=== PATIENT | female | born 1945 | race Caucasian/White ===

== ENCOUNTER 2017-07-19 14:20 | Emergency (ER) | payer MEDICARE, OTHER, SELFPAY ==
[2017-07-19 14:26] VITALS: BP 141/60; PULSE 98; RESP 22; TEMP 36.7; O2SAT 97
--- NOTE | 2017-07-19 14:30 | ED_ITS ---
HPI - Chest Pain General Chief Complaint: Chest Pain Stated Complaint: afib Time Seen by Provider: 07/19/17 14:30 Source: patient Mode of arrival: ambulatory Limitations: no limitations History of Present Illness HPI narrative: 72-year-old female here for evaluation of palpitations. Patient states that she has had these in the past. Was admitted to [facility] for these over the weekend. Had a exercise stress test and observed and also had an echocardiogram during this stay. She states that she was told everything was okay. Was discharged home. Was not given any medications. She states that she was admitted because she was having symptoms of lightheadedness and intermittent chest pain. Patient states that she has been on atenolol many years ago for similar symptoms. Is not currently on this medication. Related Data Home Medications Medication Instructions Recorded Confirmed albuterol sulfate [Ventolin HFA] 2 puff INH Q4HP PRN #0 10/27/16 07/15/17 aspirin 81 mg PO QDAY #0 10/27/16 07/15/17 cholecalciferol (vitamin D3) 2,000 unit PO QDAY #0 10/27/16 07/15/17 [Vitamin D3] estradiol [Estrace] 0 gm VAGINAL HS #0 10/27/16 07/15/17 fluticasone 1 spray INTRANASAL QDAY #0 10/27/16 07/15/17 multivitamin [Multiple Vitamins] 1 tab PO QDAY #0 10/27/16 07/15/17 omeprazole 40 mg PO QDAY #0 10/27/16 07/15/17 ranitidine HCl [Zantac] 300 mg PO QDAY #0 10/27/16 07/15/17 sodium chloride [Destiny 128] 1 melissa OPHTH #0 10/27/16 07/15/17 rosuvastatin [Crestor] #0 12/08/16 07/15/17 Previous Rx's Medication Instructions Recorded losartan 25 mg PO QDAY #90 tab 12/19/16 budesonide [Pulmicort Flexhaler] 1 puff INH BID #1 inh 06/12/17 atenolol 25 mg PO DAILY #30 tab 07/19/17 Allergies Allergy/AdvReac Type Severity Reaction Status Date / Time bupropion [From WELLBUTRIN] Allergy Unknown Verified 07/15/17 18:47 erythromycin base Allergy Unknown Verified 07/15/17 18:47 [ERYTHROMYCIN BASE] latex [LATEX] Allergy Unknown Verified 07/15/17 18:47 lisinopril [LISINOPRIL] Allergy Unknown Verified 07/15/17 18:47 meperidine [From DEMEROL] Allergy Unknown Verified 07/15/17 18:47 Review of Systems Constitutional Denies chills, Denies fever(s), Denies lethargy and Denies weakness Cardiovascular Reports chest pain, Denies diaphoresis, Denies syncope, Denies edema, Reports irregular heart rhythm, Denies leg edema, Reports lightheadedness, Reports palpitations, Denies dyspnea, Denies dyspnea on exertion and Denies orthopnea Respiratory Denies cough, Denies dyspnea, Denies dyspnea on exertion and Denies wheezing Gastrointestinal Gastrointestinal: Denies abdominal pain, Denies change in bowel habits, Denies diarrhea, Denies nausea and Denies vomiting Musculoskeletal Denies back pain, Denies muscle weakness, Denies numbness and Denies tingling Integumentary/Breasts Denies pruritus, Denies erythema, Denies rash and Denies wounds Neurologic Denies syncope, Denies numbness, Denies tingling and Denies weakness Endocrine Reports palpitations Hematologic/Lymphatic Denies easy bruising Allergic/Immunologic Denies wheezing [facility] Surgical History History of cataract removal with insertion of prosthetic lens History of esophagogastroduodenoscopy (EGD) History of knee replacement Status post colonoscopy Status post hysterectomy Status post laparoscopic cholecystectomy Social History Smoking Status: Former smoker Exam Initial Vital Signs Initial Vital Signs: Vital Signs Temperature 98.1 F 07/19/17 14:26 Pulse Rate 98 H 07/19/17 14:26 Respiratory Rate 22 07/19/17 14:26 Blood Pressure 141/60 H 07/19/17 14:26 Pulse Oximetry 97 07/19/17 14:26 Chest Chest: normal inspection of the chest Resp Effort & Inspection: normal respiratory effort, able to speak in complete sentences, no respiratory distress and no use of accessory muscles Auscultation: clear to auscultation bilaterally, no rales, no rhonchi and no wheezes Cardio Rate: regular rate Rhythm: regular rhythm Heart Sounds: no click, no gallops, no murmurs and no rubs Pulses: normal peripheral pulses GI Inspection: non-distended Palpation: soft, no hepatosplenomegaly, No guarding, No pulsatile mass and No tender Skin General: no rashes or lesions noted, No jaundice and No petechiae Neuro General: alert, oriented x3, gait normal and no focal motor deficits Speech: speech normal Motor: strength 5/5 throughout Sensory Exam: no sensory deficits noted Extrem General: normal to inspection, full ROM and capillary refill normal Course Orders Ordered: ED Orders 07/19/17 14:23 EKG-12 Lead Stat 07/19/17 14:41 XR chest 1V Stat 07/19/17 14:43 Complete Blood Count AUTO DIFF Stat Comprehensive Metabolic Panel Stat Lipase Stat Discontinued Medications Atenolol (Tenormin) 25 mg PO NOW ONE Stop: 07/19/17 15:29 Vital Signs - 8 hr 07/19/17 14:26 Temperature 98.1 F Pulse Rate 98 H Respiratory Rate 22 Blood Pressure 141/60 H Pulse Oximetry 97 MDM - Chest Pain Lab Data Attestation: I reviewed the patient's lab results. Result diagrams: 07/19/17 14:43 07/19/17 14:43 Lab Results 07/19/17 07/19/17 Range/Units 14:43 14:43 WBC 16.3 H (4.5-11.0) X10^3/uL RBC 4.49 (4.0-5.2) X10^6/uL Hgb 12.2 (12.0-16.0) g/dL Hct 37.0 (36-46) % MCV 82.3 (80-100) fL MCH 27.1 (26-34) PG MCHC 32.9 (30-36) % RDW 15.2 H (11.6-14.8) % Plt Count 285 (150-400) X10^3/uL Neut % (Auto) 62.8 (50-75) % Lymph % (Auto) 26.1 (25-40) % Gates % (Auto) 8.2 (3-14) % Eos % (Auto) 1.7 L (2-4) % Baso % (Auto) 1.2 (0-2) % Neut # (Auto) 13128 H (7275-4310) /uL Sodium 138 (137-145) mmol/L Potassium 3.7 (3.4-5.1) mmol/L Chloride 102.0 (98-107) mmol/L Carbon Dioxide 23.0 (22-32) mmol/L BUN 15.0 (7-17) mg/dL Creatinine 0.70 (0.52-1.04) mg/dL Estimated GFR > 60.0 (>60) mL/min BUN/Creatinine Ratio 21.4 (6-22) Glucose 139 H (80-110) mg/dL Calcium 9.3 (8.4-10.2) mg/dL Total Bilirubin 0.6 (0.2-1.3) mg/dL AST 23 (14-36) IU/L ALT 25 (9-52) IU/L Alkaline Phosphatase 101 (38-126) U/L Total Protein 8.0 (6.3-8.2) g/dL Albumin 4.3 (3.5-5.0) g/dL Globulin 3.7 (1.7-4.1) g/dL Albumin/Globulin Ratio 1.2 (1.0-2.8) Lipase 87 (23-300) U/L Imaging Data Chest x-ray: Attestation: I personally reviewed and interpreted this imaging study as follows: My impression: No pneumothorax Normal size heart No pneumonia ECG Data Attestation: I personally reviewed and interpreted this ECG as follows: Prior ECG tracings: not available for review Interpretation: Time 1423 hr Sinus rhythm Ventricular rate in 97 Normal axis Normal intervals Normal QRS Normal QTC No ST T wave changes MDM Narrative Medical decision making narrative: Patient had 1 episode of symptoms while here in the emergency department. Review of the rhythm strip during that time shows a sinus rhythm. EKG is unremarkable today. Had an extensive workup within the past 48 hr for her symptoms. I was able to review her echocardiogram which was unremarkable and exercise stress test which was also unremarkable. Patient is here because she continues to be symptomatic when she is having her symptoms. She describes the symptoms as ?trigeminy ?discussed options with patient to include holding on any medications until she sees her primary doctor or helpdesk administrator or starting her back on atenolol which she had been on in the past. She states she would like to start on medications. She was given a 1st dose of atenolol here in the emergency department. She was given risks with regard to this medication. She was given return precautions. She is going to call the helpdesk administrator tomorrow for a follow-up. She expressed understanding and agreement with plan Discharge Plan Departure Patient Disposition: Home, Self-Care Clinical Impression: Heart palpitations Instructions: DI for Palpitations Activity Restrictions/Additional Instructions: Take all of your medication as instructed. Call the helpdesk administrator office tomorrow to discuss follow-up. Return to the emergency department for any new or worsening symptoms Prescriptions: New atenolol 25 mg tablet 25 mg PO DAILY Qty: 30 RF: 0 No Action aspirin 81 MG tablet,chewable 81 mg PO QDAY Qty: 0 RF: 0 multivitamin [Multiple Vitamins] 1 EACH tablet 1 tab PO QDAY Qty: 0 RF: 0 ranitidine HCl [Zantac] 300 MG tablet 300 mg PO QDAY Qty: 0 RF: 0 omeprazole 40 MG capsule,delayed release(DR/EC) 40 mg PO QDAY Qty: 0 RF: 0 albuterol sulfate [Ventolin HFA] 90 MCG/PUFF HFA aerosol inhaler 2 puff INH Q4HP PRNQty: 0 RF: 0 fluticasone 16 GM spray,suspension 1 spray Intranasal QDAY Qty: 0 RF: 0 cholecalciferol (vitamin D3) [Vitamin D3] 2,000 UNIT capsule 2,000 unit PO QDAY Qty: 0 RF: 0 sodium chloride [Destiny 128] 3.5 GM ointment 1 melissa OPHTH Qty: 0 RF: 0 estradiol [Estrace] 0.01 % cream Vaginal HS Qty: 0 RF: 0 rosuvastatin [Crestor] 5 MG tablet Qty: 0 RF: 0 losartan 25 MG tablet 25 mg PO QDAY Qty: 90 RF: 3 budesonide [Pulmicort Flexhaler] 180 MCG aerosol powdr breath activated 1 puff INH BID Qty: 1 RF: 10
--- NOTE | 2017-07-19 14:41 | DI.RAD.S_ITS ---
PROCEDURE: XR CHEST 1V INDICATIONS: Palpitations TECHNIQUE: One view of the chest was acquired. COMPARISON: [facility], CR, XR CHEST 1VW (PORTABLE), 02/09/2016, 11:52. FINDINGS: Surgical changes and devices: None. Lungs and pleura: No pleural effusions or pneumothorax. Lungs are clear. Mediastinum: Mediastinal contours appear normal. Heart size is normal. Bones and chest wall: No suspicious bony lesions. Overlying soft tissues appear unremarkable. IMPRESSION: 1. No acute cardiopulmonary disease. Dictated by: Jama Choudhary M.D. on 07/19/2017 at 15:55 Approved by: Jama Choudhary M.D. on 07/19/2017 at 15:55
[2017-07-19 14:50] LABS: Add Manual Diff / Slide Review NO; Basophils Percent Auto 1.2 % (0-2); Eosinophils Percent Auto 1.7 % (2-4); Hemoglobin 12.2 g/dL (12.0-16.0); Lymphocytes Percent Auto 26.1 % (25-40); Mean Corpuscular HGB Conc 32.9 % (30-36); Mean Corpuscular Hemoglobin 27.1 PG (26-34); Mean Corpuscular Volume 82.3 fL (80-100); Monocytes Percent Auto 8.2 % (3-14); Neutrophils Absolute Auto 10200 /uL (3000-5900); Neutrophils Percent Auto 62.8 % (50-75); Platelet Count 285 X10^3/uL (150-400); Red Blood Cell Count 4.49 X10^6/uL (4.0-5.2); Red Cell Distribution Width 15.2 % (11.6-14.8); White Blood Cell Count 16.3 X10^3/uL (4.5-11.0)
[2017-07-19 14:52] LABS: Alanine Aminotransferase 25 IU/L (9-52); Albumin 4.3 g/dL (3.5-5.0); Albumin Globulin Ratio 1.2 (1.0-2.8); Alkaline Phosphatase 101 U/L (38-126); Aspartate Aminotransferase 23 IU/L (14-36); BUN Creatinine Ratio 21.4 (6-22); Bilirubin Total 0.6 mg/dL (0.2-1.3); Calcium 9.3 mg/dL (8.4-10.2); Estimated Glomerular Filt Rate > 60.0 mL/min (>60); Globulin 3.7 g/dL (1.7-4.1); Glucose 139 mg/dL (80-110); HEMOLYSIS 26 (0-50); Lipase 87 U/L (23-300); Potassium 3.7 mmol/L (3.4-5.1); Sodium 138 mmol/L (137-145)
[2017-07-19] MEDS: ATENOLOL 25 MG TABLET PO (15:37)
[2017-07-19 15:56] VITALS: BP 150/58; PULSE 95; RESP 14; O2SAT 98
[2017-07-19 16:23] VITALS: BP 155/67; PULSE 75; RESP 15; O2SAT 98
== END 2017-07-19 16:25 | disposition home or self-care (01) ==
PROVIDERS: Emergency Provider Emergency Medicine; Family Provider Physician Assistant; PCP Family Medicine
DX: R00.2 Palpitations (principal)
CPT/HCPCS: 36591; 71045; 80053; 83690; 85025; 93005; 93041; 99283; 99285

== ENCOUNTER 2017-07-20 20:00 | Emergency (ER) | payer MEDICARE, OTHER, SELFPAY ==
[2017-07-20 20:12] VITALS: BP 118/80; PULSE 85; RESP 16; O2SAT 99
[2017-07-20 20:57] LABS: Add Manual Diff / Slide Review NO; Basophils Percent Auto 1.5 % (0-2); Eosinophils Percent Auto 2.2 % (2-4); Hematocrit 37.1 % (36-46); Lymphocytes Percent Auto 32.4 % (25-40); Mean Corpuscular HGB Conc 32.3 % (30-36); Mean Corpuscular Hemoglobin 26.8 PG (26-34); Mean Corpuscular Volume 83.1 fL (80-100); Monocytes Percent Auto 8.3 % (3-14); Neutrophils Absolute Auto 7700 /uL (3000-5900); Neutrophils Percent Auto 55.6 % (50-75); Platelet Count 363 X10^3/uL (150-400); Red Blood Cell Count 4.47 X10^6/uL (4.0-5.2); White Blood Cell Count 13.9 X10^3/uL (4.5-11.0)
[2017-07-20] MEDS: SODIUM CHLORIDE 0.9% 1,000 ML 1000 ML IV (21:02)
[2017-07-20] MEDS: MAGNESIUM SULFATE 2 GM/50 ML PIGGYBACK IV (21:02)
[2017-07-20 21:03] LABS: BUN Creatinine Ratio 21.3 (6-22); Calcium 9.5 mg/dL (8.4-10.2); Estimated Glomerular Filt Rate > 60.0 mL/min (>60); Glucose 138 mg/dL (80-110); Magnesium 1.8 mg/dL (1.6-2.3); Sodium 139 mmol/L (137-145)
[2017-07-20 21:04] LABS: HEMOLYSIS 108 (0-50)
[2017-07-20 21:24] LABS: Free T4, Direct Thyroxine 1.07 ng/dL (0.78-2.19)
[2017-07-20 21:57] VITALS: BP 120/64; PULSE 84; RESP 17; O2SAT 98
--- NOTE | 2017-07-20 22:25 | ED_ITS ---
HPI - Arrhythmia/Palpitations General Chief Complaint: Arrhythmia/Palpitations Stated Complaint: Palpitations Time Seen by Provider: 07/20/17 20:03 History of Present Illness HPI narrative: HPI 72-year-old female presents for repeat evaluation of palpitations. Patient notes that when her palpitations are prominent she has mild lightheadedness/ shortness of breath on ambulation. Patient was evaluated at [facility] over the preceding weekend with a reportedly negative stress test an echocardiogram. She was evaluated in this emergency department yesterday and noted to be and bigeminy with PACs. She is now on a low-dose of atenolol. Patient is frustrated about the persistent palpitations and would like to have them stopped. Denies chest pain, shortness breath. M/S/F/SocHx notable for: knee replacement, historically, cholecystectomy cataract removal with prosthetic lens insertion; remainder reviewed with patient and in chart. ROS: Negative constitutional, eye, cardiovascular, pulmonary, GI, , MSK, skin , neurologic, psychiatric, endocrine unless noted in the HPI. Exam Gen: Pleasant, non-toxic appearing, resting comfortably. HEENT: NC, AT, PEERL, EOMI. Resp: Clear to auscultation bilaterally, normal work of breathing, no accessory muscle usage. Card: Regular rate, no murmurs rubs or gallops, extremities warm and well perfused. GI: Non-tender to palpation throughout all quadrants, no focal tenderness at McBurney's point, negative Keller's sign, non-distended, no rebound or guarding. : No suprapubic tenderness to palpation. MSK: No visible deformities, strength and tone without visually appreciable deficit. Skin: Normal color with no visible lesions. Neuro: AO x 3, no facial asymmetry, vision and hearing WNL. Psych: Mood and affect appropriate. Labs / Imaging: EKG: SR at 80 bpm with PACs and bigeminy, no ST segment elevations or depressions, no LBBB. WBC 13.9, hemoglobin 12.0, sodium 139, potassium hemolyzed, magnesium 1.8, TSH 3.10, free T4 1.07 MDM Previous chart, nursing note, labs, imaging, and vitals reviewed. A: 72-year-old female presents for repeat evaluation of palpitations. Patient notes that when her palpitations are prominent she has mild lightheadedness/ shortness of breath on ambulation. Evaluation: patient with ongoing PACs in a bigeminy pattern. Patient has stable blood pressure, well perfused, no evidence of end organ dysfunction. Reassuringly the patient has had a recent negative cardiac evaluation including a stress test and an echo. The patient was ambulated throughout the emergency department without developing symptomatology. While an appropriate physiologic tachycardia the patient reverted to a sinus rhythm, while resting she returned to bigeminy with PACs and noted a resumption of her palpitations. Rounding out labs with the addition of magnesium and thyroid studies, these are within normal limits. While the patient's potassium was hemolyzed today it has been within normal limits on all prior studies including labs yesterday. The patient is a nonspecific leukocytosis which is downtrending and she is without signs of infection. The patient was given normal saline and 2 g magnesium without significant change. Patient was discharged with reassurance and cardiology follow-up as previously scheduled. Impression: PACs (please reference below for remainder of encounter information) Related Data Home Medications Medication Instructions Recorded Confirmed albuterol sulfate [Ventolin HFA] 2 puff INH Q4HP PRN #0 10/27/16 07/15/17 aspirin 81 mg PO QDAY #0 10/27/16 07/15/17 cholecalciferol (vitamin D3) 2,000 unit PO QDAY #0 10/27/16 07/15/17 [Vitamin D3] estradiol [Estrace] 0 gm VAGINAL HS #0 10/27/16 07/15/17 fluticasone 1 spray INTRANASAL QDAY #0 10/27/16 07/15/17 multivitamin [Multiple Vitamins] 1 tab PO QDAY #0 10/27/16 07/15/17 omeprazole 40 mg PO QDAY #0 10/27/16 07/15/17 ranitidine HCl [Zantac] 300 mg PO QDAY #0 10/27/16 07/15/17 sodium chloride [Destiny 128] 1 melissa OPHTH #0 10/27/16 07/15/17 rosuvastatin [Crestor] #0 12/08/16 07/15/17 Previous Rx's Medication Instructions Recorded losartan 25 mg PO QDAY #90 tab 12/19/16 budesonide [Pulmicort Flexhaler] 1 puff INH BID #1 inh 06/12/17 atenolol 25 mg PO DAILY #30 tab 07/19/17 Allergies Allergy/AdvReac Type Severity Reaction Status Date / Time bupropion [From WELLBUTRIN] Allergy Unknown Verified 07/15/17 18:47 erythromycin base Allergy Unknown Verified 07/15/17 18:47 [ERYTHROMYCIN BASE] latex [LATEX] Allergy Unknown Verified 07/15/17 18:47 lisinopril [LISINOPRIL] Allergy Unknown Verified 07/15/17 18:47 meperidine [From DEMEROL] Allergy Unknown Verified 07/15/17 18:47 [facility] Social History Smoking Status: Former smoker Exam Initial Vital Signs Initial Vital Signs: Vital Signs Pulse Rate 85 07/20/17 20:12 Respiratory Rate 16 07/20/17 20:12 Blood Pressure 118/80 07/20/17 20:12 Pulse Oximetry 99 07/20/17 20:12 Course Orders Ordered: ED Orders 07/20/17 19:50 Basic Metabolic Panel Stat Complete Blood Count AUTO DIFF Stat Free T4 Free Thyroxine Stat Magnesium Stat Thyroid Stimulating Hormone Stat Magnesium Sulfate (Magnesium Sulfate) 2 gm in 50 mls @ 25 mls/hr IV NOW ONE Stop: 07/20/17 22:47 Last Admin: 07/20/17 21:02 Dose: 25 mls/hr Discontinued Medications Sodium Chloride (Normal Saline 0.9%) 1,000 mls @ 1,000 mls/hr IV BOLUS ONE Stop: 07/20/17 21:46 Last Admin: 07/20/17 21:02 Dose: 1,000 mls/hr Vital Signs - 8 hr 07/20/17 20:12 07/20/17 21:57 Pulse Rate 85 84 Respiratory Rate 16 17 Blood Pressure 118/80 Blood Pressure [Left Arm] 120/64 Pulse Oximetry 99 98 MDM - Arrhythmia/Palpitations Lab Data Result diagrams: 07/20/17 19:50 07/20/17 19:50 Lab Results 07/20/17 07/20/17 07/20/17 Range/Units 19:50 19:50 19:50 WBC 13.9 H (4.5-11.0) X10^3/uL RBC 4.47 (4.0-5.2) X10^6/uL Hgb 12.0 (12.0-16.0) g/dL Hct 37.1 (36-46) % MCV 83.1 (80-100) fL MCH 26.8 (26-34) PG MCHC 32.3 (30-36) % RDW 15.0 H (11.6-14.8) % Plt Count 363 (150-400) X10^3/uL Neut % (Auto) 55.6 (50-75) % Lymph % (Auto) 32.4 (25-40) % [place] % (Auto) 8.3 (3-14) % Eos % (Auto) 2.2 (2-4) % Baso % (Auto) 1.5 (0-2) % Neut # (Auto) 7700 H (7020-8107) /uL Sodium 139 (137-145) mmol/L Potassium TNP Chloride 102.0 (98-107) mmol/L Carbon Dioxide 24.0 (22-32) mmol/L BUN 17.0 (7-17) mg/dL Creatinine 0.80 (0.52-1.04) mg/dL Estimated GFR > 60.0 (>60) mL/min BUN/Creatinine Ratio 21.3 (6-22) Glucose 138 H (80-110) mg/dL Calcium 9.5 (8.4-10.2) mg/dL Magnesium 1.8 (1.6-2.3) mg/dL TSH 3.10 (0.47-4.68) uIU/mL Free T4 1.07 (0.78-2.19) ng/dL Discharge Plan Departure Prescriptions: No Action aspirin 81 MG tablet,chewable 81 mg PO QDAY Qty: 0 RF: 0 multivitamin [Multiple Vitamins] 1 EACH tablet 1 tab PO QDAY Qty: 0 RF: 0 ranitidine HCl [Zantac] 300 MG tablet 300 mg PO QDAY Qty: 0 RF: 0 omeprazole 40 MG capsule,delayed release(DR/EC) 40 mg PO QDAY Qty: 0 RF: 0 albuterol sulfate [Ventolin HFA] 90 MCG/PUFF HFA aerosol inhaler 2 puff INH Q4HP PRNQty: 0 RF: 0 fluticasone 16 GM spray,suspension 1 spray Intranasal QDAY Qty: 0 RF: 0 cholecalciferol (vitamin D3) [Vitamin D3] 2,000 UNIT capsule 2,000 unit PO QDAY Qty: 0 RF: 0 sodium chloride [Destiny 128] 3.5 GM ointment 1 melissa OPHTH Qty: 0 RF: 0 estradiol [Estrace] 0.01 % cream Vaginal HS Qty: 0 RF: 0 rosuvastatin [Crestor] 5 MG tablet Qty: 0 RF: 0 losartan 25 MG tablet 25 mg PO QDAY Qty: 90 RF: 3 budesonide [Pulmicort Flexhaler] 180 MCG aerosol powdr breath activated 1 puff INH BID Qty: 1 RF: 10 atenolol 25 mg tablet 25 mg PO DAILY Qty: 30 RF: 0
[2017-07-20 23:22] VITALS: BP 110/52; PULSE 84; RESP 18; TEMP 36.8; O2SAT 98
== END 2017-07-20 23:23 | disposition home or self-care (01) ==
PROVIDERS: Emergency Provider Emergency Medicine; Family Provider Physician Assistant; PCP Family Medicine
DX: I49.1 Atrial premature depolarization (principal)
CPT/HCPCS: 80048; 83735; 84439; 84443; 85025; 93005; 96361; 96365; 96366; 99282; 99284

== ENCOUNTER → 2017-11-04 08:21 | Outpatient (CLI) | payer MEDICARE, OTHER, SELFPAY ==
[2017-11-04 09:41] LABS: Hemoglobin A1C% w Est Avg Glu 6.8 % (4.0-6.0)
[2017-11-04 10:09] LABS: Creatinine Urine Random 83.8 mg/dL
[2017-11-04 10:12] LABS: Alanine Aminotransferase 25 IU/L (9-52); Albumin 3.8 g/dL (3.5-5.0); Albumin Globulin Ratio 1.3 (1.0-2.8); Alkaline Phosphatase 80 U/L (38-126); Aspartate Aminotransferase 16 IU/L (14-36); BUN Creatinine Ratio 13.3 (6-22); Bilirubin Total 0.3 mg/dL (0.2-1.3); Blood Urea Nitrogen 12 mg/dL (7-17); Calcium 9.2 mg/dL (8.4-10.2); Carbon Dioxide 30 mmol/L (22-32); Chloride 104 mmol/L (98-107); Cholesterol 169 mg/dL (140-199); Estimated Glomerular Filt Rate > 60.0 mL/min (>60); Globulin 2.9 g/dL (1.7-4.1); Glucose 161 mg/dL (80-110); HDL Cholesterol 60 mg/dL (40-60); HEMOLYSIS < 15 (0-50); LDL Cholesterol Calculated 74 mg/dL (<100); Potassium 4.6 mmol/L (3.4-5.1); Sodium 144 mmol/L (137-145); Total Protein 6.7 g/dL (6.3-8.2); Triglycerides 174 mg/dL (35-150)
[2017-11-04 10:13] LABS: Microalbumi Creatinin Ratio Ur 65.6 ug/mg CR (<30); Microalbumin Urine Random 5.5 mg/dL (0-1.6)
== END ==
PROVIDERS: PCP Family Medicine; Visit Provider Family Medicine
DX: E78.5 Hyperlipidemia, unspecified (principal); I10 Essential (primary) hypertension; E66.9 Obesity, unspecified; E11.9 Type 2 diabetes mellitus without complications
CPT/HCPCS: 36415; 80053; 80061; 82043; 82570; 83036

== ENCOUNTER → 2017-11-30 12:14 | Outpatient (CLI) | payer MEDICARE, OTHER, SELFPAY ==
[2017-11-30 13:00] LABS: Hemoglobin A1C% w Est Avg Glu 6.6 % (4.0-6.0)
== END ==
PROVIDERS: Family Provider Physician Assistant; PCP Family Medicine; Visit Provider Internal Medicine Cardiovascular Disease
DX: I10 Essential (primary) hypertension (principal); E11.9 Type 2 diabetes mellitus without complications
CPT/HCPCS: 36415; 83036

== ENCOUNTER → 2017-12-01 13:43 | Outpatient (CLI) | payer MEDICARE, OTHER, SELFPAY ==
[2017-12-01 15:05] LABS: BUN Creatinine Ratio 16.3 (6-22); Blood Urea Nitrogen 13 mg/dL (7-17); Calcium 9.5 mg/dL (8.4-10.2); Carbon Dioxide 28 mmol/L (22-32); Chloride 103 mmol/L (98-107); Estimated Glomerular Filt Rate > 60.0 mL/min (>60); Glucose 102 mg/dL (80-110); HEMOLYSIS < 15 (0-50); Potassium 4.1 mmol/L (3.4-5.1); Sodium 141 mmol/L (137-145)
== END ==
PROVIDERS: PCP Family Medicine; Visit Provider Internal Medicine Cardiovascular Disease
DX: I10 Essential (primary) hypertension (principal)
CPT/HCPCS: 36415; 80048

== ENCOUNTER → 2018-02-01 07:57 | Outpatient (CLI) | payer MEDICARE, OTHER, SELFPAY ==
[2018-02-01 09:06] LABS: Hemoglobin A1C% w Est Avg Glu 6.7 % (4.0-6.0)
== END ==
PROVIDERS: PCP Family Medicine; Visit Provider Family Medicine
DX: E11.9 Type 2 diabetes mellitus without complications (principal)
CPT/HCPCS: 36415; 83036

== ENCOUNTER → 2018-02-15 13:04 | Outpatient (CLI) | payer MEDICARE, OTHER, SELFPAY ==
--- NOTE | 2018-02-15 13:06 | DI.RAD.S_ITS ---
PROCEDURE: XR HIP W PEL IF DONE LT MIN 4V INDICATIONS: RIGHT hip pain TECHNIQUE: AP pelvis with lateral view(s) of the right and left hip(s). COMPARISON: [facility], , ABDOMEN 1 VIEW, 09/30/2016, 10:38. FINDINGS: Bones: No fractures or dislocations. Pelvic ring appears intact. No suspicious bony lesions. Mild to moderate bilateral hip joint degeneration probably unchanged since 09/30/16. Lower lumbar degenerative disc disease. Soft tissues: The visualized bowel gas pattern is normal. Nonspecific left-sided pelvic ossification appears grossly unchanged. There are scattered vascular calcifications. IMPRESSION: Mild to moderate bilateral hip joint degeneration. No interval change. Lower lumbar discogenic changes. Dictated by: Hansel Guerra M.D. on 02/15/2018 at 14:44 Approved by: Hansel Guerra M.D. on 02/15/2018 at 14:47
== END ==
PROVIDERS: PCP Family Medicine; Visit Provider Physician Assistant
DX: M25.551 Pain in right hip (principal); M16.0 Bilateral primary osteoarthritis of hip; M51.36 Other intervertebral disc degeneration, lumbar region
CPT/HCPCS: 73522

== ENCOUNTER → 2018-05-09 12:42 | Outpatient (CLI) | payer MEDICARE, OTHER, SELFPAY ==
[2018-05-09 13:08] LABS: Influenza A and B by PCR Rapid Negative (Negative)
--- NOTE | 2018-05-09 13:27 | DI.RAD.S_ITS ---
PROCEDURE: XR CHEST 2V INDICATIONS: R/O PNA TECHNIQUE: 2 views of the chest were acquired. COMPARISON: [facility], CR, CHEST 2VW, 01/31/2016, 9:15 AM. [facility], CT, CHEST ANGIO-PE, 06/24/2013, 22:19. [facility], CR, XR CHEST 1V, 07/19/2017, 14:57. FINDINGS: Surgical changes and devices: Question right upper lobe pulmonary nodule. Lungs and pleura: Lungs are clear. No pleural effusions or pneumothorax. Mediastinum: Mediastinal contours are normal. Heart size is normal. Bones and chest wall: No suspicious bony abnormalities. Soft tissues appear unremarkable. IMPRESSION: 1. No evidence of pneumonia. 2. Question right upper lobe pulmonary nodule. Comment: Chest CT is suggested. The on-call physician has been paged by the referring practice's paging welding machine operator regarding this patient. Dictated by: Chuy Lee M.D. on 05/09/2018 at 14:25 Approved by: Chuy Lee M.D. on 05/09/2018 at 14:33
== END ==
PROVIDERS: PCP Family Medicine; Visit Provider Physician Assistant
DX: J45.901 Unspecified asthma with (acute) exacerbation (principal); R50.9 Fever, unspecified
CPT/HCPCS: 71046; 87400

== ENCOUNTER → 2018-05-11 13:39 | Outpatient (CLI) | payer MEDICARE, OTHER, SELFPAY | PROVIDERS: PCP Family Medicine; Visit Provider Physician Assistant | DX: N39.0 Urinary tract infection, site not specified (principal) | CPT/HCPCS: 87077; 87086; 87186 ==

== ENCOUNTER → 2018-06-10 16:24 | Outpatient (CLI) | payer MEDICARE, OTHER, SELFPAY ==
[2018-06-10 16:30] LABS: RBC Urine None Seen (0-5/HPF)
[2018-06-10 17:05] LABS: Appearance Urine UA CLEAR; Bilirubin Urine UA NEGATIVE (NEGATIVE); Color Urine UA YELLOW; Glucose Urine UA NEGATIVE (Negative); Ketones Urine UA TRACE (NEGATIVE); Leukocyte Esterase Urine UA TRACE (NEGATIVE); Nitrite Urine UA NEGATIVE (Negative); Occult Blood Urine UA NEGATIVE (Negative); Protein Urine UA 1+ (Negative); Specific Gravity Urine UA 1.025 (1.000-1.035); Urobilinogen Urine UA 0.2 E.U./dL (0.2)
[2018-06-10 17:20] LABS: Amorphous Sediment Urine 1+; Squamous Epithelial Cell Urine 1-5 /HPF (0-5/HPF); WBC Urine 30-100/HPF (0-5/HPF)
[2018-06-10 17:21] LABS: Bacteria Urine Many (>30); Culture Indicated Urine Specimen Cultured; Granular Casts Urine 0-1/LPF; Hyaline Casts Urine 1-5/LPF; Mucus Urine 1+ (Negative)
== END ==
PROVIDERS: PCP Family Medicine; Visit Provider Family Medicine
DX: R30.0 Dysuria (principal)
CPT/HCPCS: 81001; 87077; 87086; 87186

== ENCOUNTER → 2018-06-19 11:25 | Outpatient (CLI) | payer MEDICARE, OTHER, SELFPAY | PROVIDERS: PCP Family Medicine; Visit Provider Physician Assistant | DX: R30.0 Dysuria (principal) | CPT/HCPCS: 87077; 87086; 87186 ==

== ENCOUNTER → 2018-06-30 09:09 | Outpatient (CLI) | payer MEDICARE, OTHER, SELFPAY | PROVIDERS: PCP Family Medicine; Visit Provider Family Medicine | DX: N39.0 Urinary tract infection, site not specified (principal) | CPT/HCPCS: 87086 ==

== ENCOUNTER → 2018-07-19 08:42 | Outpatient (CLI) | payer MEDICARE, OTHER, SELFPAY ==
--- NOTE | 2018-07-19 08:47 | DI.CT.S_ITS ---
PROCEDURE: CT KIDNEY URETER BLADDER (KUB) INDICATIONS: KIDNEY STONE, RIGHT FLANK PAIN TECHNIQUE: Noncontrast 5 mm thick sections acquired from the diaphragms to the symphysis. 5 mm thick coronal and sagittal reformats were then performed. For radiation dose reduction, the following was used: automated exposure control, adjustment of mA and/or kV according to patient size. COMPARISON: [facility], CT, KIDNEY/ URETER/BLADDER, 10/23/2016, 20:46. FINDINGS: Image quality: Excellent. Lung bases: Lung bases are clear. Heart size is normal. Small hiatal hernia Urinary system: Both kidneys are normal in size. No kidney stones. No hydronephrosis. There is mild chronic appearing bilateral perinephric fat stranding. Both ureters appear non-dilated throughout their expected courses. On image 76 series 2 there is punctate hyperdensity seen in the region of the right ureter although this may be extraluminal given the absence of periureteral inflammatory changes or dilatation. Bladder wall thickness is normal; no calcified bladder stones. Other solid organs: Liver is normal in size. Gallbladder surgically absent. Pancreas is normal in contours. Spleen is normal in size. No adrenal nodules. Peritoneum and bowel: Unenhanced bowel loops demonstrate normal wall thickness and caliber. No free fluid or air. Colonic diverticulosis is seen without evidence of acute complication. Appendix is not clearly identified however no suspicious pericecal inflammatory changes are identified Nodes and vessels: No retroperitoneal or mesenteric adenopathy by size criteria. Aorta and inferior vena cava are normal in caliber. Abdominal wall: No ventral hernias. Pelvis: No free pelvic fluid. No inguinal hernias or adenopathy. Bones: No suspicious bony lesions. No vertebral body compression fractures. Grade 1 anterolisthesis of L4 and L5. IMPRESSION: No definite urolithiasis. Subtle punctate hyperdensity seen in the region of the right ureter as detailed above although this could be extraluminal given the absence of inflammatory changes. No evidence of urinary obstruction. Small hiatal hernia. Dictated by: Hansel Guerra M.D. on 07/19/2018 at 10:52 Approved by: Hansel Guerra M.D. on 07/19/2018 at 11:07
== END ==
PROVIDERS: PCP Family Medicine; Visit Provider Specialist
DX: N20.0 Calculus of kidney (principal); K44.9 Diaphragmatic hernia without obstruction or gangrene
CPT/HCPCS: 74176

== ENCOUNTER → 2018-09-01 07:13 | Outpatient (CLI) | payer MEDICARE, OTHER, SELFPAY ==
[2018-09-01 08:38] LABS: Hemoglobin A1C% w Est Avg Glu 6.2 % (4.0-6.0)
== END ==
PROVIDERS: PCP Family Medicine; Visit Provider Family Medicine
DX: E11.9 Type 2 diabetes mellitus without complications (principal); N20.0 Calculus of kidney
CPT/HCPCS: 36415; 83036

== ENCOUNTER 2018-09-06 10:46 | Emergency (ER) | payer OTHER, MEDICARE, SELFPAY ==
[2018-09-06 10:49] VITALS: BP 160/58; PULSE 70; RESP 12; TEMP 36.3; O2SAT 98
[2018-09-06] MEDS: ACETAMINOPHEN 325 MG TABLET 975 MG PO (10:56)
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
[2018-09-06 13:39] VITALS: BP 154/57; PULSE 57; RESP 16; O2SAT 100
== END 2018-09-06 13:50 | disposition home or self-care (01) ==
PROVIDERS: Emergency Provider Nurse Practitioner; PCP Family Medicine
DX: S13.4XXA Sprain of ligaments of cervical spine, initial encounter (principal); V43.02XA Car driver injured in collision with other type car in nontraffic accident, initial encounter
CPT/HCPCS: 72125; 99283; 99284

== ENCOUNTER → 2018-10-13 07:41 | Outpatient (CLI) | payer MEDICARE, OTHER, SELFPAY ==
--- NOTE | 2018-10-13 | DI.MG.S_ITS ---
BILATERAL DIGITAL SCREENING MAMMOGRAM 3D/2D WITH CAD: 10/13/2018 CLINICAL: Routine screening. Comparison is made to exams dated: 04/29/2017 mammogram - [facility], 01/23/2016 mammogram, and 11/09/2014 mammogram - [facility]. There are scattered fibroglandular elements in both breasts. Current study was also evaluated with a Computer Aided Detection (CAD) system. No significant masses, calcifications, or other findings are seen in either breast. There has been no significant interval change. IMPRESSION: NEGATIVE There is no mammographic evidence of malignancy. A 1 year screening mammogram is recommended. This exam was interpreted at Station ID: [id number]. NOTE: For mammograms, a report in lay terms will be sent to the patient. Approximately 15% of breast malignancies will not be visualized mammographically. In the management of a palpable breast mass, a negative mammogram must not discourage biopsy of a clinically suspicious lesion. Electronically Signed By: Tita mansfield/musa:10/13/2018 10:39:25 letter sent: Normal Exam ACR BI-RADS Category 1: Negative [id number]
== END ==
PROVIDERS: PCP Family Medicine; Visit Provider Family Medicine
DX: Z12.31 Encounter for screening mammogram for malignant neoplasm of breast (principal)
CPT/HCPCS: 77063; 77067

== ENCOUNTER → 2018-11-23 11:29 | Outpatient (CLI) | payer MEDICARE, OTHER, SELFPAY ==
[2018-11-23 13:08] LABS: B Type Natriuretic Peptide < 100 (<100)
[2018-11-23 13:10] LABS: Add Manual Diff / Slide Review NO; Basophils Absolute Auto 100 /uL (0-100); Basophils Percent Auto 1.5 % (0-2); Eosinophils Absolute Auto 300 /uL (0-450); Eosinophils Percent Auto 2.6 % (2-4); Hematocrit 26.3 % (36-46); Hemoglobin 8.1 g/dL (12.0-16.0); Lymphocytes Absolute Auto 3000 /uL (1100-4500); Lymphocytes Percent Auto 30.8 % (25-40); Mean Corpuscular HGB Conc 30.9 % (30-36); Mean Corpuscular Hemoglobin 20.5 PG (26-34); Mean Corpuscular Volume 66.3 fL (80-100); Monocytes Absolute Auto 700 /uL (0-900); Neutrophils Absolute Auto 5600 /uL (1500-7000); Neutrophils Percent Auto 58.1 % (50-75); Platelet Count 438 X10^3/uL (150-400); Red Blood Cell Count 3.96 X10^6/uL (4.0-5.2); Red Cell Distribution Width 19.9 % (11.6-14.8); White Blood Cell Count 9.7 X10^3/uL (4.5-11.0)
[2018-11-23 13:31] LABS: Anisocytosis 1+; Microcytosis 2+
[2018-11-23 15:04] LABS: HEMOLYSIS < 15 (0-50); Iron 25 ug/dL (37-170)
[2018-11-23 15:15] LABS: Percent Iron Saturation 6 % (15-50); Total Iron Binding Capacity 450 ug/dL (265-497); Transferrin 378 mg/dL (206-381)
== END ==
PROVIDERS: PCP Family Medicine; Visit Provider Hospitalist
DX: R06.00 Dyspnea, unspecified (principal); R06.02 Shortness of breath; D64.9 Anemia, unspecified
CPT/HCPCS: 36415; 83540; 83550; 83880; 85025

== ENCOUNTER → 2018-11-26 12:14 | Outpatient (CLI) | payer MEDICARE, OTHER, SELFPAY ==
[2018-11-26 14:34] LABS: Occult Blood 1 Negative (Negative)
[2018-11-26 14:35] LABS: Occult Blood 2 Negative (Negative); Occult Blood 3 Negative (Negative)
== END ==
PROVIDERS: PCP Family Medicine; Visit Provider Hospitalist
DX: D64.9 Anemia, unspecified (principal)
CPT/HCPCS: 82270

== ENCOUNTER → 2018-12-02 10:41 | Outpatient (CLI) | payer MEDICARE, OTHER, SELFPAY ==
[2018-12-02 12:05] LABS: Add Manual Diff / Slide Review NO; Basophils Absolute Auto 200 /uL (0-100); Basophils Percent Auto 1.8 % (0-2); Eosinophils Absolute Auto 300 /uL (0-450); Eosinophils Percent Auto 3.4 % (2-4); Hematocrit 27.7 % (36-46); Hemoglobin 8.5 g/dL (12.0-16.0); Lymphocytes Absolute Auto 2500 /uL (1100-4500); Lymphocytes Percent Auto 27.3 % (25-40); Mean Corpuscular HGB Conc 30.7 % (30-36); Mean Corpuscular Hemoglobin 20.2 PG (26-34); Mean Corpuscular Volume 66.1 fL (80-100); Monocytes Absolute Auto 700 /uL (0-900); Monocytes Percent Auto 7.2 % (3-14); Neutrophils Absolute Auto 5600 /uL (1500-7000); Neutrophils Percent Auto 60.3 % (50-75); Platelet Count 506 X10^3/uL (150-400); Red Cell Distribution Width 19.7 % (11.6-14.8); White Blood Cell Count 9.3 X10^3/uL (4.5-11.0)
[2018-12-02 12:07] LABS: Prothrombin Time 11.9 SECONDS (10.1-12.7)
[2018-12-02 12:25] LABS: HEMOLYSIS < 15 (0-50); Iron 18 ug/dL (37-170)
[2018-12-02 12:28] LABS: Alanine Aminotransferase 14 IU/L (9-52); Albumin 4.2 g/dL (3.5-5.0); Albumin Globulin Ratio 1.4 (1.0-2.8); Alkaline Phosphatase 91 U/L (38-126); Aspartate Aminotransferase 18 IU/L (14-36); BUN Creatinine Ratio 27.5 (6-22); Bilirubin Total 0.3 mg/dL (0.2-1.3); Blood Urea Nitrogen 22 mg/dL (7-17); Calcium 9.6 mg/dL (8.4-10.2); Carbon Dioxide 23 mmol/L (22-32); Chloride 102 mmol/L (98-107); Estimated Glomerular Filt Rate > 60.0 mL/min (>60); Globulin 3.1 g/dL (1.7-4.1); Glucose 96 mg/dL (80-110); HEMOLYSIS < 15 (0-50); Lactate Dehydrogenase 367 U/L (313-618); Potassium 4.2 mmol/L (3.4-5.1); Sodium 139 mmol/L (137-145); Total Protein 7.3 g/dL (6.3-8.2)
[2018-12-02 12:37] LABS: Percent Iron Saturation 4 % (15-50); Total Iron Binding Capacity 475 ug/dL (265-497); Transferrin 396 mg/dL (206-381)
[2018-12-02 12:45] LABS: Hypochromasia 2+; Microcytosis 2+
[2018-12-02 12:46] LABS: Anisocytosis 1+; Polychromasia 1+
[2018-12-02 13:02] LABS: Ferritin 8.8 ng/mL (11.1-264)
[2018-12-02 13:08] LABS: Reticulocyte Count, Percent 1.6 % (1.06-2.63)
[2018-12-02 13:32] LABS: Folate > 20.0 ng/mL (2.76-20.0); Vitamin B12 591 pg/mL (239-931)
[2018-12-04 14:56] LABS: Erythropoietin 84.4 mIU/mL (2.6-18.5)
[2018-12-04 15:26] LABS: Haptoglobin 344 mg/dL (43-212)
[2018-12-07 19:49] LABS: Hematocrit 30.6 % (35.0-45.0); Hemoglobin 8.3 g/dL (11.7-15.5); MCH 19.8 pg (27.0-33.0); RBC Total Count 4.19 Million/uL (3.80-5.10); RDW 18.7 % (11.0-15.0)
== END ==
PROVIDERS: PCP Family Medicine; Visit Provider Family Medicine
DX: D64.9 Anemia, unspecified (principal); E61.1 Iron deficiency; R06.02 Shortness of breath; E64.9 Sequelae of unspecified nutritional deficiency
CPT/HCPCS: 36415; 80053; 82607; 82668; 82728; 82746; 83010; 83021; 83540; 83550; 83615; 85014; 85018; 85025; 85041; 85045; 85610

== ENCOUNTER 2018-12-10 11:12 | Emergency (ER) | payer MEDICARE, OTHER, SELFPAY ==
[2018-12-10] VITALS (7 sets, daily range): BP systolic 97–147; BP diastolic 38–66; PULSE 68–82; RESP 12–22; TEMP 36.6; O2SAT 95–100; BMI 33.3
--- NOTE | 2018-12-10 11:25 | DI.RAD.S_ITS ---
PROCEDURE: XR CHEST 1V INDICATIONS: chest pain TECHNIQUE: One view of the chest was acquired. COMPARISON: [facility], CR, XR CHEST 2V, 05/09/2018, 14:06. [facility], CR, XR CHEST 1V, 07/19/2017, 14:57. FINDINGS: Surgical changes and devices: None. Lungs and pleura: Lungs are clear. No pleural effusions or pneumothorax. Mediastinum: Mediastinal contours appear normal. Heart size is normal. Bones and chest wall: No suspicious bony lesions. Overlying soft tissues appear unremarkable. IMPRESSION: Normal for age, source of current chest pain symptoms is not seen. Dictated by: Nii Clark M.D. on 12/10/2018 at 12:10 Approved by: Nii Clark M.D. on 12/10/2018 at 12:10
--- NOTE | 2018-12-10 11:46 | ED_ITS ---
HPI - Arrhythmia/Palpitations <Gertrudis Hernandez, LABEL PRINTING MACHINIST-BC - Last Filed: 12/10/18 20:39> General Chief Complaint: Arrhythmia/Palpitations Stated Complaint: irragular heart beat for two weeks now worsen Time Seen by Provider: 12/10/18 11:19 Source: patient Mode of arrival: Ambulatory Limitations: no limitations History of Present Illness HPI narrative: The patient is a 73-year-old female former smoker with history of with a chief complaint of worsening anemia. She has been increasingly short of breath for the past 3 weeks, lightheaded dizzy and with slight chest pressure. The patient notes that her sister has thalassemia, but she has never been tested for and has recently been unable to test for it. She denies any blood in her stool and states that she had a recent negative Hemoccult. She states that she had blood work done due to her anemia. She states that she had an iron infusion on Thursday, but is feels worse since. She denies any fevers, but does complain of nausea. She rates her chest pressure at 2 to 3/10. She has not taken anything to feel better. She states that she was hoping that her iron infusion on Thursday would help her improve, but she states that she feels worse. Related Data Home Medications Medication Instructions Recorded Confirmed multivitamin [Multiple Vitamins] 1 tab PO DAILY #0 10/27/16 12/10/18 sodium chloride [Destiny 128] 1 melissa OPHTH BEDTIME #0 10/27/16 12/10/18 flecainide 100 mg tablet 100 mg PO Q12H 11/06/17 12/10/18 hydrochlorothiazide 12.5 mg tablet 12.5 mg PO DAILY tab 05/11/18 12/10/18 rosuvastatin 5 mg tablet 2.5 mg PO DAILY #0 tab 05/11/18 12/10/18 losartan 50 mg tablet 50 mg PO DAILY 11/23/18 12/10/18 Cranberry 1,000 mg PO DAILY 12/10/18 12/10/18 Probiotic 1 cap PO DAILY 12/10/18 12/10/18 Spiriva Respimat 1 inh INHALATION DAILY 12/10/18 12/10/18 ascorbic acid (vitamin C) 1 g PO DAILY 12/10/18 12/10/18 cetirizine [Zyrtec] 5 mg PO DAILY PRN 12/10/18 12/10/18 cholecalciferol (vitamin D3) 3,000 unit PO DAILY 12/10/18 12/10/18 [Vitamin D3] d-mannose 1,000 mg PO DAILY 12/10/18 12/10/18 diltiazem HCl [Cartia XT] 120 mg PO DAILY 12/10/18 12/10/18 estradiol [Estrace] 0 g VAGINAL 2XW 12/10/18 12/10/18 fluticasone propionate 1 spray INTRANASAL DAILY 12/10/18 12/10/18 metronidazole [MetroCream] 1 applic TOPICAL DAILY 12/10/18 12/10/18 naproxen sodium [Aleve] 220 - 440 mg PO PRN PRN 12/10/18 12/10/18 omeprazole 40 mg PO DAILY 12/10/18 12/10/18 Previous Rx's Medication Instructions Recorded Pulmicort Flexhaler 1 puff INH BID #1 inh 08/24/17 albuterol sulfate 90 mcg/actuation 2 puff INHALATION Q4H PRN #1 09/23/17 aerosol inhaler inhalation Disabled parking permit #1 each 05/19/18 ferrous sulfate 325 mg (65 mg 325 mg PO BID #60 tab 11/26/18 iron) tablet Allergies Allergy/AdvReac Type Severity Reaction Status Date / Time bupropion [From WELLBUTRIN] Allergy Severe Tremors Verified 12/02/18 10:13 erythromycin base Allergy Severe GI Upset, Verified 12/02/18 10:13 [ERYTHROMYCIN BASE] Bloody diarrhea latex [LATEX] Allergy Severe Hives, Verified 12/02/18 10:13 Wheezing lisinopril [LISINOPRIL] AdvReac Severe Cough Verified 12/02/18 10:13 meperidine [From DEMEROL] AdvReac Severe Squirrelly Verified 12/02/18 10:13 Review of Systems <JIM Malcolm-BC - Last Filed: 12/10/18 20:39> Review of Systems Narrative: GENERAL: Denies chills, fatigue, malaise, fever, sweats. HEENT: Denies sinus pain, ear pain, sore throat, difficulty swallowing, dizziness. RESPIRATORY: See HPI CARDIOVASCULAR: Denies chest pain, palpitations, orthopnea, edema, GASTROINTESTINAL: Denies nausea, vomiting, abdominal pain, diarrhea, constipation, melena. : Denies dysuria, frequency, incontinence, hematuria, urinary retention. MUSCULOSKELETAL: denies weakness, joint pain, or bony pain SKIN: Denies rash, skin lesions, or other NEUROLOGIC: See HPI PSYCHIATRIC: No concerning psychosocial issues. 12 point review of systems is negative except for those stated above Patient History <JOSE Malcolm - Last Filed: 12/10/18 20:39> Medical History Medical History Abnormal Pap smear of cervix (Resolved 1975) Ankle fracture, left (Resolved 1987) Ankle pain (Chronic 1989) Anxiety (Chronic 1984) Asthma (Chronic 2015) Atrial fibrillation (Chronic 2012) Graves's esophagus (Chronic 2013) Cataract (Resolved 2002) Chicken pox (Resolved 1954) Corneal dystrophy (Chronic 2002) Cystocele (Chronic) Diverticular disease (Chronic 2016) Elbow fracture, right (Resolved 2015) Epiretinal membrane (Chronic 2004) Frequent UTI (Resolved) GERD (gastroesophageal reflux disease) (Chronic 2004) Hayfever (Chronic 1965) Hearing loss (Chronic) Hemorrhoids (Chronic) History of psychosis (Resolved 1968) Hypercholesterolemia (Chronic) Hyperlipidemia (Chronic 1996) Hypertension (Chronic) Kidney stones (Resolved 2010) Murmur (Chronic) Osteoarthritis (Chronic ~1994) Positive PPD (Chronic 1977) Prediabetes (Chronic) Rectocele (Chronic) Rosacea (Chronic 2011) Surgical History Surgical History Anesthesia (Resolved) History of cataract removal with insertion of prosthetic lens (Resolved 2002) History of ear, nose, and throat (ENT) surgery (Resolved 1977) History of esophagogastroduodenoscopy (EGD) (Resolved 07/2015) History of foot surgery (Resolved 2007) History of knee replacement (Resolved 2012) Status post colonoscopy (Resolved 2015) Status post hysterectomy (Resolved 1975) Status post laparoscopic cholecystectomy (Resolved 2001) Status post open reduction with internal fixation (ORIF) of fracture of ankle (Resolved 1987) Family History Brother Brain aneurysm CVA (cerebral vascular accident) Mental health problem Alcoholism Brother Alcoholism Heart disease Father No problems noted. Grandfather Alcoholism Suicide Grandmother CVA (cerebral vascular accident) Mother CVA (cerebral vascular accident) CA (myocardial infarction) Lung cancer Hypertension Heart disease Grandfather No problems noted. Grandmother MVA (motor vehicle accident) Sister Thalassemia Sister Alcoholism Brother Ischemia Alcoholism CVA (cerebral vascular accident) Social History Smoking Status: Former smoker Family History Family History Brother Brain aneurysm CVA (cerebral vascular accident) Mental health problem Alcoholism Brother Alcoholism Heart disease Father No problems noted. Grandfather Alcoholism Suicide Grandmother CVA (cerebral vascular accident) Mother CVA (cerebral vascular accident) CA (myocardial infarction) Lung cancer Hypertension Heart disease Grandfather No problems noted. Grandmother MVA (motor vehicle accident) Sister Thalassemia Sister Alcoholism Brother Ischemia Alcoholism CVA (cerebral vascular accident) Social History Social History Smoking Status: Former smoker alcohol intake frequency: 0-2 drinks per day Substance Use Type: does not use Exam <JOSE Malcolm - Last Filed: 12/10/18 20:39> Narrative Exam Narrative: GENERAL: Obese female no acute distress HEAD: Atraumatic. Normocephalic. No temporal or scalp tenderness. EYES: Pupils equal round and reactive. Extraocular motions intact. No scleral icterus. No injection or drainage. ENT: Nose without bleeding, purulent drainage or septal hematoma. Throat without erythema, tonsillar hypertrophy or exudate. Uvula midline. Airway patent. Pale conjunctiva NECK: Trachea midline. No JVD or lymphadenopathy. Supple, nontender, no meningeal signs. CARDIOVASCULAR: Regular rate and rhythm RESPIRATORY: Clear to auscultation. Breath sounds equal bilaterally. No rales, or rhonchi. Diffuse expiratory wheezes bilaterally. GASTROINTESTINAL: Abdomen soft, non-tender, nondistended. No hepato- splenomegaly, or palpable masses. No guarding. EXTREMITIES: No clubbing, cyanosis, or edema. No joint tenderness, effusion, or edema noted. BACK: Nontender without deformity or crepitance. No flank tenderness. NEURO: AOx3. SKIN: No rash or erythema. Strength is equal upper and lower extremities bilaterally. Initial Vital Signs Initial Vital Signs: Vital Signs Temperature 97.9 F 12/10/18 11:20 Pulse Rate 82 12/10/18 11:20 Respiratory Rate 12 12/10/18 11:20 Blood Pressure 147/66 H 12/10/18 11:20 Pulse Oximetry 100 12/10/18 11:20 <Ayan Howell DO - Last Filed: 12/10/18 20:45> Initial Vital Signs Initial Vital Signs: Vital Signs Temperature 97.9 F 12/10/18 11:20 Pulse Rate 82 12/10/18 11:20 Respiratory Rate 12 12/10/18 11:20 Blood Pressure 147/66 H 12/10/18 11:20 Pulse Oximetry 100 12/10/18 11:20 Procedures <JOSE Malcolm - Last Filed: 12/10/18 20:39> Stool Hemoccult Procedural Steps Taken: stool placed in appropriate test area, developer placed on stool and control areas and controls appropriately positive and negative Hemoccult result: positive Scores <JOSE Malcolm - Last Filed: 12/10/18 20:39> GCS [place] coma scale eye opening: Spontaneous [place] coma scale verbal response: Orientated [place]iss[place] coma scale motor response: Obey commands [place] coma scale total score: 15 Course <JOSE Malcolm - Last Filed: 12/10/18 20:39> Orders Ordered: ED Orders 12/10/18 13:04 RT Consult Eval and Treat NOW 12/10/18 15:24 Troponin & CK Cardiac Panel Stat Discontinued Medications Sodium Chloride (Normal Saline 0.9%) 1,000 mls @ 1,000 mls/hr IV BOLUS ONE Stop: 12/10/18 12:51 Last Infusion: 12/10/18 15:31 Dose: 0 mls/hr Documented by: Admin: 12/10/18 11:54 Dose: 1,000 mls/hr Documented by: SLOAN Vital Signs Vital signs: Vital Signs - 8 hr 12/10/18 13:00 12/10/18 14:45 12/10/18 15:00 Pulse Rate 68 71 73 Respiratory Rate 18 14 14 Blood Pressure Blood Pressure [Left Arm] 97/38 L 113/54 L 113/49 L Pulse Oximetry 96 99 98 12/10/18 16:00 12/10/18 16:35 Pulse Rate 70 74 Respiratory Rate 22 14 Blood Pressure 135/46 L Blood Pressure [Left Arm] 127/45 L Pulse Oximetry 95 99 <Ayan Howell DO - Last Filed: 12/10/18 20:45> Orders Ordered: ED Orders 12/10/18 13:04 RT Consult Eval and Treat NOW 12/10/18 15:24 Troponin & CK Cardiac Panel Stat Discontinued Medications Sodium Chloride (Normal Saline 0.9%) 1,000 mls @ 1,000 mls/hr IV BOLUS ONE Stop: 12/10/18 12:51 Last Infusion: 12/10/18 15:31 Dose: 0 mls/hr Documented by: Admin: 12/10/18 11:54 Dose: 1,000 mls/hr Documented by: SLOAN Vital Signs Vital signs: Vital Signs - 8 hr 12/10/18 13:00 12/10/18 14:45 12/10/18 15:00 Pulse Rate 68 71 73 Respiratory Rate 18 14 14 Blood Pressure Blood Pressure [Left Arm] 97/38 L 113/54 L 113/49 L Pulse Oximetry 96 99 98 12/10/18 16:00 12/10/18 16:35 Pulse Rate 70 74 Respiratory Rate 22 14 Blood Pressure 135/46 L Blood Pressure [Left Arm] 127/45 L Pulse Oximetry 95 99 MDM - Arrhythmia/Palpitations <JIM Malcolm-BC - Last Filed: 12/10/18 20:39> Lab Data Result diagrams: 12/10/18 11:35 12/10/18 11:35 Labs: Lab Results 12/10/18 12/10/18 12/10/18 Range/Units 11:35 11:35 11:35 WBC 10.2 (4.5-11.0) X10^3/uL RBC 4.33 (4.0-5.2) X10^6/uL Hgb 9.3 L (12.0-16.0) g/dL Hct 30.4 L (36-46) % MCV 70.3 L D (80-100) fL MCH 21.4 L (26-34) PG MCHC 30.5 (30-36) % RDW 20.0 H (11.6-14.8) % Plt Count 471 H (150-400) X10^3/uL Neut % (Auto) 63.6 (50-75) % Lymph % (Auto) 24.9 L (25-40) % [place] % (Auto) 6.4 (3-14) % Eos % (Auto) 3.1 (2-4) % Baso % (Auto) 2.0 (0-2) % Neut # (Auto) 6500 (3173-3621) /uL Lymph # (Auto) 2500 (9202-2788) /uL [place] # (Auto) 700 (0-900) /uL Eos # (Auto) 300 (0-450) /uL Baso # (Auto) 200 H (0-100) /uL PT 11.9 (10.1-12.7) SECONDS INR 1.0 (0.9-1.3) APTT 30 (26.4-36.2) SECONDS Sodium 141 (137-145) mmol/L Potassium 4.1 (3.4-5.1) mmol/L Chloride 104 (98-107) mmol/L Carbon Dioxide 25 (22-32) mmol/L BUN 14 (7-17) mg/dL Creatinine 0.90 (0.52-1.04) mg/dL Estimated GFR > 60.0 (>60) mL/min BUN/Creatinine Ratio 15.6 (6-22) Glucose 150 H (80-110) mg/dL Calcium 9.5 (8.4-10.2) mg/dL Total Bilirubin 0.3 (0.2-1.3) mg/dL AST 22 (14-36) IU/L ALT 12 (9-52) IU/L Alkaline Phosphatase 99 (38-126) U/L Total Creatine Kinase 26 L (30-135) U/L CK-MB (CK-2) TNP CK-MB (CK-2) Rel Index TNP Troponin I < 0.012 (0.01-0.034) ng/mL B-Natriuretic Peptide (<100) Total Protein 7.7 (6.3-8.2) g/dL Albumin 4.4 (3.5-5.0) g/dL Globulin 3.3 (1.7-4.1) g/dL Albumin/Globulin Ratio 1.3 (1.0-2.8) Lipase 81 (23-300) U/L Blood Type Antibody Screen 12/10/18 12/10/18 12/10/18 Range/Units 11:35 11:35 15:24 WBC (4.5-11.0) X10^3/uL RBC (4.0-5.2) X10^6/uL Hgb (12.0-16.0) g/dL Hct (36-46) % MCV (80-100) fL MCH (26-34) PG MCHC (30-36) % RDW (11.6-14.8) % Plt Count (150-400) X10^3/uL Neut % (Auto) (50-75) % Lymph % (Auto) (25-40) % [place] % (Auto) (3-14) % Eos % (Auto) (2-4) % Baso % (Auto) (0-2) % Neut # (Auto) (2155-4844) /uL Lymph # (Auto) (0466-7702) /uL [place] # (Auto) (0-900) /uL Eos # (Auto) (0-450) /uL Baso # (Auto) (0-100) /uL PT (10.1-12.7) SECONDS INR (0.9-1.3) APTT (26.4-36.2) SECONDS Sodium (137-145) mmol/L Potassium (3.4-5.1) mmol/L Chloride (98-107) mmol/L Carbon Dioxide (22-32) mmol/L BUN (7-17) mg/dL Creatinine (0.52-1.04) mg/dL Estimated GFR (>60) mL/min BUN/Creatinine Ratio (6-22) Glucose (80-110) mg/dL Calcium (8.4-10.2) mg/dL Total Bilirubin (0.2-1.3) mg/dL AST (14-36) IU/L ALT (9-52) IU/L Alkaline Phosphatase (38-126) U/L Total Creatine Kinase 23 L (30-135) U/L CK-MB (CK-2) TNP CK-MB (CK-2) Rel Index TNP Troponin I < 0.012 (0.01-0.034) ng/mL B-Natriuretic Peptide < 100 (<100) Total Protein (6.3-8.2) g/dL Albumin (3.5-5.0) g/dL Globulin (1.7-4.1) g/dL Albumin/Globulin Ratio (1.0-2.8) Lipase (23-300) U/L Blood Type B Positive Antibody Screen Negative Urine Dip Bedside Urine Glucose Negative Bedside Urine Bilirubin - Negative Bedside Urine Ketone - Negative Urine Specific [place] 1.015 Bedside Urine Occult Blood - Negative Bedside Urine pH 6.0 Bedside Urine Protein - Negative Bedside Urine Urobilinogen - Negative Bedside Urine Nitrite - Negative Bedside Urine Leukocytes - Negative Esterase Imaging Data Chest x-ray: Radiologist's impression: [address] [address] XRay Report Signed Patient: Noreen Zamora#: [id number] : 6Acct:[id number] Age/Sex: 73 / FDate of Service: 12/10/18 Loc: ED Accession Number: [id number] Procedure: XR chest 1V Ordering Provider: Gertrudis Hernandez PROCEDURE: XR CHEST 1V INDICATIONS: chest pain TECHNIQUE: One view of the chest was acquired. COMPARISON: [facility], CR, XR CHEST 2V, 05/09/2018, 14:06. [facility], CR, XR CHEST 1V, 07/19/2017, 14:57. FINDINGS: Surgical changes and devices: None. Lungs and pleura: Lungs are clear. No pleural effusions or pneumothorax. Mediastinum: Mediastinal contours appear normal. Heart size is normal. Bones and chest wall: No suspicious bony lesions. Overlying soft tissues appear unremarkable. IMPRESSION: Normal for age, source of current chest pain symptoms is not seen. Dictated by: Nii Clark M.D. on 12/10/2018 at 12:10 Approved by: Nii Clark M.D. on 12/10/2018 at 12:10 ECG Data Attestation: I personally reviewed and interpreted this ECG as follows: Interpretation: Sinus rhythm with first-degree AV block. Ventricular rate 76. SC 219. QRS duration 113. MDM Narrative Medical decision making narrative: The patient is a 73-year-old female who presents with a chief complaint of ?my anemia is really bad.She complains of dizziness, lightheadedness, shortness of breath and substernal chest pain at that is a 2/10. She recently received an iron infusion on Thursday. She s tates that she has been to her primary care provider several times over the past few weeks for the same complaints. On exam, she appears anemic, with pale sclera. Her lab work illustrate a low H&H at 9.3/30.4. She has 2-troponins, helping rule out any cardiac event. Her chest x-ray has no acute findings and her BNP is less than 100, helping rule out shortness of breath related to CHF. Her stool is heme-positive, which could be causing her low H&H I did discuss at length with her primary care provider Dr. Whitehead, that the patient needs a colonoscopy. She is normotensive, not tachycardic and would prefer to do this as an outpatient. According to the patient, she would rather do the necessary clean out in my own bathroom.I discussed at length, not taking any blood thinners, the importance of following up with primary care provider. I discussed that her PCP was placing an outpatient blood draw for the next morning and encouraged her to follow through with that. Discussed at length return precautions including syncope, GI hemorrhage etc concern of heart attack or stroke. Patient states understanding, states understanding of plan of follow-up care as well as lab work in the morning. Discussed at length come back to emergency department for any acute concerns. Patient states understanding and has no questions or concerns upon discharge. <Ayan Howell, - Last Filed: 12/10/18 20:45> Lab Data Labs: Lab Results 12/10/18 12/10/18 12/10/18 Range/Units 11:35 11:35 11:35 WBC 10.2 (4.5-11.0) X10^3/uL RBC 4.33 (4.0-5.2) X10^6/uL Hgb 9.3 L (12.0-16.0) g/dL Hct 30.4 L (36-46) % MCV 70.3 L D (80-100) fL MCH 21.4 L (26-34) PG MCHC 30.5 (30-36) % RDW 20.0 H (11.6-14.8) % Plt Count 471 H (150-400) X10^3/uL Neut % (Auto) 63.6 (50-75) % Lymph % (Auto) 24.9 L (25-40) % [place] % (Auto) 6.4 (3-14) % Eos % (Auto) 3.1 (2-4) % Baso % (Auto) 2.0 (0-2) % Neut # (Auto) 6500 (3621-7601) /uL Lymph # (Auto) 2500 (4550-6464) /uL [place] # (Auto) 700 (0-900) /uL Eos # (Auto) 300 (0-450) /uL Baso # (Auto) 200 H (0-100) /uL PT 11.9 (10.1-12.7) SECONDS INR 1.0 (0.9-1.3) APTT 30 (26.4-36.2) SECONDS Sodium 141 (137-145) mmol/L Potassium 4.1 (3.4-5.1) mmol/L Chloride 104 (98-107) mmol/L Carbon Dioxide 25 (22-32) mmol/L BUN 14 (7-17) mg/dL Creatinine 0.90 (0.52-1.04) mg/dL Estimated GFR > 60.0 (>60) mL/min BUN/Creatinine Ratio 15.6 (6-22) Glucose 150 H (80-110) mg/dL Calcium 9.5 (8.4-10.2) mg/dL Total Bilirubin 0.3 (0.2-1.3) mg/dL AST 22 (14-36) IU/L ALT 12 (9-52) IU/L Alkaline Phosphatase 99 (38-126) U/L Total Creatine Kinase 26 L (30-135) U/L CK-MB (CK-2) TNP CK-MB (CK-2) Rel Index TNP Troponin I < 0.012 (0.01-0.034) ng/mL B-Natriuretic Peptide (<100) Total Protein 7.7 (6.3-8.2) g/dL Albumin 4.4 (3.5-5.0) g/dL Globulin 3.3 (1.7-4.1) g/dL Albumin/Globulin Ratio 1.3 (1.0-2.8) Lipase 81 (23-300) U/L Blood Type Antibody Screen 12/10/18 12/10/18 12/10/18 Range/Units 11:35 11:35 15:24 WBC (4.5-11.0) X10^3/uL RBC (4.0-5.2) X10^6/uL Hgb (12.0-16.0) g/dL Hct (36-46) % MCV (80-100) fL MCH (26-34) PG MCHC (30-36) % RDW (11.6-14.8) % Plt Count (150-400) X10^3/uL Neut % (Auto) (50-75) % Lymph % (Auto) (25-40) % [place] % (Auto) (3-14) % Eos % (Auto) (2-4) % Baso % (Auto) (0-2) % Neut # (Auto) (7564-2608) /uL Lymph # (Auto) (4659-8276) /uL [place] # (Auto) (0-900) /uL Eos # (Auto) (0-450) /uL Baso # (Auto) (0-100) /uL PT (10.1-12.7) SECONDS INR (0.9-1.3) APTT (26.4-36.2) SECONDS Sodium (137-145) mmol/L Potassium (3.4-5.1) mmol/L Chloride (98-107) mmol/L Carbon Dioxide (22-32) mmol/L BUN (7-17) mg/dL Creatinine (0.52-1.04) mg/dL Estimated GFR (>60) mL/min BUN/Creatinine Ratio (6-22) Glucose (80-110) mg/dL Calcium (8.4-10.2) mg/dL Total Bilirubin (0.2-1.3) mg/dL AST (14-36) IU/L ALT (9-52) IU/L Alkaline Phosphatase (38-126) U/L Total Creatine Kinase 23 L (30-135) U/L CK-MB (CK-2) TNP CK-MB (CK-2) Rel Index TNP Troponin I < 0.012 (0.01-0.034) ng/mL B-Natriuretic Peptide < 100 (<100) Total Protein (6.3-8.2) g/dL Albumin (3.5-5.0) g/dL Globulin (1.7-4.1) g/dL Albumin/Globulin Ratio (1.0-2.8) Lipase (23-300) U/L Blood Type B Positive Antibody Screen Negative Urine Dip Bedside Urine Glucose Negative Bedside Urine Bilirubin - Negative Bedside Urine Ketone - Negative Urine Specific [place] 1.015 Bedside Urine Occult Blood - Negative Bedside Urine pH 6.0 Bedside Urine Protein - Negative Bedside Urine Urobilinogen - Negative Bedside Urine Nitrite - Negative Bedside Urine Leukocytes - Negative Esterase Discharge Plan Departure Patient Disposition: Home Clinical Impression: GI (gastrointestinal bleed) Qualifiers: GI bleed type/associated pathology: unspecified gastrointestinal hemorrhage type Qualified Code(s): K92.2 - Gastrointestinal hemorrhage, unspecified Anemia Qualifiers: Anemia type: unspecified type Qualified Code(s): D64.9 - Anemia, unspecified Discharge Date/Time: 12/10/18 16:35 Instructions: Anemia, Gastrointestinal Bleeding Activity Restrictions/Additional Instructions: Today we found that he had blood in her stool. Please follow up with primary care provider in the next few days. I spoke with Dr. whitehead, who is going to order outpatient labs for you to complete tomorrow morning. Please follow up with her PCP as soon as possible, to schedule an outpatient colonoscopy. Please do not take any blood thinners like aspirin. Please come back to the emergency department for any acute concerns such as lightheadedness, passing out, severe GI bleeding etc. Prescriptions: No Action hydrochlorothiazide 12.5 mg tablet 12.5 mg PO DAILY RF: 0 multivitamin [Multiple Vitamins] 1 EACH tablet 1 tab PO DAILY Qty: 0 RF: 0 sodium chloride [Destiny 128] 3.5 GM ointment 1 melissa OPHTH BEDTIME Qty: 0 RF: 0 Pulmicort Flexhaler 180 mcg/actuation aerosol powdr breath activated 1 puff INH BID Qty: 1 RF: 5 albuterol sulfate 90 mcg/actuation HFA aerosol inhaler 2 puff INHALATION Q4H PRN (Reason: shortness of breath or wheezing) Qty: 1 RF: 2 rosuvastatin [Crestor] 5 mg tablet 2.5 mg PO DAILY Qty: 0 RF: 0 flecainide 100 mg tablet 100 mg PO Q12H RF: 0 (DME) Disabled parking permit Qty: 1 RF: 0 losartan 50 mg tablet 50 mg PO DAILY RF: 0 ferrous sulfate [Feosol] 325 mg (65 mg iron) tablet 325 mg PO BID Qty: 60 RF: 0 diltiazem HCl [Cartia XT] 120 mg capsule,extended release 24hr 120 mg PO DAILY RF: 0 fluticasone propionate 50 mcg/actuation spray,suspension 1 spray Intranasal DAILY RF: 0 ascorbic acid (vitamin C) 1,000 mg Tablet 1 g PO DAILY RF: 0 cholecalciferol (vitamin D3) [Vitamin D3] 1,000 unit Capsule 3,000 unit PO DAILY RF: 0 Cranberry 1,000 mg 1,000 mg PO DAILY RF: 0 Probiotic 1 cap PO DAILY RF: 0 d-mannose 1,000 mg 1,000 mg PO DAILY RF: 0 omeprazole 40 mg capsule,delayed release(DR/EC) 40 mg PO DAILY RF: 0 estradiol [Estrace] 0.01 % (0.1 mg/gram) cream 0 g Vaginal 2XW RF: 0 cetirizine [Zyrtec] 10 mg Tablet 5 mg PO DAILY PRN (Reason: Allergy Symptoms) RF: 0 naproxen sodium [Aleve] 220 mg Tablet 220 - 440 mg PO PRN PRN (Reason: pain) RF: 0 metronidazole [MetroCream] 0.75 % Cream 1 applic TOPICAL DAILY RF: 0 Spiriva Respimat 1 inh inhalation DAILY RF: 0 Referrals: Yamilet Whitehead DO [Primary Care Provider] -
[2018-12-10 11:51] LABS: Add Manual Diff / Slide Review NO; Basophils Absolute Auto 200 /uL (0-100); Eosinophils Absolute Auto 300 /uL (0-450); Eosinophils Percent Auto 3.1 % (2-4); Hematocrit 30.4 % (36-46); Hemoglobin 9.3 g/dL (12.0-16.0); Lymphocytes Absolute Auto 2500 /uL (1100-4500); Lymphocytes Percent Auto 24.9 % (25-40); Mean Corpuscular HGB Conc 30.5 % (30-36); Mean Corpuscular Hemoglobin 21.4 PG (26-34); Mean Corpuscular Volume 70.3 fL (80-100); Monocytes Absolute Auto 700 /uL (0-900); Monocytes Percent Auto 6.4 % (3-14); Neutrophils Absolute Auto 6500 /uL (1500-7000); Neutrophils Percent Auto 63.6 % (50-75); Platelet Count 471 X10^3/uL (150-400); Red Blood Cell Count 4.33 X10^6/uL (4.0-5.2); White Blood Cell Count 10.2 X10^3/uL (4.5-11.0)
[2018-12-10 11:53] LABS: Prothrombin Time 11.9 SECONDS (10.1-12.7)
[2018-12-10] MEDS: SODIUM CHLORIDE 0.9% 1,000 ML 1000 ML IV (11:54)
[2018-12-10 11:56] LABS: PTT Partial Thromboplastin Tim 30 SECONDS (26.4-36.2)
[2018-12-10 11:59] LABS: Alanine Aminotransferase 12 IU/L (9-52); Albumin 4.4 g/dL (3.5-5.0); Albumin Globulin Ratio 1.3 (1.0-2.8); Alkaline Phosphatase 99 U/L (38-126); Aspartate Aminotransferase 22 IU/L (14-36); BUN Creatinine Ratio 15.6 (6-22); Bilirubin Total 0.3 mg/dL (0.2-1.3); Blood Urea Nitrogen 14 mg/dL (7-17); Calcium 9.5 mg/dL (8.4-10.2); Carbon Dioxide 25 mmol/L (22-32); Chloride 104 mmol/L (98-107); Creatine Kinase 26 U/L (30-135); Estimated Glomerular Filt Rate > 60.0 mL/min (>60); Globulin 3.3 g/dL (1.7-4.1); Glucose 150 mg/dL (80-110); HEMOLYSIS < 15 (0-50); Lipase 81 U/L (23-300); Potassium 4.1 mmol/L (3.4-5.1); Sodium 141 mmol/L (137-145); Total Protein 7.7 g/dL (6.3-8.2)
[2018-12-10 12:09] LABS: Troponin I < 0.012 ng/mL (0.01-0.034)
[2018-12-10 15:38] LABS: B Type Natriuretic Peptide < 100 (<100)
[2018-12-10 15:41] LABS: Creatine Kinase 23 U/L (30-135)
[2018-12-10 15:52] LABS: Troponin I < 0.012 ng/mL (0.01-0.034)
== END 2018-12-10 16:35 | disposition home or self-care (01) ==
PROVIDERS: Emergency Provider Nurse Practitioner Family; PCP Family Medicine
DX: K92.2 Gastrointestinal hemorrhage, unspecified (principal); D64.9 Anemia, unspecified; R07.9 Chest pain, unspecified; R06.02 Shortness of breath
CPT/HCPCS: 36415; 71045; 80053; 81003; 82550; 83690; 83880; 84484; 85025; 85610; 85730; 86850; 86900; 86901; 93005; 96360; 96361; 99283; 99285

== ENCOUNTER → 2018-12-11 10:12 | Outpatient (CLI) | payer MEDICARE, OTHER, SELFPAY ==
[2018-12-11 10:40] LABS: Add Manual Diff / Slide Review NO; Basophils Absolute Auto 200 /uL (0-100); Basophils Percent Auto 1.9 % (0-2); Eosinophils Absolute Auto 400 /uL (0-450); Eosinophils Percent Auto 3.8 % (2-4); Hematocrit 30.3 % (36-46); Hemoglobin 9.1 g/dL (12.0-16.0); Lymphocytes Absolute Auto 2800 /uL (1100-4500); Lymphocytes Percent Auto 23.9 % (25-40); Mean Corpuscular Hemoglobin 21.4 PG (26-34); Mean Corpuscular Volume 71.1 fL (80-100); Monocytes Absolute Auto 800 /uL (0-900); Monocytes Percent Auto 6.5 % (3-14); Neutrophils Absolute Auto 7500 /uL (1500-7000); Neutrophils Percent Auto 63.9 % (50-75); Platelet Count 439 X10^3/uL (150-400); Red Blood Cell Count 4.26 X10^6/uL (4.0-5.2); Red Cell Distribution Width 20.1 % (11.6-14.8); White Blood Cell Count 11.7 X10^3/uL (4.5-11.0)
[2018-12-11 11:29] LABS: Anisocytosis 2+; Poikilocytosis 1+
[2018-12-11 11:30] LABS: Hypochromasia 1+; Target Cells 1+
== END ==
PROVIDERS: PCP Family Medicine; Visit Provider Family Medicine
DX: D50.9 Iron deficiency anemia, unspecified (principal)
CPT/HCPCS: 36415; 85025

== ENCOUNTER 2018-12-16 13:29 | Day surgery (SDC) | payer MEDICARE, OTHER, SELFPAY ==
[2018-12-16] VITALS (7 sets, daily range): BP systolic 86–156; BP diastolic 30–71; PULSE 64–81; RESP 10–108; TEMP 36.1–36.5; O2SAT 95–99; BMI 33.1
[2018-12-16] MEDS: SODIUM CHLORIDE 0.9% 1,000 ML 200 ML IV (14:21)
--- NOTE | 2018-12-16 15:41 | PM.HP.1 ---
History of Present Illness History of Present Illness Date Patient Seen: 12/16/18 Time Patient Seen: 15:42 Chief complaint: [id number] Narrative: Patient presents for colorectal screening. They had a previous colonoscopy 2015 that was notable for an adenomatous polyp. Recent anemia and a positive Cologaurd test.. On further history denies any recent gastrointestinal symptoms. No nausea, vomiting, abdominal pain, loss of appetite, unexplained weight loss, change in bowel habits, diarrhea, constipation, melena, hematochezia, or bright red blood per rectum. Patient History Medical History Abnormal Pap smear of cervix (Resolved 1975) Ankle fracture, left (Resolved 1987) Ankle pain (Chronic 1989) Anxiety (Chronic 1984) Asthma (Chronic 2015) Atrial fibrillation (Chronic 2012) Graves's esophagus (Chronic 2013) Cataract (Resolved 2002) Chicken pox (Resolved 1954) Corneal dystrophy (Chronic 2002) Cystocele (Chronic) Diverticular disease (Chronic 2016) Elbow fracture, right (Resolved 2015) Epiretinal membrane (Chronic 2004) Frequent UTI (Resolved) GERD (gastroesophageal reflux disease) (Chronic 2004) Hayfever (Chronic 1965) Hearing loss (Chronic) Hemorrhoids (Chronic) History of psychosis (Resolved 1968) Hypercholesterolemia (Chronic) Hyperlipidemia (Chronic 1996) Hypertension (Chronic) Kidney stones (Resolved 2010) Murmur (Chronic) Osteoarthritis (Chronic ~1994) Positive PPD (Chronic 1977) Prediabetes (Chronic) Rectocele (Chronic) Rosacea (Chronic 2011) Surgical History Anesthesia (Resolved) History of cataract removal with insertion of prosthetic lens (Resolved 2002) History of ear, nose, and throat (ENT) surgery (Resolved 1977) History of esophagogastroduodenoscopy (EGD) (Resolved 07/2015) History of foot surgery (Resolved 2007) History of knee replacement (Resolved 2012) Status post colonoscopy (Resolved 2015) Status post hysterectomy (Resolved 1975) Status post laparoscopic cholecystectomy (Resolved 2001) Status post open reduction with internal fixation (ORIF) of fracture of ankle (Resolved 1987) Family History Brother Brain aneurysm CVA (cerebral vascular accident) Mental health problem Alcoholism Brother Alcoholism Heart disease Father No problems noted. Grandfather Alcoholism Suicide Grandmother CVA (cerebral vascular accident) Mother CVA (cerebral vascular accident) [place] (myocardial infarction) Lung cancer Hypertension Heart disease Grandfather No problems noted. Grandmother MVA (motor vehicle accident) Sister Thalassemia Sister Alcoholism Brother Ischemia Alcoholism CVA (cerebral vascular accident) Social History household members: none Smoking Status: Former smoker Family & Social History Family History Brother Brain aneurysm CVA (cerebral vascular accident) Mental health problem Alcoholism Brother Alcoholism Heart disease Father No problems noted. Grandfather Alcoholism Suicide Grandmother CVA (cerebral vascular accident) Mother CVA (cerebral vascular accident) [place] (myocardial infarction) Lung cancer Hypertension Heart disease Grandfather No problems noted. Grandmother MVA (motor vehicle accident) Sister Thalassemia Sister Alcoholism Brother Ischemia Alcoholism CVA (cerebral vascular accident) Social History: household members none Tobacco & Substance use: Smoking Status Former smoker alcohol intake frequency 0-2 drinks per day Substance Use Type does not use Meds Home Medications and Allergies Home Medications Medication Instructions Recorded Confirmed Type multivitamin [Multiple Vitamins] 1 tab PO DAILY #0 10/27/16 12/16/18 History sodium chloride [Destiny 128] 1 melissa OPHTH BEDTIME #0 10/27/16 12/16/18 History Pulmicort Flexhaler 1 puff INH BID #1 inh 08/24/17 12/16/18 Rx albuterol sulfate 90 mcg/actuation 2 puff INHALATION Q4H PRN #1 09/23/17 12/16/18 Rx aerosol inhaler inhalation flecainide 100 mg tablet 100 mg PO Q12H 11/06/17 12/16/18 History hydrochlorothiazide 12.5 mg tablet 12.5 mg PO DAILY tab 05/11/18 12/16/18 History rosuvastatin 5 mg tablet 2.5 mg PO DAILY #0 tab 05/11/18 12/16/18 History Disabled [address] permit #1 each 05/19/18 12/16/18 Rx losartan 50 mg tablet 50 mg PO DAILY 11/23/18 12/16/18 History ferrous sulfate 325 mg (65 mg 325 mg PO BID #60 tab 11/26/18 12/16/18 Rx iron) tablet Cranberry 1,000 mg PO DAILY 12/10/18 12/16/18 History Probiotic 1 cap PO DAILY 12/10/18 12/16/18 History Spiriva Respimat 1 inh INHALATION DAILY 12/10/18 12/16/18 History ascorbic acid (vitamin C) 1 g PO DAILY 12/10/18 12/16/18 History cetirizine [Zyrtec] 5 mg PO DAILY PRN 12/10/18 12/16/18 History cholecalciferol (vitamin D3) 3,000 unit PO DAILY 12/10/18 12/16/18 History [Vitamin D3] d-mannose 1,000 mg PO DAILY 12/10/18 12/16/18 History diltiazem HCl [Cartia XT] 120 mg PO DAILY 12/10/18 12/16/18 History estradiol [Estrace] 0 g VAGINAL 2XW 12/10/18 12/16/18 History fluticasone propionate 1 spray INTRANASAL DAILY 12/10/18 12/16/18 History metronidazole [MetroCream] 1 applic TOPICAL DAILY 12/10/18 12/16/18 History naproxen sodium [Aleve] 220 - 440 mg PO PRN PRN 12/10/18 12/16/18 History omeprazole 40 mg PO DAILY 12/10/18 12/16/18 History Allergies Allergy/AdvReac Type Severity Reaction Status Date / Time bupropion [From WELLBUTRIN] Allergy Severe Tremors Verified 12/16/18 14:33 erythromycin base Allergy Severe GI Upset, Verified 12/16/18 14:33 [ERYTHROMYCIN BASE] Bloody diarrhea latex [LATEX] Allergy Severe Hives, Verified 12/16/18 14:33 Wheezing lisinopril [LISINOPRIL] AdvReac Severe Cough Verified 12/16/18 14:33 meperidine [From DEMEROL] AdvReac Severe Squirrelly Verified 12/16/18 14:33 Review of Systems Review of Systems ROS Unobtainable: All systems reviewed & are unremarkable except as noted in HPI and below Exam Vital Signs (past 8 hours): - 12/16/18 13:55 Temperature 97.7 F Pulse Rate 81 Respiratory Rate 20 Blood Pressure 156/71 H Pulse Oximetry 97 Oxygen Delivery Method Room Air Narrative Exam Narrative: General-no acute distress, well nourished HEENT-moist mucous membranes, no scleral icterus Neck-supple, no lymphadenopathy Chest- non labored respirations, clear to auscultation bilaterally Cardiac-regular rate no peripheral edema Abdomen-soft, nontender, non distended Extremities-warm, well perfused Neurological-alert and oriented, no focal deficits Assessment & Plan Assessment and plan (1) Screening for colon cancer: Current visit: Yes Status: Acute Assessment & Plan narrative: The patient requires colorectal screening and colonoscopy is recommended. Technical details were discussed. Risks, benefits, alternatives explained. Risks including but not limited to myocardial infarction, aspiration, bleeding, pain, missed lesion, incomplete examination, need for further radiographic studies, colonic perforation, and need for major abdominal surgery were discussed. All questions were answered to their satisfaction, and they are in agreement with this plan.
[2018-12-16] MEDS: fentaNYL 250 MCG/5 ML INJ IV (16:04)
[2018-12-16] MEDS: MIDAZOLAM 5 MG/5 ML VIAL IV (16:05)
--- NOTE | 2018-12-16 16:09 | PM.OP.ENDO ---
Operative Date/Time/Diagnoses Date of procedure: 12/16/18 Time of procedure: 16:09 Pre-op diagnosis: Screening colonoscopy Post-op diagnosis: same Procedure & Clinicians Study performed: Colonoscopy Same procedure as scheduled: Yes Indications: 73-year-old female with a recent positive colic are test last colonoscopy 2015 and significant for adenomatous polyp presents for screening Surgeon: Arnulfo Salcido Procedure Notes SCOAP/Timeout: performed Procedure in detail: Patient placed in left lateral decubitus position. Time out was performed. Procedural sedation was administered with Versed and Fentanyl. A rectal exam demonstrated external hemorrhoids no internal masses. Colonoscopy scope was placed into the rectum and advanced through the colon to the cecum. The ileocecal valve was identified. The scope was then slowly withdrawn examining colon thoroughly in all directions. The colonoscopy was normal with the exception of diverticulosis. The scope was retroflexed within the rectum demonstrated grade 1 internal hemorrhoids. The rectum was desufflated and the scope removed. Patient tolerated procedure well. Scope withdrawal time: 6 Sedation minutes: 22 Findings: diverticulosis and internal hemorrhoids Specimen(s): none sent Complications: none Impression: Diverticulosis Post-procedure Recommendations: Colonscopy in 10 years Disposition: same day surgery
--- NOTE | 2018-12-16 16:22 | SUR.PHASEI ---
Patient A/O x 4. Denies pain/nausea. Abdomen soft, non-distended.
== END 2018-12-16 17:10 | disposition home or self-care (01) ==
PROVIDERS: Family Provider Family Medicine; PCP Family Medicine; Visit Provider Surgery
PROC: 0DJD8ZZ Inspection of Lower Intestinal Tract, Via Natural or Artificial Opening Endoscopic (ICD-10-PCS; CPT 45378; principal; 2018-12-16 15:15)
DX: R19.5 Other fecal abnormalities (principal); D64.9 Anemia, unspecified; K57.30 Diverticulosis of large intestine without perforation or abscess without bleeding; K64.0 First degree hemorrhoids
CPT/HCPCS: 45378; 99152; J2250; J3010

== ENCOUNTER → 2019-01-13 15:55 | Outpatient (CLI) | payer MEDICARE, OTHER, SELFPAY ==
[2019-01-13 16:39] LABS: Add Manual Diff / Slide Review NO; Basophils Absolute Auto 200 /uL (0-100); Basophils Percent Auto 1.8 % (0-2); Eosinophils Absolute Auto 200 /uL (0-450); Eosinophils Percent Auto 1.7 % (2-4); Hematocrit 37.8 % (36-46); Hemoglobin 11.9 g/dL (12.0-16.0); Lymphocytes Absolute Auto 3600 /uL (1100-4500); Lymphocytes Percent Auto 31.4 % (25-40); Mean Corpuscular HGB Conc 31.5 % (30-36); Mean Corpuscular Hemoglobin 24.9 PG (26-34); Mean Corpuscular Volume 79.2 fL (80-100); Monocytes Absolute Auto 700 /uL (0-900); Monocytes Percent Auto 5.7 % (3-14); Neutrophils Absolute Auto 6800 /uL (1500-7000); Neutrophils Percent Auto 59.4 % (50-75); Platelet Count 315 X10^3/uL (150-400); Red Blood Cell Count 4.78 X10^6/uL (4.0-5.2); Red Cell Distribution Width 30.7 % (11.6-14.8); White Blood Cell Count 11.5 X10^3/uL (4.5-11.0)
[2019-01-13 17:01] LABS: HEMOLYSIS < 15 (0-50); Iron 68 ug/dL (37-170)
[2019-01-13 17:06] LABS: Blood Urea Nitrogen 20 mg/dL (7-17); Calcium 9.4 mg/dL (8.4-10.2); Carbon Dioxide 27 mmol/L (22-32); Chloride 99 mmol/L (98-107); Estimated Glomerular Filt Rate > 60.0 mL/min (>60); Glucose 91 mg/dL (80-110); HEMOLYSIS 17 (0-50); Potassium 3.5 mmol/L (3.4-5.1); Sodium 136 mmol/L (137-145)
[2019-01-13 17:09] LABS: Transferrin 272 mg/dL (206-381)
[2019-01-13 17:48] LABS: Anisocytosis 2+; Hypochromasia 2+; Microcytosis 1+; Poikilocytosis 1+; Target Cells 1+
[2019-01-13 17:50] LABS: Smudge Cells 1+
[2019-01-14 14:21] LABS: Percent Iron Saturation 21 % (15-50); Total Iron Binding Capacity 320 ug/dL (265-497)
[2019-01-18 21:29] LABS: Hematocrit 39.8 % (35.0-45.0); Hemoglobin 11.9 g/dL (11.7-15.5); MCV 83.6 fL (80.0-100.0); RBC Total Count 4.76 Million/uL (3.80-5.10)
== END ==
PROVIDERS: PCP Family Medicine; Visit Provider Family Medicine
DX: D50.9 Iron deficiency anemia, unspecified (principal); E61.1 Iron deficiency; Z83.2 Family history of diseases of the blood and blood-forming organs and certain disorders involving the immune mechanism
CPT/HCPCS: 36415; 80048; 82728; 83021; 83540; 83550; 85014; 85018; 85025; 85041

== ENCOUNTER → 2019-01-18 08:58 | Outpatient (CLI) | payer MEDICARE, OTHER, SELFPAY ==
--- NOTE | 2019-01-18 09:01 | DI.CT.S_ITS ---
PROCEDURE: CT CHEST W CON INDICATIONS: shortness of breath on exertion TECHNIQUE: After the administration of intravenous contrast, 5 mm thick sections acquired from the pulmonary apices to the posterior costophrenic angles. 1 mm axial lung, 5 mm thick coronal and sagittal reformats and 7 mm axial MIP were acquired. For radiation dose reduction, the following was used: automated exposure control, adjustment of mA and/or kV according to patient size. COMPARISON: None. FINDINGS: Image quality: Excellent. Lungs and pleura: No acute air space opacities. No pleural effusions or pneumothorax. Central and peripheral airways are patent and normal in caliber. Mediastinum: Heart size is normal. No pericardial effusion. Coronary artery calcifications. No mediastinal or hilar adenopathy by size criteria. Thoracic aorta and central pulmonary arteries are normal in size. Mild atherosclerotic plaque in the transverse arch and proximal descending thoracic aorta. Esophagus is normal in caliber. Mild to moderate Bones and chest wall: On the sagittal reconstructions, there is a question of a lucent/lytic lesion involving the posterior aspect of the vertebral body of C7. This is not definite. No other bony lesions. No vertebral body compression fractures. No axillary or supraclavicular adenopathy by size criteria. Thyroid gland contains a 9 mm nodule in the right lobe.. Abdomen: Visualized upper abdominal solid organs appear normal. Upper abdominal bowel loops are normal in caliber. IMPRESSION: 1. Question midline posterior vertebral body lytic lesion of C7. This is suggested on the sagittal reformats. It is not definite. 2. No evidence of acute pulmonary process. 3. Coronary and aortic atherosclerosis. Comment: Recommend cervical spine MRI to evaluate C7. Dictated by: Chuy Lee M.D. on 01/18/2019 at 10:36 Approved by: Chuy Lee M.D. on 01/18/2019 at 10:45
== END ==
PROVIDERS: PCP Family Medicine; Referring Provider Internal Medicine; Visit Provider Family Medicine
DX: R06.02 Shortness of breath (principal); I25.10 Atherosclerotic heart disease of native coronary artery without angina pectoris; I70.0 Atherosclerosis of aorta; R91.1 Solitary pulmonary nodule; J45.40 Moderate persistent asthma, uncomplicated
CPT/HCPCS: 71260; Q9967

== ENCOUNTER → 2019-01-25 15:11 | Outpatient (CLI) | payer MEDICARE, OTHER, SELFPAY ==
[2019-01-25 16:01] LABS: Add Manual Diff / Slide Review NO; Basophils Absolute Auto 100 /uL (0-100); Basophils Percent Auto 1.3 % (0-2); Eosinophils Absolute Auto 200 /uL (0-450); Eosinophils Percent Auto 1.9 % (2-4); Hematocrit 37.6 % (36-46); Hemoglobin 12.4 g/dL (12.0-16.0); Lymphocytes Absolute Auto 3300 /uL (1100-4500); Lymphocytes Percent Auto 30.7 % (25-40); Mean Corpuscular Hemoglobin 26.5 PG (26-34); Mean Corpuscular Volume 80.3 fL (80-100); Monocytes Absolute Auto 600 /uL (0-900); Monocytes Percent Auto 5.5 % (3-14); Neutrophils Absolute Auto 6500 /uL (1500-7000); Neutrophils Percent Auto 60.6 % (50-75); Platelet Count 313 X10^3/uL (150-400); Red Blood Cell Count 4.68 X10^6/uL (4.0-5.2); Red Cell Distribution Width 29.9 % (11.6-14.8); White Blood Cell Count 10.7 X10^3/uL (4.5-11.0)
[2019-01-25 16:23] LABS: Target Cells 1+
[2019-01-25 16:24] LABS: Anisocytosis 2+; Hypochromasia 2+; Poikilocytosis 1+
== END ==
PROVIDERS: PCP Family Medicine
DX: D50.9 Iron deficiency anemia, unspecified (principal)
CPT/HCPCS: 36415; 81207; 85025

== ENCOUNTER → 2019-01-31 13:45 | Outpatient (CLI) | payer MEDICARE, OTHER, SELFPAY ==
--- NOTE | 2019-01-31 13:46 | DI.MRI.S_ITS ---
PROCEDURE: MR CERVICAL SPINE WO/W CON INDICATIONS: Bone Lesion TECHNIQUE: Noncontrast sagittal T1 spin echo and T2 fast spin echo, sagittal STIR, foraminal oblique sagittal T2 fast spin echo, axial gradient echo or T2 fast spin echo through the cervical spine. After the administration of contrast, axial and sagittal T1 spin echo with fat saturation through the cervical spine. COMPARISON: [facility], CT, CT CHEST W CON, 01/18/2019, 9:04. [facility], CT, CT CERVICAL SPINE WO CON, 09/06/2018, 12:23. FINDINGS: Image quality: Excellent. Alignment and curvature: There is normal bony alignment. There is straightening of normal cervical spine curvature. Marrow: Mild reactive endplate changes noted adjacent to the C4-C5, C5-C6 and C6 and C6-7 discs without suspicious enhancement. Spinal cord: Visualized spinal cord has normal size and signal. No cerebellar tonsillar herniation. No abnormal intramedullary enhancement. Paraspinous soft tissues: No paravertebral masses or suspicious enhancement. C2-3: Loss of the signal. No central stenosis. No neural foraminal narrowing. No neural compression. C3-4: Loss of disc signal. No central stenosis. No neural foraminal narrowing. No neural compression. C4-5: Loss of disc signal and height. Mild diffuse disc bulge with small central/right central disc protrusion. Mild narrowing of the central canal. Mild right facet and uncovertebral joint hypertrophy. Mild right neural foraminal narrowing. No neural compression. C5-6: Loss of disc signal and height. Moderate, diffuse disc bulge. Mild narrowing of the central canal. Mild right facet hypertrophy. Moderate bilateral uncovertebral joint hypertrophy. Moderate right and mild left neural foraminal narrowing. No neural compression. C6-7: Loss of disc signal and slight loss of disc height. Mild to moderate diffuse disc bulge. Mild to moderate narrowing of the central canal. Mild bilateral facet hypertrophy. Mild bilateral uncovertebral joint hypertrophy. Mild right and moderate left neural foraminal narrowing. No neural compression. C7-T1: Normal appearance. IMPRESSION: 1. Multilevel degenerative disease. 2. Multilevel facet and uncovertebral arthropathy. 3. Mild to moderate C6-C7 central canal narrowing. Mild C4-C5 and C5-C6 central canal narrowing. 4. Moderate right and mild left C5-C6 neural foraminal narrowing. Mild right and moderate left C6-C7 neural foraminal narrowing. Mild right C4 and C5 neural foraminal narrowing. 5. No neural compression. 6. No abnormal masses suspicious postcontrast enhancement identified. In particular, no abnormality identified in the C7 vertebral body. Dictated by: Ifrah Murillo MD, PhD on 01/31/2019 at 15:50 Approved by: Ifrah Murillo MD, PhD on 01/31/2019 at 15:59
== END ==
PROVIDERS: PCP Family Medicine; Visit Provider Family Medicine
DX: M89.9 Disorder of bone, unspecified (principal); M50.321 Other cervical disc degeneration at C4-C5 level; M47.812 Spondylosis without myelopathy or radiculopathy, cervical region; M48.02 Spinal stenosis, cervical region
CPT/HCPCS: 72156; A9579

== ENCOUNTER 2019-02-10 11:09 | Day surgery (SDC) | payer MEDICARE, OTHER, SELFPAY ==
[2019-02-10] VITALS (7 sets, daily range): BP systolic 109–147; BP diastolic 51–65; PULSE 65–70; RESP 11–16; TEMP 36.2–36.9; O2SAT 92–98; BMI 34.2
--- NOTE | 2019-02-10 | PATH_ITS ---
[facility] Accession Number: [id number] . 01 Material submitted: . PART A: gastrointestinal site - GASTRIC BIOPSY PART B: esophagus, E-G Junction - BIOPSY GE JUNCTION . 02 Diagnosis: A. Stomach, Biopsy: Antral mucosa with no diagnostic abnormality. No evidence of Helicobacter organisms on H/E stain. Negative for intestinal metaplasia. Negative for dysplasia and malignancy. . B. Gastroesophageal Junction, Biopsy: Proximal gastric type mucosa with mild chronic inflammation. Negative for specialized intestinal metaplasia, dysplasia, or malignancy. [facility] 02/11/2019 1713 Local . 02 Electronically signed: . Murali Weinberg MD, PhD, Pathologist NPI- [id number] . 01 Gross description: . Part A: GASTRIC BIOPSY: Received in formalin are 2 fragment(s) of palumbo, soft tissue measuring 0.3 x 0.2 x 0.1 cm to 0.2 x 0.2 x 0.1 cm submitted entirely in 1 cassette(s) Part B: BIOPSY GE JUNCTION: Received in formalin is 1 fragment(s) of palumbo, soft tissue measuring 0.3 x 0.2 x 0.2 cm submitted entirely in 1 cassette(s) /Q 02/11/2019 0045 Local . 02 Pathologist provided ICD-10: D50.9, K20.9 . 02 CPT . 561310, [id number] Performed at: 01 [facility] [address], [place], [place] [id number] MD Jama Rizzo MD Phone: [phone] Performed at: 02 [facility] [address] , [place], [place] [id number] MD Allyson Bourgeois MD Phone: [phone]
[2019-02-10] MEDS: SODIUM CHLORIDE 0.9% 1,000 ML 200 ML IV (12:32)
[2019-02-10] MEDS: MIDAZOLAM 5 MG/5 ML VIAL IV (13:15)
[2019-02-10] MEDS: fentaNYL 250 MCG/5 ML INJ IV (13:15)
--- NOTE | 2019-02-10 13:18 | P.HP_ITS ---
History of Present Illness History of Present Illness Date Patient Seen: 02/10/19 Time Patient Seen: 13:20 Chief complaint: [id number] Narrative: This is a 73-year-old female with anemia unknown etiology. She underwent colonoscopy in the past 2 months that was negative. She presents today for elective diagnostic esophagoduodenoscopy. She has a remote history of Graves's esophagus without dysplasia that's self resolved. She has known hiatal hernia gastroesophageal reflux which is controlled with 20 mg omeprazole daily. No history of coronary artery disease, valvular disease, arrhythmia, peripheral vascular disease, diabetes, stroke, pulmonary or renal insuf ficiency. They are a nonsmoker and not on anticoagulation. Patient History Medical History Abnormal Pap smear of cervix (Resolved 1975) Ankle fracture, left (Resolved 1987) Ankle pain (Chronic 1989) Anxiety (Chronic 1984) Asthma (Chronic 2015) Atrial fibrillation (Chronic 2012) Graves's esophagus (Chronic 2013) Bruit of left carotid artery (Acute) Cataract (Resolved 2002) Chicken pox (Resolved 1954) Corneal dystrophy (Chronic 2002) Cystocele (Chronic) Diverticular disease (Chronic 2016) Diverticulosis (Acute) Elbow fracture, right (Resolved 2015) Epiretinal membrane (Chronic 2004) Frequent UTI (Resolved) GERD (gastroesophageal reflux disease) (Chronic 2004) Hayfever (Chronic 1965) Hearing loss (Chronic) Hemorrhoids (Chronic) History of psychosis (Resolved 1968) Hypercholesterolemia (Chronic) Hyperlipidemia (Chronic 1996) Hypertension (Chronic) Internal hemorrhoids (Acute) Kidney stones (Resolved 2010) Murmur (Chronic) Osteoarthritis (Chronic ~1994) Positive PPD (Chronic 1977) Prediabetes (Chronic) Rectocele (Chronic) Rosacea (Chronic 2011) Surgical History Anesthesia (Resolved) History of cataract removal with insertion of prosthetic lens (Resolved 2002) History of ear, nose, and throat (ENT) surgery (Resolved 1977) History of esophagogastroduodenoscopy (EGD) (Resolved 07/2015) History of foot surgery (Resolved 2007) History of knee replacement (Resolved 2012) Status post colonoscopy (Resolved 2015) Status post hysterectomy (Resolved 1975) Status post laparoscopic cholecystectomy (Resolved 2001) Status post open reduction with internal fixation (ORIF) of fracture of ankle (Resolved 1987) Family & Social History Family History Brother Brain aneurysm CVA (cerebral vascular accident) Mental health problem Alcoholism Brother Alcoholism Heart disease Father No problems noted. Grandfather Alcoholism Suicide Grandmother CVA (cerebral vascular accident) Mother CVA (cerebral vascular accident) [place] (myocardial infarction) Lung cancer Hypertension Heart disease Grandfather No problems noted. Grandmother MVA (motor vehicle accident) Sister Thalassemia Sister Alcoholism Brother Ischemia Alcoholism CVA (cerebral vascular accident) Social History: household members none Tobacco & Substance use: Smoking Status Former smoker alcohol intake frequency 0-2 drinks per day Substance Use Type does not use Meds Home Medications and Allergies Home Medications Medication Instructions Recorded Confirmed Type multivitamin [Multiple Vitamins] 1 tab PO DAILY #0 10/27/16 02/10/19 History sodium chloride [Destiny 128] 1 melissa OPHTH BEDTIME #0 10/27/16 02/10/19 History albuterol sulfate 90 mcg/actuation 2 puff INHALATION Q4H PRN #1 09/23/17 02/10/19 Rx aerosol inhaler inhalation flecainide 100 mg tablet 100 mg PO Q12H 11/06/17 02/10/19 History hydrochlorothiazide 12.5 mg tablet 12.5 mg PO DAILY tab 05/11/18 02/10/19 History rosuvastatin 5 mg tablet 2.5 mg PO DAILY #0 tab 05/11/18 02/10/19 History Disabled parking permit #1 each 05/19/18 02/10/19 Rx losartan 50 mg tablet 50 mg PO DAILY 11/23/18 02/10/19 History Cranberry 1,000 mg PO DAILY 12/10/18 02/10/19 History Probiotic 1 cap PO DAILY 12/10/18 02/10/19 History Spiriva Respimat 1 inh INHALATION DAILY 12/10/18 02/10/19 History ascorbic acid (vitamin C) 1 g PO DAILY 12/10/18 02/10/19 History cholecalciferol (vitamin D3) 3,000 unit PO DAILY 12/10/18 02/10/19 History [Vitamin D3] d-mannose 2,000 mg PO DAILY 12/10/18 02/10/19 History diltiazem HCl [Cartia XT] 120 mg PO DAILY 12/10/18 02/10/19 History estradiol [Estrace] 0 g VAGINAL 2XW 12/10/18 02/10/19 History metronidazole [MetroCream] 1 applic TOPICAL DAILY 12/10/18 02/10/19 History naproxen sodium [Aleve] 220 - 440 mg PO PRN PRN 12/10/18 02/10/19 History omeprazole 40 mg PO DAILY 12/10/18 02/10/19 History budesonide 180 mcg/actuation 2 inhalation INHALATION BID #2 02/03/19 02/10/19 Rx breath activated powder inhaler inhalation fluticasone propionate 50 1 spray INTRANASAL DAILY #9.9 ml 02/07/19 02/10/19 Rx mcg/actuation nasal spray,suspension Allergies Allergy/AdvReac Type Severity Reaction Status Date / Time bupropion [From WELLBUTRIN] Allergy Severe Tremors Verified 02/10/19 12:16 erythromycin base Allergy Severe GI Upset, Verified 02/10/19 12:16 [ERYTHROMYCIN BASE] Bloody diarrhea latex [LATEX] Allergy Severe Hives, Verified 02/10/19 12:16 Wheezing lisinopril [LISINOPRIL] AdvReac Severe Cough Verified 02/10/19 12:16 meperidine [From DEMEROL] AdvReac Severe Squirrelly Verified 02/10/19 12:16 Review of Systems Review of Systems ROS Unobtainable: All systems reviewed & are unremarkable except as noted in HPI and below Exam Vital Signs (past 8 hours): - 02/10/19 12:23 Temperature 97.2 F L Pulse Rate 70 Respiratory Rate 15 Blood Pressure 147/62 H Pulse Oximetry 95 Oxygen Delivery Method Room Air Narrative Exam Narrative: General-no acute distress, well nourished HEENT-moist mucous membranes, no scleral icterus Neck-supple, no lymphadenopathy Chest- non labored respirations, clear to auscultation bilaterally Cardiac-regular rate no peripheral edema Abdomen-soft, nontender, non distended Extremities-warm, well perfused Neurological-alert and oriented, no focal deficits Assessment & Plan Assessment & Plan narrative: The has anemia of unknown source and a negative colonoscopy, EGD is indicated. Technical details were discussed. Risks, benefits, alternatives explained. Risks including but not limited to myocardial infarction, aspiration, bleeding, pain, missed lesion, incomplete examination, need for further radiographic studies, colonic perforation, and need for major abdominal surgery were discussed. All questions were answered to their satisfaction, and they are in agreement with this plan.
[2019-02-10] MEDS: LIDOCAINE 4% SOLN 50 ML 20 ML TOP (13:28)
--- NOTE | 2019-02-10 13:41 | PM.OP.ENDO ---
Operative Date/Time/Diagnoses Date of procedure: 02/10/19 Time of procedure: 13:41 Pre-op diagnosis: Anemia Post-op diagnosis: same Procedure & Clinicians Study performed: Esophagoduodenoscopy Same procedure as scheduled: Yes Indications: 73-year-old female with anemia who underwent a normal colonoscopy 2 months ago presents for a esophagoduodenoscopy. Surgeon: Arnulfo Salcido Procedure Notes SCOAP/Timeout: Performed Procedure in detail: Patient placed in left lateral decubitus position. Time out was performed. Procedural sedation was administered with Versed and Fentanyl. A bite block was placed. the scope was inserted into the mouth and advanced through the esophagus and into the stomach. The pylorus was intubated and the duodenum was normal. The scope was retroflexed within the stomach and there was a small hiatal hernia. There was some inflation of the pylorus which was biopsied. The scope was withdrawn into the esophagus the Z line was seen at 35 cm from the incisions. There was possibly some rivas's esophagitis with was biopsied at the Z line 35 cm. No masses or strictures. Stomach was desufflated and scope removed. Patient tolerated procedure well. Sedation minutes: 9 Findings: gastritis Specimen(s): other (Gastric biopsy, GE biopsy) Complications: none Impression: Gastritis Post-procedure Recommendations: EGD in 6-8 weeks Disposition: same day surgery
== END 2019-02-10 14:27 | disposition home or self-care (01) ==
PROVIDERS: PCP Family Medicine; Visit Provider Surgery
PROC: 0DJ08ZZ Inspection of Upper Intestinal Tract, Via Natural or Artificial Opening Endoscopic (ICD-10-PCS; CPT 43235; principal; 2019-02-10 13:15)
DX: K29.70 Gastritis, unspecified, without bleeding (principal); K21.9 Gastro-esophageal reflux disease without esophagitis; K44.9 Diaphragmatic hernia without obstruction or gangrene; J45.909 Unspecified asthma, uncomplicated; I10 Essential (primary) hypertension; I48.91 Unspecified atrial fibrillation; K20.9 Esophagitis, unspecified
CPT/HCPCS: 43239; 99152; J2250; J3010

== ENCOUNTER → 2019-03-09 10:48 | Outpatient (CLI) | payer MEDICARE, OTHER, SELFPAY ==
[2019-03-09 12:05] LABS: Add Manual Diff / Slide Review NO; Basophils Absolute Auto 200 /uL (0-100); Basophils Percent Auto 1.6 % (0-2); Eosinophils Absolute Auto 200 /uL (0-450); Eosinophils Percent Auto 2.1 % (2-4); Hematocrit 40.7 % (36-46); Hemoglobin 13.7 g/dL (12.0-16.0); Lymphocytes Absolute Auto 2800 /uL (1100-4500); Lymphocytes Percent Auto 28.9 % (25-40); Mean Corpuscular HGB Conc 33.8 % (30-36); Mean Corpuscular Hemoglobin 28.4 PG (26-34); Mean Corpuscular Volume 84.2 fL (80-100); Monocytes Absolute Auto 700 /uL (0-900); Monocytes Percent Auto 7.4 % (3-14); Neutrophils Absolute Auto 5800 /uL (1500-7000); Platelet Count 298 X10^3/uL (150-400); Red Blood Cell Count 4.83 X10^6/uL (4.0-5.2); Red Cell Distribution Width 23.1 % (11.6-14.8); White Blood Cell Count 9.6 X10^3/uL (4.5-11.0)
[2019-03-09 12:25] LABS: Anisocytosis 2+; Hypochromasia 1+
[2019-03-09 12:38] LABS: HEMOLYSIS < 15 (0-50); Iron 92 ug/dL (37-170)
[2019-03-09 12:43] LABS: Cholesterol 236 mg/dL (140-199); HDL Cholesterol 52 mg/dL (40-60); LDL Cholesterol Calculated 131 mg/dL (<100); Triglycerides 264 mg/dL (35-150)
[2019-03-09 12:49] LABS: Percent Iron Saturation 26 % (15-50); Total Iron Binding Capacity 349 ug/dL (265-497); Transferrin 310 mg/dL (206-381)
[2019-03-09 14:14] LABS: Ferritin 87.2 ng/mL (11.1-264)
== END ==
PROVIDERS: PCP Family Medicine; Visit Provider Family Medicine
DX: D50.9 Iron deficiency anemia, unspecified (principal); D72.829 Elevated white blood cell count, unspecified; E61.1 Iron deficiency; R06.00 Dyspnea, unspecified; E78.5 Hyperlipidemia, unspecified
CPT/HCPCS: 36415; 80061; 82728; 83540; 83550; 85025

== ENCOUNTER 2019-04-18 09:18 | Emergency (ER) | payer MEDICARE, OTHER, SELFPAY ==
[2019-04-18 09:20] VITALS: BP 144/67; PULSE 72; RESP 14; TEMP 36.6; O2SAT 96; BMI 32.8
--- NOTE | 2019-04-18 09:33 | DI.CT.S_ITS ---
PROCEDURE: CT HEAD/BRAIN WO CON INDICATIONS: Fall, TECHNIQUE: Noncontrast 4.5 mm thick angled axial sections acquired from the foramen magnum to the vertex, with coronal and sagittal reformats. For radiation dose reduction, the following was used: automated exposure control, adjustment of mA and/or kV according to patient size. COMPARISON: [facility], CT, CT CERVICAL SPINE WO CON, 09/06/2018, 12:23. FINDINGS: Image quality: Excellent. CSF spaces: Basal cisterns are patent. No extra-axial fluid collections. Ventricles are normal in size and shape. Brain: No midline shift. No intracranial masses or hemorrhage. No area of hypodensity in a large vascular distribution to suggest acute infarction. Periventricular hypodensity consistent with chronic microvascular ischemic change. Distal intracranial ICA atherosclerotic calcification. Age related parenchymal loss. Skull and face: Calvarium and visualized facial bones are intact, without suspicious lesions. Sinuses: Visualized sinuses and mastoids are clear. IMPRESSION: No acute intracranial abnormality demonstrated. Chronic microvascular ischemic disease. Dictated by: Mendoza Bowen M.D. on 04/18/2019 at 9:51 Approved by: Mendoza Bowen M.D. on 04/18/2019 at 9:54
--- NOTE | 2019-04-18 09:49 | DI.CT.S_ITS ---
PROCEDURE: CT CERVICAL SPINE WO CON INDICATIONS: Fall, TECHNIQUE: Noncontrast 3 mm thick sections acquired from the skull base to the T4 level. Sagittal and coronal reformats were then constructed. For radiation dose reduction, the following was used: automated exposure control, adjustment of mA and/or kV according to patient size. COMPARISON: [facility], CT, CT CERVICAL SPINE WO CON, 09/06/2018, 12:23. FINDINGS: Image quality: Excellent. Bones: No fractures or dislocations. Visualized superior ribs are intact. Moderate degenerative change most pronounced at C5-C6 where there is loss of intervertebral disc space height, anterior and posterior osteophytes, endplate sclerosis, and uncovertebral joint hypertrophy. Soft tissues: Prevertebral soft tissues are normal in thickness. No paravertebral hematomas. Aortic arch atherosclerotic calcification. No apical pneumothoraces. Small thyroid nodules. IMPRESSION: No acute osseous abnormality. Stable moderate cervical spine degenerative change. Dictated by: Mendoza Bowen M.D. on 04/18/2019 at 9:54 Approved by: Mendoza Bowen M.D. on 04/18/2019 at 9:57
[2019-04-18 10:00] VITALS: BP 131/59; PULSE 65; RESP 18; O2SAT 98
--- NOTE | 2019-04-18 10:04 | ED_ITS ---
HPI - Fall General Chief Complaint: Fall Stated Complaint: dizzy,fell and hurt neck/shoulder Time Seen by Provider: 04/18/19 09:41 Source: patient Mode of arrival: Ambulatory History of Present Illness HPI Narrative: CC: Fall with a head injury HPI: The patient is a 73-year-old female who states that at about 0 345 she got up to go to the bathroom and became dizzy lightheaded and arm fell in the bedroom injuring her head. She laid there on the floor for a while until her dizziness resolved. She complained that she had a mild headache and pain in the left side of her neck. She also had some mild pain in her shoulder. She had no relief from ice and Aleve. She came into the emergency department to be further evaluated. She denies a history of diabetes mellitus stroke myocardial infarction but has had hypertension. She does not smoke cigarettes. She has a mild headache but 10 no loss of vision change in vision. She has had no chest pain cough shortness of breath palpitations. She did not have any nausea vomiting diarrhea urinary incontinence dysuria or pyuria. He admits to having some mild abdominal cramps. Related Data Home Medications Medication Instructions Recorded Confirmed multivitamin [Multiple Vitamins] 1 tab PO DAILY #0 10/27/16 03/09/19 sodium chloride [Destiny 128] 1 melissa OPHTH BEDTIME #0 10/27/16 03/09/19 flecainide 100 mg tablet 100 mg PO Q12H 11/06/17 04/18/19 hydrochlorothiazide 12.5 mg tablet 12.5 mg PO DAILY tab 05/11/18 04/18/19 rosuvastatin 5 mg tablet 2.5 mg PO DAILY #0 tab 05/11/18 04/18/19 losartan 50 mg tablet 50 mg PO DAILY 11/23/18 04/18/19 Cranberry 1,000 mg PO DAILY 12/10/18 03/09/19 Probiotic 1 cap PO DAILY 12/10/18 03/09/19 Spiriva Respimat 1 inh INHALATION DAILY 12/10/18 03/09/19 ascorbic acid (vitamin C) 1 g PO DAILY 12/10/18 03/09/19 cholecalciferol (vitamin D3) 3,000 unit PO DAILY 12/10/18 03/09/19 [Vitamin D3] d-mannose 2,000 mg PO DAILY 12/10/18 03/09/19 diltiazem HCl [Cartia XT] 120 mg PO DAILY 12/10/18 04/18/19 estradiol [Estrace] 0 g VAGINAL 2XW 12/10/18 03/09/19 metronidazole [MetroCream] 1 applic TOPICAL DAILY 12/10/18 03/09/19 naproxen sodium [Aleve] 220 - 440 mg PO PRN PRN 12/10/18 03/09/19 Previous Rx's Medication Instructions Recorded albuterol sulfate 90 mcg/actuation 2 puff INHALATION Q4H PRN #1 09/23/17 aerosol inhaler inhalation Disabled parking permit #1 each 05/19/18 budesonide 180 mcg/actuation 2 inhalation INHALATION BID #2 02/03/19 breath activated powder inhaler inhalation fluticasone propionate 50 1 spray INTRANASAL DAILY #9.9 ml 03/30/19 mcg/actuation nasal spray,suspension omeprazole 40 mg capsule,delayed 40 mg PO BID #180 cap 04/04/19 release cyclobenzaprine 10 mg PO TID PRN #15 tab 04/18/19 naproxen sodium 440 mg PO Q12H #30 cap 04/18/19 Allergies Allergy/AdvReac Type Severity Reaction Status Date / Time bupropion [From WELLBUTRIN] Allergy Severe Tremors Verified 04/18/19 09:39 erythromycin base Allergy Severe GI Upset, Verified 04/18/19 09:39 [ERYTHROMYCIN BASE] Bloody diarrhea latex [LATEX] Allergy Severe Hives, Verified 04/18/19 09:39 Wheezing lisinopril [LISINOPRIL] AdvReac Severe Cough Verified 04/18/19 09:39 meperidine [From DEMEROL] AdvReac Severe Squirrelly Verified 04/18/19 09:39 Review of Systems Review of Systems Narrative: All review of systems were negative except for those mentioned in the history of present illness. Patient History Medical History Abnormal Pap smear of cervix (Resolved 1975) Ankle fracture, left (Resolved 1987) Ankle pain (Chronic 1989) Anxiety (Chronic 1984) Asthma (Chronic 2015) Atrial fibrillation (Chronic 2012) Graves's esophagus (Chronic 2013) Bruit of left carotid artery (Acute) Cataract (Resolved 2002) Chicken pox (Resolved 1954) Corneal dystrophy (Chronic 2002) Cystocele (Chronic) Diverticular disease (Chronic 2016) Diverticulosis (Acute) Elbow fracture, right (Resolved 2015) Epiretinal membrane (Chronic 2004) Frequent UTI (Resolved) GERD (gastroesophageal reflux disease) (Chronic 2004) Hayfever (Chronic 1965) Hearing loss (Chronic) Hemorrhoids (Chronic) History of psychosis (Resolved 1968) Hypercholesterolemia (Chronic) Hyperlipidemia (Chronic 1996) Hypertension (Chronic) Internal hemorrhoids (Acute) Kidney stones (Resolved 2010) Murmur (Chronic) Osteoarthritis (Chronic ~1994) Positive PPD (Chronic 1977) Prediabetes (Chronic) Rectocele (Chronic) Rosacea (Chronic 2011) Surgical History Anesthesia (Resolved) History of cataract removal with insertion of prosthetic lens (Resolved 2002) History of ear, nose, and throat (ENT) surgery (Resolved 1977) History of esophagogastroduodenoscopy (EGD) (Resolved 07/2015) History of foot surgery (Resolved 2007) History of knee replacement (Resolved 2012) Status post colonoscopy (Resolved 2015) Status post hysterectomy (Resolved 1975) Status post laparoscopic cholecystectomy (Resolved 2001) Status post open reduction with internal fixation (ORIF) of fracture of ankle (Resolved 1987) Family History Brother Brain aneurysm CVA (cerebral vascular accident) Mental health problem Alcoholism Brother Alcoholism Heart disease Father No problems noted. Grandfather Alcoholism Suicide Grandmother CVA (cerebral vascular accident) Mother CVA (cerebral vascular accident) UT (myocardial infarction) Lung cancer Hypertension Heart disease Grandfather No problems noted. Grandmother MVA (motor vehicle accident) Sister Thalassemia Sister Alcoholism Brother Ischemia Alcoholism CVA (cerebral vascular accident) Social History household members: none Smoking Status: Former smoker Smoking Status: Former smoker alcohol intake frequency: a few times a week Substance Use Type: does not use Exam Narrative Exam Narrative: PHYSICAL EXAM: CONSTITUTIONAL: Awake, Alert, Oriented, Coherent, Cooperative in NAD. Does not appear toxic or ill. HEAD: AT/NC EENT: PERRL, FROM of eyes, no discharge, no nystagmus No drainage from the ears, Tympanic membranes intact bilaterally without any evidence of hemotympanum., No epistaxis or nasal drainage Oral mucosa is moist and pink, posterior pharynx is without erythema or exudate. NECK: Supple, no obvious JVD, Trachea is midline without stridor, no palpable LN or masses. SPINE: No gross deformity, no palpable tenderness of the cervical, thoracic, lumbar or sacral spine. There is tenderness to palpation along the patient's left paraspinous muscles and trapezius. There was no tenderness to palpation ov er the shoulder. She had the ability to abduct to the horizontal. Internal and external rotation were intact. There was no deformity or tenderness to palpation over the clavicle. No CVA tenderness. THORAX: No deformity, retractions, chest wall tenderness, subcutaneous air or crepitice. LUNGS: Clear with symmetrical breath sounds without respiratory distress HEART: Normal heart tones, regular rhythm and rate without murmur. ABDOMEN: Soft, non-tender, normal bowel sounds without guarding, rebound, rigidity or palpable mass EXTREMITIES: No edema, cyanosis, deformity or tenderness. SKIN: No rash, bruising, petechiae or purpura. NEURO: Awake, alert, oriented, conversive, cranial nerves II-XII are symmetrical and normal, moves all 4 extremities and is ambulatory Initial Vital Signs Initial Vital Signs: Vital Signs Temperature 97.9 F 04/18/19 09:20 Pulse Rate 72 04/18/19 09:20 Respiratory Rate 14 04/18/19 09:20 Blood Pressure 144/67 H 04/18/19 09:20 Pulse Oximetry 96 04/18/19 09:20 Course Orders Ordered: Discontinued Medications Ketorolac Tromethamine (Toradol) 15 mg IM NOW ONE Stop: 04/18/19 10:06 Last Admin: 04/18/19 10:46 Dose: 15 mg Documented by: NERISSA Vital Signs Vital signs: Vital Signs - 8 hr 04/18/19 09:20 Temperature 97.9 F Pulse Rate 72 Respiratory Rate 14 Blood Pressure 144/67 H Pulse Oximetry 96 MDM - Fall Medical Records Attestation: I reviewed the patient's medical records. Lab Data Attestation: I reviewed the patient's lab results. Result diagrams: 04/18/19 10:19 04/18/19 10:19 Labs: Lab Results 04/18/19 04/18/19 Range/Units 10:19 10:19 WBC 9.3 (4.5-11.0) X10^3/uL RBC 4.33 (4.0-5.2) X10^6/uL Hgb 12.6 (12.0-16.0) g/dL Hct 37.7 (36-46) % MCV 87.2 (80-100) fL MCH 29.2 (26-34) PG MCHC 33.4 (30-36) % RDW 15.3 H (11.6-14.8) % Plt Count 286 (150-400) X10^3/uL Neut % (Auto) 63.0 (50-75) % Lymph % (Auto) 26.3 (25-40) % Harvey % (Auto) 6.3 (3-14) % Eos % (Auto) 2.5 (2-4) % Baso % (Auto) 1.9 (0-2) % Neut # (Auto) 5800 (6763-3018) /uL Lymph # (Auto) 2400 (2147-4669) /uL Harvey # (Auto) 600 (0-900) /uL Eos # (Auto) 200 (0-450) /uL Baso # (Auto) 200 H (0-100) /uL Sodium 139 (137-145) mmol/L Potassium 3.5 (3.4-5.1) mmol/L Chloride 105 (98-107) mmol/L Carbon Dioxide 28 (22-32) mmol/L BUN 18 H (7-17) mg/dL Creatinine 0.80 (0.52-1.04) mg/dL Estimated GFR > 60.0 (>60) mL/min BUN/Creatinine Ratio 22.5 H (6-22) Glucose 160 H (80-110) mg/dL Calcium 9.4 (8.4-10.2) mg/dL Total Bilirubin 0.4 (0.2-1.3) mg/dL AST 20 (14-36) IU/L ALT 16 (<35) IU/L Alkaline Phosphatase 81 (38-126) U/L Troponin I < 0.012 (0.01-0.034) ng/mL Total Protein 7.3 (6.3-8.2) g/dL Albumin 3.8 (3.5-5.0) g/dL Globulin 3.5 (1.7-4.1) g/dL Albumin/Globulin Ratio 1.1 (1.0-2.8) ECG Data Attestation: I personally reviewed and interpreted this ECG as follows: Interpretation: The patient's EKG obtained on April 18 at 09:3 6:09 a.m. revealed a sinus rhythm with a first-degree AV block. The SD interval was 241 milliseconds. Ventricular rate is 68. QT in QTC are normal axis is normal. The patient has a Q-wave in lead III with T-wave inversions. T-wave is inverted in V1. There are no other acute diagnostic ST segment changes. Discharge Plan Departure Patient Disposition: Home Clinical Impression: Dizziness Fall Qualifiers: Encounter type: initial encounter Qualified Code(s): W19.XXXA - Unspecified fall, initial encounter Head injury Qualifiers: Encounter type: initial encounter Qualified Code(s): S09.90XA - Unspecified injury of head, initial encounter Injury of neck Qualifiers: Encounter type: initial encounter Qualified Code(s): S19.9XXA - Unspecified injury of neck, initial encounter Discharge Date/Time: 04/18/19 12:11 Instructions: Whiplash, DI for Closed Head Injury, DI for Dizziness-Nonvertigo Activity Restrictions/Additional Instructions: 1. Follow-up with your primary care physician in be rechecked in 48-72 hours. 2. If you develop worsening pain or discomfort return to the emergency department. 3. Drink 2-3 L of fluid per day 4. Naprosyn as needed for pain and discomfort 500 mg q.12 hours. 5 cyclobenzaprine 10 mg p.o. t.i.d. as needed for muscle spasms. Prescriptions: New naproxen sodium 220 mg capsule 440 mg PO Q12H Qty: 30 RF: 0 cyclobenzaprine 10 mg tablet 10 mg PO TID PRN (Reason: muscle spasm) Qty: 15 RF: 0 No Action hydrochlorothiazide 12.5 mg tablet 12.5 mg PO DAILY RF: 0 multivitamin [Multiple Vitamins] 1 EACH tablet 1 tab PO DAILY Qty: 0 RF: 0 sodium chloride [Destiny 128] 3.5 GM ointment 1 melissa OPHTH BEDTIME Qty: 0 RF: 0 albuterol sulfate 90 mcg/actuation HFA aerosol inhaler 2 puff INHALATION Q4H PRN (Reason: shortness of breath or wheezing) Qty: 1 RF: 2 rosuvastatin [Crestor] 5 mg tablet 2.5 mg PO DAILY Qty: 0 RF: 0 Pulmicort Flexhaler 180 mcg/actuation aerosol powdr breath activated 2 inhalation inhalation BID Qty: 2 RF: 5 fluticasone propionate 50 mcg/actuation spray,suspension 1 spray Intranasal DAILY Qty: 9.9 RF: 0 omeprazole 40 mg capsule,delayed release(DR/EC) 40 mg PO BID Qty: 180 RF: 0 flecainide 100 mg tablet 100 mg PO Q12H RF: 0 (DME) Disabled parking permit Qty: 1 RF: 0 losartan 50 mg tablet 50 mg PO DAILY RF: 0 diltiazem HCl [Cartia XT] 120 mg capsule,extended release 24hr 120 mg PO DAILY RF: 0 ascorbic acid (vitamin C) 1,000 mg Tablet 1 g PO DAILY RF: 0 cholecalciferol (vitamin D3) [Vitamin D3] 1,000 unit Capsule 3,000 unit PO DAILY RF: 0 Cranberry 1,000 mg 1,000 mg PO DAILY RF: 0 Probiotic 1 cap PO DAILY RF: 0 d-mannose 1,000 mg 2,000 mg PO DAILY RF: 0 estradiol [Estrace] 0.01 % (0.1 mg/gram) cream 0 g Vaginal 2XW RF: 0 naproxen sodium [Aleve] 220 mg Tablet 220 - 440 mg PO PRN PRN (Reason: pain) RF: 0 metronidazole [MetroCream] 0.75 % Cream 1 applic TOPICAL DAILY RF: 0 Spiriva Respimat 1 inh inhalation DAILY RF: 0 Referrals: Yamilet Malave DO [Primary Care Provider] -
[2019-04-18 10:28] LABS: Add Manual Diff / Slide Review NO; Basophils Absolute Auto 200 /uL (0-100); Basophils Percent Auto 1.9 % (0-2); Eosinophils Absolute Auto 200 /uL (0-450); Eosinophils Percent Auto 2.5 % (2-4); Hematocrit 37.7 % (36-46); Hemoglobin 12.6 g/dL (12.0-16.0); Lymphocytes Absolute Auto 2400 /uL (1100-4500); Lymphocytes Percent Auto 26.3 % (25-40); Mean Corpuscular HGB Conc 33.4 % (30-36); Mean Corpuscular Hemoglobin 29.2 PG (26-34); Mean Corpuscular Volume 87.2 fL (80-100); Monocytes Absolute Auto 600 /uL (0-900); Monocytes Percent Auto 6.3 % (3-14); Neutrophils Absolute Auto 5800 /uL (1500-7000); Platelet Count 286 X10^3/uL (150-400); Red Blood Cell Count 4.33 X10^6/uL (4.0-5.2); Red Cell Distribution Width 15.3 % (11.6-14.8); White Blood Cell Count 9.3 X10^3/uL (4.5-11.0)
[2019-04-18 10:30] VITALS: BP 141/65; PULSE 62; RESP 12
[2019-04-18 10:45] LABS: Alanine Aminotransferase 16 IU/L (<35); Albumin 3.8 g/dL (3.5-5.0); Albumin Globulin Ratio 1.1 (1.0-2.8); Alkaline Phosphatase 81 U/L (38-126); Aspartate Aminotransferase 20 IU/L (14-36); BUN Creatinine Ratio 22.5 (6-22); Bilirubin Total 0.4 mg/dL (0.2-1.3); Blood Urea Nitrogen 18 mg/dL (7-17); Calcium 9.4 mg/dL (8.4-10.2); Carbon Dioxide 28 mmol/L (22-32); Chloride 105 mmol/L (98-107); Estimated Glomerular Filt Rate > 60.0 mL/min (>60); Globulin 3.5 g/dL (1.7-4.1); Glucose 160 mg/dL (80-110); HEMOLYSIS < 15 (0-50); Potassium 3.5 mmol/L (3.4-5.1); Sodium 139 mmol/L (137-145); Total Protein 7.3 g/dL (6.3-8.2)
[2019-04-18] MEDS: KETOROLAC 60 MG/2 ML VIAL 15 MG IM (10:46)
[2019-04-18 10:57] LABS: Troponin I < 0.012 ng/mL (0.01-0.034)
[2019-04-18 11:30] VITALS: BP 131/78; PULSE 77; RESP 14; O2SAT 99
== END 2019-04-18 12:11 | disposition home or self-care (01) ==
PROVIDERS: Emergency Provider Emergency Medicine; PCP Family Medicine
DX: R42 Dizziness and giddiness (principal); S09.90XA Unspecified injury of head, initial encounter; S19.9XXA Unspecified injury of neck, initial encounter; I10 Essential (primary) hypertension; M54.2 Cervicalgia; R07.9 Chest pain, unspecified; W19.XXXA Unspecified fall, initial encounter
CPT/HCPCS: 36415; 70450; 72125; 80053; 84484; 85025; 93005; 96372; 99284; 99285; J1885

== ENCOUNTER → 2019-08-01 12:41 | Outpatient (CLI) | payer MEDICARE, OTHER, SELFPAY ==
--- NOTE | 2019-08-01 13:07 | DI.CT.S_ITS ---
PROCEDURE: CT ABDOMEN PELVIS W CON INDICATIONS: LLQ pain, diverticulitis TECHNIQUE: After the administration of oral and intravenous contrast, 5 mm thick sections acquired from the diaphragms to the symphysis. 5 mm thick coronal and sagittal reformats were performed. For radiation dose reduction, the following was used: automated exposure control, adjustment of mA and/or kV according to patient size. COMPARISON: [facility], CT, CT KIDNEY URETER BLADDER (KUB), 07/19/2018, 8:51. FINDINGS: Image quality: Excellent. ABDOMEN: Lung bases: Lung bases are clear. Heart size is normal. There is a small to moderate sized hiatal hernia behind the heart Solid organs: Liver is normal in size and enhancement. Gallbladder has been previously resected. Biliary system is non-dilated. Pancreas enhances normally. Spleen is normal in size and enhancement. No adrenal nodules. Kidneys are normal in size and enhancement, without hydronephrosis. Peritoneum and bowel: Stomach, small bowel, and colon loops are normal in caliber and wall thickness. No free fluid or air. Nodes and vessels: No retroperitoneal or mesenteric adenopathy. Aorta and inferior vena cava are normal in caliber. Miscellaneous: No ventral hernias. PELVIS: Genitourinary: Bladder wall thickness is normal. Miscellaneous: No inguinal hernias or adenopathy. There is sigmoid diverticulosis, mild in severity, without acute diverticulitis. No adnexal pathology is found. No urinary tract calculus or inflammation is seen. Bones: No suspicious bony lesions. No vertebral body compression fractures. IMPRESSION: Prior cholecystectomy, small to moderate sized sliding hiatal hernia. No inflammation found within the abdomen or pelvis. There is colonic diverticulosis seen at the sigmoid colon but without current inflammation immediately adjacent. No urinary tract or adnexal pathology is seen.. Dictated by: Nii Clark M.D. on 08/01/2019 at 14:46 Approved by: Nii Clark M.D. on 08/01/2019 at 14:47
[2019-08-01 13:15] LABS: Add Manual Diff / Slide Review NO; Basophils Absolute Auto 0 /uL (0-100); Basophils Percent Auto 0.4 % (0-2); Eosinophils Absolute Auto 200 /uL (0-450); Eosinophils Percent Auto 2.7 % (2-4); Hematocrit 38.9 % (36-46); Hemoglobin 13.3 g/dL (12.0-16.0); Lymphocytes Absolute Auto 2400 /uL (1100-4500); Lymphocytes Percent Auto 27.8 % (25-40); Mean Corpuscular HGB Conc 34.1 % (30-36); Mean Corpuscular Hemoglobin 30.2 PG (26-34); Mean Corpuscular Volume 88.6 fL (80-100); Monocytes Absolute Auto 700 /uL (0-900); Monocytes Percent Auto 7.9 % (3-14); Neutrophils Absolute Auto 5300 /uL (1500-7000); Neutrophils Percent Auto 61.2 % (50-75); Platelet Count 289 X10^3/uL (150-400); Red Blood Cell Count 4.39 X10^6/uL (4.0-5.2); Red Cell Distribution Width 13.9 % (11.6-14.8); White Blood Cell Count 8.6 X10^3/uL (4.5-11.0)
[2019-08-01 14:12] LABS: Iron 73 ug/dL (37-170)
[2019-08-01 14:14] LABS: Alanine Aminotransferase 19 IU/L (<35); Albumin 4.4 g/dL (3.5-5.0); Albumin Globulin Ratio 1.3 (1.0-2.8); Alkaline Phosphatase 83 U/L (38-126); Aspartate Aminotransferase 28 IU/L (14-36); BUN Creatinine Ratio 22.2 (6-22); Bilirubin Total 0.4 mg/dL (0.2-1.3); Blood Urea Nitrogen 16 mg/dL (7-17); Calcium 9.7 mg/dL (8.4-10.2); Carbon Dioxide 27 mmol/L (22-32); Chloride 99 mmol/L (98-107); Estimated Glomerular Filt Rate > 60.0 mL/min (>60); Globulin 3.5 g/dL (1.7-4.1); Glucose 104 mg/dL (80-110); HEMOLYSIS < 15 (0-50); Potassium 3.9 mmol/L (3.4-5.1); Sodium 135 mmol/L (137-145); Total Protein 7.9 g/dL (6.3-8.2)
[2019-08-01 14:22] LABS: Total Iron Binding Capacity 372 ug/dL (265-497)
[2019-08-01 14:25] LABS: Amylase 86 U/L (30-110); Lipase 71 U/L (23-300)
[2019-08-01 14:50] LABS: Ferritin 38 ng/mL (11-264)
== END ==
PROVIDERS: Internal Medicine Hematology & Oncology; PCP Family Medicine; Referring Provider Family Medicine; Visit Provider Family Medicine
DX: E61.1 Iron deficiency (principal); R10.9 Unspecified abdominal pain; K57.92 Diverticulitis of intestine, part unspecified, without perforation or abscess without bleeding
CPT/HCPCS: 36415; 74177; 80053; 82150; 82728; 83540; 83550; 83690; 85025

== ENCOUNTER → 2019-08-02 10:08 | Outpatient (CLI) | payer MEDICARE, OTHER, SELFPAY ==
[2019-08-02 10:12] LABS: Bacteria Urine None Seen; RBC Urine None Seen (0-5/HPF); WBC Urine None Seen (0-5/HPF)
[2019-08-02 12:18] LABS: Appearance Urine UA CLEAR; Bilirubin Urine UA NEGATIVE (NEGATIVE); Color Urine UA YELLOW; Glucose Urine UA NEGATIVE (Negative); Ketones Urine UA NEGATIVE (NEGATIVE); Leukocyte Esterase Urine UA NEGATIVE (NEGATIVE); Nitrite Urine UA NEGATIVE (Negative); Occult Blood Urine UA NEGATIVE (Negative); Protein Urine UA NEGATIVE (Negative); Urobilinogen Urine UA 0.2 E.U./dL (0.2)
[2019-08-02 12:22] LABS: pH Urine UA 6.5 (4.5-8.0)
[2019-08-02 12:30] LABS: Culture Indicated Urine Cult Not Indicated; Urine Comments Microscopic Normal
== END ==
PROVIDERS: PCP Family Medicine; Referring Provider Family Medicine; Visit Provider Family Medicine
DX: R10.9 Unspecified abdominal pain (principal)
CPT/HCPCS: 81001

== ENCOUNTER 2019-08-19 12:22 | Emergency (ER) | payer MEDICARE, OTHER, SELFPAY ==
[2019-08-19 12:41] VITALS: BP 202/86; PULSE 64; RESP 18; TEMP 36.7; O2SAT 97; BMI 38.9
--- NOTE | 2019-08-19 13:49 | DI.US.S_ITS ---
PROCEDURE: US ARTERIAL DUPLEX LE LT INDICATIONS: COLD, MOTTLED LEFT GREAT TOE AND SECOND AND THIRD TOES TECHNIQUE: Color and pulse Doppler interrogation was performed of the left lower extremity arterial system, with image documentation. COMPARISON: None. FINDINGS: Common femoral artery: 161 cm/sec, with triphasic flow. Deep femoral artery: Not obtained Proximal superficial femoral artery: 108 cm/sec, with triphasic flow. Mid superficial femoral artery: 107 cm/sec, with triphasic flow. Distal superficial femoral artery: 97 cm/sec, with biphasic flow. Popliteal artery: 52 cm/sec, with biphasic flow. Posterior tibial artery: 75 cm/sec, with biphasic flow. Anterior tibial artery/dorsalis pedis: 28 cm/sec, with monophasic flow. Antoine-scale imaging description: Questionable hemodynamically significant stenosis in the anterior tibial artery. No other sonographic evidence for hemodynamically significant stenoses. IMPRESSION: 1. Questionable hemodynamically significant stenosis within the anterior tibial artery. 2. Otherwise biphasic and triphasic waveforms throughout. No findings to suggest occluded left lower extremity arteries. Dictated by: Tita Ly M.D. on 08/19/2019 at 15:17 Approved by: Tita Ly M.D. on 08/19/2019 at 15:20
[2019-08-19 14:24] LABS: Add Manual Diff / Slide Review NO; Basophils Absolute Auto 100 /uL (0-100); Eosinophils Absolute Auto 200 /uL (0-450); Eosinophils Percent Auto 1.8 % (2-4); Hematocrit 37.1 % (36-46); Hemoglobin 12.7 g/dL (12.0-16.0); Lymphocytes Absolute Auto 2500 /uL (1100-4500); Lymphocytes Percent Auto 27.7 % (25-40); Mean Corpuscular HGB Conc 34.3 % (30-36); Mean Corpuscular Hemoglobin 30.4 PG (26-34); Mean Corpuscular Volume 88.8 fL (80-100); Monocytes Absolute Auto 700 /uL (0-900); Monocytes Percent Auto 7.6 % (3-14); Neutrophils Absolute Auto 5700 /uL (1500-7000); Neutrophils Percent Auto 61.9 % (50-75); Platelet Count 270 X10^3/uL (150-400); Red Blood Cell Count 4.18 X10^6/uL (4.0-5.2); White Blood Cell Count 9.2 X10^3/uL (4.5-11.0)
[2019-08-19 14:35] LABS: Lactate (Lactic Acid) 0.6 mmol/L (0.7-2.1)
[2019-08-19 14:39] LABS: Alanine Aminotransferase 17 IU/L (<35); Albumin 4.2 g/dL (3.5-5.0); Albumin Globulin Ratio 1.3 (1.0-2.8); Alkaline Phosphatase 78 U/L (38-126); Aspartate Aminotransferase 24 IU/L (14-36); BUN Creatinine Ratio 21.6 (6-22); Bilirubin Total 0.5 mg/dL (0.2-1.3); Blood Urea Nitrogen 16 mg/dL (7-17); Calcium 9.6 mg/dL (8.4-10.2); Carbon Dioxide 28 mmol/L (22-32); Chloride 102 mmol/L (98-107); Creatine Kinase 30 U/L (30-135); Estimated Glomerular Filt Rate > 60.0 mL/min (>60); Globulin 3.3 g/dL (1.7-4.1); Glucose 93 mg/dL (80-110); HEMOLYSIS 16 (0-50); Potassium 3.8 mmol/L (3.4-5.1); Sodium 137 mmol/L (137-145); Total Protein 7.5 g/dL (6.3-8.2)
[2019-08-19 14:43] LABS: Erythrocyte Sedimentation Rate 42 MM/HR (0-20)
[2019-08-19 14:47] LABS: C-Reactive Protein Quant < 0.5 mg/dL (<1.0)
[2019-08-19 15:59] VITALS: BP 213/83; PULSE 61; RESP 16; O2SAT 98
--- NOTE | 2019-08-19 16:10 | ED.EXTPRO ---
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 They did not seem to be getting better but seemed to be getting worse. She denied having any pain or discomfort or any injury to her foot and toes on the left foot. The patient states that she knows that she should not have purple toe so she went to see her primary care physician who sent her to the emergency department to be evaluated. The patient is a former smoker quitting in 2008. She has never been told that she had Buerger's disease. She denies a history of rheumatoid arthritis, Crest Syndrome, polymyalgia rheumatica or Raynaud's phenomena. The patient has never before experienced this. She denies a history of diabetes mellitus stroke congestive heart failure myocardial infarction. She admits to history of COPD and hypertension. She admits to being a former smoker drinks alcohol rarely but socially and uses marijuana cream for pain and discomfort. Related Data Home Medications Medication Instructions Recorded Confirmed multivitamin [Multiple Vitamins] 1 tab PO DAILY #0 10/27/16 08/19/19 sodium chloride [Destiny 128] 1 melissa OPHTH BEDTIME #0 10/27/16 08/19/19 flecainide 100 mg tablet 100 mg PO Q12H 11/06/17 08/19/19 hydrochlorothiazide 12.5 mg tablet 12.5 mg PO DAILY tab 05/11/18 08/19/19 rosuvastatin 5 mg tablet 2.5 mg PO DAILY #0 tab 05/11/18 08/19/19 losartan 50 mg tablet 50 mg PO DAILY 11/23/18 08/19/19 Cranberry 1,000 mg PO DAILY 12/10/18 08/19/19 Probiotic 1 cap PO DAILY 12/10/18 08/19/19 ascorbic acid (vitamin C) 1 g PO DAILY 12/10/18 08/19/19 cholecalciferol (vitamin D3) 3,000 unit PO DAILY 12/10/18 08/19/19 [Vitamin D3] d-mannose 2,000 mg PO DAILY 12/10/18 08/19/19 diltiazem HCl [Cartia XT] 120 mg PO DAILY 12/10/18 08/19/19 estradiol [Estrace] 0 g VAGINAL 2XW 12/10/18 08/19/19 metronidazole [MetroCream] 1 applic TOPICAL DAILY 12/10/18 08/19/19 omeprazole 40 mg PO DAILY 08/17/19 08/19/19 Previous Rx's Medication Instructions Recorded albuterol sulfate 90 mcg/actuation 2 puff INHALATION Q4H PRN #1 09/23/17 aerosol inhaler inhalation Disabled parking permit #1 each 05/19/18 budesonide 180 mcg/actuation 2 inhalation INHALATION BID #2 02/03/19 breath activated powder inhaler inhalation naproxen sodium 440 mg PO Q12H #30 cap 04/18/19 fluticasone propionate 50 2 spray INTRANASAL DAILY #9.9 ml 08/15/19 mcg/actuation nasal spray,suspension ferrous sulfate 220 mg PO Q OTHER DAY #100 ml 08/17/19 Allergies Allergy/AdvReac Type Severity Reaction Status Date / Time bupropion [From WELLBUTRIN] Allergy Severe Tremors Verified 08/19/19 12:53 erythromycin base Allergy Severe GI Upset, Verified 08/19/19 12:53 [ERYTHROMYCIN BASE] Bloody diarrhea latex [LATEX] Allergy Severe Hives, Verified 08/19/19 12:53 Wheezing lisinopril [LISINOPRIL] AdvReac Severe Cough Verified 08/19/19 12:53 meperidine [From DEMEROL] AdvReac Severe Squirrelly Verified 08/19/19 12:53 Review of Systems Review of Systems Narrative: REVIEW OF SYSTEMS: CONSTITUTIONAL: She denies any fever chills or sweats. NEUROLOGICAL: She has had no headache. EENT: She denies any sore throat trouble swallowing CARDIO-PULMONARY: She has had no chest pain shortness of breath difficulty in breathing palpitations irregular heartbeat atrial fibrillation. GASTROINTESTINAL: She denies any abdominal pain nausea vomiting diarrhea GENITAL URINARY: She has had no urinary symptoms. MUSCULOSKELETAL/ RHEUMATOLOGICAL: She denies any significant back pain. Patient History Medical History Abnormal Pap smear of cervix (Resolved 1975) Ankle fracture, left (Resolved 1987) Ankle pain (Chronic 1989) Anxiety (Chronic 1984) Asthma (Chronic 2016) Atrial fibrillation (Chronic 2012) Graves's esophagus (Chronic 2013) Bruit of left carotid artery (Acute) Cataract (Resolved 2002) Chicken pox (Resolved 1954) Corneal dystrophy (Chronic 2002) Cystocele (Chronic) Diverticular disease (Chronic 2016) Diverticulosis (Acute) Elbow fracture, right (Resolved 2015) Epiretinal membrane (Chronic 2004) Frequent UTI (Resolved) GERD (gastroesophageal reflux disease) (Chronic 2004) Hayfever (Chronic 1965) Hearing loss (Chronic) Hemorrhoids (Chronic) History of psychosis (Resolved 1968) Hypercholesterolemia (Chronic) Hyperlipidemia (Chronic 1996) Hypertension (Chronic) Internal hemorrhoids (Acute) Kidney stones (Resolved 2010) Murmur (Chronic) Osteoarthritis (Chronic ~1994) Positive PPD (Chronic 1977) Prediabetes (Chronic) Rectocele (Chronic) Rosacea (Chronic 2011) Surgical History Anesthesia (Resolved) History of cataract removal with insertion of prosthetic lens (Resolved 2002) History of ear, nose, and throat (ENT) surgery (Resolved 1977) History of esophagogastroduodenoscopy (EGD) (Resolved 07/2015) History of foot surgery (Resolved 2007) History of knee replacement (Resolved 2012) Status post colonoscopy (Resolved 2015) Status post hysterectomy (Resolved 1975) Status post laparoscopic cholecystectomy (Resolved 2001) Status post open reduction with internal fixation (ORIF) of fracture of ankle (Resolved 1987) Family History Brother Brain aneurysm CVA (cerebral vascular accident) Mental health problem Alcoholism Brother Alcoholism Heart disease Father No problems noted. Grandfather Alcoholism Suicide Grandmother CVA (cerebral vascular accident) Mother CVA (cerebral vascular accident) CA (myocardial infarction) Lung cancer Hypertension Heart disease Grandfather No problems noted. Grandmother MVA (motor vehicle accident) Sister Thalassemia Sister Alcoholism Brother Ischemia Alcoholism CVA (cerebral vascular accident) Social History household members: none Smoking Status: Former smoker Smoking Status: Former smoker alcohol intake frequency: a few times a week Substance Use Type: does not use Exam Narrative Exam Narrative: PHYSICAL EXAM: CONSTITUTIONAL: Awake, Alert, Oriented, Coherent, Cooperative in NAD. Does not appear toxic or ill. HEAD: AT/NC EENT: PERRL, FROM of eyes, no discharge,. NOSE:No epistaxis or nasal drainage MOUTH:Oral mucosa is moist and pink, posterior pharynx is without erythema or exudate. NECK: Supple, no obvious JVD, Trachea is midline without stridor, no palpable LN. SPINE: Palpation of the cervical, Thoracic, Lumbar or Sacral spine reveals no gross deformity or tenderness. No CVA tenderness. THORAX: No deformity, retractions, chest wall tenderness. LUNGS: Clear, symmetrical breath sounds without respiratory distress. HEART: Normal heart tones, regular rhythm and rate without murmur. ABDOMEN: Soft, non-tender, without guarding, rebound, rigidity or palpable mass. EXTREMITIES: The patient has no significant redness or swelling of the toes of the right foot. The patient's left great toe 2nd and 3rd toes are mottled with decreased capillary refill and cool. Dorsalis pedis pulse is week but 1+. SKIN: No rash, bruising, petechiae or purpura. NEURO: Awake, alert, oriented, conversive, cranial nerves II-XII are symmetrical , moves all 4 extremities and is ambulatory. Initial Vital Signs Initial Vital Signs: Vital Signs Temperature 98.1 F 08/19/19 12:41 Pulse Rate 64 08/19/19 12:41 Respiratory Rate 18 08/19/19 12:41 Blood Pressure 202/86 H 08/19/19 12:41 Pulse Oximetry 97 08/19/19 12:41 Course Course Course Narrative: 1610 the patient's chemistries are within normal limits. Ultrasound of the arterial system reveals a questionable hemodynamically significant stenosis within the anterior tibial artery. 2. Otherwise biphasic and triphasic waveforms throughout. No finding to suggest occluded left lower extremity arteries. will discuss with general surgery. Call has been plced to Dr. Salcido. [id number]: Discussed with Dr. Salcido he agrees with my plan in observations and evaluation. [id number] Malave follow up with Dr. Chambers Orders Ordered: ED Orders 08/19/19 13:49 US arterial duplex LE LT Stat 08/19/19 14:10 C-Reactive Protein Quant Stat Complete Blood Count AUTO DIFF Stat Comprehensive Metabolic Panel Stat Creatine Kinase Stat Erythrocyte Sedimentation Rate Stat Lactate (Lactic Acid) Stat Vital Signs Vital signs: Vital Signs - 8 hr 06/19/20 15:59 08/19/19 17:17 Pulse Rate 61 69 Respiratory Rate 16 18 Blood Pressure [Right Arm] 213/83 H 196/82 H Pulse Oximetry 98 97 MDM - Extremity (Nontraumatic) Lab Data Result diagrams: 08/19/19 14:10 08/19/19 14:10 Labs: Lab Results 08/19/19 08/19/19 08/19/19 Range/Units 14:10 14:10 14:10 WBC 9.2 (4.5-11.0) X10^3/uL RBC 4.18 (4.0-5.2) X10^6/uL Hgb 12.7 (12.0-16.0) g/dL Hct 37.1 (36-46) % MCV 88.8 (80-100) fL MCH 30.4 (26-34) PG MCHC 34.3 (30-36) % RDW 14.0 (11.6-14.8) % Plt Count 270 (150-400) X10^3/uL Neut % (Auto) 61.9 (50-75) % Lymph % (Auto) 27.7 (25-40) % [place] % (Auto) 7.6 (3-14) % Eos % (Auto) 1.8 L (2-4) % Baso % (Auto) 1.0 (0-2) % Neut # (Auto) 5700 (7602-8579) /uL Lymph # (Auto) 2500 (4666-4916) /uL [place] # (Auto) 700 (0-900) /uL Eos # (Auto) 200 (0-450) /uL Baso # (Auto) 100 (0-100) /uL ESR 42 H (0-20) MM/HR Sodium 137 (137-145) mmol/L Potassium 3.8 (3.4-5.1) mmol/L Chloride 102 (98-107) mmol/L Carbon Dioxide 28 (22-32) mmol/L BUN 16 (7-17) mg/dL Creatinine 0.74 (0.52-1.04) mg/dL Estimated GFR > 60.0 (>60) mL/min BUN/Creatinine Ratio 21.6 (6-22) Glucose 93 (80-110) mg/dL Lactate 0.6 L (0.7-2.1) mmol/L Calcium 9.6 (8.4-10.2) mg/dL Total Bilirubin 0.5 (0.2-1.3) mg/dL AST 24 (14-36) IU/L ALT 17 (<35) IU/L Alkaline Phosphatase 78 (38-126) U/L Total Creatine Kinase 30 (30-135) U/L C-Reactive Protein < 0.5 (<1.0) mg/dL Total Protein 7.5 (6.3-8.2) g/dL Albumin 4.2 (3.5-5.0) g/dL Globulin 3.3 (1.7-4.1) g/dL Albumin/Globulin Ratio 1.3 (1.0-2.8) Discharge Plan Departure Patient Disposition: Home Clinical Impression: Ischemic toe, Cyanosis Discharge Date/Time: 08/19/19 17:18 Instructions: DI for Peripheral Vascular (Arterial) Disease Activity Restrictions/Additional Instructions: 1. Follow-up with Dr. Malave to be referred to a vascular surgeon. 2. If you develop a worsening cold low left foot with severe pain and discomfort you need to return to the emergency department at that time to be evaluated. 3. Apply warm compresses 4. Be sure to be taking 1 aspirin per day. 325 mg. Prescriptions: No Action hydrochlorothiazide 12.5 mg tablet 12.5 mg PO DAILY RF: 0 multivitamin [Multiple Vitamins] 1 EACH tablet 1 tab PO DAILY Qty: 0 RF: 0 sodium chloride [Destiny 128] 3.5 GM ointment 1 melissa OPHTH BEDTIME Qty: 0 RF: 0 albuterol sulfate 90 mcg/actuation HFA aerosol inhaler 2 puff INHALATION Q4H PRN (Reason: shortness of breath or wheezing) Qty: 1 RF: 2 rosuvastatin [Crestor] 5 mg tablet 2.5 mg PO DAILY Qty: 0 RF: 0 Pulmicort Flexhaler 180 mcg/actuation aerosol powdr breath activated 2 inhalation inhalation BID Qty: 2 RF: 5 fluticasone propionate 50 mcg/actuation spray,suspension 2 spray Intranasal DAILY Qty: 9.9 RF: 0 flecainide 100 mg tablet 100 mg PO Q12H RF: 0 (DME) Disabled parking permit Qty: 1 RF: 0 losartan 50 mg tablet 50 mg PO DAILY RF: 0 diltiazem HCl [Cartia XT] 120 mg capsule,extended release 24hr 120 mg PO DAILY RF: 0 ascorbic acid (vitamin C) 1,000 mg Tablet 1 g PO DAILY RF: 0 cholecalciferol (vitamin D3) [Vitamin D3] 1,000 unit Capsule 3,000 unit PO DAILY RF: 0 Cranberry 1,000 mg 1,000 mg PO DAILY RF: 0 Probiotic 1 cap PO DAILY RF: 0 d-mannose 1,000 mg 2,000 mg PO DAILY RF: 0 estradiol [Estrace] 0.01 % (0.1 mg/gram) cream 0 g Vaginal 2XW RF: 0 metronidazole [MetroCream] 0.75 % Cream 1 applic TOPICAL DAILY RF: 0 naproxen sodium 220 mg capsule 440 mg PO Q12H Qty: 30 RF: 0 omeprazole 40 mg capsule,delayed release(DR/EC) 40 mg PO DAILY RF: 0 ferrous sulfate 220 mg (44 mg iron)/5 mL Solution 220 mg PO Q OTHER DAY Qty: 100 RF: 5 Referrals: Yamilet Malave DO [Primary Care Provider] -
--- NOTE | 2019-08-19 16:59 | PC.NURSE ---
Pt had run of 6 Vtach, notified Dr Robertson, printout on chart.
[2019-08-19 17:17] VITALS: BP 196/82; PULSE 69; RESP 18; O2SAT 97
== END 2019-08-19 17:18 | disposition home or self-care (01) ==
PROVIDERS: Emergency Provider Emergency Medicine; PCP Family Medicine
DX: I99.8 Other disorder of circulatory system (principal); R23.0 Cyanosis; J44.9 Chronic obstructive pulmonary disease, unspecified; I10 Essential (primary) hypertension
CPT/HCPCS: 36415; 80053; 82550; 83605; 85025; 85651; 86140; 93926; 99284

== ENCOUNTER 2019-09-05 13:01 | Emergency (ER) | payer MEDICARE, OTHER, SELFPAY ==
[2019-09-05] VITALS (10 sets, daily range): BP systolic 152–194; BP diastolic 66–92; PULSE 62–73; RESP 18; TEMP 36.8; O2SAT 96–98
--- NOTE | 2019-09-05 13:17 | DI.US.S_ITS ---
PROCEDURE: US ARTERIAL DUPLEX LE LT INDICATIONS: LEFT FOOT INTERMITANT CIRCULATION DIFFICULTY/PAIN BEHIND KNE TECHNIQUE: Color and pulse Doppler interrogation was performed of the left lower extremity arterial system, with image documentation. COMPARISON: [facility], , US ARTERIAL DUPLEX LE LT, 08/19/2019, 14:13. FINDINGS: The common femoral artery shows normal flow velocity of 102 cm/s with profunda femoris arterial flow measuring 86 cm/s. Within the superficial femoral artery proximal mid and distal flow velocities are 127, 81 and 79 cm/s. At the popliteal artery flow velocity is 30 cm/s and mildly elevated more distally at its exte centimeters per second. The posterior tibial arterial flow velocity is 85 cm/s and the anterior tibial is 17.1 cm/s. Flow velocity into the dorsalis pedis artery is 17 cm/s. IMPRESSION: The flow velocities from today's study are diminished with reference to the recent prior examination from 08/19/19 no area of high-grade stenosis is found and the arterial study from today does not indicate likelihood of critical arterial insufficiency to the lower extremity on the left. MR angiography may be warranted for further assessment electively, given the reported recurrent episodes of symptomatology suggestive of arterial insufficiency. Dictated by: Nii Clark M.D. on 09/05/2019 at 15:28 Approved by: Nii Clark M.D. on 09/05/2019 at 15:34
--- NOTE | 2019-09-05 13:17 | DI.US.S_ITS ---
PROCEDURE: US PERIPH VENOUS LOW EXTREM LT INDICATIONS: LEFT FOOT INTERMITANT CIRCULATION DIFFICULTY/PAIN BEHIND KNE TECHNIQUE: Real-time imaging, as well as color and pulse Doppler interrogation, were performed of the lower extremity deep veins from the inguinal ligament to the popliteal fossa. COMPARISON: None. FINDINGS: The common femoral, femoral and popliteal veins are normally compressible, and free of intraluminal thrombus. Color and pulse Doppler demonstrate normal phasic intraluminal flow. There is normal augmentation response to distal compression maneuver. IMPRESSION: No evidence of deep vein thrombosis of the left lower extremity. Dictated by: Silvio Hawkins M.D. on 09/05/2019 at 14:26 Approved by: Silvio Hawkins M.D. on 09/05/2019 at 14:28
--- NOTE | 2019-09-05 13:31 | PC.NURSE ---
States left big toe, this morning was blue while sitting on the toilet. Big toe at this time is red with cap refill <2 seconds. bilateral pedal pulses felt by doppler.
--- NOTE | 2019-09-05 21:22 | ED.EXTPRO ---
HPI - Extremity Problem <Gertrudis Hernandez, CHOCOLATE MOLDER-BC - Last Filed: 09/05/19 21:28> General Chief complaint: Extremity Problem,Nontraumatic Stated complaint: worsening of circulation in left foot Time Seen by Provider: 09/05/19 15:14 Source: patient Mode of arrival: Wheelchair Limitations: no limitations History of Present Illness HPI Narrative: The patient is a 74-year-old female former smoker who presents with a chief complaint of left great toe cyanosis. She has been into the emergency department a few times, diagnosed with peripheral artery disease, started on full dose aspirin. She saw a vascular surgeon in [place]. They saw her in clinic last week, and have imaging scheduled next week. She states that the cyanosis is positional, worse with standing, worse with sitting with bent leg on the toilet. That happened today so she came to the emergency department. She states that her big toe was also white earlier today. She denies any chest pain, shortness of breath, fever nausea vomiting diarrhea abdominal pain or any other complaints Related Data Home Medications Medication Instructions Recorded Confirmed multivitamin [Multiple Vitamins] 1 tab PO DAILY #0 10/27/16 08/29/19 sodium chloride [Destiny 128] 1 melissa OPHTH BEDTIME #0 10/27/16 08/29/19 flecainide 100 mg tablet 100 mg PO Q12H 11/06/17 08/29/19 hydrochlorothiazide 12.5 mg tablet 12.5 mg PO DAILY tab 05/11/18 08/29/19 rosuvastatin 5 mg tablet 2.5 mg PO DAILY #0 tab 05/11/18 08/29/19 losartan 50 mg tablet 50 mg PO DAILY 11/23/18 08/29/19 Cranberry 1,000 mg PO DAILY 12/10/18 08/29/19 Probiotic 1 cap PO DAILY 12/10/18 08/29/19 ascorbic acid (vitamin C) 1 g PO DAILY 12/10/18 08/29/19 cholecalciferol (vitamin D3) 3,000 unit PO DAILY 12/10/18 08/29/19 [Vitamin D3] d-mannose 2,000 mg PO DAILY 12/10/18 08/29/19 diltiazem HCl [Cartia XT] 120 mg PO DAILY 12/10/18 08/29/19 estradiol [Estrace] 0 g VAGINAL 2XW 12/10/18 08/29/19 metronidazole [MetroCream] 1 applic TOPICAL DAILY 12/10/18 08/29/19 omeprazole 40 mg PO DAILY 08/17/19 08/29/19 aspirin 325 mg tablet 325 mg PO DAILY 08/29/19 08/29/19 clopidogrel 75 mg tablet 75 mg PO DAILY 09/12/19 Previous Rx's Medication Instructions Recorded albuterol sulfate 90 mcg/actuation 2 puff INHALATION Q4H PRN #1 09/23/17 aerosol inhaler inhalation Disabled parking permit #1 each 05/19/18 budesonide 180 mcg/actuation 2 inhalation INHALATION BID #2 02/03/19 breath activated powder inhaler inhalation naproxen sodium 440 mg PO Q12H #30 cap 04/18/19 fluticasone propionate 50 2 spray INTRANASAL DAILY #9.9 ml 08/15/19 mcg/actuation nasal spray,suspension ferrous sulfate 220 mg PO Q OTHER DAY #100 ml 08/17/19 pantoprazole 20 mg tablet,delayed 40 mg PO DAILY #30 tab 09/16/19 release Allergies Allergy/AdvReac Type Severity Reaction Status Date / Time bupropion [From WELLBUTRIN] Allergy Severe Tremors Verified 08/19/19 12:53 erythromycin base Allergy Severe GI Upset, Verified 08/19/19 12:53 [ERYTHROMYCIN BASE] Bloody diarrhea latex [LATEX] Allergy Severe Hives, Verified 08/19/19 12:53 Wheezing lisinopril [LISINOPRIL] AdvReac Severe Cough Verified 08/19/19 12:53 meperidine [From DEMEROL] AdvReac Severe Squirrelly Verified 08/19/19 12:53 Review of Systems <Gertrudis Hernandez, CHOCOLATE MOLDER-BC - Last Filed: 09/05/19 21:28> Review of Systems Narrative: GENERAL: Denies chills, fatigue, malaise, fever, sweats. HEENT: Denies sinus pain, ear pain, sore throat, difficulty swallowing, dizziness. RESPIRATORY: Denies dyspnea, cough, wheezing, hemoptysis, sputum. CARDIOVASCULAR: Denies chest pain, palpitations, orthopnea, edema, GASTROINTESTINAL: Denies nausea, vomiting, abdominal pain, diarrhea, constipation, melena. : Denies dysuria, frequency, incontinence, hematuria, urinary retention. MUSCULOSKELETAL: See HPI SKIN: See HPI NEUROLOGIC: Denies weakness, headache, numbness, change in speech, confusion, seizures, incoordination. PSYCHIATRIC: No concerning psychosocial issues. 12 point review of systems is negative except for those stated above Patient History <JOSE Malcolm - Last Filed: 09/05/19 21:28> Medical History Abnormal Pap smear of cervix (Resolved 1975) Ankle fracture, left (Resolved 1987) Ankle pain (Chronic 1989) Anxiety (Chronic 1984) Asthma (Chronic 2015) Atrial fibrillation (Chronic 2012) Graves's esophagus (Chronic 2013) Bruit of left carotid artery (Acute) Cataract (Resolved 2002) Chicken pox (Resolved 1954) Corneal dystrophy (Chronic 2002) Cystocele (Chronic) Diverticular disease (Chronic 2016) Diverticulosis (Acute) Elbow fracture, right (Resolved 2015) Epiretinal membrane (Chronic 2004) Frequent UTI (Resolved) GERD (gastroesophageal reflux disease) (Chronic 2004) Hayfever (Chronic 1965) Hearing loss (Chronic) Hemorrhoids (Chronic) History of psychosis (Resolved 1968) Hypercholesterolemia (Chronic) Hyperlipidemia (Chronic 1996) Hypertension (Chronic) Internal hemorrhoids (Acute) Kidney stones (Resolved 2010) Murmur (Chronic) Osteoarthritis (Chronic ~1994) Positive PPD (Chronic 1977) Prediabetes (Chronic) Rectocele (Chronic) Rosacea (Chronic 2011) Surgical History Anesthesia (Resolved) History of cataract removal with insertion of prosthetic lens (Resolved 2002) History of ear, nose, and throat (ENT) surgery (Resolved 1977) History of esophagogastroduodenoscopy (EGD) (Resolved 07/2015) History of foot surgery (Resolved 2007) History of knee replacement (Resolved 2012) Status post colonoscopy (Resolved 2015) Status post hysterectomy (Resolved 1975) Status post laparoscopic cholecystectomy (Resolved 2001) Status post open reduction with internal fixation (ORIF) of fracture of ankle (Resolved 1987) Family History Brother Brain aneurysm CVA (cerebral vascular accident) Mental health problem Alcoholism Brother Alcoholism Heart disease Father No problems noted. Grandfather Alcoholism Suicide Grandmother CVA (cerebral vascular accident) Mother CVA (cerebral vascular accident) ID (myocardial infarction) Lung cancer Hypertension Heart disease Grandfather No problems noted. Grandmother MVA (motor vehicle accident) Sister Thalassemia Sister Alcoholism Brother Ischemia Alcoholism CVA (cerebral vascular accident) Social History household members: none Smoking Status: Former smoker Smoking Status: Former smoker alcohol intake frequency: a few times a week Substance Use Type: does not use Exam <JOSE Malcolm - Last Filed: 09/05/19 21:28> Narrative Exam Narrative: GENERAL: This is a well-nourished, well-developed patient, no acute distress HEAD: Atraumatic. Normocephalic. No temporal or scalp tenderness. EYES: Pupils equal round and reactive. Extraocular motions intact. No scleral icterus. No injection or drainage. ENT: Nose without bleeding, purulent drainage or septal hematoma. Uvula midline. Airway patent. NECK: Trachea midline. No JVD or lymphadenopathy. Supple, nontender, no meningeal signs. CARDIOVASCULAR: Regular rate and rhythm RESPIRATORY: Clear to auscultation. Breath sounds equal bilaterally. No wheezes, rales, or rhonchi. No cough. No increased respiratory effort. No accessory muscle use. GASTROINTESTINAL: Abdomen soft, non-tender, nondistended. No hepato-splenomegaly, or palpable masses. No guarding. EXTREMITIES: Bilateral great toes are light red. Capillary refill less than 2 seconds. Pedal pulses by Doppler per nursing. Wiggling all toes. No pain to palpation of feet. BACK: Nontender without deformity or crepitance. No flank tenderness. NEURO: AOx3. SKIN: See extremity exam Initial Vital Signs Initial Vital Signs: Vital Signs Temperature 98.2 F 09/05/19 13:10 Pulse Rate 73 09/05/19 13:10 Respiratory Rate 18 09/05/19 13:10 Blood Pressure 175/92 H 09/05/19 13:10 Pulse Oximetry 97 09/05/19 13:10 <Uri Robertson MD - Last Filed: 09/23/19 07:50> Initial Vital Signs Initial Vital Signs: Vital Signs Temperature 98.2 F 09/05/19 13:10 Pulse Rate 73 09/05/19 13:10 Respiratory Rate 18 07/06/20 13:10 Blood Pressure 175/92 H 09/05/19 13:10 Pulse Oximetry 97 09/05/19 13:10 Course <JOSE Malcolm - Last Filed: 09/05/19 21:28> Orders Ordered: ED Orders 09/05/19 13:17 US arterial duplex LE LT Stat US periph venous low extrem lt Stat Vital Signs Vital signs: Vital Signs - 8 hr 09/05/19 13:31 09/05/19 14:01 09/05/19 14:30 Pulse Rate 65 67 64 Blood Pressure 164/72 H 152/66 H 156/68 H Pulse Oximetry 96 98 98 09/05/19 15:00 09/05/19 15:30 09/05/19 15:42 Pulse Rate 70 62 64 Blood Pressure 161/72 H 194/81 H Pulse Oximetry 97 98 97 09/05/19 16:01 09/05/19 16:30 Pulse Rate 64 63 Blood Pressure 170/73 H 163/71 H Pulse Oximetry 98 96 <Uri Robertson MD - Last Filed: 09/23/19 07:50> Orders Ordered: ED Orders 09/05/19 13:17 US arterial duplex LE LT Stat US periph venous low extrem lt Stat Vital Signs Vital signs: Vital Signs - 8 hr 09/05/19 13:31 09/05/19 14:01 09/05/19 14:30 Pulse Rate 65 67 64 Blood Pressure 164/72 H 152/66 H 156/68 H Pulse Oximetry 96 98 98 09/05/19 15:00 09/05/19 15:30 09/05/19 15:42 Pulse Rate 70 62 64 Blood Pressure 161/72 H 194/81 H Pulse Oximetry 97 98 97 09/05/19 16:01 09/05/19 16:30 Pulse Rate 64 63 Blood Pressure 170/73 H 163/71 H Pulse Oximetry 98 96 MDM - Extremity (Nontraumatic) <JOSE Malcolm - Last Filed: 09/05/19 21:28> Imaging Data US - DVT: Radiologist's Impression: [address] [address] Ultrasound Report Signed Patient: Afshin ZamoraR#: [id number] : 6Acct:[id number] Age/Sex: 74 / FDate of Service: 09/05/19 Loc: ED Accession Number: [id number] Procedure: perip venous low extrem lt Ordering Provider: Uri Robertson MD PROCEDURE: PERIP VENOUS LOW EXTREM LT INDICATIONS: LEFT FOOT INTERMITANT CIRCULATION DIFFICULTY/PAIN BEHIND KNE TECHNIQUE: Real-time imaging, as well as color and pulse Doppler interrogation, were performed of the lower extremity deep veins from the inguinal ligament to the popliteal fossa. COMPARISON: None. FINDINGS: The common femoral, femoral and popliteal veins are normally compressible, and free of intraluminal thrombus. Color and pulse Doppler demonstrate normal phasic intraluminal flow. There is normal augmentation response to distal compression maneuver. IMPRESSION: No evidence of deep vein thrombosis of the left lower extremity. Dictated by: Silvio Hawkins M.D. on 09/05/2019 at 14:26 Approved by: Silvio Hawkins M.D. on 09/05/2019 at 14:28 Duplex scan left leg: Radiologist's Impression: [address] [place] [address] Ultrasound Report Signed Patient: Afshin ZamoraR#: [id number] : 6At:[id number] Age/Sex: 74 / FDate of Service: 09/05/19 Loc: ED Accession Number: [id number] Procedure: US arterial duplex LE LT Ordering Provider: Uri Robertson MD PROCEDURE: US ARTERIAL DUPLEX LE LT INDICATIONS: LEFT FOOT INTERMITANT CIRCULATION DIFFICULTY/PAIN BEHIND KNE TECHNIQUE: Color and pulse Doppler interrogation was performed of the left lower extremity arterial system, with image documentation. COMPARISON: [facility], US ARTERIAL DUPLEX LE LT, 08/19/2019, 14:13. FINDINGS: The common femoral artery shows normal flow velocity of 102 cm/s with profunda femoris arterial flow measuring 86 cm/s. Within the superficial femoral artery proximal mid and distal flow velocities are 127, 81 and 79 cm/s. At the popliteal artery flow velocity is 30 cm/s and mildly elevated more distally at its exte centimeters per second. The posterior tibial arterial flow velocity is 85 cm/s and the anterior tibial is 17.1 cm/s. Flow velocity into the dorsalis pedis artery is 17 cm/s. IMPRESSION: The flow velocities from today's study are diminished with reference to the recent prior examination from 08/19/19 no area of high-grade stenosis is found and the arterial study from today does not indicate likelihood of critical arterial insufficiency to the lower extremity on the left. MR angiography may be warranted for further assessment electively, given the reported recurrent episodes of symptomatology suggestive of arterial insufficiency. Dictated by: Nii Clark M.D. on 09/05/2019 at 15:28 Approved by: Nii Clark M.D. on 09/05/2019 at 15:34 MDM Narrative Medical decision making narrative: The patient is a 74-year-old female with history of recent cyanosis of her bilateral lower legs. She presents for chief complaint of cyanosis at home in her left great toe. She has no acute findings on ultrasound or arterial duplex. She is neurovascularly intact on my exam. I spoke with Dr. Amezquita, on-call for her vascular surgery, who states to have the patient follow up in clinic shortly thereafter. He states that given her ultrasound findings, we do not need to do anything else at this point time. I discussed at length with patient that she can come back if she has any acute concerns, including further cyanosis, worsening pain etcetera. Patient has no questions or concerns upon discharge states understanding return precautions as well as follow-up care. Discharge Plan Departure Patient Disposition: Home Clinical Impression: Cyanosis, Claudication, intermittent Discharge Date/Time: 09/05/19 16:37 Instructions: DI for Peripheral Vascular (Arterial) Disease Activity Restrictions/Additional Instructions: Thank you for trusting us with your care today. Your ultrasounds have no acute findings today. I spoke with Dr. Amezquita from your vascular office. Please follow-up with them next week. Please continue your aspirin. Please the emergency department for any acute concerns. As I discussed, please emergency department for any concerns regarding her circulation, concern of heart attack stroke etcetera Prescriptions: No Action hydrochlorothiazide 12.5 mg tablet 12.5 mg PO DAILY RF: 0 multivitamin [Multiple Vitamins] 1 EACH tablet 1 tab PO DAILY Qty: 0 RF: 0 sodium chloride [Destiny 128] 3.5 GM ointment 1 melissa OPHTH BEDTIME Qty: 0 RF: 0 albuterol sulfate 90 mcg/actuation HFA aerosol inhaler 2 puff INHALATION Q4H PRN (Reason: shortness of breath or wheezing) Qty: 1 RF: 2 rosuvastatin [Crestor] 5 mg tablet 2.5 mg PO DAILY Qty: 0 RF: 0 Pulmicort Flexhaler 180 mcg/actuation aerosol powdr breath activated 2 inhalation inhalation BID Qty: 2 RF: 5 fluticasone propionate 50 mcg/actuation spray,suspension 2 spray Intranasal DAILY Qty: 9.9 RF: 0 clopidogrel 75 mg tablet 75 mg PO DAILY RF: 0 pantoprazole 20 mg tablet,delayed release (DR/EC) 40 mg PO DAILY Qty: 30 RF: 1 flecainide 100 mg tablet 100 mg PO Q12H RF: 0 aspirin 325 mg tablet 325 mg PO DAILY RF: 0 (DME) Disabled parking permit Qty: 1 RF: 0 losartan 50 mg tablet 50 mg PO DAILY RF: 0 diltiazem HCl [Cartia XT] 120 mg capsule,extended release 24hr 120 mg PO DAILY RF: 0 ascorbic acid (vitamin C) 1,000 mg Tablet 1 g PO DAILY RF: 0 cholecalciferol (vitamin D3) [Vitamin D3] 1,000 unit Capsule 3,000 unit PO DAILY RF: 0 Cranberry 1,000 mg 1,000 mg PO DAILY RF: 0 Probiotic 1 cap PO DAILY RF: 0 d-mannose 1,000 mg 2,000 mg PO DAILY RF: 0 estradiol [Estrace] 0.01 % (0.1 mg/gram) cream 0 g Vaginal 2XW RF: 0 metronidazole [MetroCream] 0.75 % Cream 1 applic TOPICAL DAILY RF: 0 naproxen sodium 220 mg capsule 440 mg PO Q12H Qty: 30 RF: 0 omeprazole 40 mg capsule,delayed release(DR/EC) 40 mg PO DAILY RF: 0 Hold Instructions: while on plavix ferrous sulfate 220 mg (44 mg iron)/5 mL Solution 220 mg PO Q OTHER DAY Qty: 100 RF: 5 Referrals: Beka Amezquita MD [Non-Staff] - Yamilet Malave DO [Primary Care Provider] -
== END 2019-09-05 16:37 | disposition home or self-care (01) ==
PROVIDERS: Emergency Provider Nurse Practitioner Family; PCP Family Medicine
DX: R23.0 Cyanosis (principal); I73.9 Peripheral vascular disease, unspecified
CPT/HCPCS: 93926; 93971; 99283

== ENCOUNTER → 2019-09-21 11:20 | Outpatient (CLI) | payer MEDICARE, OTHER, SELFPAY ==
--- NOTE | 2019-09-21 11:29 | DIET.PN ---
Dietary Progress Note Assessment: 74y F here to discuss diet plan for DM2, obesity, GERD, diverticulosis, anemia (c iron intolerance), osteoarthritis, allergies. She is confused about foods to eat for these health conditions. Pt had been doing weight watchers until the pandemic, started to comfort eat, gained 15# but has since lost 9#. Pt has goal to lose 60# to improve health and above conditions. Pt curious if she is lactose intolerant or has other food sensitivities (or diverticulitis flare) r/t cramping diarrhea. sleeps 7hr, doesn't eat 3h before bed, stops eating by 6pm Usual Day wakes 6am takes meds at 630-7am, B: 2 lowfat string cheese, dry rye toast c fresh fruit L 11-2pm: garden salad c hb egg, roast turkey or fresh veggies and hummus D: shrimp and cauliflower rice, turkey and tomatillo chili sn: cheese crackers drinks: water chocolate and etoh gives gerd red meat doesn't appeal to her. Tries to eat more beans, has big vegetable garden Pt tries to stick to 23 Weight Watchers points per day daily walks 15-25min c dog in addition to gardening chores. HT: 5'4 WT: 205# BMI: 35.2 Labs: A1c 6.6, TG 264 H, TC 236 H, LDL 131 H Nutrition Diagnosis: 1. altered nutrition related laboratory values (A1c) r/t endocrine dysfunction aeb pt A1c since 2017 between 6.4-7.0, pt self-reports as carbaholic, pt reports comfort eating carbs which causes weight gain (+15# during pandemic). 2. morbid obesity r/t undesirable food choices and physical inactivity aeb altered nutrition related labs (TG 264 H, TC 236 H, LDL 131H), pt craves simple carbs and baked goods, pt only recently started walking routine of 105-175 minutes per week. 3. anemia r/t undesirable food choices aeb pt dx c iron deficiency anemia (hgb 6-8) c no apparent source of bleeding, pt does not eat red meat, pt intolerant to iron supplements (diarrhea). Interventions: 1. To support weight loss and decrease insulin resistance, pt will try to do 13h fast overnight at least 5 days per week. 2. To support weight loss and improve glucose control, pt will start baking with monkfruit rather than sugar or splenda. 3. To support health and weight loss, pt will use plate method when consuming any meal or snack to stick to 1/4 protein, 1/4 complex carb/starchy veg, 1/2 fruits and non-starchy vegetables. 4. To support decreased insulin resistance and promote weight loss, pt will increase physical activity with daily long slow walks aiming for at least 150 minutes per week. 5. To support healthy cholesterol, weight loss, and glycemic control, pt will include beans/soluble fiber in diet daily. 6. To support anemia, pt received instruction on and handout for iron content of food with goal of gaining 8mg iron from food sources daily in addition to vitamin c foods to increase absorption. 7. To identify source of cramping diarrhea, pt will keep detailed food log and write down in log when these sx occur to gain insight as to cause. EER: 80g protein per day (0.9g/kg) Monitoring/Evaluations: pt to call to schedule f/u, consideration of elimination diet if cramping diarrhea does not resolve c detailed diet diary.
== END ==
PROVIDERS: PCP Family Medicine; Referring Provider Family Medicine; Visit Provider Family Medicine
DX: E66.01 Morbid (severe) obesity due to excess calories (principal); E11.9 Type 2 diabetes mellitus without complications; K21.9 Gastro-esophageal reflux disease without esophagitis; K57.90 Diverticulosis of intestine, part unspecified, without perforation or abscess without bleeding; D64.89 Other specified anemias; Z68.35 Body mass index [BMI] 35.0-35.9, adult; Z71.3 Dietary counseling and surveillance
CPT/HCPCS: 97802

== ENCOUNTER → 2019-10-23 13:01 | Outpatient (CLI) | payer MEDICARE, OTHER, SELFPAY | PROVIDERS: PCP Family Medicine; Visit Provider Nurse Practitioner | DX: R30.0 Dysuria (principal) | CPT/HCPCS: 87086 ==

== ENCOUNTER → 2019-11-02 10:33 | Outpatient (CLI) | payer MEDICARE, OTHER, SELFPAY ==
[2019-11-02 11:36] LABS: Add Manual Diff / Slide Review NO; Basophils Absolute Auto 200 /uL (0-100); Basophils Percent Auto 1.8 % (0-2); Eosinophils Absolute Auto 200 /uL (0-450); Hematocrit 33.7 % (36-46); Lymphocytes Absolute Auto 2300 /uL (1100-4500); Lymphocytes Percent Auto 25.3 % (25-40); Mean Corpuscular HGB Conc 32.8 % (30-36); Mean Corpuscular Hemoglobin 28.5 PG (26-34); Monocytes Absolute Auto 800 /uL (0-900); Monocytes Percent Auto 8.3 % (3-14); Neutrophils Absolute Auto 5700 /uL (1500-7000); Neutrophils Percent Auto 62.6 % (50-75); Platelet Count 363 X10^3/uL (150-400); Red Blood Cell Count 3.87 X10^6/uL (4.0-5.2); Red Cell Distribution Width 14.2 % (11.6-14.8); White Blood Cell Count 9.1 X10^3/uL (4.5-11.0)
[2019-11-02 11:59] LABS: BUN Creatinine Ratio 20.2 (6-22); Blood Urea Nitrogen 17 mg/dL (7-17); Calcium 9.5 mg/dL (8.4-10.2); Carbon Dioxide 26 mmol/L (22-32); Chloride 103 mmol/L (98-107); Estimated Glomerular Filt Rate > 60.0 mL/min (>60); Glucose 98 mg/dL (80-110); HEMOLYSIS < 15 (0-50); Hemoglobin A1C% w Est Avg Glu 6.2 % (4.0-6.0); Potassium 4.1 mmol/L (3.4-5.1); Sodium 139 mmol/L (137-145)
--- NOTE | 2019-11-02 16:29 | DI.MG.S_ITS ---
Patient Name: SHAWN MAN date: 1945 Sex: F Attending Physician: Ananda Indications: Date: 11/02/2019 16:26 At the request of: JUSTIN CARBAJAL Procedure: MM screening mammo BI BILATERAL DIGITAL SCREENING MAMMOGRAM 3D/2D WITH CAD: 11/02/2019 CLINICAL: Routine screening. Comparison is made to exams dated: 10/13/2018 mammogram, 04/29/2017 mammogram - [facility], and 01/23/2016 mammogram - [facility]. There are scattered fibroglandular elements in both breasts. Current study was also evaluated with a Computer Aided Detection (CAD) system. There are benign calcifications in both breasts. No significant masses, calcifications, or other findings are seen in either breast. There has been no significant interval change. IMPRESSION: BENIGN There is no mammographic evidence of malignancy. A 1 year screening mammogram is recommended. This exam was interpreted at Station ID: [id number]. NOTE: For mammograms, a report in lay terms will be sent to the patient. Approximately 15% of breast malignancies will not be visualized mammographically. In the management of a palpable breast mass, a negative mammogram must not discourage biopsy of a clinically suspicious lesion. Electronically Signed By: Tita mansfield/musa:11/02/2019 16:48:57 letter sent: Normal Exam ACR BI-RADS Category 2: Benign Finding(s) 3342F
[2019-11-03 10:31] LABS: HEMOLYSIS < 15 (0-50); Iron 43 ug/dL (37-170)
[2019-11-03 10:41] LABS: Percent Iron Saturation 10 % (15-50); Total Iron Binding Capacity 422 ug/dL (265-497); Transferrin 336 mg/dL (206-381)
[2019-11-03 11:07] LABS: Ferritin 15 ng/mL (11-264)
== END ==
PROVIDERS: PCP Family Medicine; Referring Provider Family Medicine; Visit Provider Family Medicine
DX: Z12.31 Encounter for screening mammogram for malignant neoplasm of breast (principal); D50.9 Iron deficiency anemia, unspecified; D72.829 Elevated white blood cell count, unspecified; E11.9 Type 2 diabetes mellitus without complications; R06.00 Dyspnea, unspecified; E50.9 Vitamin A deficiency, unspecified; K29.70 Gastritis, unspecified, without bleeding
CPT/HCPCS: 36415; 77063; 77067; 80048; 82728; 83036; 83540; 83550; 85025

== ENCOUNTER → 2020-01-06 15:19 | Outpatient (CLI) | payer MEDICARE, OTHER, SELFPAY ==
[2020-01-09 07:43] LABS: COVID19 Sendout Not Detected (Not Detect)
== END ==
PROVIDERS: PCP Family Medicine; Visit Provider Physician Assistant
DX: Z11.59 Encounter for screening for other viral diseases (principal)
CPT/HCPCS: 87635

== ENCOUNTER → 2020-02-22 14:40 | Oncology outpatient (ONC) | payer MEDICARE, OTHER, SELFPAY ==
[2018-12-08 11:13] VITALS: BP 122/72; PULSE 66; RESP 16; TEMP 36.8; O2SAT 98
[2018-12-08] MEDS: IRON SUCROSE 250 MG in SODIUM CHLORIDE 0.9% 100 ML 225 ML IV (11:33)
[2018-12-15 11:13] VITALS: BP 135/56; PULSE 69; RESP 20; TEMP 36.6; O2SAT 95
[2018-12-15] MEDS: IRON SUCROSE 250 MG in SODIUM CHLORIDE 0.9% 100 ML 225 ML IV (11:23)
[2018-12-22 11:28] VITALS: BP 138/61; PULSE 65; RESP 16; TEMP 36.9; O2SAT 98
[2018-12-22] MEDS: IRON SUCROSE 250 MG in SODIUM CHLORIDE 0.9% 100 ML 225 ML IV (11:30)
[2018-12-29 11:28] VITALS: BP 148/60; PULSE 69; RESP 20; TEMP 36.7; O2SAT 96
[2018-12-29] MEDS: IRON SUCROSE 250 MG in SODIUM CHLORIDE 0.9% 100 ML 225 ML IV (11:30)
[2019-01-25 14:25] VITALS: BP 142/62; PULSE 78; RESP 18; TEMP 36.3; O2SAT 98
--- NOTE | 2019-01-25 14:51 | ONC.CONS ---
History of Present Illness - Data of Consult Consult date: 01/25/19 Primary Care Provider: Yamilet Malave, DO - Consult Narrative Narrative: Diagnosis: Iron deficiency anemia and leukocytosis History of present illness: Shirley Zamora is a 73 year old female who is referred for further evaluation of an abnormal CBC. The patient reports that the beginning in October of this year, she developed increasing shortness of breath that was associated with generalized fatigue and weakness. She had some easy bruising but really was not aware of any severe bleeding. She had some minor epistaxis. There is no gingival bleeding. No blood in the urine or stool. As part of her evaluation, she had a CBC done. She is found to have a mild leukocytosis. Her hematocrit was 26 with an MCV of 66. Her labs are consistent with iron deficiency and she was treated with IV iron. Subsequently, her red cell count has normalized. She notes that she still has generalized fatigue and shortness of breath. She really has not noticed much improvement. She did have a colonoscopy done that did not show any bleeding source. She did not have an upper endoscopy. She has been taking some oral iron which has some causing some nausea. She stop taking it a week or 2 ago and since then her nausea has improved. She denies any fevers chills or sweats. She has not noticed any adenopathy. She has had some chronic back pain. Over the last week or so she has had some upper abdominal pain. No vomiting. Her weight has been stable or slightly increased. She denies any prior history of anemia. She has not required any transfusions. Her past medical history is notable for cardiac arrhythmia. She has a history of asthma or COPD. She has some diet-controlled diabetes. Family history is notable for a sister with anemia. 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 She does not smoke. She quit about 10 years ago. She has very rare alcohol use. CC: Oskar Jaime MD Home Medications and Allergies Home Medications Medication Instructions Recorded Confirmed Type multivitamin [Multiple Vitamins] 1 tab PO DAILY #0 10/27/16 01/25/19 History sodium chloride [Destiny 128] 1 melissa OPHTH BEDTIME #0 10/27/16 01/25/19 History Pulmicort Flexhaler 1 puff INH BID #1 inh 08/24/17 01/25/19 Rx albuterol sulfate 90 mcg/actuation 2 puff INHALATION Q4H PRN #1 09/23/17 01/25/19 Rx aerosol inhaler inhalation flecainide 100 mg tablet 100 mg PO Q12H 11/06/17 01/25/19 History hydrochlorothiazide 12.5 mg tablet 12.5 mg PO DAILY tab 05/11/18 01/25/19 History rosuvastatin 5 mg tablet 2.5 mg PO DAILY #0 tab 05/11/18 01/25/19 History Disabled parking permit #1 each 05/19/18 01/25/19 Rx losartan 50 mg tablet 50 mg PO DAILY 11/23/18 01/25/19 History Cranberry 1,000 mg PO DAILY 12/10/18 01/25/19 History Probiotic 1 cap PO DAILY 12/10/18 01/25/19 History Spiriva Respimat 1 inh INHALATION DAILY 12/10/18 01/25/19 History ascorbic acid (vitamin C) 1 g PO DAILY 12/10/18 01/25/19 History cholecalciferol (vitamin D3) 3,000 unit PO DAILY 12/10/18 01/25/19 History [Vitamin D3] d-mannose 2,000 mg PO DAILY 12/10/18 01/25/19 History diltiazem HCl [Cartia XT] 120 mg PO DAILY 12/10/18 01/25/19 History estradiol [Estrace] 0 g VAGINAL 2XW 12/10/18 01/25/19 History fluticasone propionate 1 spray INTRANASAL DAILY 12/10/18 01/25/19 History metronidazole [MetroCream] 1 applic TOPICAL DAILY 12/10/18 01/25/19 History naproxen sodium [Aleve] 220 - 440 mg PO PRN PRN 12/10/18 01/25/19 History omeprazole 40 mg PO DAILY 12/10/18 01/25/19 History Allergies Allergy/AdvReac Type Severity Reaction Status Date / Time bupropion [From WELLBUTRIN] Allergy Severe Tremors Verified 01/13/19 14:58 erythromycin base Allergy Severe GI Upset, Verified 01/13/19 14:58 [ERYTHROMYCIN BASE] Bloody diarrhea latex [LATEX] Allergy Severe Hives, Verified 01/13/19 14:58 Wheezing lisinopril [LISINOPRIL] AdvReac Severe Cough Verified 01/13/19 14:58 meperidine [From DEMEROL] AdvReac Severe Squirrelly Verified 01/13/19 14:58 Medical History - Medical, Surgical, Family History Medical History: Medical History (Last Updated 01/15/19 @ 16:27 by Yamilet Malave DO) Abnormal Pap smear of cervix Onset Date: 1975 Ankle fracture, left Onset Date: 1987 Ankle pain Onset Date: 1989 Anxiety Onset Date: 1984 Asthma Onset Date: 2015 Atrial fibrillation Onset Date: 2012 Graves's esophagus Onset Date: 2013 Bruit of left carotid artery Cataract Onset Date: 2002 Chicken pox Onset Date: 1954 Corneal dystrophy Onset Date: 2002 Cystocele Diverticular disease Onset Date: 2016 Diverticulosis Elbow fracture, right Onset Date: 2015 Epiretinal membrane Onset Date: 2004 Frequent UTI GERD (gastroesophageal reflux disease) Onset Date: 2004 Hayfever Onset Date: 1965 Hearing loss Hemorrhoids History of psychosis Onset Date: 1968 Hypercholesterolemia Hyperlipidemia Onset Date: 1996 Hypertension Internal hemorrhoids Kidney stones Onset Date: 2010 Murmur Osteoarthritis Onset Date: Positive PPD Onset Date: 1977 Prediabetes Rectocele Rosacea Onset Date: 2011 Surgical History: Surgical History (Last Reviewed 12/16/18 @ 15:42 by Arnulfo Salcido MD) Anesthesia History of cataract removal with insertion of prosthetic lens Onset Date: 2002 History of ear, nose, and throat (ENT) surgery Onset Date: 1977 History of esophagogastroduodenoscopy (EGD) Onset Date: 07/2015 History of foot surgery Onset Date: 2007 History of knee replacement Onset Date: 2012 Status post colonoscopy Onset Date: 2015 Status post hysterectomy Onset Date: 1975 Status post laparoscopic cholecystectomy Onset Date: 2001 Status post open reduction with internal fixation (ORIF) of fracture of ankle Onset Date: 1987 Family History: Family History (Last Reviewed 12/16/18 @ 15:42 by Arnulfo Salcido MD) Brother Brain aneurysm CVA (cerebral vascular accident) Mental health problem Alcoholism Brother Alcoholism Heart disease Father No problems noted. Grandfather Alcoholism Suicide Grandmother CVA (cerebral vascular accident) Mother CVA (cerebral vascular accident) [place] (myocardial infarction) Lung cancer Hypertension Heart disease Grandfather No problems noted. Grandmother MVA (motor vehicle accident) Sister Thalassemia Sister Alcoholism Brother Ischemia Alcoholism CVA (cerebral vascular accident) - Social History Smoking Status: Former smoker Review of Systems - Patient Self-Reported Symptoms SR Constitution: Fatigue/Malaise SR eye issues: Vision changes SR ears, nose, mouth, throat issues: Ears ringing, Swollen glands SR respiratory issues: Shortness of breath SR Cardiovascular issues: Palpitations, Shortness of breath with activity or lying flat SR Skin issues: Nail changes SR Gastrointestinal issues: Change in bowel pattern, Nausea SR Neuro issues: Headache, Lightheaded/dizzy SR Hematologic issues: Bleeding/bruising Constitutional: decreased activity level, decreased exercise tolerance, no weight loss Ears, nose, mouth, throat: epistaxis Cardiovascular: dyspnea on exertion, no chest pain, no palpitations Respiratory: shortness of breath Gastrointestinal: abdominal pain, no change in appetite, no change in bowel habits Musculoskeletal: pain Integumentary: bleeding or bruising Hematologic/Lymphatic: anemia, no enlarged lymph nodes Exam Vital signs: Vital Signs Temp Pulse Resp BP Pulse Ox 01/25/19 14:25 97.4 F L 78 18 142/62 H 98 Intake and Output 01/24/19 01/25/19 01/25/19 23:59 07:59 15:59 Other: Weight 89.5 kg Patient Weight 01/25/19 23:59 Weight 89.5 kg - Constitutional positive no acute distress, positive average body habitus - Routine HEENT Exam Head: Present: normocephalic, atraumatic Eye: Present: EOMI, PERRL. Absent: conjunctival icterus, scleral injection ENT: Present: mucous membranes moist, oropharynx clear - Routine Neck Exam Present: supple. Absent: lymphadenopathy, thyromegaly - Routine Chest/Breast/Axilla Exam Axillae: Absent: lymphadenopathy - Routine Respiratory Exam Present: Clear to auscultation bilaterally. Absent: rales, wheezes - Routine Cardiovascular Exam Present: RRR, S1, S2. Absent: murmur - Routine Abdominal Exam Present: soft, normoactive bowel sounds. Absent: organomegaly, mass Comments: She did have some mild tenderness to palpation in the upper quadrants. There are no masses. No rebound or guarding. - Routine Extremities Exam Absent: cyanosis, clubbing, edema - Routine Back/Spine Exam Back/Spine: Absent: vertebral tenderness - Routine Skin Exam Present: intact. Absent: petechiae, rash - Routine Neurological Exam Present: alert, oriented X3 - Routine Psychiatric Exam Present: normal affect, normal thought process Assessment and Plan (1) Microcytic hypochromic anemia Current visit: No Status: Acute 73-year-old woman with a history of iron deficiency anemia. She has had an excellent response to IV iron with normalization in her ferritin and in her hemoglobin and hematocrit. Her MCV is still slightly low but is increasing. She does not have any obvious etiology for her iron deficiency. She did have a colonoscopy that was negative. I think she probably would benefit from an EGD to evaluate for an upper GI source. She previously has had normal red cell count and normal MCV which would rule out an underlying thalassemia. She does have a mild leukocytosis with a white count the generally runs between 10 and 12,000. This may just be reactive and not indicate any underlying marrow pathology. Lymphocyte count has generally been in the 2-3000 range. She did have some smudge cells noted. This brings to mind CLL. However her lymphocyte count is not elevated. Could potentially be a monoclonal B-cell lymphocytosis. If that were the case, no treatment would be required. She has had some mild basophilia. This brings to mind CML. We will plan on checking a bcr/ABL PCR to rule that out. She will return to clinic in about 3 months for follow-up.
--- NOTE | 2019-02-17 11:22 | PC.NURSE ---
Pt called requesting results of recent EGD. Pt does not see Dr. Jaime until Apr 27 and would like results before then. Will place note in Dr. Jaime's informing him of pt's request.
[2019-04-27 14:14] VITALS: BP 147/78; PULSE 78; RESP 18; TEMP 36.8; O2SAT 98
--- NOTE | 2019-04-27 14:45 | P.PNONC_ITS ---
PN -Subjective Interval history: Shirley Zamora is a pleasant 73-year-old female who was referred to our clinic last year for iron deficiency anemia and mild leukocytosis. CBC on 12/02/2018 showed WBC 9.3, normal differential, hemoglobin 8.5, hematocrit 27.7%, MCV 66, platelet count [id number], ferritin 9, transferrin saturation 4%, TIBC 475. She was given total 1 g IV Venofer (250 mg weekly dose x4) in 11/2018, with subsequent resolution of anemia. She underwent EGD on 02/10/2019 which showed gastritis. Stomach and GE junction biopsies were negative other than mild GE junction chronic inflammation. H pylori was negative. She underwent colonoscopy on 12/16/2018 which was negative other than diverticulosis and internal hemorrhoids. She tried some ferrous sulfate but did not tolerate that well. Recently she has found a form of iron supplement from [employer] and nutrition [employer], that she has been tolerating well. Recent labs on 04/18/2019: WBC 9.3, differential normal, hemoglobin 12.6, hematocrit 37.7%, platelet count [id number]. Bcr/ABL was negative on 01/25/2019. She feels well, no complaints. Her exertional dyspnea has almost resolved. - Patient Self-Reported Symptoms SR Constitution: Fatigue/Malaise SR eye issues: Vision changes SR ears, nose, mouth, throat issues: Ears ringing, Swollen glands SR respiratory issues: Shortness of breath SR Cardiovascular issues: Palpitations, Shortness of breath with activity or lying flat SR Skin issues: Nail changes SR Gastrointestinal issues: Change in bowel pattern, Nausea SR Neuro issues: Headache, Lightheaded/dizzy SR Hematologic issues: Bleeding/bruising Home Medications and Allergies Home Medications Medication Instructions Recorded Confirmed Type multivitamin [Multiple Vitamins] 1 tab PO DAILY #0 10/27/16 04/27/19 History sodium chloride [Destiny 128] 1 melissa OPHTH BEDTIME #0 10/27/16 04/27/19 History albuterol sulfate 90 mcg/actuation 2 puff INHALATION Q4H PRN #1 09/23/17 04/27/19 Rx aerosol inhaler inhalation flecainide 100 mg tablet 100 mg PO Q12H 11/06/17 04/27/19 History hydrochlorothiazide 12.5 mg tablet 12.5 mg PO DAILY tab 05/11/18 04/27/19 History rosuvastatin 5 mg tablet 2.5 mg PO DAILY #0 tab 05/11/18 04/27/19 [address]abled [address] permit #1 each 05/19/18 04/20/19 Rx losartan 50 mg tablet 50 mg PO DAILY 11/23/18 04/27/19 History Cranberry 1,000 mg PO DAILY 12/10/18 04/27/19 History Probiotic 1 cap PO DAILY 12/10/18 04/27/19 History Spiriva Respimat 1 inh INHALATION DAILY 12/10/18 04/27/19 History ascorbic acid (vitamin C) 1 g PO DAILY 12/10/18 04/27/19 History cholecalciferol (vitamin D3) 3,000 unit PO DAILY 12/10/18 04/27/19 History [Vitamin D3] d-mannose 2,000 mg PO DAILY 12/10/18 04/27/19 History diltiazem HCl [Cartia XT] 120 mg PO DAILY 12/10/18 04/27/19 History estradiol [Estrace] 0 g VAGINAL 2XW 12/10/18 04/27/19 History metronidazole [MetroCream] 1 applic TOPICAL DAILY 12/10/18 04/27/19 History budesonide 180 mcg/actuation 2 inhalation INHALATION BID #2 02/03/19 04/27/19 Rx breath activated powder inhaler inhalation fluticasone propionate 50 1 spray INTRANASAL DAILY #9.9 ml 03/30/19 04/27/19 Rx mcg/actuation nasal spray,suspension omeprazole 40 mg capsule,delayed 40 mg PO BID #180 cap 04/04/19 04/27/19 Rx release naproxen sodium 440 mg PO Q12H #30 cap 04/18/19 04/27/19 Rx Allergies Allergy/AdvReac Type Severity Reaction Status Date / Time bupropion [From WELLBUTRIN] Allergy Severe Tremors Verified 04/20/19 15:28 erythromycin base Allergy Severe GI Upset, Verified 04/20/19 15:28 [ERYTHROMYCIN BASE] Bloody diarrhea latex [LATEX] Allergy Severe Hives, Verified 04/20/19 15:28 Wheezing lisinopril [LISINOPRIL] AdvReac Severe Cough Verified 04/20/19 15:28 meperidine [From DEMEROL] AdvReac Severe Squirrelly Verified 04/20/19 15:28 Exam Vital signs: Vital Signs Temp Pulse Resp BP Pulse Ox 04/27/19 14:14 98.3 F 78 18 147/78 H 98 Intake and Output 04/26/19 04/27/19 04/27/19 23:59 07:59 15:59 Other: Weight 96.7 kg Patient Weight 04/27/19 23:59 Weight 96.7 kg Assessment and Plan (1) Microcytic hypochromic anemia Current visit: No Status: Chronic 73-year-old woman with a history of iron deficiency anemia, resolved after IV iron 1 g in 11/2018. EGD and colonoscopy were negative. She is on a low-dose oral iron supplement, and tolerates that well. We'll recheck labs in 4 months. If ferritin drops, she will benefit from maintenance IV iron infusion. With regards to borderline leukocytosis, she is reassured. Her WBC and differential are actually normal. Bcr/ABL was done in 12/2018 and was negative.
[2019-08-17 16:04] VITALS: BP 136/66; PULSE 58; RESP 20; TEMP 36.2; O2SAT 95
--- NOTE | 2019-08-17 17:15 | ONC.PN ---
PN -Subjective Interval history: Shirley Zamora is a pleasant 73-year-old female who was referred to our clinic last year for iron deficiency anemia and mild leukocytosis. CBC on 12/02/2018 showed WBC 9.3, normal differential, hemoglobin 8.5, hematocrit 27.7%, MCV 66, platelet count [id number], ferritin 9, transferrin saturation 4%, TIBC 475. She was given total 1 g IV Venofer (250 mg weekly dose x4) in 11/2018, with subsequent resolution of anemia. She underwent EGD on 02/10/2019 which showed gastritis. Stomach and GE junction biopsies were negative other than mild GE junction chronic inflammation. H pylori was negative. She underwent colonoscopy on 12/16/2018 which was negative other than diverticulosis and internal hemorrhoids. She tried some ferrous sulfate but did not tolerate that well. She has tried other forms of oral iron unsuccessfully and has been off of any oral iron supplementation as a result of intolerance. She has not noticed any recent bleeding, new aches or pains, nausea, vomiting, constipation or diarrhea. She denies cough or shortness of breath. All other systems are negative. She presents today for follow-up of her iron deficiency. - Patient Self-Reported Symptoms SR Constitution: Fatigue/Malaise SR eye issues: Vision changes SR ears, nose, mouth, throat issues: Ears ringing, Swollen glands SR respiratory issues: Shortness of breath SR Cardiovascular issues: Palpitations, Shortness of breath with activity or lying flat SR Skin issues: Nail changes SR Gastrointestinal issues: Change in bowel pattern, Diarrhea, Abdominal pain SR Musculoskeletal issues: Back or neck pain SR Neuro issues: Headache, Lightheaded/dizzy SR Hematologic issues: Bleeding/bruising Home Medications and Allergies Home Medications Medication Instructions Recorded Confirmed Type multivitamin [Multiple Vitamins] 1 tab PO DAILY #0 10/27/16 08/17/19 History sodium chloride [Destiny 128] 1 melissa OPHTH BEDTIME #0 10/27/16 08/17/19 History albuterol sulfate 90 mcg/actuation 2 puff INHALATION Q4H PRN #1 09/23/17 08/17/19 Rx aerosol inhaler inhalation flecainide 100 mg tablet 100 mg PO Q12H 11/06/17 08/17/19 History hydrochlorothiazide 12.5 mg tablet 12.5 mg PO DAILY tab 05/11/18 08/17/19 History rosuvastatin 5 mg tablet 2.5 mg PO DAILY #0 tab 05/11/18 08/17/19 [address]abled [address] permit #1 each 05/19/18 08/01/19 Rx losartan 50 mg tablet 50 mg PO DAILY 11/23/18 08/17/19 History Cranberry 1,000 mg PO DAILY 12/10/18 08/17/19 History Probiotic 1 cap PO DAILY 12/10/18 08/17/19 History ascorbic acid (vitamin C) 1 g PO DAILY 12/10/18 08/17/19 History cholecalciferol (vitamin D3) 3,000 unit PO DAILY 12/10/18 08/17/19 History [Vitamin D3] d-mannose 2,000 mg PO DAILY 12/10/18 08/17/19 History diltiazem HCl [Cartia XT] 120 mg PO DAILY 12/10/18 08/17/19 History estradiol [Estrace] 0 g VAGINAL 2XW 12/10/18 08/17/19 History metronidazole [MetroCream] 1 applic TOPICAL DAILY 12/10/18 08/17/19 History budesonide 180 mcg/actuation 2 inhalation INHALATION BID #2 02/03/19 08/17/19 Rx breath activated powder inhaler inhalation naproxen sodium 440 mg PO Q12H #30 cap 04/18/19 08/17/19 Rx fluticasone propionate 50 2 spray INTRANASAL DAILY #9.9 ml 08/15/19 08/17/19 Rx mcg/actuation nasal spray,suspension ferrous sulfate 220 mg PO Q OTHER DAY #100 ml 08/17/19 Rx omeprazole 40 mg PO DAILY 08/17/19 08/17/19 History Allergies Allergy/AdvReac Type Severity Reaction Status Date / Time bupropion [From WELLBUTRIN] Allergy Severe Tremors Verified 08/01/19 11:47 erythromycin base Allergy Severe GI Upset, Verified 08/01/19 11:47 [ERYTHROMYCIN BASE] Bloody diarrhea latex [LATEX] Allergy Severe Hives, Verified 08/01/19 11:47 Wheezing lisinopril [LISINOPRIL] AdvReac Severe Cough Verified 08/01/19 11:47 meperidine [From DEMEROL] AdvReac Severe Squirrelly Verified 08/01/19 11:47 Exam Vital signs: Vital Signs Temp Pulse Resp BP Pulse Ox 08/17/19 16:04 97.2 F L 58 L 20 136/66 95 Intake and Output 08/17/19 08/17/19 08/17/19 07:59 15:59 23:59 Other: Weight 97.8 kg Patient Weight 08/17/19 23:59 Weight 97.8 kg Narrative: She was awake alert and oriented x3. She was fully ambulatory and in no acute distress. Assessment and Plan (1) Microcytic hypochromic anemia Status: Chronic 73-year-old woman with a history of iron deficiency anemia, resolved after IV iron 1 g in 11/2018. EGD and colonoscopy were negative. Her blood count remains normal. Her ferritin is still in the normal range but somewhat lower than it was. We discussed the fact that she may well need additional IV iron at some point in the future. We also discussed her intolerance of multiple oral iron preparations. She has not tried a liquid iron preparation. A prescription for Feosol liquid was sent to her pharmacy. She was advised to start with 110 mg (half dose) every other day. If she does well with this she could increase to 220 mg every other day. I explained that she should mix it with juice or other liquid and drinking with a straw. If she takes it straight it can stain her teeth. A prescription was sent to her pharmacy electronically for this medication. She will let us know if there is any change in her status. Otherwise, will plan to see her back in about 6 months with labs prior. Additional IV iron can be arranged depending upon her clinical situation. - Time Spent with Patient 15 minutes
[2019-11-23 13:53] LABS: Reticulocyte Count, Percent 1.6 % (1.06-2.63)
[2019-11-23] MEDS: IRON SUCROSE 250 MG in SODIUM CHLORIDE 0.9% 100 ML 150 ML IV (14:09)
[2019-11-30 13:36] VITALS: BP 148/63; PULSE 73; RESP 18; TEMP 36.7; O2SAT 94
[2019-11-30] MEDS: IRON SUCROSE 250 MG in SODIUM CHLORIDE 0.9% 100 ML 150 ML IV (13:52)
[2019-12-07 13:56] VITALS: BP 147/62; PULSE 70; RESP 15; TEMP 36.3; O2SAT 97
[2019-12-07] MEDS: IRON SUCROSE 250 MG in SODIUM CHLORIDE 0.9% 100 ML 150 ML IV (14:15)
--- NOTE | 2019-12-07 14:35 | PC.NURSE ---
Iron infusion; Pt denies chest pain and SOB. Denies N/V. According to pt, noticeable results after second iron infusion I'm not taking naps all the time. Face and Body relaxed, engaging with staff appropriately.
[2019-12-14] MEDS: IRON SUCROSE 250 MG in SODIUM CHLORIDE 0.9% 100 ML 150 ML IV (14:05)
[2019-12-14 14:44] VITALS: BP 111/52; PULSE 70; RESP 18; TEMP 36.5; O2SAT 95
[2020-02-17 08:49] LABS: Add Manual Diff / Slide Review NO; Basophils Absolute Auto 100 /uL (0-100); Basophils Percent Auto 1.3 % (0-2); Eosinophils Absolute Auto 200 /uL (0-450); Eosinophils Percent Auto 2.2 % (2-4); Hematocrit 39.1 % (36-46); Hemoglobin 12.7 g/dL (12.0-16.0); Lymphocytes Absolute Auto 2300 /uL (1100-4500); Lymphocytes Percent Auto 28.7 % (25-40); Mean Corpuscular HGB Conc 32.4 % (30-36); Mean Corpuscular Hemoglobin 27.8 PG (26-34); Mean Corpuscular Volume 85.8 fL (80-100); Monocytes Absolute Auto 600 /uL (0-900); Monocytes Percent Auto 7.5 % (3-14); Neutrophils Absolute Auto 4700 /uL (1500-7000); Neutrophils Percent Auto 60.3 % (50-75); Platelet Count 319 X10^3/uL (150-400); Red Blood Cell Count 4.55 X10^6/uL (4.0-5.2); Red Cell Distribution Width 19.5 % (11.6-14.8); White Blood Cell Count 7.9 X10^3/uL (4.5-11.0)
[2020-02-17 09:02] LABS: Alanine Aminotransferase 19 IU/L (<35); Albumin 4.2 g/dL (3.5-5.0); Albumin Globulin Ratio 1.3 (1.0-2.8); Alkaline Phosphatase 80 U/L (38-126); Aspartate Aminotransferase 23 IU/L (14-36); Bilirubin Total 0.4 mg/dL (0.2-1.3); Blood Urea Nitrogen 14 mg/dL (7-17); Calcium 9.3 mg/dL (8.4-10.2); Carbon Dioxide 29 mmol/L (22-32); Chloride 102 mmol/L (98-107); Estimated Glomerular Filt Rate > 60.0 mL/min (>60); Globulin 3.3 g/dL (1.7-4.1); Glucose 136 mg/dL (80-110); HEMOLYSIS < 15 (0-50); Potassium 3.7 mmol/L (3.4-5.1); Sodium 137 mmol/L (137-145); Total Protein 7.5 g/dL (6.3-8.2)
[2020-02-17 09:22] LABS: Iron 67 ug/dL (37-170)
[2020-02-17 09:23] LABS: HEMOLYSIS 51 (0-50)
[2020-02-17 09:32] LABS: Percent Iron Saturation 20 % (15-50); Total Iron Binding Capacity 329 ug/dL (265-497); Transferrin 254 mg/dL (206-381)
[2020-02-17 09:37] LABS: Ferritin 105 ng/mL (11-264)
[2020-02-22 14:56] VITALS: BP 145/77; PULSE 67; RESP 18; TEMP 36.6; O2SAT 95
--- NOTE | 2020-02-22 15:24 | P.PNONC_ITS ---
PN -Subjective Interval history: Shirley Zamora is a pleasant 73-year-old female who was referred to our clinic last year for iron deficiency anemia and mild leukocytosis. CBC on 12/02/2018 showed WBC 9.3, normal differential, hemoglobin 8.5, hematocrit 27.7%, MCV 66, platelet count [id number], ferritin 9, transferrin saturation 4%, TIBC 475. She was given total 1 g IV Venofer (250 mg weekly dose x4) in 11/2018, with subsequent resolution of anemia. She underwent EGD on 02/10/2019 which showed gastritis. Stomach and GE junction biopsies were negative other than mild GE junction chronic inflammation. H pylori was negative. She underwent colonoscopy on 12/16/2018 which was negative other than diverticulosis and internal hemorrhoids. She tried some ferrous sulfate but did not tolerate that well. She has tried other forms of oral iron unsuccessfully and has been off of any oral iron supplementation as a result of intolerance. When she was last here in July she was tried on Feosol liquid but did not tolerate this either. She saw her primary physician in October and was noted to be progressively iron deficient. She had a course of IV iron from November 22 to December 03 and felt much better after that. She now presents for a six-month follow-up to this office. She has not noticed any recent bleeding, new aches or pains, nausea, vomiting, constipation or diarrhea. She denies cough or shortness of breath. All other systems are negative. She is wondering if any other evaluation for her iron deficiency would be appropriate. Her past history is reviewed from previous notes. - Patient Self-Reported Symptoms SR Constitution: Fatigue/Malaise SR eye issues: Vision changes SR ears, nose, mouth, throat issues: Ears ringing, Swollen glands SR respiratory issues: Shortness of breath SR Cardiovascular issues: Palpitations, Shortness of breath with activity or lying flat SR Skin issues: Nail changes SR Gastrointestinal issues: Change in bowel pattern, Diarrhea, Abdominal pain SR Musculoskeletal issues: Back or neck pain SR Neuro issues: Headache, Lightheaded/dizzy SR Hematologic issues: Bleeding/bruising Home Medications and Allergies Home Medications Medication Instructions Recorded Confirmed Type multivitamin [Multiple Vitamins] 1 tab PO DAILY #0 10/27/16 01/04/20 History sodium chloride [Destiny 128] 1 melissa OPHTH BEDTIME #0 10/27/16 01/04/20 History albuterol sulfate 90 mcg/actuation 2 puff INHALATION Q4H PRN #1 09/23/17 01/04/20 Rx aerosol inhaler inhalation flecainide 100 mg tablet 100 mg PO Q12H 11/06/17 01/04/20 History hydrochlorothiazide 12.5 mg tablet 12.5 mg PO DAILY tab 05/11/18 01/04/20 History rosuvastatin 5 mg tablet 2.5 mg PO DAILY #0 tab 05/11/18 01/04/[address]abled [address] permit #1 each 05/19/18 01/04/20 Rx losartan 50 mg tablet 50 mg PO DAILY 11/23/18 01/04/20 History Cranberry 1,000 mg PO DAILY 12/10/18 01/04/20 History Probiotic 1 cap PO DAILY 12/10/18 01/04/20 History ascorbic acid (vitamin C) 1 g PO DAILY 12/10/18 01/04/20 History cholecalciferol (vitamin D3) 3,000 unit PO DAILY 12/10/18 01/04/20 History [Vitamin D3] d-mannose 2,000 mg PO DAILY 12/10/18 01/04/20 History diltiazem HCl [Cartia XT] 120 mg PO DAILY 12/10/18 01/04/20 History estradiol [Estrace] 0 g VAGINAL 2XW 12/10/18 01/04/20 History metronidazole [MetroCream] 1 applic TOPICAL DAILY 12/10/18 01/04/20 History budesonide 180 mcg/actuation 2 inhalation INHALATION BID #2 02/03/19 01/04/20 Rx breath activated powder inhaler inhalation omeprazole 40 mg PO DAILY 08/17/19 01/04/20 History aspirin 325 mg tablet 325 mg PO DAILY 08/29/19 01/04/20 History fluticasone propionate 50 See Rx Instructions .ROUTE 11/22/19 01/04/20 Rx mcg/actuation nasal .COMPLEX #16 gram spray,suspension Allergies Allergy/AdvReac Type Severity Reaction Status Date / Time bupropion [From WELLBUTRIN] Allergy Severe Tremors Verified 01/04/20 10:10 erythromycin base Allergy Severe GI Upset, Verified 01/04/20 10:10 [ERYTHROMYCIN BASE] Bloody diarrhea latex [LATEX] Allergy Severe Hives, Verified 01/04/20 10:10 Wheezing lisinopril [LISINOPRIL] AdvReac Severe Cough Verified 01/04/20 10:10 meperidine [From DEMEROL] AdvReac Severe Squirrelly Verified 01/04/20 10:10 Exam Vital signs: Vital Signs Temp Pulse Resp BP Pulse Ox 02/22/20 14:56 97.8 F 67 18 145/77 H 95 Intake and Output 02/21/20 02/22/20 02/22/20 23:59 07:59 15:59 Other: Weight 94 kg Patient Weight 02/22/20 23:59 Weight 94 kg Narrative: She was awake alert and oriented x3. She was fully ambulatory and in no acute distress. Results - Labs Laboratory Last Values WBC 7.9 X10^3/uL (4.5-11.0) 02/17/20 08:34 RBC 4.55 X10^6/uL (4.0-5.2) 02/17/20 08:34 Hgb 12.7 g/dL (12.0-16.0) 02/17/20 08:34 Hct 39.1 % (36-46) 02/17/20 08:34 MCV 85.8 fL (80-100) 02/17/20 08:34 MCH 27.8 PG (26-34) 02/17/20 08:34 MCHC 32.4 % (30-36) 02/17/20 08:34 RDW 19.5 % (11.6-14.8) H 02/17/20 08:34 Plt Count 319 X10^3/uL (150-400) 02/17/20 08:34 Neut % (Auto) 60.3 % (50-75) 02/17/20 08:34 Lymph % (Auto) 28.7 % (25-40) 02/17/20 08:34 [place] % (Auto) 7.5 % (3-14) 02/17/20 08:34 Eos % (Auto) 2.2 % (2-4) 02/17/20 08:34 Baso % (Auto) 1.3 % (0-2) 02/17/20 08:34 Neut # (Auto) 4700 /uL (0503-4073) 02/17/20 08:34 Lymph # (Auto) 2300 /uL (8536-5245) 02/17/20 08:34 [place] # (Auto) 600 /uL (0-900) 02/17/20 08:34 Eos # (Auto) 200 /uL (0-450) 02/17/20 08:34 Baso # (Auto) 100 /uL (0-100) 02/17/20 08:34 Percent Retic 1.6 % (1.06-2.63) 11/23/19 13:30 Sodium 137 mmol/L (137-145) 02/17/20 08:34 Potassium 3.7 mmol/L (3.4-5.1) 02/17/20 08:34 Chloride 102 mmol/L (98-107) 02/17/20 08:34 Carbon Dioxide 29 mmol/L (22-32) 02/17/20 08:34 BUN 14 mg/dL (7-17) 02/17/20 08:34 Creatinine 0.70 mg/dL (0.52-1.04) 02/17/20 08:34 Estimated GFR > 60.0 mL/min (>60) 02/17/20 08:34 BUN/Creatinine Ratio 20.0 (6-22) 02/17/20 08:34 Glucose 136 mg/dL (80-110) H 02/17/20 08:34 Calcium 9.3 mg/dL (8.4-10.2) 02/17/20 08:34 Iron 67 ug/dL (37-170) 02/17/20 08:34 TIBC 329 ug/dL (265-497) 02/17/20 08:34 % Saturation 20 % (15-50) 02/17/20 08:34 Transferrin 254 mg/dL (206-381) 02/17/20 08:34 Ferritin 105 ng/mL (11-264) 02/17/20 08:34 Total Bilirubin 0.4 mg/dL (0.2-1.3) 02/17/20 08:34 AST 23 IU/L (14-36) 02/17/20 08:34 ALT 19 IU/L (<35) 02/17/20 08:34 Alkaline Phosphatase 80 U/L (38-126) 02/17/20 08:34 Total Protein 7.5 g/dL (6.3-8.2) 02/17/20 08:34 Albumin 4.2 g/dL (3.5-5.0) 02/17/20 08:34 Globulin 3.3 g/dL (1.7-4.1) 02/17/20 08:34 Albumin/Globulin Ratio 1.3 (1.0-2.8) 02/17/20 08:34 Assessment and Plan (1) Microcytic hypochromic anemia Status: Chronic 73-year-old woman with a history of iron deficiency anemia, resolved after IV iron 1 g in 11/2018. EGD and colonoscopy were negative. Her blood count was normal in July. She has been intolerant of all oral iron preparations she has tried. She most recently received IV iron in late October or early November and her labs from last week look good. We discussed the fact that iron deficiency is typically a result of blood loss. In the absence of an overt bleeding history, this is almost always in the intestines. EGD and colonoscopy were unrevealing. A capsule endoscopy would be a consideration. She was interested in pursuing this and she will be referred to Gastroenterology to evaluate for capsule endoscopy. We discussed the fact that she will almost certainly need additional IV iron in the future unless the source of blood loss could be identified in fixed. She would like to pursue this under the direction of her primary physician to manage her most recent IV iron episode. Accordingly, we will not schedule her a specific return appointment here but would be happy to see her any time in the future if we could be of assistance in her care. Impression: 1. Iron deficiency requiring IV iron in November of 2018 and in November of 2019 2. Upper endoscopy and colonoscopy in 2018 showed gastritis, hemorrhoids and diverticula but no other worrisome lesions 3. Patient's labs look good today after her IV iron infusion from October and early November Recommendations: 1. Patient was referred to Gastroenterology for capsule endoscopy 2. She will continue with monitoring and IV iron infusions under the direction of her primary physician 3. Although no specific return appointment has been scheduled to this office, would be happy to see her again at any time in the future.
--- NOTE | 2020-02-23 09:42 | ONC.SCHED ---
Referral sent to [facility] GI dept. per order
== END ==
PROVIDERS: PCP Family Medicine; Visit Provider Internal Medicine
DX: D50.9 Iron deficiency anemia, unspecified (principal)
CPT/HCPCS: 36415; 80053; 82728; 83540; 83550; 85025; 85045; 96365; 96366; 99204; 99213; 99214; J1756

== ENCOUNTER → 2020-03-07 14:04 | Outpatient (CLI) | payer MEDICARE, OTHER, SELFPAY | PROVIDERS: PCP Family Medicine; Visit Provider Physician Assistant | DX: R30.0 Dysuria (principal) | CPT/HCPCS: 87086 ==

== ENCOUNTER 2020-03-07 18:42 | Emergency (ER) | payer MEDICARE, OTHER, SELFPAY ==
[2020-03-07 19:00] VITALS: BP 169/74; PULSE 72; RESP 24; O2SAT 97
--- NOTE | 2020-03-07 19:18 | DI.RAD.S_ITS ---
PROCEDURE: XR CHEST 1V INDICATIONS: Chest pain and sob TECHNIQUE: One view of the chest was acquired. COMPARISON: [facility], CR, XR CHEST 1V, 12/10/2018, 11:31. FINDINGS: Surgical changes and devices: None. Lungs and pleura: Lungs are clear. No pleural effusions or pneumothorax. Mediastinum: Mediastinal contours appear normal. Heart size is normal. Bones and chest wall: No suspicious bony lesions. Overlying soft tissues appear unremarkable. IMPRESSION: No acute cardiopulmonary process demonstrated radiographically. Dictated by: Sarkis Chambers M.D. on 03/07/2020 at 19:31 Approved by: Sarkis Chambers M.D. on 03/07/2020 at 19:31
[2020-03-07 19:23] LABS: Add Manual Diff / Slide Review NO; Basophils Absolute Auto 200 /uL (0-100); Basophils Percent Auto 1.6 % (0-2); Eosinophils Absolute Auto 300 /uL (0-450); Eosinophils Percent Auto 2.1 % (2-4); Hematocrit 37.5 % (36-46); Hemoglobin 12.2 g/dL (12.0-16.0); Lymphocytes Absolute Auto 3300 /uL (1100-4500); Lymphocytes Percent Auto 24.9 % (25-40); Mean Corpuscular HGB Conc 32.5 % (30-36); Mean Corpuscular Hemoglobin 28.2 PG (26-34); Mean Corpuscular Volume 86.7 fL (80-100); Monocytes Absolute Auto 800 /uL (0-900); Monocytes Percent Auto 5.8 % (3-14); Neutrophils Absolute Auto 8600 /uL (1500-7000); Neutrophils Percent Auto 65.6 % (50-75); Platelet Count 330 X10^3/uL (150-400); Red Blood Cell Count 4.33 X10^6/uL (4.0-5.2); Red Cell Distribution Width 18.7 % (11.6-14.8); White Blood Cell Count 13.1 X10^3/uL (4.5-11.0)
[2020-03-07] MEDS: methylPREDNISolone 125 MG/2 ML VIAL IV (19:23)
[2020-03-07 19:29] LABS: Alanine Aminotransferase 19 IU/L (<35); Albumin 4.2 g/dL (3.5-5.0); Albumin Globulin Ratio 1.2 (1.0-2.8); Alkaline Phosphatase 101 U/L (38-126); Aspartate Aminotransferase 27 IU/L (14-36); BUN Creatinine Ratio 25.4 (6-22); Bilirubin Total 0.3 mg/dL (0.2-1.3); Blood Urea Nitrogen 16 mg/dL (7-17); Calcium 9.2 mg/dL (8.4-10.2); Carbon Dioxide 25 mmol/L (22-32); Chloride 104 mmol/L (98-107); Creatine Kinase 33 U/L (30-135); Estimated Glomerular Filt Rate > 60.0 mL/min (>60); Globulin 3.4 g/dL (1.7-4.1); Glucose 152 mg/dL (80-110); HEMOLYSIS 27 (0-50); Lipase 78 U/L (23-300); Potassium 3.2 mmol/L (3.4-5.1); Sodium 138 mmol/L (137-145); Total Protein 7.6 g/dL (6.3-8.2)
--- NOTE | 2020-03-07 19:30 | ED_ITS ---
HPI - Allergic Reaction General Chief complaint: Allergic Reaction Stated complaint: drug reaction Time Seen by Provider: 03/07/20 19:17 Source: patient Mode of arrival: Ambulatory Limitations: no limitations History of Present Illness HPI narrative: Patient is a 74-year-old female who presents with allergic reaction. She took her 1st dose Bactrim today at 3:30 a.m.. She was watching TV this evening when she suddenly felt severe itching all over her body. She took 50 mg of Benadryl but her tongue still felt tingly. She then started having some shortness of breath and chest heaviness.. She describes the chest heaviness is center of her chest lasting for a few minutes at a time she currently does not have any chest pain. She has no lip swelling, facial swelling, difficulty breathing or speaking. She states she does have a history of COPD she took albuterol inhaler which she started having some shortness of breath she says maybe helped a little but felt shaky afterwards. MD complaint: allergic reaction Onset (ago): hour(s) Exposure: medication Related Data Home Medications Medication Instructions Recorded Confirmed multivitamin [Multiple Vitamins] 1 tab PO DAILY #0 10/27/16 03/07/20 sodium chloride [Destiny 128] 1 melissa OPHTH BEDTIME #0 10/27/16 03/07/20 flecainide 100 mg tablet 100 mg PO Q12H 11/06/17 03/07/20 hydrochlorothiazide 12.5 mg tablet 12.5 mg PO DAILY tab 05/11/18 03/07/20 rosuvastatin 5 mg tablet 2.5 mg PO DAILY #0 tab 05/11/18 03/07/20 losartan 50 mg tablet 50 mg PO DAILY 11/23/18 03/07/20 Cranberry 1,000 mg PO DAILY 12/10/18 03/07/20 Probiotic 1 cap PO DAILY 12/10/18 03/07/20 ascorbic acid (vitamin C) 1 g PO DAILY 12/10/18 03/07/20 cholecalciferol (vitamin D3) 3,000 unit PO DAILY 12/10/18 03/07/20 [Vitamin D3] d-mannose 2,000 mg PO DAILY 12/10/18 03/07/20 diltiazem HCl [Cartia XT] 120 mg PO DAILY 12/10/18 03/07/20 estradiol [Estrace] 0 g VAGINAL 2XW 12/10/18 03/07/20 metronidazole [MetroCream] 1 applic TOPICAL DAILY 12/10/18 03/07/20 omeprazole 40 mg PO DAILY 08/17/19 03/07/20 aspirin 325 mg tablet 325 mg PO DAILY 08/29/19 03/07/20 Previous Rx's Medication Instructions Recorded albuterol sulfate 90 mcg/actuation 2 puff INHALATION Q4H PRN #1 09/23/17 aerosol inhaler inhalation Disabled parking permit #1 each 05/19/18 budesonide 180 mcg/actuation 2 inhalation INHALATION BID #2 02/03/19 breath activated powder inhaler inhalation fluticasone propionate 50 See Rx Instructions .ROUTE 11/22/19 mcg/actuation nasal .COMPLEX #16 gram spray,suspension cephalexin [Keflex] 500 mg PO TID #21 cap 03/07/20 nitrofurantoin 100 mg PO Q12H 5 Days #10 cap 03/07/20 monohydrate/macrocrystals 100 mg capsule prednisone 40 mg PO DAILY #10 tab 03/07/20 Allergies Allergy/AdvReac Type Severity Reaction Status Date / Time bupropion [From WELLBUTRIN] Allergy Severe Tremors Verified 03/07/20 14:01 erythromycin base Allergy Severe GI Upset, Verified 03/07/20 14:01 [ERYTHROMYCIN BASE] Bloody diarrhea latex [LATEX] Allergy Severe Hives, Verified 03/07/20 14:01 Wheezing sulfamethoxazole Allergy Intermediate Rash Verified 03/07/20 17:10 [From Bactrim] trimethoprim [From Bactrim] Allergy Intermediate Rash Verified 03/07/20 17:10 lisinopril [LISINOPRIL] AdvReac Severe Cough Verified 03/07/20 14:01 meperidine [From DEMEROL] AdvReac Severe Squirrelly Verified 03/07/20 14:01 Review of Systems Review of Systems ROS Unobtainable: All systems reviewed & are unremarkable except as noted in HPI and below Constitutional Constitutional: Denies chills, Denies fever(s), Denies lethargy and Denies weakness Cardiovascular Cardiovascular: Reports as per HPI and Reports dyspnea Respiratory Respiratory: Reports dyspnea Gastrointestinal Gastrointestinal: Denies abdominal pain, Denies change in bowel habits, Denies diarrhea, Denies nausea and Denies vomiting Genitourinary Genitourinary: Denies dysuria and Denies urinary incontinence Genitourinary: Denies dysuria and Denies urinary incontinence Integumentary/Breasts Skin/Breast: Reports as per HPI and Reports pruritus Neurologic Neurologic: Denies weakness Patient History Medical History Abnormal Pap smear of cervix (1975) Ankle fracture, left (1987) Ankle pain (1989) Anxiety (1984) Asthma (2015) Atrial fibrillation (2012) Graves's esophagus (2013) Blue toe syndrome of left lower extremity BPPV (benign paroxysmal positional vertigo) Bruit of left carotid artery Cataract (2002) Chicken pox (1954) Corneal dystrophy (2002) Cystocele Cystocele Diverticular disease (2016) Diverticulosis Dysuria Elbow fracture, right (2015) Epiretinal membrane (2004) Frequent UTI Gastritis GERD (gastroesophageal reflux disease) (2004) Hayfever (1965) Hearing loss Hemorrhoids History of psychosis (1968) History of UTI Hypercholesterolemia Hyperlipidemia (1996) Hypertension Internal hemorrhoids Kidney stones (2010) Mild aortic valve sclerosis (~2017) Osteoarthritis (~1994) Positive PPD (1977) Postmenopausal atrophic vaginitis Prediabetes Rectocele Rosacea (2011) Surgical History Anesthesia History of cataract removal with insertion of prosthetic lens (2002) History of ear, nose, and throat (ENT) surgery (1977) History of esophagogastroduodenoscopy (EGD) (07/2015) History of foot surgery (2007) History of knee replacement (2012) Status post angioplasty with stent (~10/2019) Status post colonoscopy (2015) Status post hysterectomy (1975) Status post laparoscopic cholecystectomy (2001) Status post open reduction with internal fixation (ORIF) of fracture of ankle (1987) Family History Brother Brain aneurysm CVA (cerebral vascular accident) Mental health problem Alcoholism Brother Alcoholism Heart disease Father No problems noted. Grandfather Alcoholism Suicide Grandmother CVA (cerebral vascular accident) Mother CVA (cerebral vascular accident) ND (myocardial infarction) Lung cancer Hypertension Heart disease Grandfather No problems noted. Grandmother MVA (motor vehicle accident) Sister Thalassemia Sister Alcoholism Brother Ischemia Alcoholism CVA (cerebral vascular accident) Social History household members: none Smoking Status: Former smoker Smoking Status: Former smoker alcohol intake frequency: a few times a week Substance Use Type: does not use Exam Initial Vital Signs Initial Vital Signs: Vital Signs Pulse Rate 72 03/07/20 19:00 Respiratory Rate 24 03/07/20 19:00 Blood Pressure 169/74 H 03/07/20 19:00 Pulse Oximetry 97 03/07/20 19:00 GENERAL: Well-appearing, well-nourished and in no acute distress. HEENT: Head atraumatic,EOMI, pupils reactive, face symmetric, moist mucous membranes CARDIOVASCULAR: Regular rate and rhythm without murmurs, rubs or gallops. RESPIRATORY: Breath sounds equal bilaterally, no wheezes rales or rhonchi. Speaks in full sentences without difficulty. No stridor or drooling ABDOMEN: Soft, nontender. Normoactive bowel sounds all 4 quadrants. No guarding or rebound. EXTREMITIES: Normal range of motion, no clubbing or edema. Neurovascularly intact NEUROLOGICAL: Alert and oriented x4.Normal gait and speech. Cranial nerves II through XII grossly intact. SKIN: Warm, dry, no laceration, no petechiae, no rashes or lesions. Course Orders Ordered: ED Orders 03/07/20 18:57 Complete Blood Count AUTO DIFF Stat Comprehensive Metabolic Panel Stat Lipase Stat Troponin & CK Cardiac Panel Stat 03/07/20 19:18 XR chest 1V Stat EKG-12 Lead Stat Discontinued Medications Methylprednisolone (Methylprednisolone 125 Mg/2 Ml Vial) 125 mg IV NOW ONE Stop: 03/07/20 19:19 Last Admin: 03/07/20 19:23 Dose: 125 mg Documented by: LORENZO Vital Signs Vital signs: Vital Signs - 8 hr 03/07/20 19:00 03/07/20 20:00 03/07/20 20:30 Pulse Rate 72 86 69 Respiratory Rate 24 16 16 Blood Pressure 169/74 H 183/75 H 144/63 H Pulse Oximetry 97 98 96 MDM - Allergic Reaction Lab Data Attestation: I reviewed the patient's lab results. Result diagrams: 03/07/20 18:57 03/07/20 18:57 Labs: Lab Results 03/07/20 03/07/20 Range/Units 18:57 18:57 WBC 13.1 H (4.5-11.0) X10^3/uL RBC 4.33 (4.0-5.2) X10^6/uL Hgb 12.2 (12.0-16.0) g/dL Hct 37.5 (36-46) % MCV 86.7 (80-100) fL MCH 28.2 (26-34) PG MCHC 32.5 (30-36) % RDW 18.7 H (11.6-14.8) % Plt Count 330 (150-400) X10^3/uL Neut % (Auto) 65.6 (50-75) % Lymph % (Auto) 24.9 L (25-40) % [place] % (Auto) 5.8 (3-14) % Eos % (Auto) 2.1 (2-4) % Baso % (Auto) 1.6 (0-2) % Neut # (Auto) 8600 H (2890-5246) /uL Lymph # (Auto) 3300 (8765-5804) /uL [place] # (Auto) 800 (0-900) /uL Eos # (Auto) 300 (0-450) /uL Baso # (Auto) 200 H (0-100) /uL Sodium 138 (137-145) mmol/L Potassium 3.2 L (3.4-5.1) mmol/L Chloride 104 (98-107) mmol/L Carbon Dioxide 25 (22-32) mmol/L BUN 16 (7-17) mg/dL Creatinine 0.63 (0.52-1.04) mg/dL Estimated GFR > 60.0 (>60) mL/min BUN/Creatinine Ratio 25.4 H (6-22) Glucose 152 H (80-110) mg/dL Calcium 9.2 (8.4-10.2) mg/dL Total Bilirubin 0.3 (0.2-1.3) mg/dL AST 27 (14-36) IU/L ALT 19 (<35) IU/L Alkaline Phosphatase 101 (38-126) U/L Total Creatine Kinase 33 (30-135) U/L CK-MB (CK-2) TNP CK-MB (CK-2) Rel Index TNP Troponin I < 0.012 (0.01-0.034) ng/mL Total Protein 7.6 (6.3-8.2) g/dL Albumin 4.2 (3.5-5.0) g/dL Globulin 3.4 (1.7-4.1) g/dL Albumin/Globulin Ratio 1.2 (1.0-2.8) Lipase 78 (23-300) U/L Imaging Data Chest x-ray: Radiologist's Impression: PROCEDURE: XR CHEST 1V INDICATIONS: Chest pain and sob TECHNIQUE: One view of the chest was acquired. COMPARISON: [facility], , XR CHEST 1V, 12/10/2018, 11:31. FINDINGS: Surgical changes and devices: None. Lungs and pleura: Lungs are clear. No pleural effusions or pneumothorax. Mediastinum: Mediastinal contours appear normal. Heart size is normal. Bones and chest wall: No suspicious bony lesions. Overlying soft tissues appear unremarkable. IMPRESSION: No acute cardiopulmonary process demonstrated radiographically. Dictated by: Sarkis Chambers M.D. on 03/07/2020 at 19:31 Approved by: Sarkis Chambers M.D. on 03/07/2020 at 19:31 ECG Data Attestation: I personally reviewed and interpreted this ECG as follows: Prior ECG tracings: available for review Interpretation: Normal sinus rhythm rate 68 p.r. interval 208 QRS [address] changes MDM Narrative Medical decision making narrative: Patient is overall feeling much better. Rash and tongue tingling have resolved. Blood work and EKG and chest x-ray are reassuring. She was started on Bactrim from the walk-in clinic urine culture is still pending. Will start her on Keflex. She overall does not appear septic. Continues to have urinary frequency and urgency. Discharge Plan Departure Patient Disposition: Home Clinical Impression: Allergic reaction Qualifiers: Encounter type: initial encounter Qualified Code(s): T78.40XA - Allergy, unspecified, initial encounter Instructions: DI for Adverse Drug Reaction -- Allergic Activity Restrictions/Additional Instructions: *You have been diagnosed with allergic reaction *What to do: You will need to talk with your doctor about a different antibiotic I do not have the results of your urine to pick a different an tibiotic at this time *Continue to take medications as directed Prednisone 40 mg once a day for 5 days--> SENT TO [facility] IN [place] *Follow up with your primary care provider in 2-3 days *Return to ER if you should have increased difficulty breathing, throat swelling, tongue swelling or any new, worsening or concerning symptoms Prescriptions: New prednisone 20 mg tablet 40 mg PO DAILY Qty: 10 RF: 0 cephalexin [Keflex] 500 mg capsule 500 mg PO TID Qty: 21 RF: 0 No Action hydrochlorothiazide 12.5 mg tablet 12.5 mg PO DAILY RF: 0 multivitamin [Multiple Vitamins] 1 EACH tablet 1 tab PO DAILY Qty: 0 RF: 0 sodium chloride [Destiny 128] 3.5 GM ointment 1 melissa OPHTH BEDTIME Qty: 0 RF: 0 albuterol sulfate 90 mcg/actuation HFA aerosol inhaler 2 puff INHALATION Q4H PRN (Reason: shortness of breath or wheezing) Qty: 1 RF: 2 rosuvastatin [Crestor] 5 mg tablet 2.5 mg PO DAILY Qty: 0 RF: 0 Pulmicort Flexhaler 180 mcg/actuation aerosol powdr breath activated 2 inhalation inhalation BID Qty: 2 RF: 5 fluticasone propionate 50 mcg/actuation spray,suspension See Rx Instructions .ROUTE .COMPLEX Qty: 16 RF: 2 nitrofurantoin monohyd/m-cryst 100 mg capsule 100 mg PO Q12H 5 Days Qty: 10 RF: 0 flecainide 100 mg tablet 100 mg PO Q12H RF: 0 aspirin 325 mg tablet 325 mg PO DAILY RF: 0 (DME) Disabled parking permit Qty: 1 RF: 0 losartan 50 mg tablet 50 mg PO DAILY RF: 0 diltiazem HCl [Cartia XT] 120 mg capsule,extended release 24hr 120 mg PO DAILY RF: 0 ascorbic acid (vitamin C) 1,000 mg Tablet 1 g PO DAILY RF: 0 cholecalciferol (vitamin D3) [Vitamin D3] 1,000 unit Capsule 3,000 unit PO DAILY RF: 0 Cranberry 1,000 mg 1,000 mg PO DAILY RF: 0 Probiotic 1 cap PO DAILY RF: 0 d-mannose 1,000 mg 2,000 mg PO DAILY RF: 0 estradiol [Estrace] 0.01 % (0.1 mg/gram) cream 0 g Vaginal 2XW RF: 0 metronidazole [MetroCream] 0.75 % Cream 1 applic TOPICAL DAILY RF: 0 omeprazole 40 mg capsule,delayed release(DR/EC) 40 mg PO DAILY RF: 0 Hold Instructions: while on plavix Referrals: Yamilet Malave DO [Primary Care Provider] -
[2020-03-07 19:40] LABS: Troponin I < 0.012 ng/mL (0.01-0.034)
[2020-03-07 20:00] VITALS: BP 183/75; PULSE 86; RESP 16; O2SAT 98
[2020-03-07 20:30] VITALS: BP 144/63; PULSE 69; RESP 16; O2SAT 96
== END 2020-03-07 20:55 | disposition home or self-care (01) ==
PROVIDERS: Emergency Provider Emergency Medicine; PCP Family Medicine
DX: T36.8X5A Adverse effect of other systemic antibiotics, initial encounter (principal); Y92.009 Unspecified place in unspecified non-institutional (private) residence as the place of occurrence of the external cause; L29.9 Pruritus, unspecified; R06.02 Shortness of breath; R07.89 Other chest pain; J44.9 Chronic obstructive pulmonary disease, unspecified; R20.2 Paresthesia of skin; R30.0 Dysuria
CPT/HCPCS: 36415; 71045; 80053; 82550; 83690; 84484; 85025; 87086; 93005; 96374; 99283; 99284; J2930

== ENCOUNTER → 2020-03-12 14:09 | Outpatient (CLI) | payer MEDICARE, OTHER, SELFPAY ==
--- NOTE | 2020-03-12 14:11 | DI.RAD.S_ITS ---
PROCEDURE: XR CERVICAL SPINE 2V OR 3V INDICATIONS: cervical paraspinal tenderness, no midline tenderness TECHNIQUE: 5 view(s) of the cervical spine were acquired. COMPARISON: None. FINDINGS: Bones: No fractures or dislocations to the T1 level. The lateral masses of C1 appear intact on the odontoid view. No suspicious bony lesions. There is disc space narrowing at C5-6 and to a lesser extent C4-5 and C6-7. These vertebral bodies have mild degenerative changes. Soft tissues: No prevertebral soft tissue swelling. IMPRESSION: Degenerative disc disease from C4 through C7 most prominently at C5-6. Dictated by: Geoff Ortiz M.D. on 03/12/2020 at 14:52 Approved by: Geoff Ortiz M.D. on 03/12/2020 at 14:54
--- NOTE | 2020-03-12 14:11 | DI.RAD.S_ITS ---
PROCEDURE: XR LUMBAR SPINE 2-3V INDICATIONS: L low back pain with sciatica TECHNIQUE: 2 views of the lumbar spine were acquired. COMPARISON: None. FINDINGS: Bones: 5 [id number] vertebrae are present. There is normal bony alignment. No vertebral body compression fractures. No suspicious bony lesions. There is facet arthrosis at L3-4, L4-5, and L5-S1 with grade 1 anterolisthesis of L4-5. The aorta has atherosclerotic calcifications. Status post cholecystectomy. The lumbar spine has mild leftward curvature. Mild disc space narrowing at L4-5, the remaining discs have no disc space narrowing. Soft tissues: Overlying bowel gas pattern is normal. No suspicious soft tissue calcifications. IMPRESSION: 1. Facet arthrosis at L3-4, L4-5, and L5-S1. 2. Grade 1 anterolisthesis at L4-5 with disc disease at this level. 3. Atherosclerosis of the abdominal aorta with no aneurysm identified. Dictated by: Geoff Ortiz M.D. on 03/12/2020 at 14:50 Approved by: Geoff Ortiz M.D. on 03/12/2020 at 14:52
== END ==
PROVIDERS: PCP Family Medicine; Referring Provider Physician Assistant; Visit Provider Physician Assistant
DX: S39.012A Strain of muscle, fascia and tendon of lower back, initial encounter (principal); M54.40 Lumbago with sciatica, unspecified side; M47.816 Spondylosis without myelopathy or radiculopathy, lumbar region; M47.817 Spondylosis without myelopathy or radiculopathy, lumbosacral region; M43.16 Spondylolisthesis, lumbar region; I70.0 Atherosclerosis of aorta
CPT/HCPCS: 72040; 72100

== ENCOUNTER → 2020-03-16 08:59 | Outpatient (CLI) | payer MEDICARE, OTHER, SELFPAY ==
[2020-03-16] MEDS: COVID-19 VACC(MODERNA-1)/PF 100 MCG/0.5 ML VIAL IM (09:08)
== END ==
PROVIDERS: PCP Family Medicine; Visit Provider Internal Medicine
DX: Z23 Encounter for immunization (principal)
CPT/HCPCS: 0011A; 91301

== ENCOUNTER → 2020-04-13 09:01 | Outpatient (CLI) | payer MEDICARE, OTHER, SELFPAY ==
[2020-04-13] MEDS: COVID-19 VACC #2, MRNA(MOD) 100 MCG/0.5 ML VIAL IM (09:10)
== END ==
PROVIDERS: PCP Family Medicine; Visit Provider Internal Medicine
DX: Z23 Encounter for immunization (principal)
CPT/HCPCS: 0012A; 91301

== ENCOUNTER → 2020-05-09 10:49 | Outpatient (CLI) | payer MEDICARE, OTHER, SELFPAY ==
--- NOTE | 2020-05-09 11:06 | DIET.PN ---
Dietary Progress Note 74y F attending f/u as she needs help with a meal plan to manage her Type 2 Diabetes and to further reduce her LDL cholesterol and help better manage her anxious stomach (chronic gastritis c iron deficiency anemia). Pts diet is about the same, avoiding more meats, feels she needs to eat less cheese, is eating liver godoy a few times per week for source of iron. 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 Upon further assessment, pt has similar sx when eating too many fresh tomatoes or carrots, she avoids most potatoes and celery as well which are high reactive proteins to latex. Pt has childhood hx of severe food insecurity and has little insight to her hunger and fullness cues except being really hungry and overfull. Labs: FBG 152 H Interventions: 1. To address need to better manage blood sugar and further lower LDL cholesterol, provided pt recipe for overnight oats. Pt will eat this for breakfast 3-4d/w. This recipe is high in retrograde starch to support soluble fiber intake. 2. To support pts digestion, when in a flare instead of BRAT diet which is causing further weight gain and blood sugar mismanagement, pt will consume rice congee made with bone broth, plain sinhala yogurt, soft cooked eggs, and roasted or microwaved squash. 3. Pt will continue to monitor high latex cross reactive foods to assess if there is relationship b/w her sx and these foods.
== END ==
PROVIDERS: PCP Family Medicine; Referring Provider Family Medicine; Visit Provider Family Medicine
DX: E11.9 Type 2 diabetes mellitus without complications (principal)
CPT/HCPCS: 97803

== ENCOUNTER → 2020-05-21 08:06 | Outpatient (CLI) | payer MEDICARE, OTHER, SELFPAY ==
[2020-05-21 08:53] LABS: Hemoglobin A1C% w Est Avg Glu 6.5 % (4.0-6.0)
[2020-05-21 09:05] LABS: Alanine Aminotransferase 20 IU/L (<35); Albumin 4.3 g/dL (3.5-5.0); Albumin Globulin Ratio 1.3 (1.0-2.8); Alkaline Phosphatase 85 U/L (38-126); Aspartate Aminotransferase 24 IU/L (14-36); BUN Creatinine Ratio 26.4 (6-22); Bilirubin Total 0.3 mg/dL (0.2-1.3); Blood Urea Nitrogen 24 mg/dL (7-17); Calcium 9.5 mg/dL (8.4-10.2); Carbon Dioxide 24 mmol/L (22-32); Chloride 103 mmol/L (98-107); Cholesterol 187 mg/dL (140-199); Estimated Glomerular Filt Rate > 60.0 mL/min (>60); Globulin 3.3 g/dL (1.7-4.1); Glucose 145 mg/dL (80-110); HDL Cholesterol 47 mg/dL (40-60); HEMOLYSIS < 15 (0-50); LDL Cholesterol Calculated 109 mg/dL (<100); Potassium 4.1 mmol/L (3.4-5.1); Sodium 137 mmol/L (137-145); Total Protein 7.6 g/dL (6.3-8.2); Triglycerides 154 mg/dL (35-150)
[2020-05-21 10:23] LABS: Creatinine Urine Random 136.4 mg/dL
[2020-05-21 10:27] LABS: Microalbumi Creatinin Ratio Ur 44.7 ug/mg CR (<30); Microalbumin Urine Random 6.1 mg/dL (0-1.6)
== END ==
PROVIDERS: PCP Family Medicine; Referring Provider Family Medicine; Visit Provider Family Medicine
DX: E11.9 Type 2 diabetes mellitus without complications (principal); I10 Essential (primary) hypertension; E78.5 Hyperlipidemia, unspecified; E66.9 Obesity, unspecified
CPT/HCPCS: 36415; 80053; 80061; 82043; 82570; 83036

== ENCOUNTER 2020-06-30 08:44 | Emergency (ER) | payer MEDICARE, OTHER, SELFPAY ==
[2020-06-30] VITALS (14 sets, daily range): BP systolic 166–184; BP diastolic 71–77; PULSE 63–78; RESP 16–18; TEMP 37.2; O2SAT 93–98; BMI 32.8
[2020-06-30] MEDS: OXYMETAZOLINE NASAL SPRAY 15 ML 2 SPRAYS NASAL (10:12)
--- NOTE | 2020-06-30 10:57 | ED_ITS ---
HPI - Epistaxis General Chief complaint: Nasal Problem Stated complaint: bloody nose Time Seen by Provider: 06/30/20 09:43 Source: patient Mode of arrival: Wheelchair Limitations: no limitations History of Present Illness HPI Narrative: This is a pleasant 74-year-old female with complaint of bloody nose. Patient states that it started earlier today. Patient states that she has had a nosebleed in the past which required packing she believes it was on the right side and required follow-up with ENT and cauterization. Patient saw Dr. Brown for ENT. She is on sure if it was anterior posterior but she was told by the ENT that she would likely bleed again. She had a nose bleed a week that took about 6 hours but she was able to control it with Afrin, cough balls and nasal pressure. Today she states she had significantly more bleeding in comparison and was not able to control at home so she came to the emergency department. She states she has very mild dizziness. She denies any lightheadedness. She denies any chest pain or shortness of breath. She has had got some mild nausea but no vomiting. No GI or urinary symptoms. No spontaneous bruising or bleeding. She does take an aspirin 325 mg daily after having a iliac stent placed by vascular surgeon about a year ago. Related Data Home Medications Medication Instructions Recorded Confirmed multivitamin [Multiple Vitamins] 1 tab PO DAILY #0 10/27/16 05/25/20 sodium chloride [Destiny 128] 1 melissa OPHTH BEDTIME #0 10/27/16 05/25/20 flecainide 100 mg tablet 100 mg PO Q12H 11/06/17 05/25/20 rosuvastatin 5 mg tablet 2.5 mg PO DAILY #0 tab 05/11/18 05/25/20 losartan 50 mg tablet 50 mg PO DAILY 11/23/18 05/25/20 Cranberry 1,000 mg PO DAILY 12/10/18 05/25/20 Probiotic 1 cap PO DAILY 12/10/18 05/25/20 ascorbic acid (vitamin C) 1 g PO DAILY 12/10/18 05/25/20 cholecalciferol (vitamin D3) 3,000 unit PO DAILY 12/10/18 05/25/20 [Vitamin D3] d-mannose 2,000 mg PO DAILY 12/10/18 05/25/20 diltiazem HCl [Cartia XT] 120 mg PO DAILY 12/10/18 05/25/20 estradiol [Estrace] 0 g VAGINAL 2XW 12/10/18 05/25/20 metronidazole [MetroCream] 1 applic TOPICAL DAILY 12/10/18 05/25/20 aspirin 325 mg tablet 325 mg PO DAILY 08/29/19 05/25/20 spironolactone 25 mg tablet 12.5 mg PO DAILY tab 05/25/20 05/25/20 Previous Rx's Medication Instructions Recorded albuterol sulfate 90 mcg/actuation 2 puff INHALATION Q4H PRN #1 09/23/17 aerosol inhaler inhalation Disabled parking permit #1 each 05/19/18 budesonide 180 mcg/actuation 2 inhalation INHALATION BID #2 02/03/19 breath activated powder inhaler inhalation hydrocodone 5 mg-acetaminophen 325 1 tab PO Q6H PRN #10 tab 03/14/20 mg tablet omeprazole 40 mg capsule,delayed 40 mg PO BID #20 cap 03/14/20 release omeprazole 40 mg capsule,delayed 40 mg PO DAILY #90 cap 03/14/20 release fluticasone propionate 50 See Rx Instructions .ROUTE 04/05/20 mcg/actuation nasal .COMPLEX #16 gram spray,suspension Allergies Allergy/AdvReac Type Severity Reaction Status Date / Time bupropion [From WELLBUTRIN] Allergy Severe Tremors Verified 06/30/20 08:56 erythromycin base Allergy Severe GI Upset, Verified 06/30/20 08:56 [ERYTHROMYCIN BASE] Bloody diarrhea latex [LATEX] Allergy Severe Hives, Verified 06/30/20 08:56 Wheezing sulfamethoxazole Allergy Intermediate Rash Verified 06/30/20 08:56 [From Bactrim] trimethoprim [From Bactrim] Allergy Intermediate Rash Verified 06/30/20 08:56 lisinopril [LISINOPRIL] AdvReac Severe Cough Verified 06/30/20 08:56 meperidine [From DEMEROL] AdvReac Severe Squirrelly Verified 06/30/20 08:56 Review of Systems Review of Systems ROS Unobtainable: All systems reviewed & are unremarkable except as noted in HPI and below Patient History Medical History Abnormal Pap smear of cervix (1975) Ankle fracture, left (1987) Ankle pain (1989) Anxiety (1985) Asthma (2016) Atrial fibrillation (2013) Back strain Graves's esophagus (2013) Blue toe syndrome of left lower extremity BPPV (benign paroxysmal positional vertigo) Bruit of left carotid artery Cataract (2002) Chicken pox (1954) Corneal dystrophy (2002) Cystocele Cystocele Diverticular disease (2017) Diverticulosis Dysuria Elbow fracture, right (2016) Epiretinal membrane (2004) Frequent UTI Gastritis GERD (gastroesophageal reflux disease) (2004) Hayfever (1965) Hearing loss Hemorrhoids History of psychosis (1968) History of UTI Hypercholesterolemia Hyperlipidemia (1996) Hypertension Internal hemorrhoids Kidney stones (2010) Mild aortic valve sclerosis (~2017) Osteoarthritis (~1994) Positive PPD (1977) Postmenopausal atrophic vaginitis Prediabetes Rectocele Rosacea (2011) Surgical History Anesthesia History of cataract removal with insertion of prosthetic lens (2002) History of ear, nose, and throat (ENT) surgery (1977) History of esophagogastroduodenoscopy (EGD) (07/2015) History of esophagogastroduodenoscopy (EGD) (~01/2019) History of foot surgery (2007) History of knee replacement (2012) Status post angioplasty with stent (~10/2019) Status post colonoscopy (2015) Status post hysterectomy (1975) Status post laparoscopic cholecystectomy (2001) Status post open reduction with internal fixation (ORIF) of fracture of ankle (1987) Family History Brother Brain aneurysm CVA (cerebral vascular accident) Mental health problem Alcoholism Brother Alcoholism Heart disease Father No problems noted. Grandfather Alcoholism Suicide Grandmother CVA (cerebral vascular accident) Mother CVA (cerebral vascular accident) HI (myocardial infarction) Lung cancer Hypertension Heart disease Grandfather No problems noted. Grandmother MVA (motor vehicle accident) Sister Thalassemia Sister Alcoholism Brother Ischemia Alcoholism CVA (cerebral vascular accident) Social History household members: none Smoking Status: Never smoker Smoking Status: Never smoker alcohol intake frequency: a few times a week Substance Use Type: does not use Exam Narrative Exam Narrative: GEN: well nourished, well appearing female, alert and oriented x 3, patient appears to be in mild distress. HEENT: Atraumatic, pupils are equal round reactive to light, extraocular movements are intact, left nare are has some mild blood at the opening but not appreciated in the posterior, on the right there is some full blood but no obvious active bleeding source appreciated, patient has nasal clamp off and is dabbing at right nare. there is no conjunctival pallor. Throat is clear witho ut any exudates, erythema, tonsillar enlargement or uvular deviation HEART: Regular rate and rhythm without murmur, clicks, rubs. LUNGS:Lungs clear to auscultation, no wheezes, rales, crackles, chest moves symmetrically ABD:bowel sounds normal, soft, non-tender, no guarding, rebound, rigidity, no masses noted, no hepatosplenomegaly MSCL: Non-tender, no muscle atrophy, muscles strength 5/5 upper and lower extremities, full range of motion, normal gait NEURO:CN 2-12 intact, sensation normal SKIN: No rash, erythema, no ecchymosis or petechiae noted. Initial Vital Signs Initial Vital Signs: Vital Signs Pulse Oximetry 94 06/30/20 08:48 Procedures Epistaxis Control Time Out Performed: Yes Nostril: right Nose Prepped With: lidocaine and oxymetazoline Direct Inspection: unable to visualize Clots Removed by: blowing nose and suction (nursing performed proir too.) Cautery Used: none Device Inserted: nasal tampon (5.5cm rhinorocket) Patient Tolerated Procedure: well and no complications Course Orders Ordered: Discontinued Medications Lidocaine/Sodium Bicarbonate (Lido 1%/Sod Bicarb 8.4% (10ml) 10 Ml Syringe) 10 ml INJ NOW ONE Stop: 06/30/20 10:58 Last Admin: 06/30/20 11:07 Dose: 10 ml Documented by: NICK Ondansetron HCl (Ondansetron 4 Mg Odt) 4 mg SL NOW ONE Stop: 06/30/20 11:00 Last Admin: 06/30/20 11:06 Dose: 4 mg Documented by: NICK Oxymetazoline HCl (Oxymetazoline Nasal Marcus 15 Ml) 2 sprays NASAL NOW ONE Stop: 06/30/20 09:44 Last Admin: 06/30/20 10:12 Dose: 2 sprays Documented by: NICK Silver Nitrate/Potassium Nitrate (Silver Nitrate Stick) 1 each TOP NOW ONE Stop: 06/30/20 09:44 Last Admin: 06/30/20 12:23 Dose: 1 each Documented by: NERISSA Tranexamic Acid (Tranexamic Acid 1,000 Mg Vial) 500 mg INH NOW ONE Stop: 06/30/20 11:14 Last Admin: 06/30/20 12:23 Dose: 500 mg Documented by: NERISSA Reevaluation(s) Reevaluation #1: Patient has mild bleeding although improved. Plan for rhinorocket with TXA and lidocaine and follow up with ENT on Thursday. Time: 12:01 Vital Signs Vital signs: Vital Signs - 8 hr 06/30/20 11:30 06/30/20 12:00 06/30/20 12:13 Pulse Rate 63 66 Respiratory Rate 16 Blood Pressure 181/77 H Pulse Oximetry 96 96 06/30/20 12:21 06/30/20 12:23 Pulse Rate 71 Respiratory Rate Blood Pressure 181/77 H Pulse Oximetry 97 MDM - Epistaxis MDM Narrative Medical decision making narrative: This is a 74-year-old female with history of epistaxis who required cauterization by ENT in the past patient is on aspirin 325mg daily for and iliac stent. Patient continues to have some oozing even after TXA intranasal and unable to visualize site that can be cauterized. Rhino rocket was placed with cessation of bleeding. Patient will follow-up with ENT and was given referral back to her prior ENT was also on-call today. All questions were answered and patient was asked return if worsening symptoms or concerning symptoms. Discharge Plan Departure Patient Disposition: Home Clinical Impression: Epistaxis Instructions: DI for Nosebleed Activity Restrictions/Additional Instructions: Follow up with ENT. You may try calling this weekend and may be able to speak with ENT on-call. If unsuccessful call Thursday morning for an appointment for follow-up for possible cauterization. You may continue home medications as prescribed. Your aspirin does make you more likely to bleed so ENT may ask you to stop this medication if you continue to have epistaxis for the short term. Follow-up with the ENT specialist provided. Follow directions as noted below. Return to emergency department if self-care directions do not work and you are unable to stop the bleeding, or if you become lightheaded, began vomiting. Use medications as directed. Nosebleed self-care - With the right self-care, most nosebleeds stop on their own. Here's what you should do: 1. Blow your nose. This might increase the bleeding for a moment, but that's OK. 2. Sit or stand while bending forward a little at the waist. DO NOT lie down or tilt your head back. 3. Pinch the soft area towards the bottom of your nose, below the bone (picture 1). DO NOT oakes machine operator the bridge of your nose between your eyes. That will not work. DO NOT press on just 1 side, even if the bleeding is only on 1 side. That will not work either. 4. Squeeze your nose shut for at least 15 minutes. (In children, squeeze for only 5 minutes.) Use a clock to time yourself. Do not release the pressure before the time is up to check if the bleeding has stopped. If you keep checking, you will ruin your chances of getting the bleeding to stop. If you follow these steps, and your nose keeps bleeding, repeat all the steps once more. Apply pressure for a total of at least 30 minutes (or 10 minutes for children). If you are still bleeding, go to the emergency room or an urgent care clinic. What if I get repeated nosebleeds? - Frequent nosebleeds can be caused by: Breathing dry air all the time Using cold or allergy nasal sprays too much Frequent colds Snorting drugs into your nose, such as cocaine In some cases, repeat nosebleeds can be a sign that your blood does not clot like it should. If that is the case, there are often other clues. For instance, people with clotting problems bruise easily and might bleed more than you would expect after a small cut or scrape. Nosebleed treatment - If you end up seeing a doctor or nurse for your nosebleed, he or she will make sure you can breathe OK. Then he or she will try to get the bleeding to stop. To do that, he or she might have to put a device or some packing material up your nose. What can I do to keep from getting nosebleeds? - You can: Use a humidifier (a machine that makes the air less dry) in your bedroom when you sleep Keep the inside of your nose moist with a nasal saline spray or gel Not pick your nose, or at least clip your nails before you do to avoid injury Prescriptions: No Action multivitamin [Multiple Vitamins] 1 EACH tablet 1 tab PO DAILY Qty: 0 RF: 0 sodium chloride [Destiny 128] 3.5 GM ointment 1 melissa OPHTH BEDTIME Qty: 0 RF: 0 albuterol sulfate 90 mcg/actuation HFA aerosol inhaler 2 puff INHALATION Q4H PRN (Reason: shortness of breath or wheezing) Qty: 1 RF: 2 rosuvastatin [Crestor] 5 mg tablet 2.5 mg PO DAILY Qty: 0 RF: 0 Pulmicort Flexhaler 180 mcg/actuation aerosol powdr breath activated 2 inhalation inhalation BID Qty: 2 RF: 5 fluticasone propionate 50 mcg/actuation spray,suspension See Rx Instructions .ROUTE .COMPLEX Qty: 16 RF: 2 flecainide 100 mg tablet 100 mg PO Q12H RF: 0 aspirin 325 mg tablet 325 mg PO DAILY RF: 0 (DME) Disabled parking permit Qty: 1 RF: 0 losartan 50 mg tablet 50 mg PO DAILY RF: 0 omeprazole 40 mg capsule,delayed release(DR/EC) 40 mg PO DAILY Qty: 90 RF: 3 Hold Instructions: while on plavix omeprazole 40 mg capsule,delayed release(DR/EC) 40 mg PO BID Qty: 20 RF: 0 hydrocodone-acetaminophen 5-325 mg tablet 1 tab PO Q6H PRN (Reason: pain) Qty: 10 RF: 0 spironolactone 25 mg tablet 12.5 mg PO DAILY RF: 0 diltiazem HCl [Cartia XT] 120 mg capsule,extended release 24hr 120 mg PO DAILY RF: 0 ascorbic acid (vitamin C) 1,000 mg Tablet 1 g PO DAILY RF: 0 cholecalciferol (vitamin D3) [Vitamin D3] 1,000 unit Capsule 3,000 unit PO DAILY RF: 0 Cranberry 1,000 mg 1,000 mg PO DAILY RF: 0 Probiotic 1 cap PO DAILY RF: 0 d-mannose 1,000 mg 2,000 mg PO DAILY RF: 0 estradiol [Estrace] 0.01 % (0.1 mg/gram) cream 0 g Vaginal 2XW RF: 0 metronidazole [MetroCream] 0.75 % Cream 1 applic TOPICAL DAILY RF: 0 Referrals: Bulmaro Brown MD [Physician] - Yamilet Malave DO [Primary Care Provider] -
[2020-06-30] MEDS: ONDANSETRON 4 MG ODT SL (11:06)
[2020-06-30] MEDS: LIDO 1%/SOD BICARB 8.4% (10ML) 10 ML SYRINGE INJ (11:07)
[2020-06-30] MEDS: TRANEXAMIC ACID 1,000 MG VIAL 500 MG INH (12:23)
[2020-06-30] MEDS: SILVER NITRATE STICK 1 EACH TOP (12:23)
== END 2020-06-30 12:41 | disposition home or self-care (01) ==
PROVIDERS: Emergency Provider Emergency Medicine; PCP Family Medicine
DX: R04.0 Epistaxis (principal)
CPT/HCPCS: 30903; 99283; A9270

== ENCOUNTER 2020-08-23 10:47 | Emergency (ER) | payer MEDICARE, OTHER, SELFPAY ==
[2020-08-23 10:51] VITALS: BP 186/80; PULSE 68; RESP 15; TEMP 36.3; O2SAT 97; BMI 34.5
--- NOTE | 2020-08-23 11:03 | DI.RAD.S_ITS ---
PROCEDURE: XR KNEE LT 3V INDICATIONS: left knee pain TECHNIQUE: 3 views of the knee were acquired. COMPARISON: None. FINDINGS: Bones: No fractures or dislocations. No suspicious bony lesions. Moderate medial and patellofemoral compartment narrowing. No erosions. Soft tissues: No joint effusion. No suspicious soft tissue calcifications. IMPRESSION: Arthritic changes. No visualized acute fracture or dislocation. However, if clinical concern and/or pain persist, short interval imaging followup in 7-10 days is recommended, as occult injury cannot be definitively excluded. Dictated by: Radha Gallardo M.D. on 08/23/2020 at 12:23 Approved by: Radha Gallardo M.D. on 08/23/2020 at 12:23
--- NOTE | 2020-08-23 12:01 | PC.NURSE ---
+CMS. [place] and warm
--- NOTE | 2020-08-23 13:32 | DI.US.S_ITS ---
PROCEDURE: US ARTERIAL DUPLEX LE LT INDICATIONS: ILIAC STENT WITH INCREASED LEG PAIN TECHNIQUE: Color and pulse Doppler interrogation was performed of the left lower extremity arterial system, with image documentation. COMPARISON: [facility], ARTERIAL DUPLEX LE LT, 09/05/2019, 14:17. [facility], , US ARTERIAL DUPLEX LE LT, 08/19/2019, 14:13. FINDINGS: Biphasic flow throughout. Common femoral artery: 192 cm/sec Deep femoral artery: 180 cm/sec Proximal superficial femoral artery: 136 cm/sec. Mid superficial femoral artery: 124 cm/sec. Distal superficial femoral artery: 113 cm/sec. Popliteal artery: 79-86 cm/sec. Posterior tibial artery: 133 cm/sec Anterior tibial artery/dorsalis pedis: 42 cm/sec Antoine-scale imaging description: Mild calcific and soft plaque. IMPRESSION: Areas of arterial insufficiency are not identified. Flow velocity does not localize a site of high-grade stenosis. Follow-up MR angiography may be warranted depending on the clinical status. This study does not extend to accurately assess the aorta an aortic bifurcation vessels. Dictated by: Nii Clark M.D. on 08/23/2020 at 16:06 Approved by: Nii Clark M.D. on 08/23/2020 at 16:11
--- NOTE | 2020-08-23 13:49 | ED.LOWEXIN ---
HPI - Extremity Injury (Lower) General Chief Complaint: Extremity Injury, Lower Stated Complaint: left knee pain, tingling/swollen, foot issues Time Seen by Provider: 08/23/20 13:00 Source: patient Mode of arrival: Wheelchair Limitations: no limitations History of Present Illness HPI Narrative: The patient is a 75-year-old female with history of peripheral vascular disease and left iliac stent presenting with a few days of left leg pain. Today she was walking on uneven ground when her any snap in she felt it is un stable. He has noticed over last couple of days that her foot has been periodically of blue. She has some pain behind her knee she is walking MD complaint: knee injury Related Data Home Medications Medication Instructions Recorded Confirmed multivitamin [Multiple Vitamins] 1 tab PO DAILY #0 10/27/16 05/25/20 sodium chloride [Destiny 128] 1 melissa OPHTH BEDTIME #0 10/27/16 05/25/20 flecainide 100 mg tablet 100 mg PO Q12H 11/06/17 05/25/20 rosuvastatin 5 mg tablet 2.5 mg PO DAILY #0 tab 05/11/18 05/25/20 losartan 50 mg tablet 50 mg PO DAILY 11/23/18 05/25/20 Cranberry 1,000 mg PO DAILY 12/10/18 05/25/20 Probiotic 1 cap PO DAILY 12/10/18 05/25/20 ascorbic acid (vitamin C) 1 g PO DAILY 12/10/18 05/25/20 cholecalciferol (vitamin D3) 3,000 unit PO DAILY 12/10/18 05/25/20 [Vitamin D3] d-mannose 2,000 mg PO DAILY 12/10/18 05/25/20 diltiazem HCl [Cartia XT] 120 mg PO DAILY 12/10/18 05/25/20 estradiol [Estrace] 0 g VAGINAL 2XW 12/10/18 05/25/20 metronidazole [MetroCream] 1 applic TOPICAL DAILY 12/10/18 05/25/20 aspirin 325 mg tablet 325 mg PO DAILY 08/29/19 05/25/20 spironolactone 25 mg tablet 12.5 mg PO DAILY tab 05/25/20 05/25/20 Previous Rx's Medication Instructions Recorded albuterol sulfate 90 mcg/actuation 2 puff INHALATION Q4H PRN #1 09/23/17 aerosol inhaler inhalation Disabled parking permit #1 each 05/19/18 budesonide 180 mcg/actuation 2 inhalation INHALATION BID #2 02/03/19 breath activated powder inhaler inhalation hydrocodone 5 mg-acetaminophen 325 1 tab PO Q6H PRN #10 tab 03/14/20 mg tablet omeprazole 40 mg capsule,delayed 40 mg PO BID #20 cap 03/14/20 release omeprazole 40 mg capsule,delayed 40 mg PO DAILY #90 cap 03/14/20 release fluticasone propionate 50 See Rx Instructions .ROUTE 04/05/20 mcg/actuation nasal .COMPLEX #16 gram spray,suspension Allergies Allergy/AdvReac Type Severity Reaction Status Date / Time bupropion [From WELLBUTRIN] Allergy Severe Tremors Verified 08/23/20 10:54 erythromycin base Allergy Severe GI Upset, Verified 08/23/20 10:54 [ERYTHROMYCIN BASE] Bloody diarrhea latex [LATEX] Allergy Severe Hives, Verified 08/23/20 10:54 Wheezing sulfamethoxazole Allergy Intermediate Rash Verified 08/23/20 10:54 [From Bactrim] trimethoprim [From Bactrim] Allergy Intermediate Rash Verified 08/23/20 10:54 lisinopril [LISINOPRIL] AdvReac Severe Cough Verified 08/23/20 10:54 meperidine [From DEMEROL] AdvReac Severe Squirrelly Verified 08/23/20 10:54 Review of Systems Review of Systems Narrative: GENERAL: Denies chills,fever HEENT: Denies throat pain RESPIRATORY: Denies dyspnea, cough, wheezing CARDIOVASCULAR: Denies chest pain, palpitations GASTROINTESTINAL: Denies nausea, vomiting MUSCULOSKELETAL: See HPI SKIN: No rash, no laceration, no pruritus NEUROLOGIC: Denies weakness, dizziness, headache, numbness 8 point review of systems is negative except for those stated above and HPI Patient History Medical History Abnormal Pap smear of cervix (1975) Ankle fracture, left (1987) Ankle pain (1989) Anxiety (1984) Asthma (2016) Atrial fibrillation (2012) Back strain Graves's esophagus (2013) Blue toe syndrome of left lower extremity BPPV (benign paroxysmal positional vertigo) Bruit of left carotid artery Cataract (2002) Chicken pox (5) Corneal dystrophy (2002) Cystocele Cystocele Diverticular disease (2017) Diverticulosis Dysuria Elbow fracture, right (2016) Epiretinal membrane (2005) Frequent UTI Gastritis GERD (gastroesophageal reflux disease) (2004) Hayfever (1965) Hearing loss Hemorrhoids History of psychosis (1968) History of UTI Hypercholesterolemia Hyperlipidemia (1996) Hypertension Internal hemorrhoids Kidney stones (2010) Mild aortic valve sclerosis (~2017) Osteoarthritis (~1994) Positive PPD (1977) Postmenopausal atrophic vaginitis Prediabetes Rectocele Rosacea (2011) Surgical History Anesthesia History of cataract removal with insertion of prosthetic lens (2002) History of ear, nose, and throat (ENT) surgery (1977) History of esophagogastroduodenoscopy (EGD) (07/2015) History of esophagogastroduodenoscopy (EGD) (~01/2019) History of foot surgery (2007) History of knee replacement (2012) Status post angioplasty with stent (~10/2019) Status post colonoscopy (2015) Status post hysterectomy (1975) Status post laparoscopic cholecystectomy (2001) Status post open reduction with internal fixation (ORIF) of fracture of ankle (1987) Family History Brother Brain aneurysm CVA (cerebral vascular accident) Mental health problem Alcoholism Brother Alcoholism Heart disease Father No problems noted. Grandfather Alcoholism Suicide Grandmother CVA (cerebral vascular accident) Mother CVA (cerebral vascular accident) [place] (myocardial infarction) Lung cancer Hypertension Heart disease Grandfather No problems noted. Grandmother MVA (motor vehicle accident) Sister Thalassemia Sister Alcoholism Brother Ischemia Alcoholism CVA (cerebral vascular accident) Social History household members: none Smoking Status: Never smoker Smoking Status: Never smoker alcohol intake frequency: a few times a week Substance Use Type: does not use Exam Initial Vital Signs Initial Vital Signs: Vital Signs Temperature 97.4 F L 08/23/20 10:51 Pulse Rate 68 08/23/20 10:51 Respiratory Rate 15 08/23/20 10:51 Blood Pressure 186/80 H 08/23/20 10:51 Pulse Oximetry 97 08/23/20 10:51 GENERAL: Alert very well appearing 75-year-old female HEENT: Head atraumatic,EOMI, pupils reactive, face symmetric, moist mucous membranes CARDIOVASCULAR: Regular rate and rhythm without murmurs, rubs or gallops. RESPIRATORY: Breath sounds equal bilaterally, no wheezes rales or rhonchi. EXTREMITIES: Normal range of motion, no clubbing or edema. Neurovascularly intact Left knee minimal swelling able to flex and extend without difficulty. Difficult to palpate distal pedal pulse in left foot however it is not cyanotic cap refill less than 2 seconds is also warm. NEUROLOGICAL: Alert and oriented x4.Normal gait and speech. SKIN: Warm, dry, no laceration, no petechiae, no rashes or lesions. Course Orders Ordered: ED Orders 08/23/20 11:03 XR knee LT 3V Stat 08/23/20 13:32 US arterial duplex LE LT Stat Discontinued Medications Acetaminophen (Acetaminophen 325 Mg Tablet) 650 mg PO NOW ONE Stop: 08/23/20 16:13 Last Admin: 08/23/20 16:17 Dose: 650 mg Documented by: KASSANDRA Ibuprofen (Ibuprofen 400 Mg Tablet) 800 mg PO NOW ONE Stop: 08/23/20 16:13 Last Admin: 08/23/20 16:17 Dose: 800 mg Documented by: KASSANDRA Vital Signs Vital signs: Vital Signs - 8 hr 08/23/20 17:03 Pulse Rate 88 Respiratory Rate 16 Blood Pressure 136/74 Pulse Oximetry 98 Discharge Plan Departure Patient Disposition: Home Clinical Impression: Knee strain Instructions: DI for Knee Sprain Activity Restrictions/Additional Instructions: *You have been diagnosed with left knee strain *What to do: At this time fortunately there is an no significant blockage in the artery appeared left leg. Today I believe that her knee hurts because sprain today. Recommend wearing a knee brace, using crutches as needed elevate, ice. *Continue to take medications as directed Tylenol 1000 mg every 6 hours Aleve as directed *Follow up with your primary care provider in 2-3 days *Return to ER if you should have increasing pain swelling redness numbness tingling or severe pain in foot or any new, worsening or concerning symptoms Prescriptions: No Action multivitamin [Multiple Vitamins] 1 EACH tablet 1 tab PO DAILY Qty: 0 RF: 0 sodium chloride [Destiny 128] 3.5 GM ointment 1 melissa OPHTH BEDTIME Qty: 0 RF: 0 albuterol sulfate 90 mcg/actuation HFA aerosol inhaler 2 puff INHALATION Q4H PRN (Reason: shortness of breath or wheezing) Qty: 1 RF: 2 rosuvastatin [Crestor] 5 mg tablet 2.5 mg PO DAILY Qty: 0 RF: 0 Pulmicort Flexhaler 180 mcg/actuation aerosol powdr breath activated 2 inhalation inhalation BID Qty: 2 RF: 5 fluticasone propionate 50 mcg/actuation spray,suspension See Rx Instructions .ROUTE .COMPLEX Qty: 16 RF: 2 flecainide 100 mg tablet 100 mg PO Q12H RF: 0 aspirin 325 mg tablet 325 mg PO DAILY RF: 0 (DME) Disabled parking permit Qty: 1 RF: 0 losartan 50 mg tablet 50 mg PO DAILY RF: 0 omeprazole 40 mg capsule,delayed release(DR/EC) 40 mg PO DAILY Qty: 90 RF: 3 Hold Instructions: while on plavix omeprazole 40 mg capsule,delayed release(DR/EC) 40 mg PO BID Qty: 20 RF: 0 hydrocodone-acetaminophen 5-325 mg tablet 1 tab PO Q6H PRN (Reason: pain) Qty: 10 RF: 0 spironolactone 25 mg tablet 12.5 mg PO DAILY RF: 0 diltiazem HCl [Cartia XT] 120 mg capsule,extended release 24hr 120 mg PO DAILY RF: 0 ascorbic acid (vitamin C) 1,000 mg Tablet 1 g PO DAILY RF: 0 cholecalciferol (vitamin D3) [Vitamin D3] 1,000 unit Capsule 3,000 unit PO DAILY RF: 0 Cranberry 1,000 mg 1,000 mg PO DAILY RF: 0 Probiotic 1 cap PO DAILY RF: 0 d-mannose 1,000 mg 2,000 mg PO DAILY RF: 0 estradiol [Estrace] 0.01 % (0.1 mg/gram) cream 0 g Vaginal 2XW RF: 0 metronidazole [MetroCream] 0.75 % Cream 1 applic TOPICAL DAILY RF: 0 Referrals: Yamilet Malave DO [Primary Care Provider] -
[2020-08-23] MEDS: ACETAMINOPHEN 325 MG TABLET 650 MG PO (16:17)
[2020-08-23] MEDS: IBUPROFEN 400 MG TABLET 800 MG PO (16:17)
[2020-08-23 17:03] VITALS: BP 136/74; PULSE 88; RESP 16; O2SAT 98
== END 2020-08-23 17:03 | disposition home or self-care (01) ==
PROVIDERS: Emergency Provider Emergency Medicine; PCP Family Medicine
DX: S83.92XA Sprain of unspecified site of left knee, initial encounter (principal)
CPT/HCPCS: 73562; 93926; 99283; 99284

== ENCOUNTER → 2020-11-26 08:19 | Outpatient (CLI) | payer MEDICARE, OTHER, SELFPAY ==
[2020-11-26 09:42] LABS: Add Manual Diff / Slide Review NO; Basophils Absolute Auto 100 /uL (0-100); Basophils Percent Auto 0.6 % (0-2); Eosinophils Absolute Auto 200 /uL (0-450); Eosinophils Percent Auto 2.2 % (2-4); Hematocrit 38.9 % (36-46); Hemoglobin 12.7 g/dL (12.0-16.0); Lymphocytes Absolute Auto 2700 /uL (1100-4500); Lymphocytes Percent Auto 29.7 % (25-40); Mean Corpuscular HGB Conc 32.6 % (30-36); Mean Corpuscular Volume 88.9 fL (80-100); Monocytes Absolute Auto 600 /uL (0-900); Monocytes Percent Auto 6.2 % (3-14); Neutrophils Absolute Auto 5500 /uL (1500-7000); Neutrophils Percent Auto 61.3 % (50-75); Platelet Count 328 X10^3/uL (150-400); Red Blood Cell Count 4.37 X10^6/uL (4.0-5.2); Red Cell Distribution Width 14.9 % (11.6-14.8)
[2020-11-26 09:49] LABS: Hemoglobin A1C% w Est Avg Glu 6.5 % (4.0-6.0)
[2020-11-26 10:22] LABS: BUN Creatinine Ratio 22.1 (6-22); Blood Urea Nitrogen 15 mg/dL (7-17); Calcium 9.7 mg/dL (8.4-10.2); Carbon Dioxide 25 mmol/L (22-32); Chloride 105 mmol/L (98-107); Estimated Glomerular Filt Rate > 60.0 mL/min (>60); Glucose 132 mg/dL (80-110); HEMOLYSIS < 15 (0-50); Magnesium 1.6 mg/dL (1.6-2.3); Potassium 4.6 mmol/L (3.4-5.1); Sodium 139 mmol/L (137-145)
[2020-11-26 13:02] LABS: HEMOLYSIS < 15 (0-50); Iron 85 ug/dL (37-170)
[2020-11-26 13:13] LABS: Percent Iron Saturation 24 % (15-50); Total Iron Binding Capacity 361 ug/dL (265-497); Transferrin 306 mg/dL (206-381)
[2020-11-26 13:36] LABS: Ferritin 31 ng/mL (11-264)
== END ==
PROVIDERS: PCP Family Medicine; Referring Provider Family Medicine; Visit Provider Family Medicine
DX: E11.9 Type 2 diabetes mellitus without complications (principal); D50.9 Iron deficiency anemia, unspecified; I10 Essential (primary) hypertension; R06.00 Dyspnea, unspecified
CPT/HCPCS: 80048; 82728; 83036; 83540; 83550; 83735; 85025

== ENCOUNTER → 2020-12-14 12:37 | Outpatient (CLI) | payer MEDICARE, OTHER, SELFPAY ==
--- NOTE | 2020-12-14 | DI.MRI.S_ITS ---
PROCEDURE: MR LUMBAR SPINE WO CON INDICATIONS: Spondylosis without myelopathy or radiculopathy, c TECHNIQUE: Noncontrast sagittal T1 spin echo and T2 fast echo, sagittal STIR, axial T1 and T2 fast spin echo through the lumbar spine. In cases with scoliosis, additional coronal T2 fast spin echo may be performed. COMPARISON: None. FINDINGS: Image quality: Excellent. Alignment and Curvature: Grade 1 anterior spondylolisthesis noted L4-5. Bone Marrow: Marrow is of normal overall signal. No acute vertebral body compression fractures. Spinal Cord: Conus medullaris terminates at the L1 level. Visualized cord demonstrates normal signal and size. Paraspinous Soft Tissues: No paravertebral masses. T12-L1: Normal appearance. L1-L2: Normal appearance. L2-L3: Normal appearance. L3-L4: Normal appearance. L4-L5: Disc space narrowing and circumferential disc bulge with hypertrophic facet joints result in moderate central stenosis. Moderate right and mild left foraminal stenosis present as well. L5-S1: Normal appearance. IMPRESSION: Degenerative disc disease and arthropathy results in grade 1 anterior spondylolisthesis, moderate central and right foraminal stenosis at L4-5 Approved by: Nathan Melton M.D. on 12/14/2020 at 14:21
== END ==
PROVIDERS: PCP Family Medicine; Referring Provider Physical Medicine & Rehabilitation Pain Medicine; Visit Provider Physical Medicine & Rehabilitation Pain Medicine
DX: M51.36 Other intervertebral disc degeneration, lumbar region; M47.816 Spondylosis without myelopathy or radiculopathy, lumbar region; M43.16 Spondylolisthesis, lumbar region; M48.061 Spinal stenosis, lumbar region without neurogenic claudication; M47.812 Spondylosis without myelopathy or radiculopathy, cervical region
CPT/HCPCS: 72148

== ENCOUNTER → 2020-12-17 13:31 | Outpatient (CLI) | payer MEDICARE, OTHER, SELFPAY ==
[2020-12-17 17:52] LABS: COVID19 -Nasal RAPID Negative (Negative)
== END ==
PROVIDERS: PCP Family Medicine; Visit Provider Physician Assistant
DX: Z01.812 Encounter for preprocedural laboratory examination (principal); Z20.822 Contact with and (suspected) exposure to COVID-19
CPT/HCPCS: 87635; C9803

== ENCOUNTER → 2021-01-04 15:24 | Outpatient (CLI) | payer MEDICARE, OTHER, SELFPAY ==
--- NOTE | 2021-01-04 | DI.MG.S_ITS ---
BILATERAL DIGITAL SCREENING MAMMOGRAM 3D/2D WITH CAD: 01/04/2021 CLINICAL: Routine screening. Comparison is made to exams dated: 11/02/2019 mammogram, 10/13/2018 mammogram, and 04/29/2017 mammogram - [facility]. There are scattered fibroglandular elements in both breasts. Current study was also evaluated with a Computer Aided Detection (CAD) system. There are benign calcifications in both breasts. No significant masses, calcifications, or other findings are seen in either breast. There has been no significant interval change. IMPRESSION: BENIGN There is no mammographic evidence of malignancy. A 1 year screening mammogram is recommended. This exam was interpreted at Station ID: [id number]. NOTE: For mammograms, a report in lay terms will be sent to the patient. Approximately 15% of breast malignancies will not be visualized mammographically. In the management of a palpable breast mass, a negative mammogram must not discourage biopsy of a clinically suspicious lesion. Electronically Signed By: Gaurav sam/musa:01/04/2021 15:55:38 letter sent: Normal Exam ACR BI-RADS Category 2: Benign Finding(s) [id number]
== END ==
PROVIDERS: PCP Family Medicine; Referring Provider Family Medicine; Visit Provider Family Medicine
DX: Z12.31 Encounter for screening mammogram for malignant neoplasm of breast (principal)
CPT/HCPCS: 77063; 77067

== ENCOUNTER → 2021-01-10 15:36 | Outpatient (CLI) | payer MEDICARE, OTHER, SELFPAY ==
--- NOTE | 2021-01-10 | DI.MRI.S_ITS ---
PROCEDURE: MR KNEE LT WO CON INDICATIONS: Unilateral primary osteoarthritis, left knee TECHNIQUE: Noncontrast sagittal PD fast spin echo and T2 fast spin echo with fat saturation, sagittal 3-D FLASH with fat saturation; coronal T1 spin echo and PD fast spin echo with fat saturation, and axial PD fast spin echo with fat saturation through the knee. COMPARISON: None. FINDINGS: Image quality: Excellent. Menisci: Complex oblique tear involving posterior horn of medial meniscus is seen extending to inferior articulating surface. There is no focal lateral meniscal tear. The meniscal root ligaments appear intact. Cruciate ligaments: The anterior and posterior cruciate ligaments appear intact. Medial structures: There is low-grade MCL sprain/partial-thickness tear. The posterior oblique ligament, semimembranosus tendon insertions, oblique popliteal ligament, and meniscocapsular junction appear intact. Visualized portions of the pes anserinus tendons appear normal. No abnormal bursal fluid. Lateral structures: The lateral collateral ligament, long and short heads of the biceps femoris tendon appear intact. The popliteus tendon appears normal; the popliteofibular ligament appears intact. The posterosuperior and anteroinferior popliteomeniscal fascicles appear intact. The arcuate and fabellofibular ligaments appear intact, on either side of the lateral inferior geniculate artery. Iliotibial band appears normal. Anterior structures: The quadriceps and patellar tendons appear intact. Patellar alignment is normal. No femoral trochlear dysplasia or ventral trochlear prominence. No edema in the infrapatellar fat pad. Bones and cartilage: No bone marrow contusions or fractures. Mild to moderate tricompartmental osteoarthritis and chondromalacia is noted more prominent in medial femoral tibial compartment. Joint space: There is moderate amount of joint fluid, no gross intra-articular loose bodies. No Weir's cyst. Normal appearing synovial plicae are incidentally noted. IMPRESSION: 1. Complex oblique tear involving posterior horn of medial meniscus extending to inferior articulating surface. No focal lateral meniscal tear. 2. Cruciate ligaments are intact. Low-grade MCL sprain/partial-thickness tear. 3. [id number] tricompartmental osteoarthritis and chondromalacia more prominent in medial femoral tibial compartment. No fracture or dislocation. Moderate joint effusion, no intra-articular loose bodies. Dictated by: Agus Peña M.D. on 01/11/2021 at 9:37 Approved by: Agus Peña M.D. on 01/11/2021 at 9:53
== END ==
PROVIDERS: PCP Family Medicine; Referring Provider Orthopaedic Surgery; Visit Provider Orthopaedic Surgery
DX: M17.12 Unilateral primary osteoarthritis, left knee (principal); S83.232A Complex tear of medial meniscus, current injury, left knee, initial encounter; S83.412A Sprain of medial collateral ligament of left knee, initial encounter; M94.262 Chondromalacia, left knee; M25.462 Effusion, left knee
CPT/HCPCS: 73721

== ENCOUNTER → 2021-01-11 13:50 | Outpatient (CLI) | payer MEDICARE, OTHER, SELFPAY ==
[2021-01-11] MEDS: COVID-19 VACC #3, MRNA(MOD) 50 MCG/0.25 ML VIAL IM (14:02)
== END ==
PROVIDERS: PCP Family Medicine; Visit Provider Internal Medicine
DX: Z23 Encounter for immunization (principal)
CPT/HCPCS: 0013A; 91301

== ENCOUNTER → 2021-03-14 13:26 | Outpatient (CLI) | payer MEDICARE, OTHER, SELFPAY ==
[2021-03-14 14:37] LABS: COVID19 -Nasal RAPID Negative (Negative)
== END ==
PROVIDERS: PCP Family Medicine; Referring Provider Nurse Practitioner Family; Visit Provider Nurse Practitioner Family
DX: Z20.822 Contact with and (suspected) exposure to COVID-19 (principal)
CPT/HCPCS: 87635

== ENCOUNTER → 2021-04-04 13:09 | Outpatient (CLI) | payer MEDICARE, OTHER, SELFPAY ==
[2021-04-04 14:04] LABS: Add Manual Diff / Slide Review NO; Basophils Absolute Auto 200 /uL (0-100); Basophils Percent Auto 1.3 % (0-2); Eosinophils Absolute Auto 200 /uL (0-450); Eosinophils Percent Auto 1.3 % (2-4); Hematocrit 38.3 % (36-46); Hemoglobin 12.7 g/dL (12.0-16.0); Lymphocytes Absolute Auto 2800 /uL (1100-4500); Lymphocytes Percent Auto 23.4 % (25-40); Mean Corpuscular HGB Conc 33.1 % (30-36); Mean Corpuscular Hemoglobin 28.7 PG (26-34); Mean Corpuscular Volume 86.7 fL (80-100); Monocytes Absolute Auto 700 /uL (0-900); Monocytes Percent Auto 5.5 % (3-14); Neutrophils Absolute Auto 8200 /uL (1500-7000); Neutrophils Percent Auto 68.5 % (50-75); Platelet Count 322 X10^3/uL (150-400); Red Blood Cell Count 4.42 X10^6/uL (4.0-5.2); Red Cell Distribution Width 15.2 % (11.6-14.8)
[2021-04-04 14:20] LABS: BUN Creatinine Ratio 14.9 (6-22); Blood Urea Nitrogen 14 mg/dL (7-17); Calcium 9.7 mg/dL (8.4-10.2); Carbon Dioxide 29 mmol/L (22-32); Chloride 101 mmol/L (98-107); Estimated Glomerular Filt Rate 58.1 mL/min (>60); Glucose 151 mg/dL (80-110); HEMOLYSIS < 15 (0-50); Potassium 4.1 mmol/L (3.4-5.1); Sodium 138 mmol/L (137-145)
== END ==
PROVIDERS: PCP Family Medicine; Referring Provider Family Medicine; Visit Provider Family Medicine
DX: D64.9 Anemia, unspecified (principal); E87.6 Hypokalemia
CPT/HCPCS: 36415; 80048; 85025

== ENCOUNTER → 2021-05-28 15:15 | Outpatient (CLI) | payer MEDICARE, OTHER, SELFPAY ==
[2021-05-28 16:05] LABS: COVID19 -Nasal RAPID Negative (Negative)
== END ==
PROVIDERS: PCP Family Medicine; Visit Provider Family Medicine Sleep Medicine
DX: Z20.822 Contact with and (suspected) exposure to COVID-19 (principal)
CPT/HCPCS: 87635; C9803

== ENCOUNTER → 2021-05-29 09:39 | Outpatient (CLI) | payer MEDICARE, OTHER, SELFPAY ==
--- NOTE | 2021-05-29 15:30 | PM.TREADMILL ---
Cardiac Stress Test Report Referral & Results Indication: SHORTNESS OF BREATH Rest ECST DEGREE AV BLOCK; SINUS RHYTHM Procedure Note: NM TREADMILL TEST Impression: STANDARD BOYD PROTOCOL; MAX EFFORT ETT; NEVAEH 32%; REDUCED EXERCISE CAPACITY; EXER TIME 3:31, MAX HR ACEHIVED 123, (98% OF MAX PREDICTED); HAD APPROPRIATE HEMODYNAMIC RESPONSE; BASELINE ECG 1ST DEGREE BLOCK; SINUS RHYTHM; [address] DEPRESSION NOTED IN LEADS II, III, AVF, AND V6 DURING PEAK EXERCISE HOWEVER ARTIFACT MADE INTERPRETATION DIFFICULT; NO ECTOPY; DENIED CHEST DISCOMFORT; MODERATE SHORTNESS OF BREATH; MIBI SCAN PENDING; CERTIFIED PHYSICAL THERAPIST ASSISTANT TO REVIEW; GUILLERMINA LLANOS Please note: Actual ECG tracings can be found in the PACS system.
--- NOTE | 2021-05-29 20:46 | DI.NM.S_ITS ---
DATE OF SERVICE: 05/29/2021 PROCEDURE PERFORMED: Exercise perfusion study. INDICATION: Chest discomfort, dyspnea, paroxysmal AFib. RADIOPHARMACEUTICAL: 24.8 millicurie technetium-99m Myoview IV was injected at stress and 12.2 millicurie technetium-99m Myoview IV was injected at rest. CARDIAC STRESS: The patient underwent exercise perfusion study under the supervision of an attending staff. The patient walked on Isaac protocol for 3 minutes and 31 seconds, achieved 98 percent of target heart rate. Baseline blood pressure 1422/68. Peak blood pressure 190/60. The patient did not have any chest pain, but had shortness of breath. The patient achieved 4.6 METs of workload. Functional aerobic impairment positive 32 percent. Baseline rhythm was sinus with some nonspecific ST-T changes. During exercise, significant artifacts making interpretation difficult. However, in the immediate recovery, the patient developed interventricular conduction delay, more like right bundle branch block, which appears to be due to aberrancy. In late recovery, about 5 minutes, aberrant conduction improved. However, patient developed about [address] depression in inferior leads and leads V4 to V6. No significant sustained arrhythmias. RAW DATA: Breast shadow was seen. There is increased subdiaphragmatic activity. GATED STUDY: Resting LV ejection fraction 73 percent and stress LV ejection fraction 85 percent. No obvious wall motion abnormalities. Resting end- diastolic volume 93 mL. TID ratio 0.87, which is within normal limits. Lung/heart ratio 0.31, which is within normal limits. MYOCARDIAL PERFUSION SCAN: Stress supine, resting supine and stress prone images were compared to each other. Stress supine and resting supine images revealed a small to moderate size, moderately decreased perfusion of distal anterolateral wall, anteroapex, and mildly decreased perfusion of anteroseptum. Those defects were resolved during stress prone images, suggestive of tissue attenuation artifact. No convincing ischemia or infarction pattern seen during stress prone images. CONCLUSION: This is a normal myocardial perfusion study with evidence of likely breast tissue attenuation artifact, which got resolved during the stress prone images. Stress prone images revealed normal myocardial perfusion. Diminished exercise tolerance. Functional aerobic impairment positive 32 percent. Normal hemodynamic response. Baseline nonspecific ST changes. Aberrant conduction during exercise. In late recovery, the patient has about [address] depression in inferolateral leads. No significant complex arrhythmias.The stress left ventricular ejection fraction 85 percent and resting and LV ejection fraction 73 percent. As far as perfusion scan is concerned, this is a low-risk myocardial perfusion scan. Shirley Zamora - ELFEGO/dayo/edna doc#: [id number]/job#: [id number] dd: 05/29/2021 17:10:00 dt: 05/29/2021 20:32:00 DICTATING MD/COPIES TO: Kyle Wyman MD COPIES MNE: SHYLA;
== END ==
PROVIDERS: PCP Internal Medicine; Referring Provider Nurse Practitioner; Visit Provider Nurse Practitioner
DX: I48.0 Paroxysmal atrial fibrillation (principal); R06.00 Dyspnea, unspecified; R06.02 Shortness of breath; I44.0 Atrioventricular block, first degree; R07.89 Other chest pain
CPT/HCPCS: 78452; 93017; A9502

== ENCOUNTER → 2021-08-30 10:49 | Outpatient (CLI) | payer MEDICARE, OTHER, SELFPAY ==
[2021-08-30 11:46] LABS: Add Manual Diff / Slide Review NO; Basophils Absolute Auto 200 /uL (0-100); Basophils Percent Auto 2.4 % (0-2); Eosinophils Absolute Auto 600 /uL (0-450); Eosinophils Percent Auto 7.2 % (2-4); Hematocrit 35.6 % (36-46); Lymphocytes Absolute Auto 2600 /uL (1100-4500); Mean Corpuscular HGB Conc 33.6 % (30-36); Mean Corpuscular Hemoglobin 29.3 PG (26-34); Mean Corpuscular Volume 87.2 fL (80-100); Monocytes Absolute Auto 800 /uL (0-900); Monocytes Percent Auto 8.7 % (3-14); Neutrophils Absolute Auto 4600 /uL (1500-7000); Neutrophils Percent Auto 52.7 % (50-75); Platelet Count 322 X10^3/uL (150-400); Red Blood Cell Count 4.08 X10^6/uL (4.0-5.2); Red Cell Distribution Width 15.9 % (11.6-14.8); White Blood Cell Count 8.8 X10^3/uL (4.5-11.0)
[2021-08-30 11:52] LABS: BUN Creatinine Ratio 27.9 (6-22); Blood Urea Nitrogen 24 mg/dL (7-17); Calcium 9.7 mg/dL (8.4-10.2); Carbon Dioxide 28 mmol/L (22-32); Chloride 103 mmol/L (98-107); Estimated Glomerular Filt Rate > 60 mL/min (>60); Glucose 84 mg/dL (80-110); HEMOLYSIS < 15 (0-50); Potassium 4.5 mmol/L (3.4-5.1); Sodium 140 mmol/L (137-145)
== END ==
PROVIDERS: PCP Internal Medicine; Referring Provider Orthopaedic Surgery Orthopaedic Surgery of the Spine; Visit Provider Orthopaedic Surgery Orthopaedic Surgery of the Spine
DX: Z01.812 Encounter for preprocedural laboratory examination (principal)
CPT/HCPCS: 36415; 80048; 85025

== ENCOUNTER → 2021-09-16 09:31 | Outpatient (CLI) | payer MEDICARE, OTHER, SELFPAY ==
[2021-09-16 10:30] LABS: Cholesterol 185 mg/dL (140-199); HDL Cholesterol 59 mg/dL (40-60); LDL Cholesterol Calculated 108 mg/dL (<100); Triglycerides 89 mg/dL (35-150)
[2021-09-16 10:35] LABS: COVID19 -Nasal RAPID Negative (Negative)
[2021-09-16 11:27] LABS: TSH w/ Reflex to FT4 2.14 uIU/mL (0.47-4.68)
== END ==
PROVIDERS: PCP Internal Medicine; Referring Provider Orthopaedic Surgery Orthopaedic Surgery of the Spine; Visit Provider Orthopaedic Surgery Orthopaedic Surgery of the Spine
DX: E11.51 Type 2 diabetes mellitus with diabetic peripheral angiopathy without gangrene (principal); Z11.59 Encounter for screening for other viral diseases; E78.2 Mixed hyperlipidemia
CPT/HCPCS: 36415; 80061; 83036; 84443; 87635; C9803

== ENCOUNTER → 2021-09-16 10:14 | Outpatient (CLI) | payer MEDICARE, OTHER, SELFPAY | PROVIDERS: PCP Internal Medicine; Referring Provider Internal Medicine; Visit Provider Internal Medicine | DX: M85.852 Other specified disorders of bone density and structure, left thigh (principal); M85.851 Other specified disorders of bone density and structure, right thigh; Z78.0 Asymptomatic menopausal state | CPT/HCPCS: 77080 ==

== ENCOUNTER 2021-09-18 12:16 | Inpatient (IN) | payer MEDICARE, OTHER, SELFPAY ==
[2021-09-17 10:37] VITALS: BMI 32.2
[2021-09-18] VITALS (14 sets, daily range): BP systolic 106–139; BP diastolic 31–65; PULSE 69–83; RESP 11–20; TEMP 35.6–36.4; O2SAT 94–118; BMI 32.2
--- NOTE | 2021-09-18 | DI.RAD.S_ITS ---
PROCEDURE: XR LUMBAR SPINE 2-3V INDICATIONS: L4-5 TLIF TECHNIQUE: To views of the lumbar spine were acquired. COMPARISON: [facility], , XR LUMBAR SPINE 2-3V, 03/12/2020, 14:22. FINDINGS: Intraoperative fluoroscopic views of discectomy and pedicular screw and rell fixation of L4-5. IMPRESSION: Intraoperative fluoroscopic views. Dictated by: Geoff Ortiz M.D. on 09/18/2021 at 17:08 Approved by: Geoff Ortiz M.D. on 09/18/2021 at 17:09
--- NOTE | 2021-09-18 12:43 | PM.PREOP ---
Pre-operative Note COVID-19 COVID-19 status: Negative Result date/Date tested (Pos, Neg/Pending): 09/17/21 Criteria for continued procedure: Expected advancement of disease process, Possibility delay results in more complex future surgery or treatment, Increased loss of function, Continuing or worsening of significant or severe pain, Deterioration of the patient's condition or overall health and Delay expected to result in less-positive ultimate med/surg outcome Interval Note History & Physical reviewed/Exam performed by Physician: Yes Changes to H&P: No
[2021-09-18] MEDS: LACTATED RINGERS 1,000 ML 42 ML IV (13:18)
[2021-09-18] MEDS: CEFAZOLIN 2 GM/20 ML SYRINGE IV ×2 (14:25→21:51)
--- NOTE | 2021-09-18 14:46 | SUR.OPER ---
Prone on spine table, head in foam head support, padded chest and pelvic supports, gel pad at knees, gelpad in between heels, lower legs supported by pillows; nipples, genitalia and toes free of pressure, arms secured on foam padded arm boards at <90 degrees abduction. Upper body romelia hugger applied. Tape over blanket at thigh secured to table. Directed and approved by surgeon. Neck alignment approved by anesthesia.
[2021-09-18] MEDS: ACETAMINOPHEN IV 1,000 MG/100 ML VIAL 400 MG IV (15:00)
[2021-09-18] MEDS: BUPIVACAINE LIPOSOME 266 MG/20 ML VIAL INJ (15:18)
[2021-09-18] MEDS: BUPIVACAINE 0.5% (PF) 30 ML, EPINEPHrine 0.15 MG INJ (15:18)
--- NOTE | 2021-09-18 16:16 | P.OP_ITS ---
Operative Date/Time/Diagnoses Date of procedure: 09/18/21 Time of procedure: 14:00 Pre-op diagnosis: 1. L4-5 spondylolisthesis 2. L4-5 spinal stenosis with neurogenic claudication Post-op diagnosis: same Procedure & Clinicians Procedure: 1. L4-5 Postero-lateral and posterior interbody fusion 2. L4-5 interbody cage placement. 3. L4-5 decompressive laminectomy with bilateral facetecomies 4. L4-5 Posterior non-segmental instrumentation 5. [place] of bone marrow from iliac crest 6. Utilization of microsurgical technique and operating microscope Same procedure as scheduled: Yes Indications: Patient has been having chronic back pain and worsening lumbar radiculopathy. Patient failed multiple conservative management with worsening pain weakness and numbness in her lower extremity. Patient has been having difficulty performing activity of daily living. After discussing risks benefits of treatment options, patient elected proceed with surgery. Surgeon: Ron Nichols Ophthalmic Technician: Ileana Tineo Click Yes if Unassisted: No Anesthesia Type: General Operative Notes Closure Type: primary Specimen(s): none sent Prosthetic devices, grafts, tissues, transplants, or devices: Globus revolve screws, Rise cage Estimated Blood Loss (mL): 50 Blood products transfused: none Procedure in detail: Patient was seen in the preoperative area. Risks and benefits of the surgery was discussed with the patient. Informed consent was obtained from the patient and placed in the chart. Surgical site was marked. Patient was taken to the operative room. General anesthesia was administered. Prophylactic antibiotic was given to the patient less than 30 min before the incision was made. Patient was placed into a prone position on the Zackary table. Patient's back was then prepped and draped in the sterile fashion. Time-out was performed at this time. Using AP and lateral C-arm imaging the interval between L4-5 was identified and marked on patient's back. A 2 inch incision 2 in from midline was made on the left side first. The fascia was incised in line with skin incision. Globus MARS retractors was placed inside the incision and docked onto the L4 lamina. Using microsurgical technique and operating microscope, a L4 laminectomy and for 5 facetectomy was performed using a Kerrison rongeur. The disc space at L4-5 was identified. And a total diskectomy was performed at L4-5 level. The endplates were decorticated using a rasp and shaver. The total diskectomy and decortication was performed at L4-5 level in order to to accomplish a L4-5 fusion. The local bone from the laminectomy and facetectomy was saved for local bone grafting. After the total diskectomy and decortication was completed, Trifecta bone graft material was combined with local bone that was harvested earlier. At this time, a separate skin is incision was made over the iliac crest. A Jamshidi needle was inserted into the iliac crest through a separate skin incision. 5 cc of bone marrow aspiration was obtained through the separate skin incision using a Jamshidi needle from the iliac crest. The bone marrow aspiration was combined with local bone and the Trifecta bone grafting material. The bone grafting material was placed into the L4-5 interbody space along with a expandable cage. The cage was expanded to its maximum height using the torque limiting screwdriver. At this time a mirror image incision was made on the right side. The fascia was incised in line with the skin incision. Globus MARS retractor was inserted and docked onto the L4-5 posterolateral gutter. Using the power drill, posterior- lateral decortication was performed at L4-5 level until bleeding cortical bone was identified. The remaining bone grafting material was placed into the L4-5 posterior lateral gutter he order to accomplish posterolateral fusion at the L4- 5 level. Using the double C-arm technique, pedicle screws were placed into the L4-5 pedicles bilaterally. This was done by placing the Jamshidi needle into the pedicles, then placing the guidewires over the Jamshidi needle, and finally placing the cannulated screws over the guidewires bilaterally. After the pedicle screws were placed, 2 titanium rods was locked into the heads of the pedicle screws using locking caps and torque limiting screwdriver. After all the hardware was placed, and confirmed with AP and lateral C-arm imaging, the wound was then irrigated with sterile normal saline and packed with Ray-Amalia gauze for 3 min to accomplish hemostasis. After the gauze was removed the deep fascia was closed with #1 Vicryl suture. The subcutaneous layer was closed with 2-0 Vicryl. The skin was closed with skin nathaly. Patient tolerated the procedure well. There were no complications. Complications: none Post-operative Condition: stable Disposition: PACU Plan for aftercare: Admit to inpatient hospital
[2021-09-18] MEDS: OXYCODONE IR 5 MG TABLET PO ×2 (16:35→17:01)
[2021-09-18] MEDS: HYDROMORPHONE 2 MG INJ IV (16:42)
[2021-09-18] MEDS: OXYCODONE IR 5 MG TABLET 10 MG PO (17:45)
[2021-09-18] MEDS: hydrOXYzine pamoate 25 MG CAPSULE PO (17:46)
[2021-09-18] MEDS: ACETAMINOPHEN 325 MG TABLET 650 MG PO (17:46)
[2021-09-18] MEDS: SODIUM CHLORIDE 0.9% 1,000 ML 100 ML IV (17:48)
--- NOTE | 2021-09-18 19:45 | PC.NURSE ---
Pt arrived from PACU at 1720, VSS, afebrile ON 2 LNC. She is pleasant and reports pain level at a manageable level with prn medications. Dressing C/D/I/. She denies n/v or discomfort. She reports baseline numbness of last 2 fingers on L hand and stated improving sensation tingling to L great toe and L foot, with some numbness. She has not yet voided. NS @ 100 ml/hr, report given to oncoming shift.
[2021-09-18] MEDS: GABAPENTIN 300 MG CAPSULE PO (20:06)
[2021-09-18] MEDS: SENNOSIDES 8.6 MG TABLET 17.2 MG PO (20:06)
[2021-09-18] MEDS: DOCUSATE 100 MG CAPSULE PO (20:06)
[2021-09-18] MEDS: BUDESONIDE 0.5 MG/2 ML NEB INH (20:13)
[2021-09-19 00:13] VITALS: BP 122/43; PULSE 86; RESP 18; TEMP 35.7; O2SAT 97
[2021-09-19] MEDS: OXYCODONE IR 5 MG TABLET 10 MG PO ×5 (00:28→19:36)
[2021-09-19 04:05] VITALS: BP 139/55; PULSE 89; RESP 17; TEMP 35.9; O2SAT 97
[2021-09-19] MEDS: PANTOPRAZOLE DR 40 MG TABLET PO (05:45)
[2021-09-19] MEDS: CEFAZOLIN 2 GM/20 ML SYRINGE IV (05:45)
--- NOTE | 2021-09-19 08:05 | P.DS_ITS ---
History of Present Illness History of Present Illness Date Patient Seen: 09/19/21 Time Patient Seen: 08:05 Chief complaint: TLIF *OPB* Narrative: Patient is complaining of moderate low back pain this morning. Her baseline numbness and tingling that was present prior to surgery is resolving and she is very pleased with this result thus far. The patient notes she lives alone, she has friends and family lined up to help her, but no 24/7 care. She has not worked with physical therapy yet, but has did very well overnight getting up multiple times. Discharge Providers Provider Discharge Date: 09/19/21 Primary care physician: Kel Arvizu MD Consults: 09/18/21 17:16 Consult to Occupational Therapy Evaluate & Treat Comment: Physician Instructions: Evaluate and treat Consult to Physical Therapy Evaluate & Treat Comment: Physician Instructions: Evaluate and Treat 09/18/21 18:44 Consult to Dietitian, Adult Routine Comment: Reason For Exam: pt had intentional weight loss of 23 pounds (NOOM) Discharge provider: Ileana Tineo PA-C Summary Hospital Course Discharge Diagnosis: 1. L4-5 spondylolisthesis 2. L4-5 spinal stenosis with neurogenic claudication Hospital Course: Operative Date/Time/Diagnoses Date of procedure: 09/18/21 Time of procedure: 14:00 Procedure & Clinicians Procedure: 1. L4-5 Postero-lateral and posterior interbody fusion 2. L4-5 interbody cage placement. 3. L4-5 decompressive laminectomy with bilateral facetecomies 4. L4-5 Posterior non-segmental instrumentation 5. [place] of bone marrow from iliac crest 6. Utilization of microsurgical technique and operating microscope Same procedure as scheduled: Yes Indications: Patient has been having chronic back pain and worsening lumbar radiculopathy. Patient failed multiple conservative management with worsening pain weakness and numbness in her lower extremity.? Patient has been having difficulty performing activity of daily living.? After discussing risks benefits of treatment options, patient elected proceed with surgery. Surgeon: Ron Nichols Nursery Manager: Ileana Tineo Click Yes if Unassisted: No Anesthesia Type: General Operative Notes Closure Type: primary Specimen(s): none sent Prosthetic devices, grafts, tissues, transplants, or devices: Globus revolve screws, Rise cage Estimated Blood Loss (mL): 50 Blood products transfused: none Status at Discharge Cognitive/behavioral status at discharge: at baseline, oriented Functional status at discharge: uses cane/walker Overall status at discharge: patient is progressing back to baseline Exam Vital Signs (past 8 hours): - 09/19/21 00:13 09/19/21 04:05 Temperature 96.3 F L 96.7 F L Pulse Rate 86 89 Respiratory Rate 18 17 Blood Pressure 122/43 L 139/55 L Pulse Oximetry 97 97 Oxygen Flow Rate 1 1 Oxygen Delivery Method Room Air Oxygen Flow Rate 1 Narrative Exam Narrative: Pleasant 76-year-old female, resting comfortably in bed, no acute distress. Dressing is clean, dry, but rolled up. Bilateral lower extremity: Motor functions are grossly intact, sensation is grossly intact to light touch, calves are soft and nontender to palpation. 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 Diverticular disease (2016) Diverticulosis Do not resuscitate Elbow fracture, right (2015) Epiretinal membrane (2004) Frequent UTI (~2018) Fuchs' corneal dystrophy of both eyes Gastritis GERD (gastroesophageal reflux disease) (2004) Hayfever (1965) Hearing loss (~2015) Hemorrhoids (~1969) History of iron deficiency anemia (~2018) History of psychosis (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) Hypercholesterolemia Hyperlipidemia (1996) Hypertension Internal hemorrhoids Kidney stones (2010) Lumbar back pain with radiculopathy affecting left lower extremity Measles Medicare annual wellness visit, initial Mild aortic valve sclerosis (~2017) Mumps Osteoarthritis (~1994) PAD (peripheral artery disease) Positive PPD (1977) Postmenopausal atrophic vaginitis Prediabetes Rectocele Recurrent UTI Rosacea (2011) Skin cancer, basal cell (~2020) Uterine cancer (~1975) Ventricular escape beats Surgical History Anesthesia History of cataract removal with insertion of prosthetic lens (2002) History of ear, nose, and throat (ENT) surgery (1977) History of esophagogastroduodenoscopy (EGD) (07/2015) History of esophagogastroduodenoscopy (EGD) (~01/2019) History of foot surgery (2007) History of knee replacement (2012) History of meniscectomy of left knee (~04/2021) Hx of blepharoplasty (01/2020) S/P epidural steroid injection (~02/10/21) S/P lumbar fusion Status post angioplasty with stent (~10/2019) Status post colonoscopy (2015) Status post hysterectomy (1975) Status post laparoscopic cholecystectomy (2001) Status post open reduction with internal fixation (ORIF) of fracture of ankle (1987) Family History Brother Brain aneurysm CVA (cerebral vascular accident) Mental health problem Alcoholism Brother Alcoholism Heart disease Father No problems noted. Grandfather Alcoholism Suicide Grandmother CVA (cerebral vascular accident) Mother CVA (cerebral vascular accident) [place] (myocardial infarction) Lung cancer Hypertension Heart disease Grandfather No problems noted. Grandmother MVA (motor vehicle accident) Sister Thalassemia Dementia Drug addiction Sister Alcoholism Brother Ischemia Alcoholism CVA (cerebral vascular accident) Social History details: , two grown children household members: none Smoking Status: Former smoker alcohol intake: current Discharge Assessment & Plan Assessment and Plan Assessment: -stable status post L4-5 TLIF Plan of Treatment: -mobilize with PT/OT. Limit bending, lifting, twisting x6 weeks. Weightbearing as tolerated with front wheel walker -H&H were ordered this morning -continue with multimodal pain management -DC home today if cleared by PT and H&H is within normal limits. The patient is concerned because she does not have 24-7 care at home; however, she does have friends and family lined up to help her. Discharge Plan Discharge Plan Patient Disposition: Home Discharge orders & Medications Discharge Orders: Discharge (Order); Ordered 09/19/21 Ordered By: Ileana Tineo Prescriptions: New docusate sodium 100 mg Capsule 100 mg PO BID PRN (Reason: Constipation from narcotic pain meds) Qty: 30 0RF hydroxyzine pamoate 25 mg Capsule 25 mg PO Q4HR PRN (Reason: Muscle spasms/pain/nausea) Qty: 40 0RF oxycodone 10 mg tablet See Rx Instructions .ROUTE .COMPLEX PRN (Reason: Pain, Severe (7-10)) Qty: 42 0RF Rx Instructions: Take 1/2-1 tablet by mouth every 4 hours as needed for moderate to severe postop pain acetaminophen 500 mg capsule 500 mg PO Q4H MDD Max 3000 mg per day PRN (Reason: Pain, Mild (1-3)) Qty: 90 0RF Continued multivitamin [Multiple Vitamins] 1 EACH tablet 1 tab PO DAILY Qty: 0 sodium chloride [Destiny 128] 3.5 GM ointment 1 melissa OPHTH BEDTIME PRN (Reason: Eye disorder) Qty: 0 albuterol sulfate 90 mcg/actuation HFA aerosol inhaler 2 puff INHALATION Q4H PRN (Reason: shortness of breath or wheezing) Qty: 1 2RF Label Comments: not on home medication list Rx Instructions: administer with spacer; 2 puffs inh q 4 hours PRN rosuvastatin [Crestor] 5 mg tablet 2.5 mg PO DAILY Qty: 0 Pulmicort Flexhaler 180 mcg/actuation aerosol powdr breath activated 2 inhalation inhalation BID Qty: 2 5RF fluticasone propionate 50 mcg/actuation spray,suspension See Rx Instructions .ROUTE .COMPLEX Qty: 16 2RF Dose Instruction: Administer 2 sprays intranasally into each nostril daily Rx Instructions: Administer 2 sprays intranasally into each nostril daily estradiol [Estrace] 0.01 % (0.1 mg/gram) cream 1 g Vaginal 2XW Qty: 42.5 5RF flecainide 100 mg tablet 100 mg PO Q12H (DME) Disabled parking permit Qty: 1 0RF Rx Instructions: I find this patient to be medically disabled and qualified for disabled parking as indicated, and signed, on the accompanying disabled parking application for individuals. losartan 50 mg tablet 50 mg PO BEDTIME spironolactone 25 mg tablet 12.5 mg PO DAILY aspirin [Adult Low Dose Aspirin] 81 mg tablet,delayed release (DR/EC) 81 mg PO DAILY omeprazole 40 mg capsule,delayed release(DR/EC) 40 mg PO DAILY diltiazem HCl [Cartia XT] 120 mg capsule,extended release 24hr 120 mg PO BEDTIME ascorbic acid (vitamin C) 1,000 mg Tablet 1 g PO DAILY cholecalciferol (vitamin D3) [Vitamin D3] 1,000 unit Capsule 3,000 unit PO DAILY Cranberry 1,000 mg 1,000 mg PO DAILY Probiotic 1 cap PO DAILY d-mannose 1,000 mg 2,000 mg PO DAILY metronidazole [MetroCream] 0.75 % Cream 1 applic TOPICAL DAILY gabapentin 300 mg capsule 300 mg PO TID tramadol 50 mg Tablet 50 mg PO Q6-8H PRN (Reason: Pain) naproxen sodium [Aleve] 220 mg Capsule 220 mg PO BID Follow up/Referrals: Kel Arvizu MD [Primary Care Provider] - Ron Nichols MD [Physician] - (10-14 days for postoperative visit) Diet/Activity/Treatments Diet: Diet as Tolerated Other treatments: Medications: -OTC Tylenol 500 mg 1 tablet every 4 hours as needed for pain/fever. Max 6 tablets per day. -Oxycodone 10 mg take 1/2-1 tablets every 4 hours as needed for moderate-severe pain (narcotic pain medication). -As needed medications: -Ducolax and /or MiraLax as needed for constipation from narcotic pain medications. -Pepcid AC as needed for stomach upset. -Vistaril (hydroxyine) 25mg 1 tab every 4 hours as needed for spasms/pain/nausea. Dressing/Wound care: -Keep dressing in place until postoperative follow-up office visit. -Okay to shower. Keep wound out of direct water stream. Can use PressNSeal plastic wrap to protect from shower stream. No soaking or submerging until all the scabs fall off (approximately 6 weeks). -Please call the office if dressing becomes wet, soiled, or saturated. Activities: -Limit bending, lifting, twisting x6 weeks. No deep bending (more than 90 degrees) or twisting at the waist. No lifting > 20 pounds. -Walk frequently. -Weight-bearing as tolerated. Use front wheeled walker, and progress to cane when safe. -Continue with home exercises as directed by your physical therapist. -Ice your incision as needed for pain/inflammation/swelling. Protect your skin with a folded pillowcase. -Incentive Spirometer (breathing device from hospital): 5-10xs every hour while awake for the first 1-2 weeks. Follow-up: -Follow-up with your surgeon or PA in the office in 10-14 days after surgery. -Follow-up with your surgeon 6 weeks postoperatively. Call the office if you have chest pain, shortness of breath, significant swelling that will not resolve with elevating, fever over 101?, significantly worsening pain, or are concerned you might need to go to the Emergency Room. [facility]: [phone] Skin/Wound/Dressing Care Report to your healthcare provider any signs of infection, such as:: chills, fever, night sweats, unusual drainage and unusual redness Visit Report/Discharge Packet Instructions: DI for Transforaminal Lumbar Interbody Fusion Stand Alone Forms: Surgery Discharge Discharge Data Primary Care Provider: Kel Arvizu V Attending Provider: Ron Nichols
[2021-09-19 08:22] VITALS: PULSE 90; RESP 16; O2SAT 97
[2021-09-19] MEDS: BUDESONIDE 0.5 MG/2 ML NEB INH (08:22)
[2021-09-19 08:50] VITALS: BP 114/44; PULSE 90; RESP 16; TEMP 36.3; O2SAT 99
[2021-09-19 08:55] LABS: Hematocrit 35.1 % (36-46); Hemoglobin 11.1 g/dL (12.0-16.0)
[2021-09-19] MEDS: CHOLECALCIFEROL (VITAMIN D3) 1,000 UNIT TABLET 3000 UNIT PO (09:11)
[2021-09-19] MEDS: ASCORBIC ACID 500 MG TABLET 1000 MG PO (09:13)
[2021-09-19] MEDS: LACTOBACILLUS ACIDOPHILUS TABLET 1 EACH PO (09:13)
[2021-09-19] MEDS: hydrOXYzine pamoate 25 MG CAPSULE PO ×2 (09:14→14:00)
[2021-09-19] MEDS: MULTIVITAMIN 1 TABLET 1 TAB PO (09:14)
[2021-09-19] MEDS: GABAPENTIN 300 MG CAPSULE PO ×2 (09:14→14:00)
[2021-09-19] MEDS: SPIRONOLACTONE 25 MG TABLET 12.5 MG PO (09:15)
[2021-09-19] MEDS: DOCUSATE 100 MG CAPSULE PO (09:16)
[2021-09-19] MEDS: ACETAMINOPHEN 325 MG TABLET 650 MG PO ×2 (09:16→16:33)
[2021-09-19] MEDS: FLECAINIDE 100 MG TABLET PO (09:32)
[2021-09-19] MEDS: FLUTICASONE 120 SPRAY/16 GM SPRAY.SUSP NASAL (09:34)
--- NOTE | 2021-09-19 10:11 | OT.IP.EVAL ---
Current Diagnoses Spondylolisthesis, lumbar region (09/18/21) Surgery Performed Operation Date: 09/18/21 13:45 Actual Procedures p L4-5 TLIF - Ron Nichols MD Past Medical History (Last Reviewed 09/19/21 @ 08:07 by Ileana Tineo PA-C) Abnormal Pap smear of cervix (1975) Allergic rhinitis Ankle fracture, left (1987) Ankle pain (1989) Anxiety (1984) Asthma (2015) Atheroembolism Atrial fibrillation (2012) Graves's esophagus (2013) Blue toe syndrome of left lower extremity BPPV (benign paroxysmal positional vertigo) Bruit of left carotid artery Cataract (2002) Chicken pox (1954) Cholangioma COPD (chronic obstructive pulmonary disease) (~2015) Corneal dystrophy (2002) Cystocele 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 Diverticular disease (2016) Diverticulosis Do not resuscitate Elbow fracture, right (2015) Epiretinal membrane (2004) Frequent UTI (~2018) Fuchs' corneal dystrophy of both eyes Gastritis GERD (gastroesophageal reflux disease) (2004) Hayfever (1965) Hearing loss (~2015) Hemorrhoids (~1969) History of iron deficiency anemia (~2018) History of psychosis (1968) Hypercholesterolemia Hyperlipidemia (1996) Hypertension Internal hemorrhoids Kidney stones (2010) Lumbar back pain with radiculopathy affecting left lower extremity Measles Medicare annual wellness visit, initial Mild aortic valve sclerosis (~2017) Mumps Osteoarthritis (~1994) PAD (peripheral artery disease) Positive PPD (1977) Postmenopausal atrophic vaginitis Prediabetes Rectocele Recurrent UTI Rosacea (2011) Skin cancer, basal cell (~2020) Uterine cancer (~1975) Ventricular escape beats Surgical History (Last Reviewed 09/19/21 @ 08:07 by Ileana Tineo PA-C) Anesthesia History of cataract removal with insertion of prosthetic lens (2002) History of ear, nose, and throat (ENT) surgery (1977) History of esophagogastroduodenoscopy (EGD) (07/2015) History of esophagogastroduodenoscopy (EGD) (~01/2019) History of foot surgery (2007) History of knee replacement (2012) History of meniscectomy of left knee (~04/2021) Hx of blepharoplasty (01/2020) S/P epidural steroid injection (~02/10/21) S/P lumbar fusion Status post angioplasty with stent (~10/2019) Status post colonoscopy (2015) Status post hysterectomy (1975) Status post laparoscopic cholecystectomy (2001) Status post open reduction with internal fixation (ORIF) of fracture of ankle (1987) Occupational Therapy Inpatient Evaluation/Re-Eval M1 PT/OT-IP Prior Functional Status Start: 09/19/21 11:33 Freq: Status: Active Protocol: Document 09/19/21 12:55 [facility] (Rec: 09/19/21 13:14 [facility] [id number]) Medical Review Prior Functional Status Medical History Reviewed Yes Mobility and Gait Independent, walking for exercise and riding stationary bike Activities of Daily Living and IADL's Independent Prior Functional Level (Other details) Lives alone in single story [facility]. She has 3 steps to enter. Her dtr lives in [facility]. She has close friends/ neighbors ready to assist with transportation/meals at home. Social History Household Members none Living Arrangements Apartment/Condo Number of Floors (Floors) One Floor Number of Stairs To Enter/Railing? 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 M2 OT-IP Current Condition Start: 09/19/21 12:54 Freq: Status: Active Protocol: Document 09/19/21 12:55 [facility] (Rec: 09/19/21 13:14 [facility] [id number]) Occupational Therapy Current Condition Current Condition Evaluation Date 09/19/21 Treatment Diagnosis S/p L4-5 TLIF Diagnosis Onset Date 09/18/21 Post Operative Precautions Lumbar Precautions Log Roll,No Twisting,Limit Bending,Lifting Restriction of 10 lbs,Gait Belt above Incisional Area M3 OT- IP Subjective and Pain Start: 09/19/21 12:54 Freq: Status: Active Protocol: Document 09/19/21 12:55 [facility] (Rec: 09/19/21 13:14 [facility] [id number]) OT- Subjective Occupational Therapy Visit Type Type Initial Evaluation Visit Start Time 09:20 Visit Stop Time 10:11 Total Visit Minutes 51 Occupational Therapy Visit Comments Patient Comments Pt agreed to get up for OT eval. Patient/Caregiver Goals Pt hesitant to go home as states will not have someone 22/09 to assist her. OT Pain Assessment Pain When Pain Assessed At Rest Pain Present Pain Present Pain Reported Location mid back Intensity 5 Scale Used Numeric (0 - 10) M4 OT- IP ADL's Start: 09/19/21 12:54 Freq: Status: Active Protocol: Document 09/19/21 12:55 [facility] (Rec: 09/19/21 13:14 [facility] [id number]) OT IVB-Brdp-Txodhdu General Evaluation Self-Feeding Ability Independent OT ADL-Grooming General Evaluation Grooming Ability Standby Assistance Areas Needing Assistance Retrieving/Set-up of Grooming Items OT ADL-Oral Care General Eval Oral Care Ability Standby Assistance Areas of Assistance Retrieving/Set-Up of Items Comments Oral Care Comments Pt needing initial vc to hinge at her hips or spit into a cup to best follow her back precautions. OT ADL-Dressing General Eval Lower Body Dressing Ability Standby Assistance Comments OT Dressing Comments Pt able to use virginia line attendant and sock aid for dressing needs. OT ADL-Toileting General Evaluation Toileting Ability Standby Assistance Comments OT Toileting Comments Pt states wears pads at night. Pt able to use toilet paper aid she brought with her independently for toileting needs. Assist for set-up of wipe and trash can placed close to her. OT ADL-Bathing Comments OT Bathing Comments Pt not wanting to perform at this time. Pt would benefit from assist at home for showers and shower chair and HHSP. M5 OT- IP IADL's Start: 09/19/21 12:54 Freq: Status: Active Protocol: Document 09/19/21 12:55 [facility] (Rec: 09/19/21 13:14 [facility] [id number]) OT-Instrumental Activities of Daily Living Home Safety Awareness Awareness of Need for Assistance at Home Good Awareness Ability to Problem Solve Emergency Able to Problem Solve Situations Home Safety Comments Pt would benefit from assist and supervision as needed as pt states feels groggy from pain medications. M6 OT- IP Functional Cognition Start: 09/19/21 12:54 Freq: Status: Active Protocol: Document 09/19/21 12:55 [facility] (Rec: 09/19/21 13:14 [facility] [id number]) Cognitive Factors Limiting Selfcare Function Cognitive Ability Level of Alertness Alert,Drowsy Patient Orientation Name,Age,Birthday,Month,Date, Year,Day of Week,Place, Situation Attention Span Ability Capable of Focused Attention, Capable of Sustained Attention Ability to Follow Commands Able to Follow Multi-Step Commands Safety Awareness No Deficits Noted Cognitive Comments Cognitive Assessment Comments Pt a bit groggy but able to follow all her back precautions for ADl and mobility needs with good safety. OT- Vision and Hearing OT- Hearing Assessment OT- Hearing Assessment WFL OT- Vision Assessment Visual Acuity Glasses For Reading M7 OT- IP Mobility and Balance Start: 09/19/21 12:54 Freq: Status: Active Protocol: Document 09/19/21 12:55 [facility] (Rec: 09/19/21 13:14 [facility] [id number]) OT- Bed Mobility Assessment Supine to Sit Supine to Sit Assist Standby Assistance Sit to Supine Sit to Supine Assist Standby Assistance OT-Transfer Assessment Sit to and From Stand Sit to and from Stand Standby Assistance Transfers Transfer Ability Standby Assistance Technique Transfer Destination Bed,Chair,Toilet Transfer Technique Stand Step Pivot Devices Transfer Assistive Devices Gait Belt,Front Wheeled Walker Comments Mobility Comments Initial education for log rolling and able to get up a high bed as she has a home. Cues to push up from the bed to stand or at least have one hand on the bed. While on the toilet pt able to push up her legs to help to stand. Pt SBA for mobility needs. OT- Balance Assessment Sitting Balance and Reactions Static Sitting Balance Ability Normal Dynamic Sitting Balance Ability Good Standing Balance and Reactions Static Standing Balance Ability Good Dynamic Standing Balance Ability Good M8 OT- IP Objective Assessments Start: 09/19/21 12:54 Freq: Status: Active Protocol: Document 09/19/21 12:55 [facility] (Rec: 09/19/21 13:14 [facility] [id number]) OT Gross Range of Motion Upper Extremity Range of Motion Assessment Within Functional Limits OT-Muscle Tone Assessment Muscle Tone WNL Yes M9 OT- IP Assessment and Plan Start: 09/19/21 12:54 Freq: Status: Active Protocol: Document 09/19/21 12:55 [facility] (Rec: 09/19/21 13:14 [facility] [id number]) OT Summary Assessment and Plan Potential Rehabilitation Potential Excellent Analytic Complexity at Evaluation Low Summary OT Impairments Pain,Functional Mobility, Bathing,Activity Tolerance Progress Towards Goals Progressing Toward Goals Assessment Summary Pt low complexity and main barriers are steps and pt would benefit from assist with bathing and IADl needs. Pt has supportive friends and family but no one to stay with her 22/09. Pt to go home when medically stable with assist. Goals Grooming Goal Independent Dressing Goal Independent Toileting Goal Independent Bathing Goal Standby Assistance Toilet Transfer Goal Independent Shower Transfer Goal Independent Days to Meet Goals 2 Frequency of Treatment Frequency Of Treatment Once a Day Treatment Plan OT Treatment Plan ADL Training,Functional Mobility,Patient/Family Education,Discharge Planning Other Treatment Recommendations and Next shower Treatment Focus Discharge Recommendations OT Discharge Recommendations Home with Assistance Home Equipment Needs shower chair
--- NOTE | 2021-09-19 10:33 | CM.DANOTE ---
Addendum entered by Rossana Hearn R.N. 09/19/21 16:01: Spoke with PT and pt has agreed to work with PT this afternoon and has agreed to discharge home today. Pt states that she will have a friend pick her up today around 5pm to take her home and get her situated. Pt team aware and OT is in the room assisting patient with getting dressed. Per RN, daughter spoke with patient to help explain what the reasoning is behind the discharge. P: Pt to discharge home via friend POV. Rossana Hearn RN/LISAP Addendum entered by Rossana Hearn R.N. 09/19/21 14:16: Spoke with RN. Pt is declining to go home today. PT has cleared pt for home as she is a standby assist. RN and DCP went in to talk with pt. When speaking to the pt, pt states that she is fearful to go home because she does not have any assistance and she was told she was going to have to go to rehab. DCP spoke about home health and pt declines as she states, that will not do anything for me. Pt states that she needs someone to come help her with meals every day. DCP spoke about private caregivers. Pt does not have the funds for any caregivers. Pt states that she can have a friend come over but wont be able to stay the night or take her a shower. RN spoke with MD and they are to talk with pt. DCP to continue to follow. Rossana Hearn RN/LISAP Original Note: DCP Assessment: Payor: Medicare PCP: MD Luh Pt is a 76 y.o. F who was admitted to the floor status post TLIF on 09/18. Pt was seen in the outpatient ortho office on 09/05 for a spine consult. Pt had a R L4-5 surgery done on 07/01/21. Pt had been having difficulty performing ADL's due to leg pain. Pt has a PMH of DM Type 2. GERD, HTN, A fib, and Hyperlipidemia. DCP met with pt this morning to discuss discharge planning needs. DCP introduced herself and role. Pt sitting up in chair drinking water. Pt states that she lives alone in a [facility] in [place]. Pt states that she is fairly independent at baseline but leading up to the surgery, she was having more difficulty. Pt states that her daughter is local and is going out of town this weekend. Pt states that she also has local friends who are willing to help her out around the house. Pt states that she is nervous to go home as she fears she wont be able to plan her meals and cook them. Pt states that she might need a SNF. PT/OT to eval today. Pt had no other needs. White board was updated and instructed to call. DCP to continue to follow. P: Pt has a pending discharge order following PT/OT evaluations. Once pt is medically stable to discharge, pt to either go home with HH or transfer to SNF. Rossana Hearn RN/LISAP Discharge Planning/Care Management CM Discharge Assessment Start: 09/19/21 10:31 Freq: Status: Active Protocol: Document 09/19/21 10:31 [facility] (Rec: 09/19/21 10:33 [facility] [id number]) Discharge Planning Assessment Assigned Butter Maker Rossana Hearn RN/LISAP Advance Directives? Yes Advance Directives on File No History Provided By Patient Prior Living Arrangements Apartment/Condo Household Members none Independent with ADL's Yes Is patient alert and oriented? Yes Caregiver for Another No Discharge Plan Home with Home Health Referrals Initiated None needed Additional Comment At this time. Rule out SNF. Whiteboard Updated in Patient Room with Yes name and ext. # of Butter Maker Comment Instructed to call Review Status In Process Please Provide Date Initial DC 09/19/21 Assessment Was Performed Next Review Type Continued Stay Review Pre-Anesthesia Assessment Start: 09/12/21 09:50 Freq: Status: Active Protocol: Document 09/17/21 10:37 [facility] (Rec: 09/12/21 10:59 [facility] [id number]) Pre-Anesthesia Assessment Patient Information Reviewed Via Phone Assessment Assessment Completed With Patient Diagnostic Results BMP/CMP,CBC Comment Labs @ 08/30/21, COVID screen @ 09/16/21 Primary Care Provider Kel Arvizu Specialist Seen Asbestos Handler,Oracle Business Analyst, Support Team Assoc,Urologist Comment Pulmonary visit 12/20/20 scanned Primary Language Chinese Supervisor Matrix Required No Height 160.02 cm Weight 82.554 kg Body Mass Index (BMI) 32.2 Hearing Ability Hard of Hearing,Use of Hearing Aid Visual Assist Magnifying Glass Dentition Type Teeth, Natural Present,Teeth, Missing Barriers to Learning None Hx Anesthesia Reactions No Hx Family Anesthesia Reaction No: Pt denies Hx Malignant Hyperthermia No Hx Blood Transfusions No Hx Blood Transfusion Reaction No Anesthesia Review Requested No alcohol intake current alcohol intake frequency a few times a month Smoking Status Former smoker how long ago did patient quit smoking Quit 2008 Substance Use Type does not use Pain Present Pain Reported Musculoskeletal Symptoms Abnormal Gait,Back Pain, Difficulty Walking,Muscle Cramps,Muscle Weakness, Numbness,Radiating Pain into Limb History of Falling (Recent or History of No ) Patient is completely paralyzed or No completely immobile Prosthesis or Orthotic Device Front Wheel Walker Mental Status Oriented to own ability Comment Left foot numbness Is patient on oxygen? No Does patient have WAYNE/SOB Yes: WAYNE, not in last 2 years Hx Sleep Apnea No Currently Taking a Beta Taty No Hx Chest Pain No Hx SOB Yes: WAYNE, not in last 2 years Hx Syncope or Dizziness Yes: Very occasional dizziness Anti-Coagulant Therapy Yes: 81mg ASA for illiac crest stent Has a Asbestos Handler Yes: Dr. West - visit 06/03/21 Cardiac Testing No: Nuc stress @ [facility] 05/29/21, recent ZIO patch Hx Pacemaker/ICD No Pacemaker Rep Required? No Comment Cardiac records scanned Diet Type At Home Regular dysphagia No Gastrointestinal Symptoms Reflux Urinary Catheter Present No Hx Urinary Self Catheterization No Diabetes No: Pre-diabetes Patient No Lactating No Presence of External or Internal Medical Yes: Right knee, bilat eye Devices IOLs, left illiac stent Have you had any close contact with No someone diagnosed with COVID-19? Received a COVID vaccine? Yes Received all doses? Yes Marital Status Lives With none Prior Living Arrangements Apartment/Condo Number of Floors (Floors) One Floor Support System Friend(s) Does the Patient Have Assistance After No: Pt would like to go to a [place] SNF at [place] Patient Discharge Plan Description Snf Facility/Rehab Comment Pt would like to go to a SNF, lives alone, no available home care at [place] Feels Safe in Current Environment Yes Been Physically Hurt or Threatened By a No Person in Current Environment Do you have thoughts of harming yourself None or others? Are you currently considering suicide? No Do you have a plan to hurt yourself or No Plan others? Do You Have Any Spiritual Beliefs That No May Affect Your HC Choices? Do You Have Any Cultural Practices That No May Affect Your HC Choices? Comment Unitarian, Universalist Who Can We Speak to About Patient's Care Family, friends Identifying Code for Release of Patient Declines to issue Information Health Care Proxy/Next of Kin Janee (daughter) Health Care Proxy Emergency Contact Name Janee (daughter) Emergency Contact Advance Directives? Yes Advance Directives on File No Requested Patient Bring Advanced Yes Directives DOS Power of Oil Derrick Operator Yes Power of Oil Derrick Operator Name Janee (maria ines) Power of Oil Derrick Operator PAC Instructions Durable medical equipment, Medications to take/avoid, Nasal antibiotic,No ETOH/ petroleum product on skin DOS, NPO,Pre-surgical wash,Sensory aids,Sturdy shoes/comfortable clothes,Do not bring valuables and remove jewelry
--- NOTE | 2021-09-19 11:47 | PT.IIE ---
Current Diagnoses Spondylolisthesis, lumbar region (09/18/21) Surgery Performed Operation Date: 09/18/21 13:45 Actual Procedures p L4-5 TLIF - Ron Nichols MD Surgical History (Last Reviewed 09/19/21 @ 08:07 by Ileana Tineo PA-C) Anesthesia History of cataract removal with insertion of prosthetic lens (2002) History of ear, nose, and throat (ENT) surgery (1977) History of esophagogastroduodenoscopy (EGD) (07/2015) History of esophagogastroduodenoscopy (EGD) (~01/2019) History of foot surgery (2007) History of knee replacement (2012) History of meniscectomy of left knee (~04/2021) Hx of blepharoplasty (01/2020) S/P epidural steroid injection (~02/10/21) S/P lumbar fusion Status post angioplasty with stent (~10/2019) Status post colonoscopy (2015) Status post hysterectomy (1975) Status post laparoscopic cholecystectomy (2001) Status post open reduction with internal fixation (ORIF) of fracture of ankle (1987) Medical History (Last Reviewed 09/19/21 @ 08:07 by Ileana Tineo PA-C) Abnormal Pap smear of cervix (1975) Allergic rhinitis Ankle fracture, left (1987) Ankle pain (1989) Anxiety (1984) Asthma (2015) Atheroembolism Atrial fibrillation (2012) Graves's esophagus (2013) Blue toe syndrome of left lower extremity BPPV (benign paroxysmal positional vertigo) Bruit of left carotid artery Cataract (2002) Chicken pox (1954) Cholangioma COPD (chronic obstructive pulmonary disease) (~2015) Corneal dystrophy (2002) Cystocele 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 Diverticular disease (2016) Diverticulosis Do not resuscitate Elbow fracture, right (2015) Epiretinal membrane (2004) Frequent UTI (~2018) Fuchs' corneal dystrophy of both eyes Gastritis GERD (gastroesophageal reflux disease) (2004) Hayfever (1965) Hearing loss (~2015) Hemorrhoids (~1969) History of iron deficiency anemia (~2018) History of psychosis (1968) Hypercholesterolemia Hyperlipidemia (1996) Hypertension Internal hemorrhoids Kidney stones (2010) Lumbar back pain with radiculopathy affecting left lower extremity Measles Medicare annual wellness visit, initial Mild aortic valve sclerosis (~2017) Mumps Osteoarthritis (~1994) PAD (peripheral artery disease) Positive PPD (1977) Postmenopausal atrophic vaginitis Prediabetes Rectocele Recurrent UTI Rosacea (2011) Skin cancer, basal cell (~2020) Uterine cancer (~1975) Ventricular escape beats Physical Therapy Inpatient Evaluation/Re-Eval M1 PT/OT-IP Prior Functional Status Start: 09/19/21 11:33 Freq: Status: Active Protocol: Document 09/19/21 11:34 BC (Rec: 09/19/21 11:47 [id number]) Medical Review Prior Functional Status Medical History Reviewed Yes Mobility and Gait Independent, walking for exercise and riding stationary bike Activities of Daily Living and IADL's Independent Prior Functional Level (Other details) Lives alone in single story [facility]. She has 3 steps to enter. Her dtr lives in [facility]. She has close friends/ neighbors ready to assist with transportation/meals at home. Social History Household Members none Living Arrangements Apartment/Condo Number of Floors (Floors) One Floor Number of Stairs To Enter/Railing? 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 PT-IP Current Condition Start: 09/19/21 11:33 Freq: Status: Active Protocol: Document 09/19/21 11:34 BC (Rec: 09/19/21 11:47 [id number]) Physical Therapy Current Condition Current Condition Evaluation Date 09/19/21 Treatment Diagnosis difficulty with ambulation Onset Date 09/18/21 M3 PT-IP Subjective Start: 09/19/21 11:33 Freq: Status: Active Protocol: Document 09/19/21 11:34 BC (Rec: 09/19/21 11:47 [id number]) Subjective Physical Therapy Visit Type Type Initial Evaluation Visit Start Time 11:00 Visit Stop Time 11:30 Total Visit Minutes 29 Physical Therapy Visit Comments Patient Goals To go home vs SNF but to go home tomorrow. States she still feels unsafe to go home today. Therapy Pain Assessment Pain When Pain Assessed At Rest Pain Present Pain Present Denied Pain M4 PT-IP Mobility and Gait Start: 09/19/21 11:33 Freq: Status: Active Protocol: Document 09/19/21 11:34 BC (Rec: 09/19/21 11:47 BC [id number]) PT-Bed Mobility Assessment Rolling Type of Rolling Log Rolling Level of Assist Independent Supine to Sit Supine to Sit Independent Sit to Supine Sit to Supine Contact Guard Assistance PT-Transfer Assessment Sit to and From Stand Sit to and from Stand Independent Equipment Transfer Assistive Device Gait Belt,Front Wheeled Walker Transfers Transfer Destination Bed Transfer Technique Stand Pivot Transfer Ability Level of Assist Standby Assistance Comments Mobility Comments STS from EOB (taller height) with modif I. Safe technique with bed mobility log roll. Needing slight assist with LE' s when transferring sit-> supine. Gait Assessment Gait Gait Assistance Required: Independent,Standby Assistance Distance (Feet) 150 Assistive Devices Assistive Device Gait Belt,Front Wheeled Walker Comments Gait Comments slower bud but good step through pattern, FWW for balance only (no WB needs), no LOB Stair Climbing Assessment Evaluation Level of Assist On Stairs Contact Guard Assistance Devices Stair Climbing Assistive Devices Right Railing Technique/Endurance Stair Climbing Direction Ascend and Descend Stair Climbing Technique Step to Step Number of Steps Climbed 2 Query Text: Comments Stair Climbing Comments RUE support on wall and LUE hand held assist to mimic home set up. Pt able to ascend/ descend with just CGA through LUE. PT-Balance Assessment Sitting Balance and Reactions Static Sitting Balance Ability Normal Dynamic Sitting Balance Ability Normal Standing Balance and Reactions Static Standing Balance Ability Normal Dynamic Standing Balance Ability Good Device Used FWW M5 PT-IP Objective Assessments Start: 09/19/21 11:33 Freq: Status: Active Protocol: Document 09/19/21 11:34 BC (Rec: 09/19/21 11:47 [id number]) Orientation Orientation/Cognition Level of Alertness Lethargic Orientation Name,Age,Birthday,Month,Date, Year,Day of Week,Place, Situation Comments Pt reports feeling heavy and fatigued stating she thinks it is the pain medicine. At times she is closing her eyes in mid conversation when supine. Gross Range of Motion Upper Extremity ROM Assessment Within Functional Limits Lower Extremity ROM Assessment Within Functional Limits Strength Upper Extremity Strength Assessment Within Functional Limits Lower Extremity Strength Assessment Bilaterally Impaired Comments Strength Comments BLE strength grossly demonstrated at 4/5 Coordination Assessment Gross Coordination Gross Coordination WNL M6 PT-IP Treatment Start: 09/19/21 11:33 Freq: Status: Active Protocol: Document 09/19/21 11:34 BC (Rec: 09/19/21 11:47 [id number]) Physical Therapy Treatment Education Education Provided Precautions,Post-Op Packet, Safety Brace Education Patient Other Treatments Other Treatment Performed Educated on spinal precautions , safe stair mgmt, role of walking as exercise, use of walker at all times for safety . 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 I did answer two questions regarding tall bed height, she will have a friend get a small foot stool so that she can use her legs, once seated EOB, to scoot back into bed vs twisting and pushing with arms . We also discussed her raised commode with armrests. The commode with the addition is very tall and her feet do not touch the ground. She is to see if she can perform STS from commode height without the raised seat given her stature and not have too much spinal flexion. If it is too low then she will have a friend attach the raised commode seat. M7 PT-IP Assessment and Plan Start: 09/19/21 11:33 Freq: Status: Active Protocol: Document 09/19/21 11:34 (Rec: 09/19/21 11:47 [id number]) PT Summary Assessment and Plan Potential Rehabilitation Potential Excellent Status of Condition at Evaluation Stable Summary Impairments Pain,Gait,Activity Tolerance Progress Towards Goals Progressing Toward Goals Assessment Summary Pt admitted s/p L4-5 spinal fusion with laminectomy. Pt lives I'ly in a smaller MIL suite to a home. Her dtr lives in [place]. She is fully independent with mobility as her PLOF. She has all needed DME for home. She has friends available to assist with transportation and meals. Currently Pt is mobilizing with just CGA to modif Ind with use of walker. She does need slight assist with stairs which she has 3 to enter the home. Overall she is reporting a concern for safety with discharge today citing her activity tolerance to be able to manage ADLs (ie meals) and her general fatigue which she attributes to pain medication. Pt may benefit from additional IPPT to progress stair independence and activity tolerance with increased ambulation. Pt to discharge home once medically stable. Goals Bed Mobility Goal Independent Transfer Goal Independent Gait Goal Independent Gait Distance 250 Other Goals Pt will ascend/descend stairs 3x with RUE support on wall and supervision. Days to Meet Goals 2 Frequency of Treatment Frequency Of Treatment Twice a Day Treatment Plan Physical Therapy Treatment Plan Bed Mobility Training,Transfer Training,Gait Training, Therapeutic Exercise,Balance Retraining,Post Op Education, Discharge Planning, Neuromuscular Re-ed, Coordination Retraining Precautions Lumbar Precautions Log Roll,No Twisting,Limit Bending,Lifting Restriction of 10 lbs,Gait Belt above Incisional Area Recommendations To Nursing Amount of Assist Needed Standby Assistance Discharge Recommendations PT Discharge Recommendations Home Transportation Needs at Discharge Private Vehicle
--- NOTE | 2021-09-19 16:01 | PT.IPTN ---
Current Diagnoses Spondylolisthesis, lumbar region (09/18/21) Surgery Performed Operation Date: 09/18/21 13:45 Actual Procedures p L4-5 TLIF - Ron Nichols MD Physical Therapy Treatment Note M2 PT-IP Current Condition Start: 09/19/21 11:33 Freq: Status: Active Protocol: Document 09/19/21 11:34 BC (Rec: 09/19/21 11:47 BC [id number]) Physical Therapy Current Condition Current Condition Evaluation Date 09/19/21 Treatment Diagnosis difficulty with ambulation Onset Date 09/18/21 M3 PT-IP Subjective Start: 09/19/21 11:33 Freq: Status: Active Protocol: Document 09/19/21 15:41 KS (Rec: 09/19/21 16:41 KS [id number]) Subjective Physical Therapy Visit Type Type Treatment Note Visit Start Time 15:41 Visit Stop Time 16:01 Total Visit Minutes 20 Number of TRUCK RENTAL CLERK Visits 1 Therapy Pain Assessment Pain When Pain Assessed During Mobility Pain Present Pain Present Pain Reported Location mid back Intensity 7 Scale Used Numeric (0 - 10) Description Pressure Pain Behaviors Guarding Pain Management Techniques Distraction,Modification of Treatment,Timing of Activity with Medications M4 PT-IP Mobility and Gait Start: 09/19/21 11:33 Freq: Status: Active Protocol: Document 09/19/21 15:41 KS (Rec: 09/19/21 16:41 KS [id number]) PT-Bed Mobility Assessment Rolling Type of Rolling Log Rolling Level of Assist Independent Supine to Sit Supine to Sit Independent Scooting Scooting to Edge of Bed Independent PT-Transfer Assessment Sit to and From Stand Sit to and from Stand Independent Equipment Transfer Assistive Device Gait Belt,Front Wheeled Walker Transfers Transfer Destination Toilet Transfer Technique Pt ambulated w/ FWW Transfer Ability Level of Assist Independent,Standby Assistance ,Use of Upper Extremities Comments Mobility Comments Pt in bed upon arrival and agreeable to PT. Pt able to recall all spinal precautions and perform bed mobility and sit<>stand Independently w/ FWW and no cues. Pt then ambulated ~80 ft w/ FWW SBA w/ decreased stride and foot clearance due to pain but no LOB and demonstrated proper use of FWW. Pt then ambulated to toilet and sat down SBA w/o grab bars before OT arrived and pt left in bathroom w/ OT. Gait Assessment Gait Gait Assistance Required: Independent,Standby Assistance Distance (Feet) 80 Assistive Devices Assistive Device Gait Belt,Front Wheeled Walker Comments Gait Comments slower bud but good step through pattern, FWW for balance only (no WB needs), no LOB Stair Climbing Assessment Comments Stair Climbing Comments Pt feels safe to perform at home following PT session this AM and states her friend picking her up this PM is a retired PT that will assist her in the house. PT-Balance Assessment Sitting Balance and Reactions Static Sitting Balance Ability Normal Dynamic Sitting Balance Ability Normal Standing Balance and Reactions Static Standing Balance Ability Normal Dynamic Standing Balance Ability Good Device Used FWW M5 PT-IP Objective Assessments Start: 09/19/21 11:33 Freq: Status: Active Protocol: Document 09/19/21 11:34 BC (Rec: 09/19/21 11:47 BC [id number]) Orientation Orientation/Cognition Level of Alertness Lethargic Orientation Name,Age,Birthday,Month,Date, Year,Day of Week,Place, Situation Comments Pt reports feeling heavy and fatigued stating she thinks it is the pain medicine. At times she is closing her eyes in mid conversation when supine. Gross Range of Motion Upper Extremity ROM Assessment Within Functional Limits Lower Extremity ROM Assessment Within Functional Limits Strength Upper Extremity Strength Assessment Within Functional Limits Lower Extremity Strength Assessment Bilaterally Impaired Comments Strength Comments BLE strength grossly demonstrated at 4/5 Coordination Assessment Gross Coordination Gross Coordination WNL M6 PT-IP Treatment Start: 09/19/21 11:33 Freq: Status: Active Protocol: Document 09/19/21 15:41 KS (Rec: 09/19/21 16:41 KS [id number]) Physical Therapy Treatment Education Education Provided Precautions,Post-Op Packet, Safety Brace Education Patient M7 PT-IP Assessment and Plan Start: 09/19/21 11:33 Freq: Status: Active Protocol: Document 09/19/21 15:41 KS (Rec: 09/19/21 16:41 KS [id number]) PT Summary Assessment and Plan Potential Rehabilitation Potential Excellent Status of Condition at Evaluation Stable Summary Impairments Pain,Gait,Activity Tolerance Progress Towards Goals Progressing Toward Goals Assessment Summary Pt continues to mobilize well independently and adheres to spinal precautions. She reports anxiety about going home as she anticipated going to SNF, but now reports her retired PT friend can pick her up and assist her into her home. She ambulated ~80 ft w/ FWW and has all necessary DME. She will benefit from OPPT when appropriate to improve mobility and stability. Goals Bed Mobility Goal Independent Transfer Goal Independent Gait Goal Independent Gait Distance 250 Other Goals Pt will ascend/descend stairs 3x with RUE support on wall and supervision. Days to Meet Goals 2 Frequency of Treatment Frequency Of Treatment Twice a Day Treatment Plan Physical Therapy Treatment Plan Bed Mobility Training,Transfer Training,Gait Training, Therapeutic Exercise,Balance Retraining,Post Op Education, Discharge Planning, Neuromuscular Re-ed, Coordination Retraining Precautions Lumbar Precautions Log Roll,No Twisting,Limit Bending,Lifting Restriction of 10 lbs,Gait Belt above Incisional Area Recommendations To Nursing Amount of Assist Needed Standby Assistance Discharge Recommendations PT Discharge Recommendations Home Transportation Needs at Discharge Private Vehicle
--- NOTE | 2021-09-19 19:46 | PC.NURSE ---
Pt is A&Ox3. VSS, afebrile on RA. She reports pain is manageable and a tolerable level of pain is 6/10 to her back. She is evaluated by PA this a.m. and cleared medically pending discharge today on PT/OT clearance. PT is evaluated and cleared for discharge home however initially not feeling ready for discharge home. PT met with patient again this afternoon and OT showered patient. Daughter encouraged patient and reduced anxiety about discharging home. Pt agreeable with discharge plan and friend arrives at 1930 to transport patient home. Patient verbalizes understanding of medications, activity, site care, follow up plan and worsening symptoms/signs of infection. She is escorted by w/ch to private vehicle with friend with all of her belongings at 1945.
== END 2021-09-19 19:50 | disposition home or self-care (01) | DRG 455 ==
LOC: OR 12:17 → AC 12:17
PROVIDERS: Physician Assistant; Admitting Provider Orthopaedic Surgery Orthopaedic Surgery of the Spine; PCP Internal Medicine; Referring Provider Orthopaedic Surgery Orthopaedic Surgery of the Spine; Visit Provider Orthopaedic Surgery Orthopaedic Surgery of the Spine
PROC: 0SG00AJ Fusion of Lumbar Vertebral Joint with Interbody Fusion Device, Posterior Approach, Anterior Column, Open Approach (ICD-10-PCS; principal; 2021-09-18 13:45)
DX: M48.062 Spinal stenosis, lumbar region with neurogenic claudication (principal); M43.16 Spondylolisthesis, lumbar region; E11.9 Type 2 diabetes mellitus without complications; K21.9 Gastro-esophageal reflux disease without esophagitis; I10 Essential (primary) hypertension; E78.5 Hyperlipidemia, unspecified; I48.91 Unspecified atrial fibrillation; F17.200 Nicotine dependence, unspecified, uncomplicated; E11.51 Type 2 diabetes mellitus with diabetic peripheral angiopathy without gangrene; Z11.59 Encounter for screening for other viral diseases; E78.2 Mixed hyperlipidemia; Z78.0 Asymptomatic menopausal state; M85.852 Other specified disorders of bone density and structure, left thigh; M85.851 Other specified disorders of bone density and structure, right thigh
CPT/HCPCS: 36415; 72100; 76000; 77080; 80061; 82962; 83036; 84443; 85014; 85018; 87635; 94640; 97161; 97165; 97530; 97535; C9803; C1713; C9290; J0131; J0171; J0330; J0690; J1100; J1170; J2250; J2405; J2704

== ENCOUNTER 2021-10-07 14:32 | Emergency (ER) | payer MEDICARE, OTHER, SELFPAY ==
[2021-09-18 12:36] VITALS: BMI 32.2
[2021-10-07 14:58] VITALS: BP 130/56; PULSE 60; RESP 20; TEMP 36.7; O2SAT 95
--- NOTE | 2021-10-07 15:12 | DI.US.S_ITS ---
PROCEDURE: [facility] VENOUS LOW EXTREM LT INDICATIONS: PAIN TECHNIQUE: Real-time imaging, as well as color and pulse Doppler interrogation, were performed of the lower extremity deep veins from the inguinal ligament to the popliteal fossa. COMPARISON: [facility], [facility] VENOUS LOW EXTREM LT, 09/05/2019, 14:05. FINDINGS: The common femoral, femoral and popliteal veins are normally compressible, and free of intraluminal thrombus. Color and pulse Doppler demonstrate normal phasic intraluminal flow. There is normal augmentation response to distal compression maneuver. IMPRESSION: No deep vein thrombosis of the left lower extremity. Dictated by: Tita Ly M.D. on 10/07/2021 at 16:00 Approved by: Tita Ly M.D. on 10/07/2021 at 16:00
--- NOTE | 2021-10-07 18:06 | ED.RECABL ---
HPI - Recheck/Abnormal Lab/Rx < ROMI Ennis - Last Filed: 10/07/21 18:37> General Chief Complaint: Recheck/Abnormal Lab/Rx Stated Complaint: RO DBD, 2 weeks post op pain Time Seen by Provider: 10/07/21 18:05 Source: patient Mode of arrival: Wheelchair History of Present Illness HPI narrative: 76-year-old female, former smoker, presents to the emergency department with left lower leg pain x3 days. Patient had back surgery 2 and half weeks ago and had her nathaly removed last . She was told that she could exercise as tolerated. Patient rode her stationary bike for 10 minutes on Thursday and approximately 4 hours later started having this left lower leg pain. Prior to the surgery, patient was riding the stationary bike 5 times per week. Patient is able to stand without difficulty and ambulate using her walker. Patient denies any symptoms of saddle anesthesia, numbness or tingling of her leg or excessive swelling. Patient has an appointment with her surgeon in 8 days. Due to the amount of pain she is in, and it's similarity to previous nerve pain, patient restarted her gabapentin and pain medication as needed for comfort. Related Data Home Medications Medication Instructions Recorded Confirmed multivitamin (Multiple Vitamins 1 tab PO DAILY ##0 10/27/16 09/18/21 tablet) sodium chloride 5 % eye ointment 1 melissa OPHTH BEDTIME PRN Eye 10/27/16 09/13/21 (Destiny 128) disorder ##0 flecainide 100 mg tablet 100 mg PO Q12H 11/06/17 09/18/21 rosuvastatin 5 mg tablet (Crestor) 2.5 mg PO DAILY #0 tabs 05/11/18 09/18/21 losartan 50 mg tablet 50 mg PO BEDTIME 11/23/18 09/18/21 Cranberry 1,000 mg PO DAILY 12/10/18 09/18/21 Probiotic 1 cap PO DAILY 12/10/18 09/18/21 ascorbic acid (vitamin C) 1,000 mg 1 g PO DAILY 12/10/18 09/18/21 tablet cholecalciferol (vitamin D3) 25 3,000 unit PO DAILY 12/10/18 09/18/21 mcg (1,000 unit) capsule (Vitamin D3) d-mannose 2,000 mg PO DAILY 12/10/18 09/18/21 diltiazem HCl 120 mg 120 mg PO BEDTIME 12/10/18 09/18/21 capsule,extended release 24 hr (Cartia XT) metronidazole 0.75 % topical cream 1 applic topical DAILY 12/10/18 09/13/21 (MetroCream) spironolactone 25 mg tablet 12.5 mg PO DAILY 05/25/20 09/18/21 aspirin 81 mg tablet,delayed 81 mg PO DAILY 06/19/21 09/18/21 release (Adult Low Dose Aspirin) omeprazole 40 mg capsule,delayed 40 mg PO DAILY 06/19/21 09/13/21 release gabapentin 300 mg capsule 300 mg PO TID 09/12/21 09/18/21 naproxen sodium 220 mg capsule 220 mg PO BID 09/12/21 09/18/21 (Aleve) tramadol 50 mg tablet 50 mg PO Q6-8H PRN Pain 09/12/21 09/18/21 Previous Rx's Medication Instructions Recorded albuterol sulfate 90 mcg/actuation 2 puff inhalation Q4H PRN 09/23/17 aerosol inhaler shortness of breath or wheezing #1 inh Disabled parking permit #1 ea 05/19/18 budesonide 180 mcg/actuation 2 inhalation inhalation BID #2 02/03/19 breath activated powder inhaler inhalations (Pulmicort Flexhaler) fluticasone propionate 50 See Rx Instructions .Route 04/05/20 mcg/actuation nasal .COMPLEX #16 grams spray,suspension estradiol 0.01% (0.1 mg/gram) 1 g vaginal 2XW #42.5 grams 03/13/21 vaginal cream (Estrace) acetaminophen 500 mg capsule 500 mg PO Q4H PRN Pain, Mild (1-3) 09/19/21 #90 caps docusate sodium 100 mg capsule 100 mg PO BID PRN Constipation 09/19/21 from narcotic pain meds #30 caps hydroxyzine pamoate 25 mg capsule 25 mg PO Q4HR PRN Muscle 09/19/21 spasms/pain/nausea #40 caps oxycodone 10 mg tablet See Rx Instructions .Route 09/19/21 .COMPLEX PRN Pain, Severe (7-10) #42 tabs Allergies Allergy/AdvReac Type Severity Reaction Status Date / Time adhesive tape Allergy Severe PAPER TAPE Verified 09/18/21 12:45 allergy - Dermatitis latex [LATEX] Allergy Severe Hives, Verified 09/18/21 12:45 Wheezing sulfamethoxazole Allergy Intermediate Rash Verified 09/18/21 12:45 [From Bactrim] trimethoprim [From Bactrim] Allergy Intermediate Rash Verified 09/18/21 12:45 bupropion [From WELLBUTRIN] AdvReac Severe Tremors Verified 09/18/21 12:45 erythromycin base AdvReac Severe GI Upset, Verified 09/18/21 12:45 [ERYTHROMYCIN BASE] Bloody diarrhea lisinopril [LISINOPRIL] AdvReac Severe Cough Verified 09/18/21 12:45 meperidine [From DEMEROL] AdvReac Severe Hallucinati Verified 09/18/21 12:45 ng Review of Systems <ROMI Rangel - Last Filed: 10/07/21 18:37> Review of Systems Narrative: Narrative: GENERAL: Denies chills, fatigue, fever, sweats. See HPI HEENT: Denies sinus pain, ear pain, sore throat, difficulty swallowing, dizziness. RESPIRATORY: Denies dyspnea, cough, wheezing, sputum. CARDIOVASCULAR: Denies chest pain, palpitations, edema. GASTROINTESTINAL: Denies nausea, vomiting, abdominal pain, diarrhea, constipation. : Denies dysuria, frequency, incontinence, hematuria, urinary retention, flank pain. MSK: Denies weakness, joint pain, or bony pain. Endorses left lower leg pain just superior to the lateral malleolus. SKIN: Denies rash, skin lesions, or pruritis. NEUROLOGIC: Denies weakness, dizziness, headache, numbness, confusion. PSYCHIATRIC: No concerning psychosocial issues. 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 Diverticular disease (2016) Diverticulosis Do not resuscitate Elbow fracture, right (2015) Epiretinal membrane (2004) Frequent UTI (~2018) Fuchs' corneal dystrophy of both eyes Gastritis GERD (gastroesophageal reflux disease) (2004) Hayfever (1965) Hearing loss (~2015) Hemorrhoids (~1969) History of iron deficiency anemia (~2018) History of psychosis (1968) Hypercholesterolemia Hyperlipidemia (1996) Hypertension Internal hemorrhoids Kidney stones (2010) Lumbar back pain with radiculopathy affecting left lower extremity Measles Medicare annual wellness visit, initial Mild aortic valve sclerosis (~2017) Mumps Osteoarthritis (~1994) PAD (peripheral artery disease) Positive PPD (1977) Postmenopausal atrophic vaginitis Prediabetes Rectocele Recurrent UTI Rosacea (2011) Skin cancer, basal cell (~2020) Uterine cancer (~1975) Ventricular escape beats Surgical History Anesthesia History of cataract removal with insertion of prosthetic lens (2002) History of ear, nose, and throat (ENT) surgery (1977) History of esophagogastroduodenoscopy (EGD) (07/2015) History of esophagogastroduodenoscopy (EGD) (~01/2019) History of foot surgery (2007) History of knee replacement (2012) History of meniscectomy of left knee (~04/2021) Hx of blepharoplasty (01/2020) S/P epidural steroid injection (~02/10/21) S/P lumbar fusion Status post angioplasty with stent (~10/2019) Status post colonoscopy (2015) Status post hysterectomy (1975) Status post laparoscopic cholecystectomy (2001) Status post open reduction with internal fixation (ORIF) of fracture of ankle (1987) Family History Brother Brain aneurysm CVA (cerebral vascular accident) Mental health problem Alcoholism Brother Alcoholism Heart disease Father No problems noted. Grandfather Alcoholism Suicide Grandmother CVA (cerebral vascular accident) Mother CVA (cerebral vascular accident) [place] (myocardial infarction) Lung cancer Hypertension Heart disease Grandfather No problems noted. Grandmother MVA (motor vehicle accident) Sister Thalassemia Dementia Drug addiction Sister Alcoholism Brother Ischemia Alcoholism CVA (cerebral vascular accident) Social History details: , two grown children household members: none Smoking Status: Former smoker alcohol intake: current Smoking Status: Former smoker alcohol intake frequency: a few times a month Substance Use Type: does not use Exam <ROMI Rangel - Last Filed: 10/07/21 18:37> Narrative Exam Narrative: Exam Narrative: GENERAL: This is a well-nourished, well-developed patient, in no acute distress HEAD: Atraumatic. Normocephalic. EYES: Pupils equal round and reactive. Extraocular motions intact. No scleral icterus, injection or drainage. ENT: Nose without bleeding, purulent drainage. Throat without erythema, tonsillar hypertrophy or exudate. Airway patent. NECK: Trachea midline. No JVD or lymphadenopathy. Nontender. CARDIOVASCULAR: Regular rate and rhythm without murmurs, peripheral pulses intact, cap refill <2 sec. RESPIRATORY: Breath sounds equal and clear bilaterally. No wheezes, rales, or rhonchi. No cough. No increased respiratory effort. No accessory muscle use. GASTROINTESTINAL: Abdomen soft, non-tender, nondistended without guarding or rebound. No suprapubic pain. MSK: Moves all extremities. Normal range of motion, no clubbing or edema. Neurovascularly intact. Left calf measures 34.5 cm, right calf 33.5 cm. NEURO: A&O x 3. SKIN: Warm, dry, no rashes or lesions noted. Initial Vital Signs Initial Vital Signs: Vital Signs Temperature 98.0 F 10/07/21 14:58 Pulse Rate 60 10/07/21 14:58 Respiratory Rate 20 10/07/21 14:58 Blood Pressure 130/56 L 10/07/21 14:58 Pulse Oximetry 95 10/07/21 14:58 Oxygen Delivery Method 10/07/21 14:58 Reviewed <Gertrudis Brown DO - Last Filed: 10/11/21 08:33> Initial Vital Signs Initial Vital Signs: Vital Signs Temperature 98.0 F 10/07/21 14:58 Pulse Rate 60 10/07/21 14:58 Respiratory Rate 20 10/07/21 14:58 Blood Pressure 130/56 L 10/07/21 14:58 Pulse Oximetry 95 10/07/21 14:58 Oxygen Delivery Method 10/07/21 14:58 Scores <ROMI Rangel - Last Filed: 10/07/21 18:37> [place] Criteria for DVT Active Cancer (Treatment within 6 months): No Bedridden recently >3 days or major surgery within 4 weeks: Yes Calf Swelling >3cm compared to other leg: No Collateral (nonvericose) superficial veins present: No Entire leg swollen: No Localized tenderness along the deep vein system: No Pitting edema, confined to symtomatic leg: No Paralysis, paresis, or recent plaster immobilization of ext: No Previously documented DVT: Yes Alternative dx to DVT as likely or more likely: Yes [place] criteria for DVT: 0 <Gertrudis Brown DO - Last Filed: 10/11/21 08:33> [place] Criteria for DVT Gomez' criteria for DVT: 0 Course <ROMI Rangel - Last Filed: 10/07/21 18:37> Orders Ordered: ED Orders 10/07/21 15:12 US periph venous low extrem lt Stat Vital Signs Vital signs: Vital Signs - 8 hr 10/07/21 14:58 Temperature 98.0 F Pulse Rate 60 Respiratory Rate 20 Blood Pressure 130/56 L Pulse Oximetry 95 Oxygen Delivery Method Room Air <Gertrudis Brown DO - Last Filed: 10/11/21 08:33> Orders Ordered: ED Orders 10/07/21 15:12 US periph venous low extrem lt Stat Vital Signs Vital signs: Vital Signs - 8 hr 10/07/21 14:58 Temperature 98.0 F Pulse Rate 60 Respiratory Rate 20 Blood Pressure 130/56 L Pulse Oximetry 95 Oxygen Delivery Method Room Air MDM - Recheck/Abnormal Lab/Rx <ROMI Ragnel - Last Filed: 10/07/21 18:37> Differential Diagnosis Differential diagnosis: Likely other (Left leg pain) Imaging Data US - DVT: Radiologist's Impression: [address] [address] Ultrasound Report Signed Patient: Shirley Zamora MR#: [id number] : 1945 Acct:[id number] Age/Sex: 76 / F Date of Service: 10/07/21 Loc: ED Accession Number: [id number] ?? Procedure: US periph venous low extrem lt Ordering Provider: Gertrudis Brown D.O. PROCEDURE:? US PERIP VENOUS LOW EXTREM LT ? INDICATIONS:? PAIN ? TECHNIQUE:? Real-time imaging, as well as color and pulse Doppler interrogation, were performed of the lower extremity deep veins from the inguinal ligament to the popliteal fossa.? ? COMPARISON:? [facility], , [facility] VENOUS LOW EXTREM LT, 09/05/2019, 14:05. ? FINDINGS:? The common femoral, femoral and popliteal veins are normally compressible, and free of intraluminal thrombus.? Color and pulse Doppler demonstrate normal phasic intraluminal flow.? There is normal augmentation response to distal compression maneuver. ? ? IMPRESSION:? No deep vein thrombosis of the left lower extremity. ? ? Dictated by: Tita Ly M.D. on 10/07/2021 at 16:00 ? ? Approved by: Tita Ly M.D. on 10/07/2021 at 16:00 ? MDM Narrative Medical decision making narrative: 76-year-old female with history back surgery 2 and half weeks ago presents to the emergency department with left lower leg pain after riding her stationary bike 4 days ago. Ultrasound for DVT was negative. Wells score of 0. Will discharge patient home with instructions to continue her previously prescribed medications of gabapentin and pain medication and to follow up with her back surgeon in 8 days as previously scheduled. Discussed return precautions and plan of care with patient, who was agreeable with course of action. Discharge Plan Departure Patient Disposition: Home Clinical Impression: Left leg pain Instructions: DI for Deep Vein Thrombosis Activity Restrictions/Additional Instructions: *You have been diagnosed with left leg pain. Your ultrasound was negative for a DVT and my assessment was encouraging. As we discussed, refrain from any aggressive activity but try to do as much as pain will allow. Continue taking the medications previously prescribed and follow-up with your surgeon next week, as previously scheduled. For any worsening symptoms that include intolerable pain, loss of control of bowel or bladder, etc. please return to the emergency department immediately. *What to do: *Please continue to take your regular medications as directed. [ ] New medication prescriptions sent to your pharmacy: [ ] [ ] New medication written as a paper prescription [x ] No new medications given *Please follow up with your primary care provider in 2-3 days, call for an appointment. Let them know you were seen in the Emergency Department and that we ask that you be seen in follow up. We will electronically transmit a record of today's note if your PCP is in our system *If you do not have a primary care provider please contact the [facility] Resource line at [phone]. They will ask some questions about your medical history and help get you set up with a doctor in the community. ? Return to ER if you should have any new, worsening or concerning symptoms, such as worsening pain, severe headache, confusion, chest pain, difficulty breathing, fever greater than 101 F, shaking chills, persistent vomiting to the point that you cannot drink fluids, or other new or worsening symptoms. Prescriptions: No Action multivitamin [Multiple Vitamins] 1 EACH tablet 1 tab PO DAILY Qty: 0 sodium chloride [Destiny 128] 3.5 GM ointment 1 melissa OPHTH BEDTIME PRN (Reason: Eye disorder) Qty: 0 albuterol sulfate 90 mcg/actuation HFA aerosol inhaler 2 puff INHALATION Q4H PRN (Reason: shortness of breath or wheezing) Qty: 1 2RF Label Comments: not on home medication list Rx Instructions: administer with spacer; 2 puffs inh q 4 hours PRN rosuvastatin [Crestor] 5 mg tablet 2.5 mg PO DAILY Qty: 0 Pulmicort Flexhaler 180 mcg/actuation aerosol powdr breath activated 2 inhalation inhalation BID Qty: 2 5RF fluticasone propionate 50 mcg/actuation spray,suspension See Rx Instructions .ROUTE .COMPLEX Qty: 16 2RF Dose Instruction: Administer 2 sprays intranasally into each nostril daily Rx Instructions: Administer 2 sprays intranasally into each nostril daily estradiol [Estrace] 0.01 % (0.1 mg/gram) cream 1 g Vaginal 2XW Qty: 42.5 5RF flecainide 100 mg tablet 100 mg PO Q12H (DME) Disabled parking permit Qty: 1 0RF Rx Instructions: I find this patient to be medically disabled and qualified for disabled parking as indicated, and signed, on the accompanying disabled parking application for individuals. losartan 50 mg tablet 50 mg PO BEDTIME spironolactone 25 mg tablet 12.5 mg PO DAILY aspirin [Adult Low Dose Aspirin] 81 mg tablet,delayed release (DR/EC) 81 mg PO DAILY omeprazole 40 mg capsule,delayed release(DR/EC) 40 mg PO DAILY diltiazem HCl [Cartia XT] 120 mg capsule,extended release 24hr 120 mg PO BEDTIME ascorbic acid (vitamin C) 1,000 mg Tablet 1 g PO DAILY cholecalciferol (vitamin D3) [Vitamin D3] 1,000 unit Capsule 3,000 unit PO DAILY Cranberry 1,000 mg 1,000 mg PO DAILY Probiotic 1 cap PO DAILY d-mannose 1,000 mg 2,000 mg PO DAILY metronidazole [MetroCream] 0.75 % Cream 1 applic TOPICAL DAILY gabapentin 300 mg capsule 300 mg PO TID tramadol 50 mg Tablet 50 mg PO Q6-8H PRN (Reason: Pain) naproxen sodium [Aleve] 220 mg Capsule 220 mg PO BID acetaminophen 500 mg capsule 500 mg PO Q4H MDD Max 3000 mg per day PRN (Reason: Pain, Mild (1-3)) Qty: 90 0RF docusate sodium 100 mg Capsule 100 mg PO BID PRN (Reason: Constipation from narcotic pain meds) Qty: 30 0RF hydroxyzine pamoate 25 mg Capsule 25 mg PO Q4HR PRN (Reason: Muscle spasms/pain/nausea) Qty: 40 0RF oxycodone 10 mg tablet See Rx Instructions .ROUTE .COMPLEX PRN (Reason: Pain, Severe (7-10)) Qty: 42 0RF Rx Instructions: Take 1/2-1 tablet by mouth every 4 hours as needed for moderate to severe postop pain Referrals: Kel Arvizu MD [Primary Care Provider] - Visit Report Forms: Patient Portal/API <Gertrudis Brown DO - Last Filed: 10/11/21 08:33> Cosign ED Attending Quianaature Attestation: I was immediately available in the department for consultation. Documentation has been reviewed.
[2021-10-07 18:46] VITALS: BP 153/63; PULSE 62; RESP 18; O2SAT 97
== END 2021-10-07 18:47 | disposition home or self-care (01) ==
PROVIDERS: Emergency Provider Registered Nurse; PCP Internal Medicine
DX: M79.605 Pain in left leg (principal)
CPT/HCPCS: 93971; 99281; 99283

== ENCOUNTER → 2021-10-14 11:48 | Outpatient (CLI) | payer MEDICARE, OTHER, SELFPAY ==
[2021-10-14 10:17] VITALS: BMI 32.2
[2021-10-14 13:04] LABS: Add Manual Diff / Slide Review NO; Basophils Absolute Auto 100 /uL (0-100); Basophils Percent Auto 0.8 % (0-2); Eosinophils Absolute Auto 500 /uL (0-450); Eosinophils Percent Auto 4.8 % (2-4); Hematocrit 38.4 % (36-46); Hemoglobin 12.8 g/dL (12.0-16.0); Lymphocytes Absolute Auto 2300 /uL (1100-4500); Lymphocytes Percent Auto 23.3 % (25-40); Mean Corpuscular HGB Conc 33.3 % (30-36); Mean Corpuscular Volume 86.9 fL (80-100); Monocytes Absolute Auto 800 /uL (0-900); Monocytes Percent Auto 8.1 % (3-14); Neutrophils Absolute Auto 6200 /uL (1500-7000); Platelet Count 363 X10^3/uL (150-400); Red Blood Cell Count 4.41 X10^6/uL (4.0-5.2); Red Cell Distribution Width 15.1 % (11.6-14.8); White Blood Cell Count 9.9 X10^3/uL (4.5-11.0)
[2021-10-14 13:24] LABS: C-Reactive Protein Quant < 0.5 mg/dL (<1.0)
[2021-10-14 13:31] LABS: Erythrocyte Sedimentation Rate 60 MM/HR (0-20)
[2021-10-14 14:04] LABS: Appearance Urine UA CLEAR; Bilirubin Urine UA NEGATIVE (NEGATIVE); Color Urine UA YELLOW; Glucose Urine UA NEGATIVE (Negative); Ketones Urine UA NEGATIVE (NEGATIVE); Leukocyte Esterase Urine UA NEGATIVE (NEGATIVE); Nitrite Urine UA NEGATIVE (Negative); Occult Blood Urine UA NEGATIVE (Negative); Protein Urine UA NEGATIVE (Negative); Urobilinogen Urine UA 0.2 E.U./dL (0.2)
[2021-10-14 14:29] LABS: pH Urine UA 6.5 (4.5-8.0)
[2021-10-14 14:48] LABS: Bacteria Urine Occasional (0-1); Culture Indicated Urine Cult Not Indicated; Hyaline Casts Urine 10-30/LPF; RBC Urine 0-1/HPF (0-5/HPF); Renal Epithelial Cells Urine 0-1/HPF (0-1/HPF); Squamous Epithelial Cell Urine 0-1 /HPF (0-5/HPF); Transitional Epi Cells Urine 0-1/HPF (0-5/HPF); WBC Urine 0-1/HPF (0-5/HPF)
[2021-10-14 16:02] LABS: Creatinine Urine Random 76.1 mg/dL
[2021-10-14 16:05] LABS: Microalbumi Creatinin Ratio Ur 44.6 ug/mg CR (<30); Microalbumin Urine Random 3.4 mg/dL (0-1.6)
== END ==
PROVIDERS: PCP Internal Medicine; Referring Provider Internal Medicine; Visit Provider Internal Medicine
DX: E78.2 Mixed hyperlipidemia (principal); M31.6 Other giant cell arteritis; E11.51 Type 2 diabetes mellitus with diabetic peripheral angiopathy without gangrene; N39.0 Urinary tract infection, site not specified
CPT/HCPCS: 36415; 81001; 82043; 82570; 85025; 85651; 86140

== ENCOUNTER → 2022-01-22 11:29 | Outpatient (CLI) | payer MEDICARE, OTHER, SELFPAY ==
[2021-10-14 10:17] VITALS: BMI 32.2
[2022-01-22 12:23] LABS: Hematocrit 36.7 % (36-46); Hemoglobin 11.9 g/dL (12.0-16.0); Mean Corpuscular HGB Conc 32.5 % (30-36); Mean Corpuscular Hemoglobin 28.4 PG (26-34); Mean Corpuscular Volume 87.4 fL (80-100); Platelet Count 344 X10^3/uL (150-400); White Blood Cell Count 9.3 X10^3/uL (4.5-11.0)
== END ==
PROVIDERS: PCP Internal Medicine; Referring Provider Internal Medicine; Visit Provider Internal Medicine
DX: D64.9 Anemia, unspecified (principal)
CPT/HCPCS: 36415; 85027

== ENCOUNTER 2022-01-26 10:50 | Emergency (ER) | payer MEDICARE, OTHER, SELFPAY ==
[2021-10-14 10:17] VITALS: BMI 32.2
[2022-01-26] VITALS (15 sets, daily range): BP systolic 137–166; BP diastolic 63–72; PULSE 57–88; RESP 12–40; TEMP 37.2; O2SAT 97–98; BMI 31.4
--- NOTE | 2022-01-26 11:09 | DI.RAD.S_ITS ---
PROCEDURE: XR CHEST 1V INDICATIONS: chest pain TECHNIQUE: One view of the chest was acquired. COMPARISON: [facility], CR, XR CHEST 1V, 03/07/2020, 19:23. FINDINGS: Surgical changes and devices: None. Lungs and pleura: Lungs are clear. No pleural effusions or pneumothorax. Mediastinum: Mediastinal contours appear normal. Heart size is normal. Atherosclerotic calcification of the aortic arch is noted. Bones and chest wall: No suspicious bony lesions. Age-appropriate bony degenerative changes are seen. Overlying soft tissues appear unremarkable. IMPRESSION: No significant portable chest abnormality is seen for age. Dictated by: Tonny Carmona M.D. on 01/26/2022 at 11:00 Approved by: Tonny Carmona M.D. on 01/26/2022 at 11:01
[2022-01-26 11:53] LABS: INR 1.1 (0.9-1.3); Prothrombin Time 12.4 SECONDS (10.1-12.7)
[2022-01-26 11:55] LABS: PTT Partial Thromboplastin Tim 28 SECONDS (26-36)
[2022-01-26 11:57] LABS: Alanine Aminotransferase 20 IU/L (<35); Albumin 4.1 g/dL (3.5-5.0); Albumin Globulin Ratio 1.2 (1.0-2.8); Alkaline Phosphatase 87 U/L (38-126); Aspartate Aminotransferase 20 IU/L (14-36); BUN Creatinine Ratio 21.8 (6-22); Bilirubin Total 0.3 mg/dL (0.2-1.3); Blood Urea Nitrogen 19 mg/dL (7-17); Calcium 9.3 mg/dL (8.4-10.2); Carbon Dioxide 23 mmol/L (22-32); Chloride 104 mmol/L (98-107); Creatine Kinase < 20 U/L (30-135); Estimated Glomerular Filt Rate > 60 mL/min (>60); Globulin 3.5 g/dL (1.7-4.1); Glucose 123 mg/dL (80-110); HEMOLYSIS < 15 (0-50); Lipase 78 U/L (23-300); Magnesium 1.6 mg/dL (1.6-2.3); Potassium 3.6 mmol/L (3.4-5.1); Sodium 140 mmol/L (137-145); Total Protein 7.6 g/dL (6.3-8.2)
[2022-01-26 12:04] LABS: Influenza A - CEPHEID Flu A NEGATIVE (NEGATIVE); Influenza B - CEPHEID Flu B NEGATIVE (NEGATIVE); Respiratory Syncytial Virus Negative (Negative)
[2022-01-26 12:08] LABS: Troponin I < 0.012 ng/mL (0.01-0.034)
[2022-01-26 12:10] LABS: COVID-19 CEPHEID 4-PLEX PCR Negative (Negative)
[2022-01-26 12:31] LABS: Add Manual Diff / Slide Review NO; Basophils Absolute Auto 0 /uL (0-100); Basophils Percent Auto 0.4 % (0-2); Eosinophils Absolute Auto 700 /uL (0-450); Eosinophils Percent Auto 8.2 % (2-4); Hematocrit 36.8 % (36-46); Hemoglobin 12.2 g/dL (12.0-16.0); Lymphocytes Absolute Auto 3000 /uL (1100-4500); Mean Corpuscular HGB Conc 33.1 % (30-36); Mean Corpuscular Hemoglobin 28.5 PG (26-34); Mean Corpuscular Volume 85.9 fL (80-100); Monocytes Absolute Auto 700 /uL (0-900); Monocytes Percent Auto 8.1 % (3-14); Neutrophils Absolute Auto 4300 /uL (1500-7000); Neutrophils Percent Auto 49.3 % (50-75); Platelet Count 329 X10^3/uL (150-400); Red Blood Cell Count 4.29 X10^6/uL (4.0-5.2); Red Cell Distribution Width 15.8 % (11.6-14.8); White Blood Cell Count 8.7 X10^3/uL (4.5-11.0)
--- NOTE | 2022-01-26 13:00 | ED_ITS ---
HPI - SOB/Dyspnea <Allyson Jt Horowitz, [facility] - Last Filed: 01/26/22 16:12> General Chief Complaint: Shortness of Breath/Dyspnea Stated Complaint: INCREASING SOB, HEADACHE, FATIGUE, CHEST PAIN Time Seen by Provider: 01/26/22 12:36 History of Present Illness HPI Narrative: This is a 76-year-old female with history of COPD, diabetes type 2, peripheral artery disease, recurrent UTIs, obesity, and presents to the emergency department complaining of being more fatigued than usual, short of breath, and not feeling herself with left-sided chest pain that comes and goes. She has a significant medical history, is not anticoagulated and takes a baby aspirin daily, has a stent to her left iliac, takes flecainide, diltiazem, losartan for her history of bigeminy and arrhythmias, primary care provider is Dr. Arvizu, inspector repairer is Brett, her interactive media specialist is Dr. Pebbles barrera. She states that she has a history of chronic UTIs, has felt tired, nauseated, short of breath without a cough, sensation changes, weakness, incontinence, dysuria, urinary frequency or urgency. Related Data Home Medications Medication Instructions Recorded Confirmed multivitamin (Multiple Vitamins 1 tab PO DAILY ##0 10/27/16 12/11/21 tablet) sodium chloride 5 % eye ointment 1 melissa OPHTH BEDTIME PRN Eye 10/27/16 12/11/21 (Destiny 128) disorder ##0 flecainide 100 mg tablet 100 mg PO Q12H 11/06/17 12/11/21 rosuvastatin 5 mg tablet (Crestor) 2.5 mg PO DAILY #0 tabs 05/11/18 12/11/21 losartan 50 mg tablet 50 mg PO BEDTIME 11/23/18 12/11/21 Cranberry 1,000 mg PO DAILY 12/10/18 12/11/21 Probiotic 1 cap PO DAILY 12/10/18 12/11/21 ascorbic acid (vitamin C) 1,000 mg 1 g PO DAILY 12/10/18 12/11/21 tablet cholecalciferol (vitamin D3) 25 3,000 unit PO DAILY 12/10/18 12/11/21 mcg (1,000 unit) capsule (Vitamin D3) d-mannose 2,000 mg PO DAILY 12/10/18 12/11/21 diltiazem HCl 120 mg 120 mg PO BEDTIME 12/10/18 12/11/21 capsule,extended release 24 hr (Cartia XT) metronidazole 0.75 % topical cream 1 applic topical DAILY 12/10/18 12/11/21 (MetroCream) spironolactone 25 mg tablet 12.5 mg PO DAILY 05/25/20 12/11/21 aspirin 81 mg tablet,delayed 81 mg PO DAILY 06/19/21 12/11/21 release (Adult Low Dose Aspirin) naproxen sodium 220 mg capsule 220 mg PO BID PRN 12/11/21 12/11/21 (Aleve) omeprazole 40 mg capsule,delayed 40 mg PO DAILY 12/11/21 release Previous Rx's Medication Instructions Recorded albuterol sulfate 90 mcg/actuation 2 puff inhalation Q4H PRN 09/23/17 aerosol inhaler shortness of breath or wheezing #1 inh Disabled parking permit #1 ea 05/19/18 budesonide 180 mcg/actuation 2 inhalation inhalation BID #2 02/03/19 breath activated powder inhaler inhalations (Pulmicort Flexhaler) fluticasone propionate 50 See Rx Instructions .Route 04/05/20 mcg/actuation nasal .COMPLEX #16 grams spray,suspension estradiol 0.01% (0.1 mg/gram) 1 g vaginal 2XW #42.5 grams 03/13/21 vaginal cream (Estrace) gabapentin 300 mg capsule See Rx Instructions .Route 12/02/21 .COMPLEX #60 caps Allergies Allergy/AdvReac Type Severity Reaction Status Date / Time adhesive tape Allergy Severe PAPER TAPE Verified 12/11/21 09:43 allergy - Dermatitis latex [LATEX] Allergy Severe Hives, Verified 12/11/21 09:43 Wheezing sulfamethoxazole Allergy Intermediate Rash Verified 12/11/21 09:43 [From Bactrim] trimethoprim [From Bactrim] Allergy Intermediate Rash Verified 12/11/21 09:43 bupropion [From WELLBUTRIN] AdvReac Severe Tremors Verified 12/11/21 09:43 erythromycin base AdvReac Severe GI Upset, Verified 12/11/21 09:43 [ERYTHROMYCIN BASE] Bloody diarrhea lisinopril [LISINOPRIL] AdvReac Severe Cough Verified 12/11/21 09:43 meperidine [From DEMEROL] AdvReac Severe Hallucinati Verified 12/11/21 09:43 ng Review of Systems <ROMI Kwan - Last Filed: 01/26/22 16:12> Review of Systems Narrative: Review of systems is negative for acute abnormalities unless otherwise noted in HPI Patient History <ROMI Kwan - Last Filed: 01/26/22 16:12> Medical History Abnormal Pap smear of cervix (1975) Allergic rhinitis Ankle fracture, left (1987) Ankle pain (1989) Anxiety (1984) Asthma (2015) Atheroembolism Atrial fibrillation (2012) Graves's esophagus (2013) Blue toe syndrome of left lower extremity BPPV (benign paroxysmal positional vertigo) Bruit of left carotid artery Cataract (2002) Chicken pox (1954) Cholangioma COPD (chronic obstructive pulmonary disease) (~2015) Corneal dystrophy (2002) Cystocele 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 Diverticular disease (2016) Diverticulosis Do not resuscitate Elbow fracture, right (2015) Epiretinal membrane (2004) Frequent UTI (~2018) Fuchs' corneal dystrophy of both eyes Gastritis GERD (gastroesophageal reflux disease) (2004) Hayfever (1965) Hearing loss (~2015) Hemorrhoids (~1969) History of iron deficiency anemia (~2018) History of psychosis (1968) Hypercholesterolemia Hyperlipidemia (1996) Hypertension Internal hemorrhoids Kidney stones (2010) Lumbar back pain with radiculopathy affecting left lower extremity Measles Medicare annual wellness visit, initial Mild aortic valve sclerosis (~2017) Mumps Osteoarthritis (~1994) Osteopenia PAD (peripheral artery disease) Positive PPD (1977) Postmenopausal atrophic vaginitis Prediabetes Rectocele Recurrent UTI Rosacea (2011) Skin cancer, basal cell (~2020) TMJ pain dysfunction syndrome Uterine cancer (~1975) Ventricular escape beats Surgical History Anesthesia History of cataract removal with insertion of prosthetic lens (2002) History of ear, nose, and throat (ENT) surgery (1977) History of esophagogastroduodenoscopy (EGD) (07/2015) History of esophagogastroduodenoscopy (EGD) (~01/2019) History of foot surgery (2007) History of knee replacement (2012) History of meniscectomy of left knee (~04/2021) Hx of blepharoplasty (01/2020) S/P epidural steroid injection (~02/10/21) S/P lumbar fusion Status post angioplasty with stent (~10/2019) Status post colonoscopy (2015) Status post hysterectomy (1975) Status post laparoscopic cholecystectomy (2001) Status post open reduction with internal fixation (ORIF) of fracture of ankle (1987) Family History Brother Brain aneurysm CVA (cerebral vascular accident) Mental health problem Alcoholism Brother Alcoholism Heart disease Father No problems noted. Grandfather Alcoholism Suicide Grandmother CVA (cerebral vascular accident) Mother CVA (cerebral vascular accident) ME (myocardial infarction) Lung cancer Hypertension Heart disease Grandfather No problems noted. Grandmother MVA (motor vehicle accident) Sister Thalassemia Dementia Drug addiction Sister Alcoholism Brother Ischemia Alcoholism CVA (cerebral vascular accident) Social History details: , two grown children household members: none Smoking Status: Former smoker alcohol intake: current Smoking Status: Former smoker alcohol intake frequency: a few times a month Substance Use Type: does not use Exam <ROMI Kwan - Last Filed: 01/26/22 16:12> Narrative Exam Narrative: Reviewed vitals signs and nursing notes. General: cooperative, comfortable, in no acute distress, well groomed, obese, appear short of breath, nontoxic appearing, afebrile HEENT: symmetrical facial expressions, moist mucous membranes, without congestion, anterior cervical lymphadenopathy, or other abnormality Cardiovascular: regular rate and rhythm, S1-S2 without murmur no peripheral edema, warm extremities Respiratory: normal effort, able to speak in complete sentences, without wheezing, stridor, or abnormal breath sounds. No retractions or tachypnea. GI: abdomen soft, nontender to palpation, nondistended, without masses, rebound tenderness or exquisite tenderness with exam. MSK: moves all extremities, neurovascularly intact, no weakness, normal tone Skin: brisk capillary refill, without pallor or erythema Neuro: normal speech and cognition, A&O x3, ambulatory, clear speech Psych: mental status is grossly normal, congruent mood, normal affect, pleasant and cooperative Initial Vital Signs Initial Vital Signs: Vital Signs Temperature 98.9 F 01/26/22 11:07 Pulse Rate 88 01/26/22 11:07 Respiratory Rate 16 01/26/22 11:07 Blood Pressure 142/63 H 01/26/22 11:07 Pulse Oximetry 97 01/26/22 11:07 Oxygen Delivery Method 01/26/22 11:07 <Alejandro Membreno MD - Last Filed: 01/26/22 16:36> Initial Vital Signs Initial Vital Signs: Vital Signs Temperature 98.9 F 01/26/22 11:07 Pulse Rate 88 01/26/22 11:07 Respiratory Rate 16 01/26/22 11:07 Blood Pressure 142/63 H 01/26/22 11:07 Pulse Oximetry 97 01/26/22 11:07 Oxygen Delivery Method 01/26/22 11:07 Scores <ROMI Kwan - Last Filed: 01/26/22 16:12> PERC Score Age greater than or equal to 50 years: Yes Heart rate greater than or equal to 100 bpm: No Room Air O2 Sat less than 95%: No Unilateral leg swelling: No Recent trauma or surgery: No Hemoptysis: No Prior PE or DVT: Yes Hormone Use: No Total PERC Score: 2 Wells' Criteria for PE Clinical signs and symptoms of DVT: No PE is #1 Dx or equally likely: Yes Heart rate > 100: No Immobilization at least 3 days or surg in previous 4 weeks: No History of PE or DVT: Yes Hemoptysis: No Malignancy w/Treatment within 6 months or palliative: No Wells' PE Score total: 4.5 <Alejandro Membreno MD - Last Filed: 01/26/22 16:36> PERC Score Total PERC Score: 2 Wells' Criteria for PE Wells' PE Score total: 4.5 Course <ROMI Kwan - Last Filed: 01/26/22 16:12> Orders Ordered: ED Orders 01/26/22 11:06 Covid-19 + FLU A/B + RSV - PCR Stat 01/26/22 11:09 XR chest 1V Stat 01/26/22 11:17 BNP [NT-proBNP (BNP-Adult 18+)] Stat Complete Blood Count AUTO DIFF Stat Comprehensive Metabolic Panel Stat D Dimer Stat Lipase Stat Magnesium Stat Partial Thromboplastin Time Stat Prothrombin Time INR Stat Troponin & CK Cardiac Panel Stat 01/26/22 11:39 EKG-12 Lead Stat 01/26/22 13:57 CT angio chest PE protocol Stat 01/26/22 14:47 Urine Microscopic Stat Discontinued Medications Albuterol (Albuterol Hfa Prepack) 1 box MISC SEEINSTR ONE Stop: 01/26/22 15:24 Last Admin: 01/26/22 15:27 Dose: 1 box Documented By: ELSA Albuterol/Ipratropium (Albuterol/Ipratropium 3 Ml Ampul) 3 ml INH NOW ONE Stop: 01/26/22 14:51 Last Admin: 01/26/22 15:04 Dose: 3 ml Documented By: ELSA Vital Signs Vital signs: Vital Signs - 8 hr 01/26/22 11:07 01/26/22 11:09 01/26/22 11:30 Temperature 98.9 F Pulse Rate 88 70 Respiratory Rate 16 19 Blood Pressure 142/63 H 145/65 H Pulse Oximetry 97 98 Oxygen Delivery Method Room Air 01/26/22 11:30 01/26/22 12:00 01/26/22 12:00 Temperature Pulse Rate 62 59 L Respiratory Rate 18 16 Blood Pressure 144/63 H Pulse Oximetry 98 97 Oxygen Delivery Method 01/26/22 12:30 01/26/22 12:30 01/26/22 13:00 Temperature Pulse Rate 57 L 57 L Respiratory Rate 31 H 40 H Blood Pressure 137/65 Pulse Oximetry 97 98 Oxygen Delivery Method 01/26/22 13:01 01/26/22 13:01 01/26/22 13:30 Temperature Pulse Rate 57 L 58 L Respiratory Rate 31 H 19 Blood Pressure 165/71 H Pulse Oximetry 98 97 Oxygen Delivery Method 01/26/22 13:31 01/26/22 13:31 01/26/22 14:00 Temperature Pulse Rate 59 L Respiratory Rate 29 H Blood Pressure 146/63 H 166/72 H Pulse Oximetry 98 Oxygen Delivery Method 01/26/22 14:00 01/26/22 15:04 01/26/22 14:46 Temperature Pulse Rate 62 67 Respiratory Rate 27 H 19 Blood Pressure Pulse Oximetry 98 98 97 Oxygen Delivery Method Room Air 01/26/22 14:47 01/26/22 14:47 01/26/22 15:00 Temperature Pulse Rate 64 62 Respiratory Rate 20 18 Blood Pressure 165/69 H Pulse Oximetry 98 97 Oxygen Delivery Method 01/26/22 16:07 Temperature Pulse Rate 80 Respiratory Rate 12 Blood Pressure 165/69 H Pulse Oximetry 98 Oxygen Delivery Method Room Air <Alejandro Membreno MD - Last Filed: 01/26/22 16:36> Orders Ordered: ED Orders 01/26/22 11:06 Covid-19 + FLU A/B + RSV - PCR Stat 01/26/22 11:09 XR chest 1V Stat 01/26/22 11:17 BNP [NT-proBNP (BNP-Adult 18+)] Stat Complete Blood Count AUTO DIFF Stat Comprehensive Metabolic Panel Stat D Dimer Stat Lipase Stat Magnesium Stat Partial Thromboplastin Time Stat Prothrombin Time INR Stat Troponin & CK Cardiac Panel Stat 01/26/22 11:39 EKG-12 Lead Stat 01/26/22 13:57 CT angio chest PE protocol Stat 01/26/22 14:47 Urine Microscopic Stat Discontinued Medications Albuterol (Albuterol Hfa Prepack) 1 box MISC SEEINSTR ONE Stop: 01/26/22 15:24 Last Admin: 01/26/22 15:27 Dose: 1 box Documented By: LESA Albuterol/Ipratropium (Albuterol/Ipratropium 3 Ml Ampul) 3 ml INH NOW ONE Stop: 01/26/22 14:51 Last Admin: 01/26/22 15:04 Dose: 3 ml Documented By: ELSA Vital Signs Vital signs: Vital Signs - 8 hr 01/26/22 11:07 01/26/22 11:09 01/26/22 11:30 Temperature 98.9 F Pulse Rate 88 70 Respiratory Rate 16 19 Blood Pressure 142/63 H 145/65 H Pulse Oximetry 97 98 Oxygen Delivery Method Room Air 01/26/22 11:30 01/26/22 12:00 01/26/22 12:00 Temperature Pulse Rate 62 59 L Respiratory Rate 18 16 Blood Pressure 144/63 H Pulse Oximetry 98 97 Oxygen Delivery Method 01/26/22 12:30 01/26/22 12:30 01/26/22 13:00 Temperature Pulse Rate 57 L 57 L Respiratory Rate 31 H 40 H Blood Pressure 137/65 Pulse Oximetry 97 98 Oxygen Delivery Method 01/26/22 13:01 01/26/22 13:01 01/26/22 13:30 Temperature Pulse Rate 57 L 58 L Respiratory Rate 31 H 19 Blood Pressure 165/71 H Pulse Oximetry 98 97 Oxygen Delivery Method 01/26/22 13:31 01/26/22 13:31 01/26/22 14:00 Temperature Pulse Rate 59 L Respiratory Rate 29 H Blood Pressure 146/63 H 166/72 H Pulse Oximetry 98 Oxygen Delivery Method 01/26/22 14:00 01/26/22 15:04 01/26/22 14:46 Temperature Pulse Rate 62 67 Respiratory Rate 27 H 19 Blood Pressure Pulse Oximetry 98 98 97 Oxygen Delivery Method Room Air 01/26/22 14:47 01/26/22 14:47 01/26/22 15:00 Temperature Pulse Rate 64 62 Respiratory Rate 20 18 Blood Pressure 165/69 H Pulse Oximetry 98 97 Oxygen Delivery Method 01/26/22 16:07 Temperature Pulse Rate 80 Respiratory Rate 12 Blood Pressure 165/69 H Pulse Oximetry 98 Oxygen Delivery Method Room Air MDM - SOB/Dyspnea <ROMI Kwan - Last Filed: 01/26/22 16:12> Lab Data Result diagrams: 01/26/22 11:17 01/26/22 11:17 Labs: Lab Results 01/26/22 01/26/22 01/26/22 Range/Units 11:06 11:17 11:17 WBC 8.7 (4.5-11.0) X10^3/uL RBC 4.29 (4.0-5.2) X10^6/uL Hgb 12.2 (12.0-16.0) g/dL Hct 36.8 (36-46) % MCV 85.9 (80-100) fL MCH 28.5 (26-34) PG MCHC 33.1 (30-36) % RDW 15.8 H (11.6-14.8) % Plt Count 329 (150-400) X10^3/uL Neut % (Auto) 49.3 L (50-75) % Lymph % (Auto) 34.0 (25-40) % [place] % (Auto) 8.1 (3-14) % Eos % (Auto) 8.2 H (2-4) % Baso % (Auto) 0.4 (0-2) % Neut # (Auto) 4300 (2712-6293) /uL Lymph # (Auto) 3000 (2266-3326) /uL [place] # (Auto) 700 (0-900) /uL Eos # (Auto) 700 H (0-450) /uL Baso # (Auto) 0 (0-100) /uL PT 12.4 (10.1-12.7) SECONDS INR 1.1 (0.9-1.3) APTT 28 (26-36) SECONDS D-Dimer (<500) ng/ml Sodium (137-145) mmol/L Potassium (3.4-5.1) mmol/L Chloride (98-107) mmol/L Carbon Dioxide (22-32) mmol/L BUN (7-17) mg/dL Creatinine (0.52-1.04) mg/dL Estimated GFR (>60) mL/min BUN/Creatinine Ratio (6-22) Glucose (80-110) mg/dL Calcium (8.4-10.2) mg/dL Magnesium (1.6-2.3) mg/dL Total Bilirubin (0.2-1.3) mg/dL AST (14-36) IU/L ALT (<35) IU/L Alkaline Phosphatase (38-126) U/L Total Creatine Kinase (30-135) U/L CK-MB (CK-2) CK-MB (CK-2) Rel Index Troponin I (0.01-0.034) ng/mL NT-Pro-B Natriuret Pep (<450) pg/mL Total Protein (6.3-8.2) g/dL Albumin (3.5-5.0) g/dL Globulin (1.7-4.1) g/dL Albumin/Globulin Ratio (1.0-2.8) Lipase (23-300) U/L Urine RBC (0-5/HPF) Urine WBC (0-5/HPF) Ur Squamous Epith Cells (0-5/HPF) Amorphous Sediment Urine Bacteria (None) Urine Mucus (Negative) Ur Culture Indicated? SARS-CoV-2 (PCR) Negative (Negative) Influenza A (RT-PCR) Flu a negative (NEGATIVE) Influenza B (RT-PCR) Flu b negative (NEGATIVE) RSV (PCR) Negative (Negative) 01/26/22 01/26/22 01/26/22 Range/Units 11:17 11:17 11:17 WBC (4.5-11.0) X10^3/uL RBC (4.0-5.2) X10^6/uL Hgb (12.0-16.0) g/dL Hct (36-46) % MCV (80-100) fL MCH (26-34) PG MCHC (30-36) % RDW (11.6-14.8) % Plt Count (150-400) X10^3/uL Neut % (Auto) (50-75) % Lymph % (Auto) (25-40) % [place] % (Auto) (3-14) % Eos % (Auto) (2-4) % Baso % (Auto) (0-2) % Neut # (Auto) (3852-6202) /uL Lymph # (Auto) (8193-4232) /uL [place] # (Auto) (0-900) /uL Eos # (Auto) (0-450) /uL Baso # (Auto) (0-100) /uL PT (10.1-12.7) SECONDS INR (0.9-1.3) APTT (26-36) SECONDS D-Dimer 1106 H (<500) ng/ml Sodium 140 (137-145) mmol/L Potassium 3.6 (3.4-5.1) mmol/L Chloride 104 (98-107) mmol/L Carbon Dioxide 23 (22-32) mmol/L BUN 19 H (7-17) mg/dL Creatinine 0.87 (0.52-1.04) mg/dL Estimated GFR > 60 (>60) mL/min BUN/Creatinine Ratio 21.8 (6-22) Glucose 123 H (80-110) mg/dL Calcium 9.3 (8.4-10.2) mg/dL Magnesium 1.6 (1.6-2.3) mg/dL Total Bilirubin 0.3 (0.2-1.3) mg/dL AST 20 (14-36) IU/L ALT 20 (<35) IU/L Alkaline Phosphatase 87 (38-126) U/L Total Creatine Kinase < 20 L (30-135) U/L CK-MB (CK-2) TNP CK-MB (CK-2) Rel Index TNP Troponin I < 0.012 (0.01-0.034) ng/mL NT-Pro-B Natriuret Pep 94 (<450) pg/mL Total Protein 7.6 (6.3-8.2) g/dL Albumin 4.1 (3.5-5.0) g/dL Globulin 3.5 (1.7-4.1) g/dL Albumin/Globulin Ratio 1.2 (1.0-2.8) Lipase 78 (23-300) U/L Urine RBC (0-5/HPF) Urine WBC (0-5/HPF) Ur Squamous Epith Cells (0-5/HPF) Amorphous Sediment Urine Bacteria (None) Urine Mucus (Negative) Ur Culture Indicated? SARS-CoV-2 (PCR) (Negative) Influenza A (RT-PCR) (NEGATIVE) Influenza B (RT-PCR) (NEGATIVE) RSV (PCR) (Negative) 01/26/22 Range/Units 14:47 WBC (4.5-11.0) X10^3/uL RBC (4.0-5.2) X10^6/uL Hgb (12.0-16.0) g/dL Hct (36-46) % MCV (80-100) fL MCH (26-34) PG MCHC (30-36) % RDW (11.6-14.8) % Plt Count (150-400) X10^3/uL Neut % (Auto) (50-75) % Lymph % (Auto) (25-40) % [place] % (Auto) (3-14) % Eos % (Auto) (2-4) % Baso % (Auto) (0-2) % Neut # (Auto) (2344-9218) /uL Lymph # (Auto) (5061-6264) /uL [place] # (Auto) (0-900) /uL Eos # (Auto) (0-450) /uL Baso # (Auto) (0-100) /uL PT (10.1-12.7) SECONDS INR (0.9-1.3) APTT (26-36) SECONDS D-Dimer (<500) ng/ml Sodium (137-145) mmol/L Potassium (3.4-5.1) mmol/L Chloride (98-107) mmol/L Carbon Dioxide (22-32) mmol/L BUN (7-17) mg/dL Creatinine (0.52-1.04) mg/dL Estimated GFR (>60) mL/min BUN/Creatinine Ratio (6-22) Glucose (80-110) mg/dL Calcium (8.4-10.2) mg/dL Magnesium (1.6-2.3) mg/dL Total Bilirubin (0.2-1.3) mg/dL AST (14-36) IU/L ALT (<35) IU/L Alkaline Phosphatase (38-126) U/L Total Creatine Kinase (30-135) U/L CK-MB (CK-2) CK-MB (CK-2) Rel Index Troponin I (0.01-0.034) ng/mL NT-Pro-B Natriuret Pep (<450) pg/mL Total Protein (6.3-8.2) g/dL Albumin (3.5-5.0) g/dL Globulin (1.7-4.1) g/dL Albumin/Globulin Ratio (1.0-2.8) Lipase (23-300) U/L Urine RBC None seen (0-5/HPF) Urine WBC 0-1/hpf (0-5/HPF) Ur Squamous Epith Cells 1-5 /hpf (0-5/HPF) Amorphous Sediment 1+ Urine Bacteria None seen (None) Urine Mucus 1+ H (Negative) Ur Culture Indicated? Cult not indicated SARS-CoV-2 (PCR) (Negative) Influenza A (RT-PCR) (NEGATIVE) Influenza B (RT-PCR) (NEGATIVE) RSV (PCR) (Negative) Urine Dip Bedside Urine Glucose Negative Bedside Urine Bilirubin - Negative Bedside Urine Ketone - Negative Urine Specific [place] 1.015 Bedside Urine Occult Blood - Negative Bedside Urine pH 6.0 Bedside Urine Protein +/- 15 Bedside Urine Urobilinogen - Negative Bedside Urine Nitrite - Negative Bedside Urine Leukocytes - Negative Esterase Age-Adjusted D-dimer for Venous Thromboembolism (VTE) from [employer] on 01/26/2022 All calculations should be rechecked by clinician prior to use RESULT SUMMARY: 760 ?g/L Age-adjusted D-dimer cutoff, FEU VTE possible Reported D-dimer is greater than cutoff; consider confirmatory testing with CTA or V/Q scan INPUTS: Age ?> 76 years D-dimer level reported by lab ?> 1106 ?g/L D-dimer unit type ?> 1 = FEU (unadjusted cutoff typically ~500 or 0.50) Imaging Data Chest x-ray: Radiologist's Impression: PROCEDURE:? XR CHEST 1V ? INDICATIONS:? chest pain ? TECHNIQUE:? One view of the chest was acquired.? ? COMPARISON:? [facility], CR, XR CHEST 1V, 03/07/2020, 19:23. ? FINDINGS:? ? Surgical changes and devices:? None.? ? Lungs and pleura:? Lungs are clear.? No pleural effusions or pneumothorax.? ? Mediastinum:? Mediastinal contours appear normal.? Heart size is normal.? Atherosclerotic calcification of the aortic arch is noted.? ? Bones and chest wall:? No suspicious bony lesions.? Age-appropriate bony degenerative changes are seen. ? Overlying soft tissues appear unremarkable.? IMPRESSION:? No significant portable chest abnormality is seen for age. ? ? Dictated by: Tonny Carmona M.D. on 01/26/2022 at 11:00 ? ? Approved by: Tonny Carmona M.D. on 01/26/2022 at 11:01 ? CT scan - chest: Radiologist's Impression: PROCEDURE:? CT ANGIO CHEST PE PROTOCOL ? INDICATIONS:? elevated D Dimer, history COPD, arterial dx, SOB ? TECHNIQUE:? After the administration of intravenous contrast, 2 mm thick sections acquired from the pulmonary apices to the posterior costophrenic angles.? 3-dimensional maximum intensity projection (MIP) coronal and sagittal reformats were then acquired through the thorax.? For radiation dose reduction, the following was used:? automated exposure control, adjustment of mA and/or kV according to patient size.? ? COMPARISON:? [facility], CT, CHEST ANGIO-PE, 06/24/2013, 22:19.? [facility], CT, CT CHEST W CON, 01/18/2019, 9:04.? [facility], CR, XR CHEST 1V, 01/26/2022, 11:07. ? FINDINGS:? Image quality:? Excellent.? ? Pulmonary arteries:? Pulmonary arteries are normal in size, and demonstrate no intraluminal filling defects to suggest central pulmonary embolism.? ? Lungs and pleura:? Lungs are clear.? No pleural effusions or pneumothorax.? Central and peripheral airways are patent.? ? Mediastinum:? Heart size is mildly increased, without pericardial effusion.? Mild coronary artery calcification.? No mediastinal or hilar adenopathy.? Thoracic aorta is normal in caliber and enhancement.? Esophagus is normal in caliber.? There is a moderate-sized hiatal hernia.? ? Bones and chest wall:? No suspicious bony lesions.? Ribs and thoracic spine appear intact throughout.? Thyroid gland is normal.? No axillary or supraclavicular adenopathy.? ? Abdomen:? Visualized upper abdominal solid organs appear normal in the early arterial phase of enhancement.? ? IMPRESSION:? ? 1. No evidence for pulmonary embolism. 2. No acute pulmonary process. 3. Mild cardiomegaly and mild coronary artery atherosclerosis. 4. Moderate-sized hiatal hernia. ? ? Dictated by: Luis Eduardo Bailey M.D. on 01/26/2022 at 14:37 ? ? Approved by: Luis Eduardo Bailey M.D. on 01/26/2022 at 14:41 ? ECG Data Interpretation: EKG independently reviewed by myself at 1145 reveals normal sinus rhythm at 64 bpm with first-degree block, regular axis and normal QT interval. No STEMI, ST segment changes, arrhythmia, or acute ischemic changes. MDM Narrative Medical decision making narrative: This is a 76-year-old female with significant medical history who presents to the emergency department complaining of increased shortness of breath without any other symptoms other than fatigue and some occasional left-sided chest pain. Overall her workup was unremarkable, chest x-ray is negative for focal opacity, pleural effusion or pneumothorax, patient's urine dip is negative for infection, lab work overall is unremarkable except for an elevated D-dimer at 11:06. CTA chest was obtained as patient complained of chest pain with shortness of breath and this was negative for pulmonary embolism. No evidence of acute pulmonary process, mild cardiomegaly and mild coronary artery atherosclerosis with moderate-sized hiatal hernia. No clinically evident reasons for her shortness of breath today. Patient was given a DuoNeb which she found relief from her shortness of breath from and was given an MDI albuterol inhaler as she states hers is at home and not functional per recommend that she follow-up with her commercial specialist, inspector repairer, and primary care provider as needed, she was given strict return precautions. This is most likely a viral syndrome, her COVID, influenza, and RSV PCRs were negative today. Multiple causes of chest pain considered including ME, PE, pneumothorax, pneumonia, aortic dissection, and pleurisy. Patient reports no radiation, no diaphoresis, no provocation with exertion, and no vomiting. Other possible diagnosis' considered include; viral URI, influenza, pneumonia, pharyngitis, acute bronchitis, allergic rhinitis, pertussis, sinusitis, appendicitis, dehydration. Rest, drink plenty of fluids, Tylenol for muscle aches and pains. Return to ED for worsening symptoms such as SOB, chest pain, inability to take adequate oral fluids, fever, or productive cough. Patient is appropriate and amenable to discharge home. Vital signs are stable on repeat examination is unremarkable. Patient has been informed of results. Patient has been given strict return to ER precautions for any new or worsening symptoms. Patient understands to follow up closely with outpatient providers as instructed. Patient understands plan and agrees to discharge home. All questions and concerns answered at this time. <Alejandro Membreno MD - Last Filed: 01/26/22 16:36> Lab Data Labs: Lab Results 01/26/22 01/26/22 01/26/22 Range/Units 11:06 11:17 11:17 WBC 8.7 (4.5-11.0) X10^3/uL RBC 4.29 (4.0-5.2) X10^6/uL Hgb 12.2 (12.0-16.0) g/dL Hct 36.8 (36-46) % MCV 85.9 (80-100) fL MCH 28.5 (26-34) PG MCHC 33.1 (30-36) % RDW 15.8 H (11.6-14.8) % Plt Count 329 (150-400) X10^3/uL Neut % (Auto) 49.3 L (50-75) % Lymph % (Auto) 34.0 (25-40) % [place] % (Auto) 8.1 (3-14) % Eos % (Auto) 8.2 H (2-4) % Baso % (Auto) 0.4 (0-2) % Neut # (Auto) 4300 (6873-3561) /uL Lymph # (Auto) 3000 (5151-3664) /uL [place] # (Auto) 700 (0-900) /uL Eos # (Auto) 700 H (0-450) /uL Baso # (Auto) 0 (0-100) /uL PT 12.4 (10.1-12.7) SECONDS INR 1.1 (0.9-1.3) APTT 28 (26-36) SECONDS D-Dimer (<500) ng/ml Sodium (137-145) mmol/L Potassium (3.4-5.1) mmol/L Chloride (98-107) mmol/L Carbon Dioxide (22-32) mmol/L BUN (7-17) mg/dL Creatinine (0.52-1.04) mg/dL Estimated GFR (>60) mL/min BUN/Creatinine Ratio (6-22) Glucose (80-110) mg/dL Calcium (8.4-10.2) mg/dL Magnesium (1.6-2.3) mg/dL Total Bilirubin (0.2-1.3) mg/dL AST (14-36) IU/L ALT (<35) IU/L Alkaline Phosphatase (38-126) U/L Total Creatine Kinase (30-135) U/L CK-MB (CK-2) CK-MB (CK-2) Rel Index Troponin I (0.01-0.034) ng/mL NT-Pro-B Natriuret Pep (<450) pg/mL Total Protein (6.3-8.2) g/dL Albumin (3.5-5.0) g/dL Globulin (1.7-4.1) g/dL Albumin/Globulin Ratio (1.0-2.8) Lipase (23-300) U/L Urine RBC (0-5/HPF) Urine WBC (0-5/HPF) Ur Squamous Epith Cells (0-5/HPF) Amorphous Sediment Urine Bacteria (None) Urine Mucus (Negative) Ur Culture Indicated? SARS-CoV-2 (PCR) Negative (Negative) Influenza A (RT-PCR) Flu a negative (NEGATIVE) Influenza B (RT-PCR) Flu b negative (NEGATIVE) RSV (PCR) Negative (Negative) 01/26/22 01/26/22 01/26/22 Range/Units 11:17 11:17 11:17 WBC (4.5-11.0) X10^3/uL RBC (4.0-5.2) X10^6/uL Hgb (12.0-16.0) g/dL Hct (36-46) % MCV (80-100) fL MCH (26-34) PG MCHC (30-36) % RDW (11.6-14.8) % Plt Count (150-400) X10^3/uL Neut % (Auto) (50-75) % Lymph % (Auto) (25-40) % [place] % (Auto) (3-14) % Eos % (Auto) (2-4) % Baso % (Auto) (0-2) % Neut # (Auto) (9891-3608) /uL Lymph # (Auto) (2119-3782) /uL [place] # (Auto) (0-900) /uL Eos # (Auto) (0-450) /uL Baso # (Auto) (0-100) /uL PT (10.1-12.7) SECONDS INR (0.9-1.3) APTT (26-36) SECONDS D-Dimer 1106 H (<500) ng/ml Sodium 140 (137-145) mmol/L Potassium 3.6 (3.4-5.1) mmol/L Chloride 104 (98-107) mmol/L Carbon Dioxide 23 (22-32) mmol/L BUN 19 H (7-17) mg/dL Creatinine 0.87 (0.52-1.04) mg/dL Estimated GFR > 60 (>60) mL/min BUN/Creatinine Ratio 21.8 (6-22) Glucose 123 H (80-110) mg/dL Calcium 9.3 (8.4-10.2) mg/dL Magnesium 1.6 (1.6-2.3) mg/dL Total Bilirubin 0.3 (0.2-1.3) mg/dL AST 20 (14-36) IU/L ALT 20 (<35) IU/L Alkaline Phosphatase 87 (38-126) U/L Total Creatine Kinase < 20 L (30-135) U/L CK-MB (CK-2) TNP CK-MB (CK-2) Rel Index TNP Troponin I < 0.012 (0.01-0.034) ng/mL NT-Pro-B Natriuret Pep 94 (<450) pg/mL Total Protein 7.6 (6.3-8.2) g/dL Albumin 4.1 (3.5-5.0) g/dL Globulin 3.5 (1.7-4.1) g/dL Albumin/Globulin Ratio 1.2 (1.0-2.8) Lipase 78 (23-300) U/L Urine RBC (0-5/HPF) Urine WBC (0-5/HPF) Ur Squamous Epith Cells (0-5/HPF) Amorphous Sediment Urine Bacteria (None) Urine Mucus (Negative) Ur Culture Indicated? SARS-CoV-2 (PCR) (Negative) Influenza A (RT-PCR) (NEGATIVE) Influenza B (RT-PCR) (NEGATIVE) RSV (PCR) (Negative) 01/26/22 Range/Units 14:47 WBC (4.5-11.0) X10^3/uL RBC (4.0-5.2) X10^6/uL Hgb (12.0-16.0) g/dL Hct (36-46) % MCV (80-100) fL MCH (26-34) PG MCHC (30-36) % RDW (11.6-14.8) % Plt Count (150-400) X10^3/uL Neut % (Auto) (50-75) % Lymph % (Auto) (25-40) % [place] % (Auto) (3-14) % Eos % (Auto) (2-4) % Baso % (Auto) (0-2) % Neut # (Auto) (2999-5521) /uL Lymph # (Auto) (9824-7387) /uL [place] # (Auto) (0-900) /uL Eos # (Auto) (0-450) /uL Baso # (Auto) (0-100) /uL PT (10.1-12.7) SECONDS INR (0.9-1.3) APTT (26-36) SECONDS D-Dimer (<500) ng/ml Sodium (137-145) mmol/L Potassium (3.4-5.1) mmol/L Chloride (98-107) mmol/L Carbon Dioxide (22-32) mmol/L BUN (7-17) mg/dL Creatinine (0.52-1.04) mg/dL Estimated GFR (>60) mL/min BUN/Creatinine Ratio (6-22) Glucose (80-110) mg/dL Calcium (8.4-10.2) mg/dL Magnesium (1.6-2.3) mg/dL Total Bilirubin (0.2-1.3) mg/dL AST (14-36) IU/L ALT (<35) IU/L Alkaline Phosphatase (38-126) U/L Total Creatine Kinase (30-135) U/L CK-MB (CK-2) CK-MB (CK-2) Rel Index Troponin I (0.01-0.034) ng/mL NT-Pro-B Natriuret Pep (<450) pg/mL Total Protein (6.3-8.2) g/dL Albumin (3.5-5.0) g/dL Globulin (1.7-4.1) g/dL Albumin/Globulin Ratio (1.0-2.8) Lipase (23-300) U/L Urine RBC None seen (0-5/HPF) Urine WBC 0-1/hpf (0-5/HPF) Ur Squamous Epith Cells 1-5 /hpf (0-5/HPF) Amorphous Sediment 1+ Urine Bacteria None seen (None) Urine Mucus 1+ H (Negative) Ur Culture Indicated? Cult not indicated SARS-CoV-2 (PCR) (Negative) Influenza A (RT-PCR) (NEGATIVE) Influenza B (RT-PCR) (NEGATIVE) RSV (PCR) (Negative) Urine Dip Bedside Urine Glucose Negative Bedside Urine Bilirubin - Negative Bedside Urine Ketone - Negative Urine Specific [place] 1.015 Bedside Urine Occult Blood - Negative Bedside Urine pH 6.0 Bedside Urine Protein +/- 15 Bedside Urine Urobilinogen - Negative Bedside Urine Nitrite - Negative Bedside Urine Leukocytes - Negative Esterase Discharge Plan Departure Patient Disposition: Home Clinical Impression: Shortness of breath, History of COPD Instructions: DI for Shortness of Breath, How to Manage Shortness of Breath Activity Restrictions/Additional Instructions: *You have been diagnosed with likely a viral syndrome causing your symptoms. Luckily we did not find any dangerous causes to your shortness of breath today. Overall your lab work does not show any significant findings or abnormal findi ngs, this does not appear to be cardiac in nature, or show any signs of cardiac strain. Since you felt better after the neb, this could be related to your COPD with mild exacerbation. The CT scan of your chest does not show any sign of a blood clot. It does not show any concerning findings of pneumonia, reactive airway, or pleural effusion. Your D-dimer/blood clot lab value was mildly elevated, this is why we did this test to make sure you do not have a blood clot in your chest. The rest of your lab work overall is reassuring, all of your organ function looks great, please stay hydrated, eat food with nutrition, and return to the emergency department if worsening of your symptoms. Your urine does not show any sign of infection, your COVID influenza and RSV test was negative. Is use your albuterol inhaler as needed for shortness of breath, due to your history of diabetes I did not want to mess up your blood sugar with steroids, please use the albuterol inhaler as needed for shortness of breath, please come back if you have worsening of your symptoms, I hope you feel better soon, thank you for your patience today. *What to do: *Please continue to take your regular medications as directed. [ ] New medication prescriptions sent to your pharmacy: [ ] [ ] New medication written as a paper prescription [x ] No new medications given *Please follow up with your primary care provider in 2-3 days, call for an appointment. Let them know you were seen in the Emergency Department and that we asked that you be seen for follow-up. We will electronically transmit a record of today's note if your PCP is in our system *If you do not have a primary care provider please contact [phone] to establish care with one of the [facility] primary care providers. *Return to Emergency Department if you should have any new, worsening, or edilson rning symptoms, such as [fever greater than 101F, chills, worsening pain, persistent vomiting or other bothersome symptoms]. Prescriptions: No Action multivitamin [Multiple Vitamins] 1 EACH tablet 1 tab PO DAILY Qty: 0 sodium chloride [Destiny 128] 3.5 GM ointment 1 melissa OPHTH BEDTIME PRN (Reason: Eye disorder) Qty: 0 albuterol sulfate 90 mcg/actuation HFA aerosol inhaler 2 puff INHALATION Q4H PRN (Reason: shortness of breath or wheezing) Qty: 1 2RF Label Comments: not on home medication list Rx Instructions: administer with spacer; 2 puffs inh q 4 hours PRN rosuvastatin [Crestor] 5 mg tablet 2.5 mg PO DAILY Qty: 0 Pulmicort Flexhaler 180 mcg/actuation aerosol powdr breath activated 2 inhalation inhalation BID Qty: 2 5RF fluticasone propionate 50 mcg/actuation spray,suspension See Rx Instructions .ROUTE .COMPLEX Qty: 16 2RF Dose Instruction: Administer 2 sprays intranasally into each nostril daily Rx Instructions: Administer 2 sprays intranasally into each nostril daily estradiol [Estrace] 0.01 % (0.1 mg/gram) cream 1 g Vaginal 2XW Qty: 42.5 5RF gabapentin 300 mg capsule See Rx Instructions .ROUTE .COMPLEX Qty: 60 5RF Dose Instruction: TAKE ONE TO TWO CAPSULES BY MOUTH EVERY EVENING NEEDED FOR PAIN Rx Instructions: TAKE ONE TO TWO CAPSULES BY MOUTH EVERY EVENING NEEDED FOR PAIN flecainide 100 mg tablet 100 mg PO Q12H (DME) Disabled parking permit Qty: 1 0RF Rx Instructions: I find this patient to be medically disabled and qualified for disabled parking as indicated, and signed, on the accompanying disabled parking application for individuals. losartan 50 mg tablet 50 mg PO BEDTIME spironolactone 25 mg tablet 12.5 mg PO DAILY aspirin [Adult Low Dose Aspirin] 81 mg tablet,delayed release (DR/EC) 81 mg PO DAILY omeprazole 40 mg capsule,delayed release(DR/EC) 40 mg PO DAILY diltiazem HCl [Cartia XT] 120 mg capsule,extended release 24hr 120 mg PO BEDTIME ascorbic acid (vitamin C) 1,000 mg Tablet 1 g PO DAILY cholecalciferol (vitamin D3) [Vitamin D3] 1,000 unit Capsule 3,000 unit PO DAILY Cranberry 1,000 mg 1,000 mg PO DAILY Probiotic 1 cap PO DAILY d-mannose 1,000 mg 2,000 mg PO DAILY metronidazole [MetroCream] 0.75 % Cream 1 applic TOPICAL DAILY naproxen sodium [Aleve] 220 mg capsule 220 mg PO BID PRN Referrals: Kel Arvizu MD [Primary Care Provider] - Johnnie West MD [Non-Staff] - Visit Report Forms: Patient Portal/API <Alejandro Membreno MD - Last Filed: 01/26/22 16:36> Cosign ED Attending Cosignature Attestation: I was immediately available in the department for consultation. ?This documentation has been reviewed and I agree with assessment and plan. Supervised by Alejandro Membreno MD
[2022-01-26 13:21] LABS: D Dimer 1106 ng/ml (<500)
--- NOTE | 2022-01-26 13:57 | DI.CT.S_ITS ---
PROCEDURE: CT ANGIO CHEST PE PROTOCOL INDICATIONS: elevated D Dimer, history COPD, arterial dx, SOB TECHNIQUE: After the administration of intravenous contrast, 2 mm thick sections acquired from the pulmonary apices to the posterior costophrenic angles. 3-dimensional maximum intensity projection (MIP) coronal and sagittal reformats were then acquired through the thorax. For radiation dose reduction, the following was used: automated exposure control, adjustment of mA and/or kV according to patient size. COMPARISON: [facility], CT, CHEST ANGIO-PE, 06/24/2013, 22:19. [facility], CT, CT CHEST W CON, 01/18/2019, 9:04. [facility], CR, XR CHEST 1V, 01/26/2022, 11:07. FINDINGS: Image quality: Excellent. Pulmonary arteries: Pulmonary arteries are normal in size, and demonstrate no intraluminal filling defects to suggest central pulmonary embolism. Lungs and pleura: Lungs are clear. No pleural effusions or pneumothorax. Central and peripheral airways are patent. Mediastinum: Heart size is mildly increased, without pericardial effusion. Mild coronary artery calcification. No mediastinal or hilar adenopathy. Thoracic aorta is normal in caliber and enhancement. Esophagus is normal in caliber. There is a moderate-sized hiatal hernia. Bones and chest wall: No suspicious bony lesions. Ribs and thoracic spine appear intact throughout. Thyroid gland is normal. No axillary or supraclavicular adenopathy. Abdomen: Visualized upper abdominal solid organs appear normal in the early arterial phase of enhancement. IMPRESSION: 1. No evidence for pulmonary embolism. 2. No acute pulmonary process. 3. Mild cardiomegaly and mild coronary artery atherosclerosis. 4. Moderate-sized hiatal hernia. Dictated by: Luis Eduardo Bailey M.D. on 01/26/2022 at 14:37 Approved by: Luis Eduardo Bailey M.D. on 01/26/2022 at 14:41
[2022-01-26] MEDS: ALBUTEROL/IPRATROPIUM 3 ML AMPUL INH (15:04)
[2022-01-26 15:17] LABS: Amorphous Sediment Urine 1+; RBC Urine None Seen (0-5/HPF); Squamous Epithelial Cell Urine 1-5 /HPF (0-5/HPF); WBC Urine 0-1/HPF (0-5/HPF)
[2022-01-26 15:18] LABS: Bacteria Urine None Seen; Culture Indicated Urine Cult Not Indicated; Mucus Urine 1+ (Negative)
[2022-01-26] MEDS: ALBUTEROL HFA PREPACK 1 BOX MISC (15:27)
[2022-01-26 16:06] LABS: NT-proBNP (BNP-Adult 18+) 94 pg/mL (<450)
== END 2022-01-26 16:13 | disposition home or self-care (01) ==
PROVIDERS: Emergency Medicine; Emergency Provider Nurse Practitioner Critical Care Medicine; PCP Internal Medicine
DX: R06.02 Shortness of breath (principal); R07.9 Chest pain, unspecified; J44.9 Chronic obstructive pulmonary disease, unspecified; Z79.82 Long term (current) use of aspirin; Z20.822 Contact with and (suspected) exposure to COVID-19
CPT/HCPCS: 0241U; 36415; 71045; 71275; 80053; 81003; 81015; 82550; 83690; 83735; 83880; 84484; 85025; 85379; 85610; 85730; 93005; 94640; 99284; Q9967

== ENCOUNTER → 2022-02-13 09:28 | Outpatient (CLI) | payer MEDICARE, OTHER, SELFPAY ==
[2021-10-14 10:17] VITALS: BMI 32.2
[2022-02-13 11:30] LABS: Hemoglobin A1C% w Est Avg Glu 6.6 % (4.0-6.0)
[2022-02-13 12:03] LABS: BUN Creatinine Ratio 25.9 (6-22); Blood Urea Nitrogen 28 mg/dL (7-17); Calcium 8.8 mg/dL (8.4-10.2); Carbon Dioxide 26 mmol/L (22-32); Chloride 99 mmol/L (98-107); Estimated Glomerular Filt Rate 53 mL/min (>60); Glucose 122 mg/dL (80-110); HEMOLYSIS < 15 (0-50); Sodium 135 mmol/L (137-145)
== END ==
PROVIDERS: PCP Internal Medicine; Referring Provider Internal Medicine; Visit Provider Internal Medicine
DX: E11.51 Type 2 diabetes mellitus with diabetic peripheral angiopathy without gangrene (principal); I10 Essential (primary) hypertension
CPT/HCPCS: 36415; 80048; 83036

== ENCOUNTER 2022-03-15 07:41 | Emergency (ER) | payer MEDICARE, OTHER, SELFPAY ==
[2021-10-14 10:17] VITALS: BMI 32.2
[2022-03-15 07:46] VITALS: BP 184/75
[2022-03-15 07:47] VITALS: PULSE 84; O2SAT 97
--- NOTE | 2022-03-15 07:47 | DI.RAD.S_ITS ---
PROCEDURE: XR CHEST 2V INDICATIONS: cough, wheeze, possible aspiration TECHNIQUE: 2 views of the chest were acquired. COMPARISON: [facility], CT, CT ANGIO CHEST PE PROTOCOL, 01/26/2022, 14:07. [facility], CR, XR CHEST 1V, 01/26/2022, 11:07. FINDINGS: Surgical changes and devices: None. Lungs and pleura: Lungs are clear. No pleural effusions or pneumothorax. The lungs are hyperexpanded, with flattening of the hemidiaphragms seen. Mediastinum: Mediastinal contours are normal. Heart size is normal. Bones and chest wall: No suspicious bony abnormalities. Age-appropriate bony degenerative changes are seen. Accentuated thoracic kyphosis is seen. Soft tissues appear unremarkable. IMPRESSION: No focal infiltrates are seen. If there is strong clinical concern for developing aspiration pneumonia in this patient, please consider a short term followup examination, as aspiration pneumonia can have a delayed radiographic appearance. The lungs are hyperexpanded. Dictated by: Tonny Carmona M.D. on 03/15/2022 at 7:20 Approved by: Tonny Carmona M.D. on 03/15/2022 at 7:22
--- NOTE | 2022-03-15 07:49 | ED_ITS ---
HPI - SOB/Dyspnea General Chief Complaint: Upper Respiratory Symptoms Stated Complaint: possible aspiration sent by [facility] Time Seen by Provider: 03/15/22 07:43 History of Present Illness HPI Narrative: 76-year-old female former smoker with history of type 2 diabetes, GERD, hypertension, hyperlipidemia, CHF presents at the request of the walk-in clinic for evaluation of shortness of breath and cough. She states that she had a ?reflux? event last night and felt some burning and fluid in the back of her throat and then in the near immediate aftermath had some coughing and gurgling in her upper chest that seemed to resolve over the course of the night with cough. She no longer feels that sensation. She had been using her bronchodilators over the course of the night and this morning. She went to the walk-in clinic for evaluation and was sent here for x-ray regarding possible as piration event. She is otherwise well and free of complaint. She is had no fever or chills and was feeling fine before this event. She denies any headache, blurred vision or sore throat. She has no chest pain, fever or chills. She denies nausea, vomiting or diarrhea. Related Data Home Medications Medication Instructions Recorded Confirmed multivitamin (Multiple Vitamins 1 tab PO DAILY ##0 10/27/16 02/13/22 tablet) sodium chloride 5 % eye ointment 1 melissa OPHTH BEDTIME PRN Eye 10/27/16 02/13/22 (Destiny 128) disorder ##0 flecainide 100 mg tablet 100 mg PO Q12H 11/06/17 02/13/22 rosuvastatin 5 mg tablet (Crestor) 2.5 mg PO DAILY #0 tabs 05/11/18 02/13/22 losartan 50 mg tablet 50 mg PO BEDTIME 11/23/18 02/13/22 Cranberry 1,000 mg PO DAILY 12/10/18 02/13/22 Probiotic 1 cap PO DAILY 12/10/18 02/13/22 ascorbic acid (vitamin C) 1,000 mg 1 g PO DAILY 12/10/18 02/13/22 tablet cholecalciferol (vitamin D3) 25 3,000 unit PO DAILY 12/10/18 02/13/22 mcg (1,000 unit) capsule (Vitamin D3) d-mannose 2,000 mg PO DAILY 12/10/18 02/13/22 diltiazem HCl 120 mg 120 mg PO BEDTIME 12/10/18 02/13/22 capsule,extended release 24 hr (Cartia XT) metronidazole 0.75 % topical cream 1 applic topical DAILY 12/10/18 02/13/22 (MetroCream) spironolactone 25 mg tablet 12.5 mg PO DAILY 05/25/20 02/13/22 aspirin 81 mg tablet,delayed 81 mg PO DAILY 06/19/21 02/13/22 release (Adult Low Dose Aspirin) naproxen sodium 220 mg capsule 220 mg PO BID PRN 12/11/21 02/13/22 (Aleve) omeprazole 40 mg capsule,delayed 40 mg PO DAILY 12/11/21 02/13/22 release Previous Rx's Medication Instructions Recorded albuterol sulfate 90 mcg/actuation 2 puff inhalation Q4H PRN 09/23/17 aerosol inhaler shortness of breath or wheezing #1 inh [address]abled [address] permit #1 ea 05/19/18 budesonide 180 mcg/actuation 2 inhalation inhalation BID #2 02/03/19 breath activated powder inhaler inhalations (Pulmicort Flexhaler) fluticasone propionate 50 See Rx Instructions .Route 04/05/20 mcg/actuation nasal .COMPLEX #16 grams spray,suspension estradiol 0.01% (0.1 mg/gram) 1 g vaginal 2XW #42.5 grams 03/13/21 vaginal cream (Estrace) gabapentin 300 mg capsule See Rx Instructions .Route 12/02/21 .COMPLEX #60 caps Allergies Allergy/AdvReac Type Severity Reaction Status Date / Time adhesive tape Allergy Severe PAPER TAPE Verified 03/15/22 07:52 allergy - Dermatitis latex [LATEX] Allergy Severe Hives, Verified 03/15/22 07:52 Wheezing sulfamethoxazole Allergy Intermediate Rash Verified 03/15/22 07:52 [From Bactrim] trimethoprim [From Bactrim] Allergy Intermediate Rash Verified 03/15/22 07:52 bupropion [From WELLBUTRIN] AdvReac Severe Tremors Verified 03/15/22 07:52 erythromycin base AdvReac Severe GI Upset, Verified 03/15/22 07:52 [ERYTHROMYCIN BASE] Bloody diarrhea lisinopril [LISINOPRIL] AdvReac Severe Cough Verified 03/15/22 07:52 meperidine [From DEMEROL] AdvReac Severe Hallucinati Verified 03/15/22 07:52 ng Review of Systems Review of Systems Narrative: GENERAL: See HPI HEENT: Denies sinus pain, ear pain, sore throat, difficulty swallowing, dizziness. RESPIRATORY: See HPI CARDIOVASCULAR: See HPI GASTROINTESTINAL: Denies nausea, vomiting, abdominal pain, diarrhea, constipation, melena. : Denies dysuria, frequency, incontinence, hematuria, urinary retention. MUSCULOSKELETAL: denies weakness, joint pain, or bony pain SKIN: Denies rash, skin lesions, or other NEUROLOGIC: Denies weakness, headache, numbness, change in speech, confusion, seizures, incoordination. PSYCHIATRIC: No concerning psychosocial issues. 12 point review of systems is negative except for those stated above Patient History Medical History (Updated 03/15/22 @ 08:44 by Ayan Howell DO) Abnormal Pap smear of cervix (1975) Allergic rhinitis Ankle fracture, left (1987) Ankle pain (1989) Anxiety (1984) Asthma (2015) Graves's esophagus (2013) BPPV (benign paroxysmal positional vertigo) Bruit of left carotid artery Cataract (2002) Chicken pox (1954) Cholangioma Chronic diastolic (congestive) heart failure COPD (chronic obstructive pulmonary disease) (~2015) Corneal dystrophy (2002) Cystocele 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 Diverticular disease (2016) Diverticulosis Do not resuscitate Elbow fracture, right (2015) Epiretinal membrane (2004) Frequent UTI (~2018) Fuchs' corneal dystrophy of both eyes Gastritis GERD (gastroesophageal reflux disease) (2004) Hayfever (1965) Hearing loss (~2015) Hemorrhoids (~1969) History of iron deficiency anemia (~2018) History of psychosis (1968) Hypercholesterolemia Hyperlipidemia (1996) Hypertension Internal hemorrhoids Kidney stones (2010) Lumbar back pain with radiculopathy affecting left lower extremity Measles Mild aortic valve sclerosis (~2017) Mumps Osteoarthritis (~1994) Osteopenia PAD (peripheral artery disease) Paroxysmal atrial fibrillation Positive PPD (1977) Postmenopausal atrophic vaginitis Prediabetes Premature ventricular contraction Rectocele Recurrent UTI Rosacea (2011) Skin cancer, basal cell (~2020) SVT (supraventricular tachycardia) TMJ pain dysfunction syndrome Uterine cancer (~1975) Ventricular escape beats Surgical History Anesthesia History of cataract removal with insertion of prosthetic lens (2002) History of ear, nose, and throat (ENT) surgery (1977) History of esophagogastroduodenoscopy (EGD) (07/2015) History of esophagogastroduodenoscopy (EGD) (~01/2019) History of foot surgery (2007) History of knee replacement (2012) History of meniscectomy of left knee (~04/2021) Hx of blepharoplasty (01/2020) S/P epidural steroid injection (~02/10/21) S/P lumbar fusion Status post angioplasty with stent (~10/2019) Status post colonoscopy (2015) Status post hysterectomy (1975) Status post laparoscopic cholecystectomy (2001) Status post open reduction with internal fixation (ORIF) of fracture of ankle (1987) Family History Brother Brain aneurysm CVA (cerebral vascular accident) Mental health problem Alcoholism Brother Alcoholism Heart disease Father No problems noted. Grandfather Alcoholism Suicide Grandmother CVA (cerebral vascular accident) Mother CVA (cerebral vascular accident) [place] (myocardial infarction) Lung cancer Hypertension Heart disease Grandfather No problems noted. Grandmother MVA (motor vehicle accident) Sister Thalassemia Dementia Drug addiction Sister Alcoholism Brother Ischemia Alcoholism CVA (cerebral vascular accident) Social History details: , two grown children household members: none Smoking Status: Former smoker alcohol intake: current Smoking Status: Former smoker alcohol intake frequency: a few times a month Substance Use Type: does not use Exam Narrative Exam Narrative: GENERAL: [76] year old patient appears stated age. Well-developed patient, in mild distress. HEAD: Atraumatic. Normocephalic. EYES: Pupils equal round and reactive. Extraocular motions intact. No scleral icterus. No injection or drainage. ENT: Nose without bleeding, purulent drainage. Throat without erythema, tonsillar hypertrophy or exudate. Airway patent. NECK: Trachea midline. Non tender CARDIOVASCULAR: Regular rate and rhythm without murmurs, gallops, or rubs. RESPIRATORY: Clear to auscultation. Breath sounds equal bilaterally. No wheezes, rales, or rhonchi. No increased work of breathing, use of accessory muscles, tachypnea or hypoxemia GASTROINTESTINAL: Abdomen soft, non-tender, nondistended. EXTREMITIES: No edema or joint tenderness. BACK: Nontender without deformity or crepitance. No flank tenderness. NEURO: AOx3. SKIN: No rash or erythema of visible areas Initial Vital Signs Initial Vital Signs: Vital Signs Blood Pressure 184/75 H 03/15/22 07:46 Course Orders Ordered: ED Orders 03/15/22 07:47 Chest [XR chest 2V] Stat 03/15/22 07:58 EKG-12 Lead Routine Vital Signs Vital signs: Vital Signs - 8 hr 03/15/22 07:52 03/15/22 07:46 03/15/22 07:47 Temperature 97.2 F L Pulse Rate 86 84 Respiratory Rate 18 Blood Pressure 184/75 H 184/75 H Pulse Oximetry 96 97 Oxygen Delivery Method Room Air 03/15/22 08:52 Temperature Pulse Rate 70 Respiratory Rate 18 Blood Pressure 179/75 H Pulse Oximetry 95 Oxygen Delivery Method Room Air MDM - SOB/Dyspnea Imaging Data Chest x-ray: Attestation: I personally reviewed and interpreted this imaging study as follows: My Impression: NAP Radiologist's Impression: [address] [address] XRay Report Signed Patient: Shirley Zamora MR#: [id number] : 1945 Acct:[id number] Age/Sex: 76 / F Date of Service: 03/15/22 Loc: ED Accession Number: [id number] ?? Procedure: XR chest 2V Ordering Provider: Ayan Howell D.O. PROCEDURE:? XR CHEST 2V ? INDICATIONS:? cough, wheeze, possible aspiration ? TECHNIQUE:? 2 views of the chest were acquired.? ? COMPARISON:? [facility], CT, CT ANGIO CHEST PE PROTOCOL, 01/26/2022, 1 4:07.? [facility], CR, XR CHEST 1V, 01/26/2022, 11:07. ? FINDINGS:? ? Surgical changes and devices:? None.? ? Lungs and pleura:? Lungs are clear.? No pleural effusions or pneumothorax.? The lungs are hyperexpanded, with flattening of the hemidiaphragms seen. ? Mediastinum:? Mediastinal contours are normal.? Heart size is normal.? ? Bones and chest wall:? No suspicious bony abnormalities.? Age-appropriate bony degenerative changes are seen.? Accentuated thoracic kyphosis is seen.? ? Soft tissues appear unremarkable.? ? ? IMPRESSION:? No focal infiltrates are seen. ? If there is strong clinical concern for developing aspiration pneumonia in this patient, please consider a short term followup examination, as aspiration pneumonia can have a delayed radiographic appearance.? ? The lungs are hyperexpanded.? ? Dictated by: Tonny Carmona M.D. on 03/15/2022 at 7:20 ? ? Approved by: Tonny Carmona M.D. on 03/15/2022 at 7:22 ? ECG Data Interpretation: [0758] EKG is normal sinus rhythm rate [76 ] and free of any signs of ischemia or ectopy. No ST segmental elevation or depression. No T wave inversions MDM Narrative Medical decision making narrative: CC: 76-year-old female with reflux, fluid in the back of her throat followed by harsh, gurgly cough which has since resolved Complicating co-morbidities: AFib, diabetes, hypertension, hyperlipidemia, age, CHF Data collected from: Patient Medical records reviewed: Multiple prior ED visits Differential considered, but not limited to: Pneumonitis, pneumonia versus other Exam documented above, pertinent findings include: No work of breathing, clear lung sounds, no hypoxemia Lab Test results independently reviewed as above. Pertinent findings: Re-evaluations: Patient demonstrating no signs of respiratory distress here in the department Discussion: Patient had a brief episode earlier today of possibly aspirating oral secretions from what she refers to as a GERD episode. She has no abnormal lung sounds and chest x-ray without abnormal findings. She is in no respiratory distress and not hypoxemic. We did discuss the utility of performing extra lab evaluation but sure the opinion that right now it is not indicated. I gave her extensive return precautions including fever, increased shortness of breath or other symptoms that are concerning. Disposition: see below, along with detailed discharge instructions that have been reviewed with patient as well as indications for ED re-evaluation and additional outpatient follow up Discharge Plan Departure Patient Disposition: Home Clinical Impression: Pneumonitis Activity Restrictions/Additional Instructions: *You have been diagnosed with [possible brief pneumonitis, as we discussed history and physical exam are very reassuring and chest x-ray shows no abnormal findings.] *What to do: *Please continue to take your regular medications as directed. *Please follow up with your primary care provider in 2-3 days, call for an appointment. Let them know you were seen in the Emergency Department and that we ask that you be seen in follow up. We will electronically transmit a record of today's note if your PCP is in our system *Return to Emergency Department if you should have any new, worsening or concerning symptoms, such as [fever greater than 101 F, shaking chills, worsening pain, persistent vomiting or other bothersome symptoms] Prescriptions: No Action multivitamin [Multiple Vitamins] 1 EACH tablet 1 tab PO DAILY Qty: 0 sodium chloride [Destiny 128] 3.5 GM ointment 1 melissa OPHTH BEDTIME PRN (Reason: Eye disorder) Qty: 0 albuterol sulfate 90 mcg/actuation HFA aerosol inhaler 2 puff INHALATION Q4H PRN (Reason: shortness of breath or wheezing) Qty: 1 2RF Label Comments: not on home medication list Rx Instructions: administer with spacer; 2 puffs inh q 4 hours PRN rosuvastatin [Crestor] 5 mg tablet 2.5 mg PO DAILY Qty: 0 Pulmicort Flexhaler 180 mcg/actuation aerosol powdr breath activated 2 inhalation inhalation BID Qty: 2 5RF fluticasone propionate 50 mcg/actuation spray,suspension See Rx Instructions .ROUTE .COMPLEX Qty: 16 2RF Dose Instruction: Administer 2 sprays intranasally into each nostril daily Rx Instructions: Administer 2 sprays intranasally into each nostril daily estradiol [Estrace] 0.01 % (0.1 mg/gram) cream 1 g Vaginal 2XW Qty: 42.5 5RF gabapentin 300 mg capsule See Rx Instructions .ROUTE .COMPLEX Qty: 60 5RF Dose Instruction: TAKE ONE TO TWO CAPSULES BY MOUTH EVERY EVENING NEEDED FOR PAIN Rx Instructions: TAKE ONE TO TWO CAPSULES BY MOUTH EVERY EVENING NEEDED FOR PAIN flecainide 100 mg tablet 100 mg PO Q12H (DME) Disabled parking permit Qty: 1 0RF Rx Instructions: I find this patient to be medically disabled and qualified for [employer] as indicated, and signed, on the accompanying [employer] application for individuals. losartan 50 mg tablet 50 mg PO BEDTIME spironolactone 25 mg tablet 12.5 mg PO DAILY aspirin [Adult Low Dose Aspirin] 81 mg tablet,delayed release (DR/EC) 81 mg PO DAILY omeprazole 40 mg capsule,delayed release(DR/EC) 40 mg PO DAILY diltiazem HCl [Cartia XT] 120 mg capsule,extended release 24hr 120 mg PO BEDTIME ascorbic acid (vitamin C) 1,000 mg Tablet 1 g PO DAILY cholecalciferol (vitamin D3) [Vitamin D3] 1,000 unit Capsule 3,000 unit PO DAILY Cranberry 1,000 mg 1,000 mg PO DAILY Probiotic 1 cap PO DAILY d-mannose 1,000 mg 2,000 mg PO DAILY metronidazole [MetroCream] 0.75 % Cream 1 applic TOPICAL DAILY naproxen sodium [Aleve] 220 mg capsule 220 mg PO BID PRN Referrals: Kel Arvizu MD [Primary Care Provider] - Stand Alone Forms: Patient Portal/API
[2022-03-15 07:52] VITALS: BP 184/75; PULSE 86; RESP 18; TEMP 36.2; O2SAT 96; BMI 32.8
[2022-03-15 08:52] VITALS: BP 179/75; PULSE 70; RESP 18; O2SAT 95
== END 2022-03-15 08:59 | disposition home or self-care (01) ==
PROVIDERS: Emergency Provider Emergency Medicine; PCP Internal Medicine
DX: J18.9 Pneumonia, unspecified organism (principal); I10 Essential (primary) hypertension; Z87.891 Personal history of nicotine dependence
CPT/HCPCS: 71046; 93005; 93010; 99283

== ENCOUNTER → 2022-05-10 09:36 | Outpatient (CLI) | payer MEDICARE, OTHER, SELFPAY ==
[2021-10-14 10:17] VITALS: BMI 32.2
--- NOTE | 2022-05-10 09:44 | DI.MG.S_ITS ---
BILATERAL DIGITAL SCREENING MAMMOGRAM 3D/2D WITH CAD: 05/10/2022 CLINICAL: Routine screening. Comparison is made to exams dated: 01/04/2021 mammogram, 11/02/2019 mammogram, 10/13/2018 mammogram, and 04/29/2017 mammogram - [facility]. There are scattered areas of fibroglandular density in both breasts (category b / 25%-50% glandular tissue). Current study was also evaluated with a Computer Aided Detection (CAD) system. There are benign calcifications in both breasts. No significant masses, calcifications, or other findings are seen in either breast. There has been no significant interval change. IMPRESSION: BENIGN There is no mammographic evidence of malignancy. A 1 year screening mammogram is recommended. Based on the Tyrer Cuzick model (a risk assessment model) the patient's lifetime risk is 4.0% and her 10 year risk is 0.0%. According to the ACR, ACS, and NCCN guidelines, an annual breast MRI exam along with mammogram is recommended if the patient's lifetime risk is 20% or greater. This exam was interpreted at Station ID: [id number]. NOTE: For mammograms, a report in lay terms will be sent to the patient. Approximately 15% of breast malignancies will not be visualized mammographically. In the management of a palpable breast mass, a negative mammogram must not discourage biopsy of a clinically suspicious lesion. Electronically Signed By: Mendoza hayward/musa:05/12/2022 07:58:44 letter sent: Normal Exam ACR BI-RADS Category 2: Benign Finding(s) 3342F
== END ==
PROVIDERS: PCP Internal Medicine; Referring Provider Internal Medicine; Visit Provider Internal Medicine
DX: Z12.31 Encounter for screening mammogram for malignant neoplasm of breast (principal)
CPT/HCPCS: 77063; 77067

== ENCOUNTER 2022-07-01 09:56 | Emergency (ER) | payer MEDICARE, OTHER, SELFPAY ==
[2021-10-14 10:17] VITALS: BMI 32.2
[2022-07-01 09:58] VITALS: BP 156/67; PULSE 75; RESP 20; TEMP 36.7; O2SAT 96; BMI 33.6
--- NOTE | 2022-07-01 10:07 | DI.RAD.S_ITS ---
PROCEDURE: XR CHEST 1V INDICATIONS: Shortness of breath TECHNIQUE: One view of the chest was acquired. COMPARISON: [facility], CR, XR CHEST 2V, 03/15/2022, 7:52. [facility], CR, XR CHEST 1V, 01/26/2022, 11:07. FINDINGS: Surgical changes and devices: None. Lungs and pleura: Lung volumes are lower than prior. No dense consolidation. No pleural effusions. Mediastinum: Mediastinal contours appear normal. Heart size is normal. Suspected hiatal hernia Bones and chest wall: No suspicious bony lesions. Overlying soft tissues appear unremarkable. IMPRESSION: No acute radiographic abnormality Suspected hiatal hernia. Dictated by: Henry Gabriel M.D. on 07/01/2022 at 10:41 Approved by: Henry Gabriel M.D. on 07/01/2022 at 10:42
[2022-07-01 10:36] LABS: Add Manual Diff / Slide Review NO; Basophils Absolute Auto 100 /uL (0-100); Eosinophils Absolute Auto 500 /uL (0-450); Eosinophils Percent Auto 5.7 % (2-4); Hematocrit 34.6 % (36-46); Hemoglobin 11.5 g/dL (12.0-16.0); Lymphocytes Absolute Auto 2200 /uL (1100-4500); Lymphocytes Percent Auto 25.2 % (25-40); Mean Corpuscular HGB Conc 33.3 % (30-36); Mean Corpuscular Hemoglobin 28.2 PG (26-34); Mean Corpuscular Volume 84.7 fL (80-100); Monocytes Absolute Auto 700 /uL (0-900); Monocytes Percent Auto 8.1 % (3-14); Neutrophils Absolute Auto 5200 /uL (1500-7000); Platelet Count 293 X10^3/uL (150-400); Red Blood Cell Count 4.08 X10^6/uL (4.0-5.2); Red Cell Distribution Width 17.1 % (11.6-14.8); White Blood Cell Count 8.7 X10^3/uL (4.5-11.0)
[2022-07-01 10:37] LABS: INR 1.1 (0.9-1.3); Prothrombin Time 13.1 SECONDS (10.1-12.7)
[2022-07-01 10:44] LABS: Alanine Aminotransferase 20 IU/L (<35); Albumin 3.9 g/dL (3.5-5.0); Albumin Globulin Ratio 1.3 (1.0-2.8); Alkaline Phosphatase 67 U/L (38-126); Aspartate Aminotransferase 23 IU/L (14-36); BUN Creatinine Ratio 19.7 (6-22); Bilirubin Total 0.6 mg/dL (0.2-1.3); Blood Urea Nitrogen 15 mg/dL (7-17); Calcium 8.8 mg/dL (8.4-10.2); Carbon Dioxide 26 mmol/L (22-32); Chloride 101 mmol/L (98-107); Estimated Glomerular Filt Rate > 60 mL/min (>60); Globulin 2.9 g/dL (1.7-4.1); Glucose 92 mg/dL (80-110); HEMOLYSIS 39 (0-50); Potassium 3.7 mmol/L (3.4-5.1); Sodium 135 mmol/L (137-145); Total Protein 6.8 g/dL (6.3-8.2)
[2022-07-01 10:46] LABS: Lactate (Lactic Acid) 1.2 mmol/L (0.7-2.1)
[2022-07-01 10:50] LABS: COVID19 -Nasal RAPID Negative (Negative)
[2022-07-01 10:56] LABS: NT-proBNP (BNP-Adult 18+) 66 pg/mL (<450); Troponin I < 0.012 ng/mL (0.01-0.034)
--- NOTE | 2022-07-01 11:24 | ED.GENADULT ---
HPI - General Adult General Chief complaint: Shortness of Breath/Dyspnea Stated complaint: REFLUX W/ ASPIRATION, CHEST HURTS, COUGH WHEEZING Time Seen by Provider: 07/01/22 11:03 Source: patient Mode of arrival: Ambulatory History of Present Illness HPI narrative: 76-year-old female who states that she has a history of significant reflux disease. Is on a proton pump inhibitor on a daily basis. She also has a history of COPD. She states that the other night she refluxed some stomach contents that she thinks she aspirated. Since that time she is had some discomfort in the left side of her chest and some shortness of breath. She does have a nebulizer at home but is out of the medications. She feels like she is wheezing. No fevers. She did have a productive cough 1 time. No abdominal pain. Related Data Home Medications Medication Instructions Recorded Confirmed multivitamin (Multiple Vitamins 1 tab PO DAILY ##0 10/27/16 04/25/22 tablet) sodium chloride 5 % eye ointment 1 melissa OPHTH BEDTIME PRN Eye 10/27/16 04/25/22 (Destiny 128) disorder ##0 flecainide 100 mg tablet 100 mg PO Q12H 11/06/17 04/25/22 rosuvastatin 5 mg tablet (Crestor) 2.5 mg PO DAILY #0 tabs 05/11/18 04/25/22 losartan 50 mg tablet 50 mg PO BEDTIME 11/23/18 04/25/22 Cranberry 1,000 mg PO DAILY 12/10/18 04/25/22 Probiotic 1 cap PO DAILY 12/10/18 04/25/22 ascorbic acid (vitamin C) 1,000 mg 1 g PO DAILY 12/10/18 04/25/22 tablet cholecalciferol (vitamin D3) 25 3,000 unit PO DAILY 12/10/18 04/25/22 mcg (1,000 unit) capsule (Vitamin D3) d-mannose 2,000 mg PO DAILY 12/10/18 04/25/22 diltiazem HCl 120 mg 120 mg PO BEDTIME 12/10/18 04/25/22 capsule,extended release 24 hr (Cartia XT) metronidazole 0.75 % topical cream 1 applic topical DAILY 12/10/18 04/25/22 (MetroCream) spironolactone 25 mg tablet 12.5 mg PO DAILY 05/25/20 04/25/22 aspirin 81 mg tablet,delayed 81 mg PO DAILY 06/19/21 04/25/22 release (Adult Low Dose Aspirin) omeprazole 40 mg capsule,delayed 40 mg PO DAILY 12/11/21 04/25/22 release naproxen sodium 220 mg capsule 220 mg PO DAILY PRN 04/25/22 04/25/22 (Aleve) Previous Rx's Medication Instructions Recorded albuterol sulfate 90 mcg/actuation 2 puff inhalation Q4H PRN 09/23/17 aerosol inhaler shortness of breath or wheezing #1 inh Disabled parking permit #1 ea 05/19/18 budesonide 180 mcg/actuation 2 inhalation inhalation BID #2 02/03/19 breath activated powder inhaler inhalations (Pulmicort Flexhaler) fluticasone propionate 50 See Rx Instructions .Route 04/05/20 mcg/actuation nasal .COMPLEX #16 grams spray,suspension estradiol 0.01% (0.1 mg/gram) 1 g vaginal 2XW #42.5 grams 03/13/21 vaginal cream (Estrace) albuterol sulfate 2.5 mg/0.5 mL 2.5 mg (0.5 mL) inhalation Q6H PRN 07/01/22 solution for nebulization bronchospasm #30 ea prednisone 20 mg tablet 20 mg PO DAILY 5 days #5 tabs 07/01/22 sucralfate 100 mg/mL oral 10 ml PO QACHS #400 mL 07/01/22 suspension (Carafate) Allergies Allergy/AdvReac Type Severity Reaction Status Date / Time adhesive tape Allergy Severe PAPER TAPE Verified 07/01/22 10:03 allergy - Dermatitis latex [LATEX] Allergy Severe Hives, Verified 07/01/22 10:03 Wheezing sulfamethoxazole Allergy Intermediate Rash Verified 07/01/22 10:03 [From Bactrim] trimethoprim [From Bactrim] Allergy Intermediate Rash Verified 07/01/22 10:03 bupropion [From WELLBUTRIN] AdvReac Severe Tremors Verified 07/01/22 10:03 erythromycin base AdvReac Severe GI Upset, Verified 07/01/22 10:03 [ERYTHROMYCIN BASE] Bloody diarrhea lisinopril [LISINOPRIL] AdvReac Severe Cough Verified 07/01/22 10:03 meperidine [From DEMEROL] AdvReac Severe Hallucinati Verified 07/01/22 10:03 ng Review of Systems Review of Systems ROS Unobtainable: All systems reviewed & are unremarkable except as noted in HPI and below Patient History Medical History Abnormal Pap smear of cervix (1975) Allergic rhinitis Ankle fracture, left (1987) Ankle pain (1989) Anxiety (1984) Asthma (2015) Graves's esophagus (2013) BPPV (benign paroxysmal positional vertigo) Bruit of left carotid artery Cataract (2002) Chicken pox (1954) Cholangioma Chronic diastolic (congestive) heart failure COPD (chronic obstructive pulmonary disease) (~2015) Corneal dystrophy (2002) Cystocele 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 Diverticular disease (2016) Diverticulosis Do not resuscitate Elbow fracture, right (2015) Epiretinal membrane (2004) Frequent UTI (~2018) Fuchs' corneal dystrophy of both eyes Gastritis GERD (gastroesophageal reflux disease) (2004) Hayfever (1965) Hearing loss (~2015) Hemorrhoids (~1969) History of iron deficiency anemia (~2018) History of psychosis (1968) Hypercholesterolemia Hyperlipidemia (1996) Hypertension Internal hemorrhoids Kidney stones (2010) Lumbar back pain with radiculopathy affecting left lower extremity Measles Mild aortic valve sclerosis (~2017) Mumps Osteoarthritis (~1994) Osteopenia PAD (peripheral artery disease) Paroxysmal atrial fibrillation Positive PPD (1977) Postmenopausal atrophic vaginitis Prediabetes Premature ventricular contraction Rectocele Recurrent UTI Rosacea (2011) Skin cancer, basal cell (~2020) SVT (supraventricular tachycardia) TMJ pain dysfunction syndrome Uterine cancer (~1975) Ventricular escape beats Surgical History Anesthesia History of cataract removal with insertion of prosthetic lens (2002) History of ear, nose, and throat (ENT) surgery (1977) History of esophagogastroduodenoscopy (EGD) (07/2015) History of esophagogastroduodenoscopy (EGD) (~01/2019) History of foot surgery (2007) History of knee replacement (2012) History of meniscectomy of left knee (~04/2021) Hx of blepharoplasty (01/2020) S/P epidural steroid injection (~02/10/21) S/P lumbar fusion Status post angioplasty with stent (~10/2019) Status post colonoscopy (2015) Status post hysterectomy (1975) Status post laparoscopic cholecystectomy (2001) Status post open reduction with internal fixation (ORIF) of fracture of ankle (1987) Family History Brother Brain aneurysm CVA (cerebral vascular accident) Mental health problem Alcoholism Brother Alcoholism Heart disease Father No problems noted. Grandfather Alcoholism Suicide Grandmother CVA (cerebral vascular accident) Mother CVA (cerebral vascular accident) ID (myocardial infarction) Lung cancer Hypertension Heart disease Grandfather No problems noted. Grandmother MVA (motor vehicle accident) Sister Thalassemia Dementia Drug addiction Sister Alcoholism Brother Ischemia Alcoholism CVA (cerebral vascular accident) Social History details: , two grown children household members: none Smoking Status: Former smoker alcohol intake: current Smoking Status: Former smoker alcohol intake frequency: a few times a month Substance Use Type: does not use Exam Initial Vital Signs Initial Vital Signs: Vital Signs Temperature 98.0 F 07/01/22 09:58 Pulse Rate 75 07/01/22 09:58 Respiratory Rate 20 07/01/22 09:58 Blood Pressure 156/67 H 07/01/22 09:58 Pulse Oximetry 96 07/01/22 09:58 Oxygen Delivery Method Room Air 07/01/22 09:58 Const General: cooperative, comfortable and No ill appearing HENMT Head: normal to inspection Resp Effort & Inspection: normal respiratory effort Auscultation: clear to auscultation bilaterally Cardio Rate: regular rate Rhythm: regular rhythm GI Inspection: normal to inspection Skin General: no rashes or lesions noted Neuro General: patient alert, patient awake and moves all extremities Extrem General: normal to inspection and capillary refill normal Course Orders Ordered: ED Orders 07/01/22 10:07 XR chest 1V Stat Complete Blood Count AUTO DIFF Stat Comprehensive Metabolic Panel Stat Lactate (Lactic Acid) Stat NT-proBNP (BNP-Adult 18+) Stat Prothrombin Time INR Stat Troponin I Stat EKG-12 Lead Stat Measure peak expiratory flow ONCE RT Consult Eval and Treat NOW 07/01/22 10:08 COVID19 -Nasal RAPID Stat Discontinued Medications Albuterol (Albuterol 2.5 Mg/3 Ml Neb (Adult)) 2.5 mg INH NOW ONE Stop: 07/01/22 11:25 Last Admin: 07/01/22 11:36 Dose: 2.5 mg Documented By: ANGELA Al Hydrox/Mg Hydrox/Simethicone 20 ml/ Lidocaine HCl 15 ml 0 ml PO NOW ONE Stop: 07/01/22 11:25 Last Admin: 07/01/22 11:34 Dose: 35 ml Documented By: ANGELA Vital Signs Vital signs: Vital Signs - 8 hr 07/01/22 11:42 07/01/22 12:55 Pulse Rate 61 74 Respiratory Rate 16 18 Blood Pressure 115/56 L Pulse Oximetry 98 96 Oxygen Delivery Method Room Air Room Air Medical Decision Making Lab Data Lab results reviewed: Yes I reviewed the patient's lab results. 07/01/22 10:07 07/01/22 10:07 Labs: Lab Results 07/01/22 07/01/22 07/01/22 Range/Units 10:07 10:07 10:07 WBC 8.7 (4.5-11.0) X10^3/uL RBC 4.08 (4.0-5.2) X10^6/uL Hgb 11.5 L (12.0-16.0) g/dL Hct 34.6 L (36-46) % MCV 84.7 (80-100) fL MCH 28.2 (26-34) PG MCHC 33.3 (30-36) % RDW 17.1 H (11.6-14.8) % Plt Count 293 (150-400) X10^3/uL Neut % (Auto) 60.0 (50-75) % Lymph % (Auto) 25.2 (25-40) % [place] % (Auto) 8.1 (3-14) % Eos % (Auto) 5.7 H (2-4) % Baso % (Auto) 1.0 (0-2) % Neut # (Auto) 5200 (8914-8054) /uL Lymph # (Auto) 2200 (8468-8195) /uL [place] # (Auto) 700 (0-900) /uL Eos # (Auto) 500 H (0-450) /uL Baso # (Auto) 100 (0-100) /uL PT 13.1 H (10.1-12.7) SECONDS INR 1.1 (0.9-1.3) Sodium 135 L (137-145) mmol/L Potassium 3.7 (3.4-5.1) mmol/L Chloride 101 (98-107) mmol/L Carbon Dioxide 26 (22-32) mmol/L BUN 15 (7-17) mg/dL Creatinine 0.76 (0.52-1.04) mg/dL Estimated GFR > 60 (>60) mL/min BUN/Creatinine Ratio 19.7 (6-22) Glucose 92 (80-110) mg/dL Lactate (0.7-2.1) mmol/L Calcium 8.8 (8.4-10.2) mg/dL Total Bilirubin 0.6 (0.2-1.3) mg/dL AST 23 (14-36) IU/L ALT 20 (<35) IU/L Alkaline Phosphatase 67 (38-126) U/L Troponin I < 0.012 (0.01-0.034) ng/mL NT-Pro-B Natriuret Pep 66 (<450) pg/mL Total Protein 6.8 (6.3-8.2) g/dL Albumin 3.9 (3.5-5.0) g/dL Globulin 2.9 (1.7-4.1) g/dL Albumin/Globulin Ratio 1.3 (1.0-2.8) SARS-CoV-2 (PCR) (Negative) 07/01/22 07/01/22 Range/Units 10:07 10:08 WBC (4.5-11.0) X10^3/uL RBC (4.0-5.2) X10^6/uL Hgb (12.0-16.0) g/dL Hct (36-46) % MCV (80-100) fL MCH (26-34) PG MCHC (30-36) % RDW (11.6-14.8) % Plt Count (150-400) X10^3/uL Neut % (Auto) (50-75) % Lymph % (Auto) (25-40) % [place] % (Auto) (3-14) % Eos % (Auto) (2-4) % Baso % (Auto) (0-2) % Neut # (Auto) (6721-5667) /uL Lymph # (Auto) (4076-6636) /uL [place] # (Auto) (0-900) /uL Eos # (Auto) (0-450) /uL Baso # (Auto) (0-100) /uL PT (10.1-12.7) SECONDS INR (0.9-1.3) Sodium (137-145) mmol/L Potassium (3.4-5.1) mmol/L Chloride (98-107) mmol/L Carbon Dioxide (22-32) mmol/L BUN (7-17) mg/dL Creatinine (0.52-1.04) mg/dL Estimated GFR (>60) mL/min BUN/Creatinine Ratio (6-22) Glucose (80-110) mg/dL Lactate 1.2 (0.7-2.1) mmol/L Calcium (8.4-10.2) mg/dL Total Bilirubin (0.2-1.3) mg/dL AST (14-36) IU/L ALT (<35) IU/L Alkaline Phosphatase (38-126) U/L Troponin I (0.01-0.034) ng/mL NT-Pro-B Natriuret Pep (<450) pg/mL Total Protein (6.3-8.2) g/dL Albumin (3.5-5.0) g/dL Globulin (1.7-4.1) g/dL Albumin/Globulin Ratio (1.0-2.8) SARS-CoV-2 (PCR) Negative (Negative) Imaging Data Chest x-ray: Radiologist's Impression: PROCEDURE:? XR CHEST 1V ? INDICATIONS:? Shortness of breath ? TECHNIQUE:? One view of the chest was acquired.? ? COMPARISON:? [facility], , XR CHEST 2V, 03/15/2022, 7:52.? [facility], , XR CHEST 1V, 01/26/2022, 11:07. ? FINDINGS:? ? Surgical changes and devices:? None.? ? Lungs and pleura:? Lung volumes are lower than prior.? No dense consolidation.? No pleural effusions. ? Mediastinum:? Mediastinal contours appear normal.? Heart size is normal.? Suspected hiatal hernia ? Bones and chest wall:? No suspicious bony lesions.? Overlying soft tissues appear unremarkable.? ? IMPRESSION:? No acute radiographic abnormality Suspected hiatal hernia.? ECG Data Attestation: I personally reviewed and interpreted this ECG as follows: Interpretation: Sinus rhythm First-degree AV block NM interval of 212 milliseconds Ventricular rate is 66 Normal axis Normal QRS Normal QTC No ST T wave changes MDM Narrative Medical decision making narrative: Chest x-ray does not show any definitive consolidation. She stated that she did feel better of her nebulizer treatment and also the GI cocktail. I suspect that her COPD is exacerbated because of the aspiration. No indication for antibiotics. Plan will be is to put her on steroids and also refilled her nebulizer albuterol. I will also put her on Carafate for the next couple days and we discussed this. We did discuss strict return precautions. I do have low suspicion for ACS given her presentation. She expressed understanding and agreement with plan. Discharge Plan Departure Patient Disposition: Home Clinical Impression: COPD (chronic obstructive pulmonary disease), Gastroesophageal reflux disease Instructions: Chronic Obstructive Pulmonary Disease, DI for Gastroesophageal Reflux Disease (GERD) Activity Restrictions/Additional Instructions: I do recommend that you contact your primary doctor for follow-up to discuss the indications for a referral to see Gastroenterology. Take the medications that we started today as directed. Return to the emergency department for new or worsening symptoms. Prescriptions: New prednisone 20 mg tablet 20 mg PO DAILY 5 Days Qty: 5 0RF albuterol sulfate 2.5 mg/0.5 mL solution for nebulization 2.5 mg inhalation Q6H PRN (Reason: bronchospasm) Qty: 30 0RF sucralfate [Carafate] 100 mg/mL suspension 10 ml PO QACHS Qty: 400 0RF No Action multivitamin [Multiple Vitamins] 1 EACH tablet 1 tab PO DAILY Qty: 0 sodium chloride [Destiny 128] 3.5 GM ointment 1 melissa OPHTH BEDTIME PRN (Reason: Eye disorder) Qty: 0 albuterol sulfate 90 mcg/actuation HFA aerosol inhaler 2 puff INHALATION Q4H PRN (Reason: shortness of breath or wheezing) Qty: 1 2RF Patient Comments: not on home medication list Rx Instructions: administer with spacer; 2 puffs inh q 4 hours PRN rosuvastatin [Crestor] 5 mg tablet 2.5 mg PO DAILY Qty: 0 Pulmicort Flexhaler 180 mcg/actuation aerosol powdr breath activated 2 inhalation inhalation BID Qty: 2 5RF fluticasone propionate 50 mcg/actuation spray,suspension See Rx Instructions .ROUTE .COMPLEX Qty: 16 2RF Dose Instruction: Administer 2 sprays intranasally into each nostril daily Rx Instructions: Administer 2 sprays intranasally into each nostril daily estradiol [Estrace] 0.01 % (0.1 mg/gram) cream 1 g Vaginal 2XW Qty: 42.5 5RF flecainide 100 mg tablet 100 mg PO Q12H (DME) Disabled parking permit Qty: 1 0RF Rx Instructions: I find this patient to be medically disabled and qualified for disabled parking as indicated, and signed, on the accompanying disabled parking application for individuals. losartan 50 mg tablet 50 mg PO BEDTIME spironolactone 25 mg tablet 12.5 mg PO DAILY aspirin [Adult Low Dose Aspirin] 81 mg tablet,delayed release (DR/EC) 81 mg PO DAILY omeprazole 40 mg capsule,delayed release(DR/EC) 40 mg PO DAILY diltiazem HCl [Cartia XT] 120 mg capsule,extended release 24hr 120 mg PO BEDTIME ascorbic acid (vitamin C) 1,000 mg Tablet 1 g PO DAILY cholecalciferol (vitamin D3) [Vitamin D3] 1,000 unit Capsule 3,000 unit PO DAILY Cranberry 1,000 mg 1,000 mg PO DAILY Probiotic 1 cap PO DAILY d-mannose 1,000 mg 2,000 mg PO DAILY metronidazole [MetroCream] 0.75 % Cream 1 applic TOPICAL DAILY naproxen sodium [Aleve] 220 mg capsule 220 mg PO DAILY PRN Referrals: Kel Arvizu MD [Primary Care Provider] - Stand Alone Forms: Patient Portal/API
[2022-07-01] MEDS: MAG HYDROX/ALUMINUM/SIMETH SUS 20 ML, LIDOCAINE VISCOUS 2% 15 ML PO (11:34)
[2022-07-01] MEDS: ALBUTEROL 2.5 MG/3 ML NEB (ADULT) INH (11:36)
[2022-07-01 11:42] VITALS: PULSE 61; RESP 16; O2SAT 98
[2022-07-01 12:55] VITALS: BP 115/56; PULSE 74; RESP 18; O2SAT 96
== END 2022-07-01 12:56 | disposition home or self-care (01) ==
PROVIDERS: Emergency Provider Emergency Medicine; PCP Internal Medicine
DX: J44.9 Chronic obstructive pulmonary disease, unspecified (principal); K21.9 Gastro-esophageal reflux disease without esophagitis; Z20.822 Contact with and (suspected) exposure to COVID-19
CPT/HCPCS: 36415; 71045; 80053; 83605; 83880; 84484; 85025; 85610; 87635; 93005; 94640; 99284; C9803; J7613

== ENCOUNTER → 2022-09-17 08:55 | Outpatient (CLI) | payer MEDICARE, OTHER, SELFPAY ==
[2021-10-14 10:17] VITALS: BMI 32.2
[2022-09-17 10:04] LABS: Hematocrit 39.2 % (36-46); Hemoglobin 13.1 g/dL (12.0-16.0); Mean Corpuscular HGB Conc 33.5 % (30-36); Mean Corpuscular Hemoglobin 29.2 PG (26-34); Mean Corpuscular Volume 87.2 fL (80-100); Platelet Count 286 X10^3/uL (150-400); Red Blood Cell Count 4.49 X10^6/uL (4.0-5.2); Red Cell Distribution Width 15.8 % (11.6-14.8); White Blood Cell Count 7.4 X10^3/uL (4.5-11.0)
[2022-09-17 10:18] LABS: Aspartate Aminotransferase 23 IU/L (14-36); BUN Creatinine Ratio 21.4 (6-22); Blood Urea Nitrogen 18 mg/dL (7-17); Calcium 9.5 mg/dL (8.4-10.2); Carbon Dioxide 29 mmol/L (22-32); Chloride 102 mmol/L (98-107); Cholesterol 160 mg/dL (140-199); Estimated Glomerular Filt Rate > 60 mL/min (>60); Glucose 107 mg/dL (80-110); HDL Cholesterol 50 mg/dL (40-60); HEMOLYSIS < 15 (0-50); LDL Cholesterol Calculated 88 mg/dL (<100); Potassium 4.7 mmol/L (3.4-5.1); Sodium 138 mmol/L (137-145); Triglycerides 109 mg/dL (35-150)
[2022-09-17 11:03] LABS: Creatinine Urine Random 95.5 mg/dL
[2022-09-17 11:07] LABS: Microalbumi Creatinin Ratio Ur 28.2 ug/mg CR (<30); Microalbumin Urine Random 2.7 mg/dL (0-1.6)
[2022-09-18 08:45] LABS: x Labcorp Estim. Avg Glu (eAG) 134 mg/dL (.); x Labcorp Hemoglobin A1c 6.3 % (4.8-5.6)
== END ==
PROVIDERS: PCP Internal Medicine; Referring Provider Internal Medicine; Visit Provider Internal Medicine
DX: E78.5 Hyperlipidemia, unspecified (principal); E11.51 Type 2 diabetes mellitus with diabetic peripheral angiopathy without gangrene; I10 Essential (primary) hypertension; I48.0 Paroxysmal atrial fibrillation
CPT/HCPCS: 36415; 80048; 80061; 82043; 82570; 83036; 84450; 85027

== ENCOUNTER → 2022-10-10 09:03 | Outpatient (CLI) | payer MEDICARE, OTHER, SELFPAY ==
[2021-10-14 10:17] VITALS: BMI 32.2
--- NOTE | 2022-10-10 | DI.RAD.S_ITS ---
PROCEDURE: XR ABDOMEN 1V INDICATIONS: generalized abdominal pain TECHNIQUE: One view of the abdomen acquired. COMPARISON: [facility], , ABDOMEN 1 VIEW, 09/30/2016, 10:38. FINDINGS: Surgical changes and devices: L4-5 transpedicular posterior fusion and disc spacer placement. Cholecystectomy clips. Bowel: Mildly increased quantity of proximal colon stool. There is air in the splenic flexure of the colon and in a few nondilated left upper quadrant small bowel loops. Soft tissues: No suspicious abdominal calcifications. Visualized solid organ contours appear normal in size. Left common iliac vascular stent seen. Bones: No suspicious bony lesions. IMPRESSION: 1. No acute findings. 2. Nonspecific, nonobstructive bowel gas pattern. Dictated by: Chantell Ulloa M.D. on 10/10/2022 at 12:23 Approved by: Chantell Ulloa M.D. on 10/10/2022 at 12:25
== END ==
PROVIDERS: PCP Internal Medicine; Referring Provider Internal Medicine; Visit Provider Internal Medicine
DX: R10.84 Generalized abdominal pain (principal)
CPT/HCPCS: 74018

== ENCOUNTER 2022-11-24 13:45 | Emergency (ER) | payer MEDICARE, OTHER, SELFPAY ==
[2021-10-14 10:17] VITALS: BMI 32.2
[2022-11-24] VITALS (16 sets, daily range): BP systolic 110–170; BP diastolic 56–73; PULSE 54–79; RESP 10–26; TEMP 36.4–36.5; O2SAT 87–99; BMI 32.0
--- NOTE | 2022-11-24 14:04 | DI.RAD.S_ITS ---
PROCEDURE: XR CHEST 2V INDICATIONS: recent travel, SOB, covid exposure TECHNIQUE: 2 views of the chest were acquired. COMPARISON: [facility], , XR CHEST 1V, 07/01/2022, 10:15. FINDINGS: Surgical changes and devices: None. Lungs and pleura: Lungs are clear mild chronic interstitial prominence.. No pleural effusions or pneumothorax. Mediastinum: Mediastinal contours are normal. Heart size is normal. Bones and chest wall: No suspicious bony abnormalities. Soft tissues appear unremarkable. IMPRESSION: Mild chronic interstitial prominence. No focal pneumonia. Dictated by: Chuy Lee M.D. on 11/24/2022 at 14:31 Approved by: Chuy Lee M.D. on 11/24/2022 at 14:33
[2022-11-24 14:51] LABS: COVID19 -Nasal RAPID Negative (Negative)
--- NOTE | 2022-11-24 17:11 | PC.NURSE ---
Pt reports shortness of breath started today while walking her dog. Visited a friend on the and that person has since come down with Covid. Had a fundiplocation procedure on the .
--- NOTE | 2022-11-24 17:25 | ED_ITS ---
HPI - General Adult General Chief complaint: Shortness of Breath/Dyspnea Stated complaint: post op T-11/SOB/heavy chest Time Seen by Provider: 11/24/22 17:17 Source: patient Mode of arrival: Ambulatory History of Present Illness HPI narrative: Patient is a 77-year-old female. Approximately 11 days ago she underwent a fundoplication secondary to reflux disease. She states that the procedure did seem to go well. She is having some mild abdominal discomfort. Today she started to have shortness of breath specifically on exertion. She states that she actually had to sit down during her walk today with walking her dog because of how short of breath she was. No chest pain. While she is sitting in bed she states she actually feels better. She is not having chest pain or palpitations. Did get somewhat lightheaded. No fevers. No cough. Related Data Home Medications Medication Instructions Recorded Confirmed multivitamin (Multiple Vitamins 1 tab PO DAILY ##0 10/27/16 09/17/22 tablet) sodium chloride 5 % eye ointment 1 melissa OPHTH BEDTIME PRN Eye 10/27/16 09/17/22 (Destiny 128) disorder ##0 flecainide 100 mg tablet 100 mg PO Q12H 11/06/17 09/17/22 rosuvastatin 5 mg tablet (Crestor) 2.5 mg PO DAILY #0 tabs 05/11/18 09/17/22 losartan 50 mg tablet 50 mg PO BEDTIME 11/23/18 09/17/22 Cranberry 1,000 mg PO DAILY 12/10/18 09/17/22 Probiotic 1 cap PO DAILY 12/10/18 09/17/22 ascorbic acid (vitamin C) 1,000 mg 1 g PO DAILY 12/10/18 09/17/22 tablet cholecalciferol (vitamin D3) 25 3,000 unit PO DAILY 12/10/18 09/17/22 mcg (1,000 unit) capsule (Vitamin D3) d-mannose 2,000 mg PO DAILY 12/10/18 09/17/22 diltiazem HCl 120 mg 120 mg PO BEDTIME 12/10/18 09/17/22 capsule,extended release 24 hr (Cartia XT) metronidazole 0.75 % topical cream 1 applic topical DAILY 12/10/18 09/17/22 (MetroCream) spironolactone 25 mg tablet 12.5 mg PO DAILY 05/25/20 09/17/22 aspirin 81 mg tablet,delayed 81 mg PO DAILY 06/19/21 09/17/22 release (Adult Low Dose Aspirin) naproxen sodium 220 mg capsule 220 mg PO DAILY PRN 04/25/22 09/17/22 (Aleve) Previous Rx's Medication Instructions Recorded albuterol sulfate 90 mcg/actuation 2 puff inhalation Q4H PRN 09/23/17 aerosol inhaler shortness of breath or wheezing #1 inh Disabled parking permit #1 ea 05/19/18 budesonide 180 mcg/actuation 2 inhalation inhalation BID #2 02/03/19 breath activated powder inhaler inhalations (Pulmicort Flexhaler) fluticasone propionate 50 See Rx Instructions .Route 04/05/20 mcg/actuation nasal .COMPLEX #16 grams spray,suspension estradiol 0.01% (0.1 mg/gram) 1 g vaginal 2XW #42.5 grams 03/13/21 vaginal cream (Estrace) albuterol sulfate 2.5 mg/0.5 mL 2.5 mg (0.5 mL) inhalation Q6H PRN 07/01/22 solution for nebulization bronchospasm #30 ea sucralfate 100 mg/mL oral 10 ml PO QACHS #400 mL 07/01/22 suspension (Carafate) omeprazole 40 mg capsule,delayed 40 mg PO BID #180 caps 09/17/22 release Allergies Allergy/AdvReac Type Severity Reaction Status Date / Time adhesive tape Allergy Severe PAPER TAPE Verified 11/24/22 14:01 allergy - Dermatitis latex [LATEX] Allergy Severe Hives, Verified 11/24/22 14:01 Wheezing sulfamethoxazole Allergy Intermediate Rash Verified 11/24/22 14:01 [From Bactrim] trimethoprim [From Bactrim] Allergy Intermediate Rash Verified 11/24/22 14:01 bupropion [From WELLBUTRIN] AdvReac Severe Tremors Verified 11/24/22 14:01 erythromycin base AdvReac Severe GI Upset, Verified 11/24/22 14:01 [ERYTHROMYCIN BASE] Bloody diarrhea lisinopril [LISINOPRIL] AdvReac Severe Cough Verified 11/24/22 14:01 meperidine [From DEMEROL] AdvReac Severe Hallucinati Verified 11/24/22 14:01 ng Review of Systems Constitutional Constitutional: Reports system reviewed and no additional complaints, except as documented ENT Ears, Nose, Mouth, and Throat: Reports system reviewed and no additional complaints, except as documented Cardiovascular Cardiovascular: Reports system reviewed and no additional complaints, except as documented Respiratory Respiratory: Reports system reviewed and no additional complaints, except as documented Integumentary/Breasts Skin/Breast: Reports system reviewed and no additional complaints, except as documented Neurologic Neurologic: Reports system reviewed and no additional complaints, except as doc umented Hematologic/Lymphatic On Anticoagulants: No Patient History Medical History Abnormal Pap smear of cervix (1975) Allergic rhinitis Ankle fracture, left (1987) Ankle pain (1989) Anxiety (1984) Asthma (2015) Graves's esophagus (2013) BPPV (benign paroxysmal positional vertigo) Bruit of left carotid artery Cataract (2002) Chicken pox (1954) Cholangioma Chronic diastolic (congestive) heart failure COPD (chronic obstructive pulmonary disease) (~2015) Corneal dystrophy (2002) Cystocele 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 Diverticular disease (2016) Diverticulosis Do not resuscitate Elbow fracture, right (2015) Epiretinal membrane (2004) Frequent UTI (~2018) Fuchs' corneal dystrophy of both eyes Gastritis GERD (gastroesophageal reflux disease) (2004) Hayfever (1965) Hearing loss (~2015) Hemorrhoids (~1969) History of iron deficiency anemia (~2018) History of psychosis (1968) Hypercholesterolemia Hyperlipidemia (1996) Hypertension Internal hemorrhoids Kidney stones (2010) Lumbar back pain with radiculopathy affecting left lower extremity Measles Mild aortic valve sclerosis (~2017) Mumps Osteoarthritis (~1994) Osteopenia PAD (peripheral artery disease) Paroxysmal atrial fibrillation Positive PPD (1977) Postmenopausal atrophic vaginitis Prediabetes Premature ventricular contraction Rectocele Recurrent UTI Rosacea (2011) Skin cancer, basal cell (~2020) SVT (supraventricular tachycardia) TMJ pain dysfunction syndrome Uterine cancer (~1975) Ventricular escape beats Surgical History Anesthesia History of cataract removal with insertion of prosthetic lens (2002) History of ear, nose, and throat (ENT) surgery (1977) History of esophagogastroduodenoscopy (EGD) (07/2015) History of esophagogastroduodenoscopy (EGD) (~01/2019) History of foot surgery (2007) History of knee replacement (2012) History of meniscectomy of left knee (~04/2021) Hx of blepharoplasty (01/2020) S/P epidural steroid injection (~02/10/21) S/P lumbar fusion Status post angioplasty with stent (~10/2019) Status post colonoscopy (2015) Status post hysterectomy (1975) Status post laparoscopic cholecystectomy (2001) Status post open reduction with internal fixation (ORIF) of fracture of ankle (1987) Family History Brother Brain aneurysm CVA (cerebral vascular accident) Mental health problem Alcoholism Brother Alcoholism Heart disease Father No problems noted. Grandfather Alcoholism Suicide Grandmother CVA (cerebral vascular accident) Mother CVA (cerebral vascular accident) [place] (myocardial infarction) Lung cancer Hypertension Heart disease Grandfather No problems noted. Grandmother MVA (motor vehicle accident) Sister Thalassemia Dementia Drug addiction Sister Alcoholism Brother Ischemia Alcoholism CVA (cerebral vascular accident) Social History details: , two grown children household members: none Smoking Status: Former smoker alcohol intake: current Smoking Status: Former smoker alcohol intake frequency: a few times a month Substance Use Type: does not use Exam Initial Vital Signs Initial Vital Signs: Vital Signs Temperature 97.5 F L 11/24/22 14:01 Pulse Rate 79 11/24/22 14:01 Respiratory Rate 18 11/24/22 14:01 Blood Pressure 110/56 L 11/24/22 14:01 Pulse Oximetry 98 11/24/22 14:01 Oxygen Delivery Method Room Air 11/24/22 14:01 Const General: cooperative, comfortable and No ill appearing HENMT Head: normal to inspection and normocephalic Resp Effort & Inspection: normal respiratory effort Auscultation: clear to auscultation bilaterally Cardio Rate: regular rate Rhythm: regular rhythm Skin General: no rashes or lesions noted Neuro General: patient alert, patient awake, patient oriented x3 and moves all extremities Extrem General: normal to inspection Course Orders Ordered: ED Orders 11/24/22 14:00 COVID19 -Nasal RAPID Stat 11/24/22 14:04 XR chest 2V Stat 11/24/22 17:26 EKG-12 Lead Stat 11/24/22 17:50 Complete Blood Count AUTO DIFF Stat Comprehensive Metabolic Panel Stat D Dimer Stat Troponin & CK Cardiac Panel Stat Vital Signs Vital signs: Vital Signs - 8 hr 11/24/22 14:01 11/24/22 16:57 11/24/22 17:00 Temperature 97.5 F L Pulse Rate 79 61 62 Respiratory Rate 18 18 20 Blood Pressure 110/56 L Pulse Oximetry 98 98 98 Oxygen Delivery Method Room Air Room Air 11/24/22 17:01 11/24/22 17:01 11/24/22 17:30 Temperature Pulse Rate 58 L Respiratory Rate 14 Blood Pressure 146/63 H 154/67 H Pulse Oximetry 99 Oxygen Delivery Method Room Air 11/24/22 17:30 Temperature Pulse Rate 54 L Respiratory Rate 12 Blood Pressure Pulse Oximetry 98 Oxygen Delivery Method Room Air Medical Decision Making Lab Data Lab results reviewed: Yes I reviewed the patient's lab results. 11/24/22 17:50 11/24/22 17:50 Labs: Lab Results 11/24/22 11/24/22 11/24/22 Range/Units 14:00 17:50 17:50 WBC 9.4 (4.5-11.0) X10^3/uL RBC 4.41 (4.0-5.2) X10^6/uL Hgb 13.1 (12.0-16.0) g/dL Hct 39.0 (36-46) % MCV 88.4 (80-100) fL MCH 29.6 (26-34) PG MCHC 33.5 (30-36) % RDW 15.4 H (11.6-14.8) % Plt Count 356 (150-400) X10^3/uL Neut % (Auto) 51.0 (50-75) % Lymph % (Auto) 34.5 (25-40) % [place] % (Auto) 9.2 (3-14) % Eos % (Auto) 3.2 (2-4) % Baso % (Auto) 2.1 H (0-2) % Neut # (Auto) 4800 (2140-6446) /uL Lymph # (Auto) 3200 (0005-8459) /uL [place] # (Auto) 900 (0-900) /uL Eos # (Auto) 300 (0-450) /uL Baso # (Auto) 200 H (0-100) /uL D-Dimer 1468 H (<500) ng/ml Sodium (137-145) mmol/L Potassium (3.4-5.1) mmol/L Chloride (98-107) mmol/L Carbon Dioxide (22-32) mmol/L BUN (7-17) mg/dL Creatinine (0.52-1.04) mg/dL Estimated GFR (>60) mL/min BUN/Creatinine Ratio (6-22) Glucose (80-110) mg/dL Calcium (8.4-10.2) mg/dL Total Bilirubin (0.2-1.3) mg/dL AST (14-36) IU/L ALT (<35) IU/L Alkaline Phosphatase (38-126) U/L Total Creatine Kinase (30-135) U/L Total Protein (6.3-8.2) g/dL Albumin (3.5-5.0) g/dL Globulin (1.7-4.1) g/dL Albumin/Globulin Ratio (1.0-2.8) SARS-CoV-2 (PCR) Negative (Negative) 11/24/22 Range/Units 17:50 WBC (4.5-11.0) X10^3/uL RBC (4.0-5.2) X10^6/uL Hgb (12.0-16.0) g/dL Hct (36-46) % MCV (80-100) fL MCH (26-34) PG MCHC (30-36) % RDW (11.6-14.8) % Plt Count (150-400) X10^3/uL Neut % (Auto) (50-75) % Lymph % (Auto) (25-40) % [place] % (Auto) (3-14) % Eos % (Auto) (2-4) % Baso % (Auto) (0-2) % Neut # (Auto) (4589-2134) /uL Lymph # (Auto) (3531-8456) /uL [place] # (Auto) (0-900) /uL Eos # (Auto) (0-450) /uL Baso # (Auto) (0-100) /uL D-Dimer (<500) ng/ml Sodium 135 L (137-145) mmol/L Potassium 4.3 (3.4-5.1) mmol/L Chloride 100 (98-107) mmol/L Carbon Dioxide 25 (22-32) mmol/L BUN 15 (7-17) mg/dL Creatinine 0.97 (0.52-1.04) mg/dL Estimated GFR > 60 (>60) mL/min BUN/Creatinine Ratio 15.5 (6-22) Glucose 93 (80-110) mg/dL Calcium 10.0 (8.4-10.2) mg/dL Total Bilirubin 0.4 (0.2-1.3) mg/dL AST 35 (14-36) IU/L ALT 51 H (<35) IU/L Alkaline Phosphatase 88 (38-126) U/L Total Creatine Kinase 26 L (30-135) U/L Total Protein 7.8 (6.3-8.2) g/dL Albumin 4.1 (3.5-5.0) g/dL Globulin 3.7 (1.7-4.1) g/dL Albumin/Globulin Ratio 1.1 (1.0-2.8) SARS-CoV-2 (PCR) (Negative) Imaging Data Chest x-ray: Radiologist's Impression: PROCEDURE:? XR CHEST 2V ? INDICATIONS:? recent travel, SOB, covid exposure ? TECHNIQUE:? 2 views of the chest were acquired.? ? COMPARISON:? [facility], , XR CHEST 1V, 07/01/2022, 10:15. ? FINDINGS:? ? Surgical changes and devices:? None.? ? Lungs and pleura:? Lungs are clear mild chronic interstitial prominence..? No pleural effusions or pneumothorax.? ? Mediastinum:? Mediastinal contours are normal.? Heart size is normal.? ? Bones and chest wall:? No suspicious bony abnormalities.? Soft tissues appear unremarkable.? ? ? IMPRESSION:? Mild chronic interstitial prominence.? No focal pneumonia. ? ECG Data Interpretation: Sinus bradycardia Ventricular rate of 57 First-degree AV block ME interval 220 milliseconds Normal QRS No ST T wave changes MDM Narrative Medical decision making narrative: Patient is not hypoxic or tachypneic when she was lying in bed. She was actually bradycardic on her EKG. Chest x-ray is unremarkable. Given her recent procedure will obtain laboratory results. Care turned over to Dr. Brown to follow-up and disposition. Discharge Plan Departure Prescriptions: No Action multivitamin [Multiple Vitamins] 1 EACH tablet 1 tab PO DAILY Qty: 0 sodium chloride [Destiny 128] 3.5 GM ointment 1 melissa OPHTH BEDTIME PRN (Reason: Eye disorder) Qty: 0 albuterol sulfate 90 mcg/actuation HFA aerosol inhaler 2 puff INHALATION Q4H PRN (Reason: shortness of breath or wheezing) Qty: 1 2RF Patient Comments: not on home medication list Rx Instructions: administer with spacer; 2 puffs inh q 4 hours PRN rosuvastatin [Crestor] 5 mg tablet 2.5 mg PO DAILY Qty: 0 Pulmicort Flexhaler 180 mcg/actuation aerosol powdr breath activated 2 inhalation inhalation BID Qty: 2 5RF fluticasone propionate 50 mcg/actuation spray,suspension See Rx Instructions .ROUTE .COMPLEX Qty: 16 2RF Dose Instruction: Administer 2 sprays intranasally into each nostril daily Rx Instructions: Administer 2 sprays intranasally into each nostril daily estradiol [Estrace] 0.01 % (0.1 mg/gram) cream 1 g Vaginal 2XW Qty: 42.5 5RF flecainide 100 mg tablet 100 mg PO Q12H omeprazole 40 mg capsule,delayed release(DR/EC) 40 mg PO BID Qty: 180 1RF (DME) Disabled parking permit Qty: 1 0RF Rx Instructions: I find this patient to be medically disabled and qualified for disabled parking as indicated, and signed, on the accompanying disabled parking application for individuals. losartan 50 mg tablet 50 mg PO BEDTIME spironolactone 25 mg tablet 12.5 mg PO DAILY aspirin [Adult Low Dose Aspirin] 81 mg tablet,delayed release (DR/EC) 81 mg PO DAILY diltiazem HCl [Cartia XT] 120 mg capsule,extended release 24hr 120 mg PO BEDTIME ascorbic acid (vitamin C) 1,000 mg Tablet 1 g PO DAILY cholecalciferol (vitamin D3) [Vitamin D3] 1,000 unit Capsule 3,000 unit PO DAILY Cranberry 1,000 mg 1,000 mg PO DAILY Probiotic 1 cap PO DAILY d-mannose 1,000 mg 2,000 mg PO DAILY metronidazole [MetroCream] 0.75 % Cream 1 applic TOPICAL DAILY albuterol sulfate 2.5 mg/0.5 mL solution for nebulization 2.5 mg inhalation Q6H PRN (Reason: bronchospasm) Qty: 30 0RF sucralfate [Carafate] 100 mg/mL suspension 10 ml PO QACHS Qty: 400 0RF naproxen sodium [Aleve] 220 mg capsule 220 mg PO DAILY PRN Referrals: Kel Arvizu MD [Primary Care Provider] -
[2022-11-24 18:01] LABS: Add Manual Diff / Slide Review NO; Basophils Absolute Auto 200 /uL (0-100); Basophils Percent Auto 2.1 % (0-2); Eosinophils Absolute Auto 300 /uL (0-450); Eosinophils Percent Auto 3.2 % (2-4); Hemoglobin 13.1 g/dL (12.0-16.0); Lymphocytes Absolute Auto 3200 /uL (1100-4500); Lymphocytes Percent Auto 34.5 % (25-40); Mean Corpuscular HGB Conc 33.5 % (30-36); Mean Corpuscular Hemoglobin 29.6 PG (26-34); Mean Corpuscular Volume 88.4 fL (80-100); Monocytes Absolute Auto 900 /uL (0-900); Monocytes Percent Auto 9.2 % (3-14); Neutrophils Absolute Auto 4800 /uL (1500-7000); Platelet Count 356 X10^3/uL (150-400); Red Blood Cell Count 4.41 X10^6/uL (4.0-5.2); Red Cell Distribution Width 15.4 % (11.6-14.8); White Blood Cell Count 9.4 X10^3/uL (4.5-11.0)
[2022-11-24 18:12] LABS: D Dimer 1468 ng/ml (<500)
[2022-11-24 18:15] LABS: Alanine Aminotransferase 51 IU/L (<35); Albumin 4.1 g/dL (3.5-5.0); Albumin Globulin Ratio 1.1 (1.0-2.8); Alkaline Phosphatase 88 U/L (38-126); Aspartate Aminotransferase 35 IU/L (14-36); BUN Creatinine Ratio 15.5 (6-22); Bilirubin Total 0.4 mg/dL (0.2-1.3); Blood Urea Nitrogen 15 mg/dL (7-17); Carbon Dioxide 25 mmol/L (22-32); Chloride 100 mmol/L (98-107); Creatine Kinase 26 U/L (30-135); Estimated Glomerular Filt Rate > 60 mL/min (>60); Globulin 3.7 g/dL (1.7-4.1); Glucose 93 mg/dL (80-110); HEMOLYSIS < 15 (0-50); Potassium 4.3 mmol/L (3.4-5.1); Sodium 135 mmol/L (137-145); Total Protein 7.8 g/dL (6.3-8.2)
[2022-11-24 18:26] LABS: Troponin I < 0.012 ng/mL (0.01-0.034)
--- NOTE | 2022-11-24 19:06 | DI.CT.S_ITS ---
PROCEDURE: CT ANGIO CHEST PE PROTOCOL INDICATIONS: sob, surgery partial Michael. TECHNIQUE: After the administration of intravenous contrast, 2 mm thick sections acquired from the pulmonary apices to the posterior costophrenic angles. 3-dimensional maximum intensity projection (MIP) coronal and sagittal reformats were then acquired through the thorax. For radiation dose reduction, the following was used: automated exposure control, adjustment of mA and/or kV according to patient size. COMPARISON: [facility], CT, CT ANGIO CHEST PE PROTOCOL, 01/26/2022, 14:07. FINDINGS: Image quality: Good Lungs and pleura: Basal scarring/atelectasis. No dense consolidation. No drainable pleural effusion. No new or enlarging suspicious pulmonary nodule. Mediastinum, heart, and esophagus: No acute pulmonary embolism. There are coronary and annular calcifications of the heart. Atherosclerotic calcifications. Nonspecific thickening of the gastroesophageal junction, with postsurgical changes (as reported), correlate with endoscopy if clinically indicated. No pathologic lymph nodes by size criteria. Borderline cardiomegaly. Chest wall and thyroid: Possible thyroid nodule involving the isthmus, consider ultrasound if not already obtained. Upper abdomen: No gross abnormality on these arterial phase images. Bones: Degenerative changes. IMPRESSION: No acute pulmonary embolism. No dense airspace disease or pleural effusion. Other findings as above, with possible follow-up suggestions. Dictated by: Henry Gabriel M.D. on 11/24/2022 at 20:06 Approved by: Henry Gabriel M.D. on 11/24/2022 at 20:10
[2022-11-24 19:37] LABS: NT-proBNP (BNP-Adult 18+) 39 pg/mL (<450)
[2022-11-24 20:40] LABS: Troponin I < 0.012 ng/mL (0.01-0.034)
--- NOTE | 2022-11-24 21:42 | PC.NURSE ---
Called patient's emergency contact about the left behind cell phone and glasses. Will hang on to both in case the patient comes back tonight and then turn into lost and found.
== END 2022-11-24 21:35 | disposition home or self-care (01) ==
PROVIDERS: Emergency Medicine; Emergency Provider Emergency Medicine; PCP Internal Medicine
DX: R06.02 Shortness of breath (principal); R10.9 Unspecified abdominal pain; R00.1 Bradycardia, unspecified; Z79.899 Other long term (current) drug therapy; Z20.822 Contact with and (suspected) exposure to COVID-19
CPT/HCPCS: 36415; 71046; 71275; 80053; 81003; 82550; 83880; 84484; 85025; 85379; 87635; 93005; 99284; C9803; Q9967

== ENCOUNTER 2022-11-28 12:11 | Emergency (ER) | payer MEDICARE, OTHER, SELFPAY ==
[2021-10-14 10:17] VITALS: BMI 32.2
[2022-11-28] VITALS (18 sets, daily range): BP systolic 138–195; BP diastolic 65–79; PULSE 65–91; RESP 12–24; TEMP 37.2; O2SAT 94–99; BMI 31.8
--- NOTE | 2022-11-28 12:29 | DI.RAD.S_ITS ---
PROCEDURE: XR CHEST 1V INDICATIONS: chest pain TECHNIQUE: One view of the chest was acquired. COMPARISON: [facility], CR, XR CHEST 2V, 11/24/2022, 14:11. FINDINGS: Surgical changes and devices: None. Lungs and pleura: Lungs are clear. No pleural effusions or pneumothorax. Mediastinum: Mediastinal contours appear normal. Heart size is normal. Bones and chest wall: No suspicious bony lesions. Overlying soft tissues appear unremarkable. IMPRESSION: Portable chest within normal limits for age. Dictated by: Chantell Ulloa M.D. on 11/28/2022 at 13:58 Approved by: Chantell Ulloa M.D. on 11/28/2022 at 13:58
[2022-11-28 12:43] LABS: Add Manual Diff / Slide Review NO; Basophils Absolute Auto 200 /uL (0-100); Basophils Percent Auto 1.5 % (0-2); Eosinophils Absolute Auto 300 /uL (0-450); Hematocrit 40.8 % (36-46); Hemoglobin 13.5 g/dL (12.0-16.0); Lymphocytes Absolute Auto 2700 /uL (1100-4500); Lymphocytes Percent Auto 24.1 % (25-40); Mean Corpuscular HGB Conc 33.2 % (30-36); Mean Corpuscular Hemoglobin 29.5 PG (26-34); Mean Corpuscular Volume 88.9 fL (80-100); Monocytes Absolute Auto 900 /uL (0-900); Monocytes Percent Auto 7.9 % (3-14); Neutrophils Absolute Auto 7100 /uL (1500-7000); Neutrophils Percent Auto 63.5 % (50-75); Platelet Count 353 X10^3/uL (150-400); Red Blood Cell Count 4.59 X10^6/uL (4.0-5.2); Red Cell Distribution Width 15.1 % (11.6-14.8); White Blood Cell Count 11.2 X10^3/uL (4.5-11.0)
[2022-11-28 12:50] LABS: INR 1.1 (0.9-1.3); Prothrombin Time 13.1 SECONDS (10.1-12.7)
[2022-11-28 12:53] LABS: PTT Partial Thromboplastin Tim 28 SECONDS (26-36)
[2022-11-28 12:58] LABS: Alanine Aminotransferase 35 IU/L (<35); Albumin 4.4 g/dL (3.5-5.0); Albumin Globulin Ratio 1.2 (1.0-2.8); Alkaline Phosphatase 81 U/L (38-126); Aspartate Aminotransferase 34 IU/L (14-36); BUN Creatinine Ratio 13.5 (6-22); Bilirubin Total 0.7 mg/dL (0.2-1.3); Blood Urea Nitrogen 13 mg/dL (7-17); Calcium 9.9 mg/dL (8.4-10.2); Carbon Dioxide 22 mmol/L (22-32); Chloride 99 mmol/L (98-107); Creatine Kinase 22 U/L (30-135); Estimated Glomerular Filt Rate > 60 mL/min (>60); Globulin 3.6 g/dL (1.7-4.1); Glucose 105 mg/dL (80-110); HEMOLYSIS < 15 (0-50); Lipase 92 U/L (23-300); Magnesium 1.5 mg/dL (1.6-2.3); Potassium 3.9 mmol/L (3.4-5.1); Sodium 133 mmol/L (137-145)
[2022-11-28 13:09] LABS: Troponin I < 0.012 ng/mL (0.01-0.034)
--- NOTE | 2022-11-28 13:50 | ED_ITS ---
HPI - Chest Pain General Chief Complaint: Chest Pain Stated Complaint: GOT WORSE/CHEST PAIN/SOB Time Seen by Provider: 11/28/22 12:19 History of Present Illness HPI narrative: 77-year-old female with history of asthma/COPD presents by private vehicle from home for shortness of breath. Patient was seen in our emergency department 4 days prior for same complaint. She is 15 days postop from Michael fundoplication. In the ER she underwent cardiac workup including D-dimer and CT angio. No cause of the patient's shortness of breath was found and she was discharged home with instructions to return if she feels worse. Patient states that this morning when she woke up she felt okay, however when she got up to start her day-to-day activities her shortness of breath dramatically worsened. She states that even getting up to take the chest x-ray that was ordered in triage took the breath out of her. She is also reporting intermittent left- sided chest pains and a fullness in her throat. Patient states that she does have COPD, but this is much different from her COPD Related Data Home Medications Medication Instructions Recorded Confirmed multivitamin (Multiple Vitamins 1 tab PO DAILY ##0 10/27/16 09/17/22 tablet) sodium chloride 5 % eye ointment 1 melissa OPHTH BEDTIME PRN Eye 10/27/16 09/17/22 (Destiny 128) disorder ##0 flecainide 100 mg tablet 100 mg PO Q12H 11/06/17 09/17/22 rosuvastatin 5 mg tablet (Crestor) 2.5 mg PO DAILY #0 tabs 05/11/18 09/17/22 losartan 50 mg tablet 50 mg PO BEDTIME 11/23/18 09/17/22 Cranberry 1,000 mg PO DAILY 12/10/18 09/17/22 Probiotic 1 cap PO DAILY 12/10/18 09/17/22 ascorbic acid (vitamin C) 1,000 mg 1 g PO DAILY 12/10/18 09/17/22 tablet cholecalciferol (vitamin D3) 25 3,000 unit PO DAILY 12/10/18 09/17/22 mcg (1,000 unit) capsule (Vitamin D3) d-mannose 2,000 mg PO DAILY 12/10/18 09/17/22 diltiazem HCl 120 mg 120 mg PO BEDTIME 12/10/18 09/17/22 capsule,extended release 24 hr (Cartia XT) metronidazole 0.75 % topical cream 1 applic topical DAILY 12/10/18 09/17/22 (MetroCream) spironolactone 25 mg tablet 12.5 mg PO DAILY 05/25/20 09/17/22 aspirin 81 mg tablet,delayed 81 mg PO DAILY 06/19/21 09/17/22 release (Adult Low Dose Aspirin) naproxen sodium 220 mg capsule 220 mg PO DAILY PRN 04/25/22 09/17/22 (Aleve) Previous Rx's Medication Instructions Recorded albuterol sulfate 90 mcg/actuation 2 puff inhalation Q4H PRN 09/23/17 aerosol inhaler shortness of breath or wheezing #1 inh Disabled parking permit #1 ea 05/19/18 budesonide 180 mcg/actuation 2 inhalation inhalation BID #2 02/03/19 breath activated powder inhaler inhalations (Pulmicort Flexhaler) fluticasone propionate 50 See Rx Instructions .Route 04/05/20 mcg/actuation nasal .COMPLEX #16 grams spray,suspension estradiol 0.01% (0.1 mg/gram) 1 g vaginal 2XW #42.5 grams 03/13/21 vaginal cream (Estrace) albuterol sulfate 2.5 mg/0.5 mL 2.5 mg (0.5 mL) inhalation Q6H PRN 07/01/22 solution for nebulization bronchospasm #30 ea sucralfate 100 mg/mL oral 10 ml PO QACHS #400 mL 07/01/22 suspension (Carafate) omeprazole 40 mg capsule,delayed 40 mg PO BID #180 caps 09/17/22 release Allergies Allergy/AdvReac Type Severity Reaction Status Date / Time adhesive tape Allergy Severe PAPER TAPE Verified 11/24/22 14:01 allergy - Dermatitis latex [LATEX] Allergy Severe Hives, Verified 11/24/22 14:01 Wheezing sulfamethoxazole Allergy Intermediate Rash Verified 11/24/22 14:01 [From Bactrim] trimethoprim [From Bactrim] Allergy Intermediate Rash Verified 11/24/22 14:01 bupropion [From WELLBUTRIN] AdvReac Severe Tremors Verified 11/24/22 14:01 erythromycin base AdvReac Severe GI Upset, Verified 11/24/22 14:01 [ERYTHROMYCIN BASE] Bloody diarrhea lisinopril [LISINOPRIL] AdvReac Severe Cough Verified 11/24/22 14:01 meperidine [From DEMEROL] AdvReac Severe Hallucinati Verified 11/24/22 14:01 joe Review of Systems Review of Systems Narrative: CONSTITUTIONAL- Denies: fever, chills, fatigue HEENT- Denies: sore throat, nosebleed, vision changes RESPIRATORY-reports: Shortness of breath Denies: cough, wheezing CARDIAC-reports: Chest pain Denies: edema, orthopnea GI- Denies: abdominal pain, nausea, vomiting, constipation, diarrhea - Denies: frequency, dysuria, hematuria, flank pain MSK- Denies: extremity pain, extremity swelling, joint pain, joint swelling SKIN- Denies: rash, itching, burn, swelling NEUROLOGICAL- Denies: headache, numbness, weakness, dizziness PSYCHIATRIC- Denies: anxiety, depression, suicidal ideation, homicidal ideation Patient History Medical History Abnormal Pap smear of cervix (1975) Allergic rhinitis Ankle fracture, left (1987) Ankle pain (1989) Anxiety (1984) Asthma (2015) Graves's esophagus (2013) BPPV (benign paroxysmal positional vertigo) Bruit of left carotid artery Cataract (2002) Chicken pox (1954) Cholangioma Chronic diastolic (congestive) heart failure COPD (chronic obstructive pulmonary disease) (~2015) Corneal dystrophy (2002) Cystocele 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 Diverticular disease (2017) Diverticulosis Do not resuscitate Elbow fracture, right (2015) Epiretinal membrane (2004) Frequent UTI (~2018) Fuchs' corneal dystrophy of both eyes Gastritis GERD (gastroesophageal reflux disease) (2004) Hayfever (1965) Hearing loss (~2015) Hemorrhoids (~1969) History of iron deficiency anemia (~2018) History of psychosis (1968) Hypercholesterolemia Hyperlipidemia (1996) Hypertension Internal hemorrhoids Kidney stones (2010) Lumbar back pain with radiculopathy affecting left lower extremity Measles Mild aortic valve sclerosis (~2017) Mumps Osteoarthritis (~1994) Osteopenia PAD (peripheral artery disease) Paroxysmal atrial fibrillation Positive PPD (1977) Postmenopausal atrophic vaginitis Prediabetes Premature ventricular contraction Rectocele Recurrent UTI Rosacea (2011) Skin cancer, basal cell (~2020) SVT (supraventricular tachycardia) TMJ pain dysfunction syndrome Uterine cancer (~1975) Ventricular escape beats Surgical History Anesthesia History of cataract removal with insertion of prosthetic lens (2002) History of ear, nose, and throat (ENT) surgery (1977) History of esophagogastroduodenoscopy (EGD) (07/2015) History of esophagogastroduodenoscopy (EGD) (~01/2019) History of foot surgery (2007) History of knee replacement (2012) History of meniscectomy of left knee (~04/2021) Hx of blepharoplasty (01/2020) S/P epidural steroid injection (~02/10/21) S/P lumbar fusion Status post angioplasty with stent (~10/2019) Status post colonoscopy (2015) Status post hysterectomy (1975) Status post laparoscopic cholecystectomy (2001) Status post open reduction with internal fixation (ORIF) of fracture of ankle (1987) Family History Brother Brain aneurysm CVA (cerebral vascular accident) Mental health problem Alcoholism Brother Alcoholism Heart disease Father No problems noted. Grandfather Alcoholism Suicide Grandmother CVA (cerebral vascular accident) Mother CVA (cerebral vascular accident) CO (myocardial infarction) Lung cancer Hypertension Heart disease Grandfather No problems noted. Grandmother MVA (motor vehicle accident) Sister Thalassemia Dementia Drug addiction Sister Alcoholism Brother Ischemia Alcoholism CVA (cerebral vascular accident) Social History details: , two grown children household members: none Smoking Status: Former smoker alcohol intake: current Smoking Status: Former smoker alcohol intake frequency: a few times a month Substance Use Type: does not use Exam Initial Vital Signs Initial Vital Signs: Vital Signs Temperature 98.9 F 11/28/22 12:17 Pulse Rate 80 11/28/22 12:17 Respiratory Rate 24 11/28/22 12:17 Blood Pressure 193/74 H 11/28/22 12:17 Pulse Oximetry 97 11/28/22 12:17 Oxygen Delivery Method Room Air 11/28/22 12:17 Course Course Course Narrative: Well-appearing patient presenting for worsening shortness of breath. While resting in the ED bed patient is in no acute distress, saturating well on room air, conversation without difficulty. Lungs are clear to auscultation bilaterally, no definite cause for patient's symptoms evident at this time. We will obtain labs and imaging. Orders Ordered: ED Orders 11/28/22 12:29 XR chest 1V Stat 11/28/22 12:30 Complete Blood Count AUTO DIFF Stat Comprehensive Metabolic Panel Stat Lipase Stat Magnesium Stat PTT Partial Thromboplastin Frank Stat Prothrombin Time INR Stat Troponin & CK Cardiac Panel Stat 11/28/22 12:34 EKG-12 Lead Stat 11/28/22 17:37 CT angio chest Stat Reevaluation(s) Reevaluation #1: Laboratory work is reviewed, no significant change from prior. Chest x-ray is negative for acute findings. Troponin negative. Patient ambulatory in the hallway with nursing staff, maintaining oxygen saturations above 95%. I discussed the patient's case with hospitalist service, who stated that we do not have stress test or echo capabilities until Thursday and if patient was desiring these tests in the hospital then she would have to wait over the weekend until they could be performed on Thursday. Discussed case with patient, who expressed dismay that no cause for shortness of breath was found. Her friend at bedside who was a former nurse expressed concern that patient could be ?showering? DVTs from her surgery that may show up now and would not be evident on initial CT. I explained this was highly unlikely, however since the patient is not able to obtain any cardiac services over the weekend I did offer a repeat CT angio for reassurance. Patient requested the repeat angio. Reevaluation #2: Repeat CT angio is again negative for DVT or other acute findings. Still no explanation for patient's dyspnea. Patient states that she will call her [facility] doctor's office on Thursday for follow-up appointment. She will return to the emergency department for any new or worsening concerns. ED return precautions discussed at bedside. Patient expressed understanding of the plan and is in agreement at this time. All questions answered at the time of discharge. Vital Signs Vital signs: Vital Signs - 8 hr 11/28/22 12:17 11/28/22 13:16 11/28/22 13:18 Temperature 98.9 F Pulse Rate 80 80 Respiratory Rate 24 Blood Pressure 193/74 H 170/75 H Pulse Oximetry 97 99 Oxygen Delivery Method Room Air 11/28/22 13:18 11/28/22 13:30 11/28/22 14:00 Temperature Pulse Rate 72 75 65 Respiratory Rate 24 Blood Pressure Pulse Oximetry 97 98 98 Oxygen Delivery Method Room Air 11/28/22 14:20 11/28/22 14:20 11/28/22 14:30 Temperature Pulse Rate 70 Respiratory Rate Blood Pressure 195/79 H 165/73 H Pulse Oximetry 98 Oxygen Delivery Method 11/28/22 14:30 11/28/22 15:19 11/28/22 15:30 Temperature Pulse Rate 66 71 72 Respiratory Rate 23 Blood Pressure Pulse Oximetry 98 98 97 Oxygen Delivery Method Room Air 11/28/22 15:20 11/28/22 16:00 11/28/22 16:30 Temperature Pulse Rate 91 H 69 72 Respiratory Rate 20 Blood Pressure Pulse Oximetry 97 97 97 Oxygen Delivery Method Room Air 11/28/22 17:00 11/28/22 17:30 11/28/22 18:00 Temperature Pulse Rate 65 66 Respiratory Rate 12 23 Blood Pressure 158/67 H Pulse Oximetry 96 94 Oxygen Delivery Method Room Air 11/28/22 18:00 11/28/22 18:30 11/28/22 18:31 Temperature Pulse Rate 71 68 Respiratory Rate 16 Blood Pressure 138/65 Pulse Oximetry 98 96 Oxygen Delivery Method Room Air 11/28/22 18:31 11/28/22 19:00 11/28/22 19:00 Temperature Pulse Rate 71 68 Respiratory Rate 24 Blood Pressure 143/65 H Pulse Oximetry 96 96 Oxygen Delivery Method Room Air MDM - Chest Pain Differential Diagnosis Differential diagnosis: Likely pneumothorax, unstable angina pectoris and costochondritis Lab Data 11/28/22 12:30 11/28/22 12:30 Labs: Lab Results 11/28/22 11/28/22 11/28/22 Range/Units 12:30 12:30 12:30 WBC 11.2 H (4.5-11.0) X10^3/uL RBC 4.59 (4.0-5.2) X10^6/uL Hgb 13.5 (12.0-16.0) g/dL Hct 40.8 (36-46) % MCV 88.9 (80-100) fL MCH 29.5 (26-34) PG MCHC 33.2 (30-36) % RDW 15.1 H (11.6-14.8) % Plt Count 353 (150-400) X10^3/uL Neut % (Auto) 63.5 (50-75) % Lymph % (Auto) 24.1 L (25-40) % [place] % (Auto) 7.9 (3-14) % Eos % (Auto) 3.0 (2-4) % Baso % (Auto) 1.5 (0-2) % Neut # (Auto) 7100 H (4748-0774) /uL Lymph # (Auto) 2700 (1355-9220) /uL [place] # (Auto) 900 (0-900) /uL Eos # (Auto) 300 (0-450) /uL Baso # (Auto) 200 H (0-100) /uL PT 13.1 H (10.1-12.7) SECONDS INR 1.1 (0.9-1.3) APTT 28 (26-36) SECONDS Sodium 133 L (137-145) mmol/L Potassium 3.9 (3.4-5.1) mmol/L Chloride 99 (98-107) mmol/L Carbon Dioxide 22 (22-32) mmol/L BUN 13 (7-17) mg/dL Creatinine 0.96 (0.52-1.04) mg/dL Estimated GFR > 60 (>60) mL/min BUN/Creatinine Ratio 13.5 (6-22) Glucose 105 (80-110) mg/dL Calcium 9.9 (8.4-10.2) mg/dL Magnesium 1.5 L (1.6-2.3) mg/dL Total Bilirubin 0.7 (0.2-1.3) mg/dL AST 34 (14-36) IU/L ALT 35 H (<35) IU/L Alkaline Phosphatase 81 (38-126) U/L Total Creatine Kinase 22 L (30-135) U/L Troponin I < 0.012 (0.01-0.034) ng/mL Total Protein 8.0 (6.3-8.2) g/dL Albumin 4.4 (3.5-5.0) g/dL Globulin 3.6 (1.7-4.1) g/dL Albumin/Globulin Ratio 1.2 (1.0-2.8) Lipase 92 (23-300) U/L Discharge Plan Departure Patient Disposition: Home Clinical Impression: Dyspnea Instructions: DI for Shortness of Breath Prescriptions: No Action multivitamin [Multiple Vitamins] 1 EACH tablet 1 tab PO DAILY Qty: 0 sodium chloride [Destiny 128] 3.5 GM ointment 1 melissa OPHTH BEDTIME PRN (Reason: Eye disorder) Qty: 0 albuterol sulfate 90 mcg/actuation HFA aerosol inhaler 2 puff INHALATION Q4H PRN (Reason: shortness of breath or wheezing) Qty: 1 2RF Patient Comments: not on home medication list Rx Instructions: administer with spacer; 2 puffs inh q 4 hours PRN rosuvastatin [Crestor] 5 mg tablet 2.5 mg PO DAILY Qty: 0 Pulmicort Flexhaler 180 mcg/actuation aerosol powdr breath activated 2 inhalation inhalation BID Qty: 2 5RF fluticasone propionate 50 mcg/actuation spray,suspension See Rx Instructions .ROUTE .COMPLEX Qty: 16 2RF Dose Instruction: Administer 2 sprays intranasally into each nostril daily Rx Instructions: Administer 2 sprays intranasally into each nostril daily estradiol [Estrace] 0.01 % (0.1 mg/gram) cream 1 g Vaginal 2XW Qty: 42.5 5RF flecainide 100 mg tablet 100 mg PO Q12H omeprazole 40 mg capsule,delayed release(DR/EC) 40 mg PO BID Qty: 180 1RF (DME) Disabled parking permit Qty: 1 0RF Rx Instructions: I find this patient to be medically disabled and qualified for disabled parking as indicated, and signed, on the accompanying disabled parking application for individuals. losartan 50 mg tablet 50 mg PO BEDTIME spironolactone 25 mg tablet 12.5 mg PO DAILY aspirin [Adult Low Dose Aspirin] 81 mg tablet,delayed release (DR/EC) 81 mg PO DAILY diltiazem HCl [Cartia XT] 120 mg capsule,extended release 24hr 120 mg PO BEDTIME ascorbic acid (vitamin C) 1,000 mg Tablet 1 g PO DAILY cholecalciferol (vitamin D3) [Vitamin D3] 1,000 unit Capsule 3,000 unit PO DAILY Cranberry 1,000 mg 1,000 mg PO DAILY Probiotic 1 cap PO DAILY d-mannose 1,000 mg 2,000 mg PO DAILY metronidazole [MetroCream] 0.75 % Cream 1 applic TOPICAL DAILY albuterol sulfate 2.5 mg/0.5 mL solution for nebulization 2.5 mg inhalation Q6H PRN (Reason: bronchospasm) Qty: 30 0RF sucralfate [Carafate] 100 mg/mL suspension 10 ml PO QACHS Qty: 400 0RF naproxen sodium [Aleve] 220 mg capsule 220 mg PO DAILY PRN Referrals: Kel Arvizu MD [Primary Care Provider] - Stand Alone Forms: Patient Portal/API
--- NOTE | 2022-11-28 15:28 | PC.NURSE ---
Patient states she feels increased SOB/lightheaded since her ER visit 4 days ago. She feels lightheaded walking around her house and then sits down until it goes away. Patient was able to ambulated around the ER 5x without O2 saturation dropping. O2 sats remained 96-98% while ambulating. Patient did become slightly lightheaded on the 4th trip around, but was able to tolerate walking.
--- NOTE | 2022-11-28 15:43 | PC.NURSE ---
Patient was able to ambulated around the ER 5x without O2 saturation dropping. O2 sats remained 96-98% while ambulating. Patient did become slightly lightheaded on the 4th trip around, but was able to tolerate walking.
--- NOTE | 2022-11-28 17:37 | DI.CT.S_ITS ---
PROCEDURE: CT ANGIO CHEST INDICATIONS: SEVERE WORSENING DYSPNEA TECHNIQUE: After the administration of intravenous contrast, 2 mm thick sections acquired from the pulmonary apices to the posterior costophrenic angles. 3-dimensional maximum intensity projection (MIP) coronal and sagittal reformats were then acquired through the thorax. For radiation dose reduction, the following was used: automated exposure control, adjustment of mA and/or kV according to patient size. COMPARISON: [facility], CT, CT ANGIO CHEST PE PROTOCOL, 11/24/2022, 19:09. FINDINGS: Image quality: Good. Suboptimal opacification of the pulmonary arteries. Pulmonary arteries: Pulmonary arteries are normal in size. There is no intraluminal filling defect to the level of the distal segmental arteries. Lungs and pleura: Basal scarring/atelectasis. No new or enlarging pulmonary nodule. No pleural effusions or pneumothorax. Central and peripheral airways are patent. Mediastinum: Heart size is normal, without pericardial effusion. No mediastinal or hilar adenopathy. Coronary artery calcifications. Dense atherosclerotic calcifications of the aortic arch. Mild thickening of the gastroesophageal junction likely postsurgical given reported history of recent procedure. 1.3 cm right thyroid nodule (4/7) Bones and chest wall: No suspicious or acute osseous lesion. Degenerative changes of the spine. Abdomen: Visualized upper abdominal solid organs appear normal in the early arterial phase of enhancement. IMPRESSION: No CT evidence of acute pulmonary embolism to the level of the distal segmental pulmonary arteries. No focal airspace consolidation or pleural effusion. Right 1.3 cm thyroid nodule. Consider nonemergent thyroid ultrasound if not artery performed. Approved by: Nancy Barron M.D. on 11/28/2022 at 19:08
== END 2022-11-28 19:19 | disposition home or self-care (01) ==
PROVIDERS: Emergency Provider Emergency Medicine; PCP Internal Medicine
DX: R06.00 Dyspnea, unspecified (principal); R07.9 Chest pain, unspecified; Z79.899 Other long term (current) drug therapy
CPT/HCPCS: 36415; 71045; 71275; 80053; 82550; 83690; 83735; 84484; 85025; 85610; 85730; 93005; 99284; Q9967

== ENCOUNTER → 2022-12-02 08:37 | Outpatient (CLI) | payer MEDICARE, OTHER, SELFPAY ==
[2021-10-14 10:17] VITALS: BMI 32.2
--- NOTE | 2022-12-02 08:38 | DI.US.S_ITS ---
PROCEDURE: US THYROID INDICATIONS: NODULE ON CT TECHNIQUE: Real-time scanning was performed of the thyroid gland, with image documentation. COMPARISON: [facility], CT, CT ANGIO CHEST, 11/28/2022, 17:41. FINDINGS: Right: Thyroid lobe measures 3.8 x 1.3 x 1.8 cm, and is heterogeneous in echotexture. Left: Thyroid lobe measures 3.4 x 1.2 x 1.2 cm, and is heterogeneous in echotexture. Isthmus: 2.9 mm thick. Nodule number: 1 Location: Left superior Size: 1.3 x 1.0 x 0.8 cm. Composition: Solid Echogenicity: Hypoechoic Shape: wider than tall. Margins: Smooth Echogenic foci: Punctate Total points: 7 ACR TI-RADS category: 5 Nodule number: 2 Location: Right superior/mid Size: 1.6 x 0.7 x 1.2 cm. Composition: Solid Echogenicity: Hypoechoic Shape: wider than tall. Margins: Smooth Echogenic foci: None Total points: 4 ACR TI-RADS category: 4 IMPRESSION: 1. Heterogeneous thyroid gland suggesting multinodular goiter. 2. Two thyroid nodules are present. Nodule 1 in the superior pole of the left thyroid lobe is TI-RADS 5. Recommend fine-needle aspiration biopsy under ultrasound guidance. Continue ultrasound follow-up for nodule 2 (see enclosed follow-up recommendation). ACR TI-RADS definitions and recommendations: TI-RADS 1 (benign): 0 points. FNA not needed. TI-RADS 2 (not suspicious): 2 points. FNA not needed. TI-RADS 3 (mildly suspicious): 3 points. * FNA if 2.5 cm or larger, follow up if 1.5 cm or larger (at 1, 3, and 5 years). TI-RADS 4 (moderately suspicious): 4-6 points. * FNA if 1.5 cm or larger, follow up if 1 cm or larger (at 1, 2, 3, and 5 years). TI-RADS 5 (highly suspicious): 7 points or more. * FNA if 1 cm or larger, follow up if 0.5 cm or larger (every year for 5 years). Dictated by: Luis Eduardo Bailey M.D. on 12/02/2022 at 15:18 Approved by: Luis Eduardo Bailey M.D. on 12/02/2022 at 15:23
== END ==
PROVIDERS: PCP Internal Medicine; Referring Provider Internal Medicine; Visit Provider Internal Medicine
DX: E04.2 Nontoxic multinodular goiter (principal)
CPT/HCPCS: 76536

== ENCOUNTER → 2022-12-09 08:37 | Outpatient (CLI) | payer MEDICARE, OTHER, SELFPAY ==
[2021-10-14 10:17] VITALS: BMI 32.2
--- NOTE | 2022-12-09 08:37 | DI.US.S_ITS ---
PROCEDURE: US THYROID INDICATIONS: LEFT SUPERIOR THYROID NODULE #1 CONSULT FOR ASPIRATION TECHNIQUE: Real-time scanning was performed of the thyroid gland, with image documentation. COMPARISON: [facility], [place], US THYROID, 12/02/2022, 8:56. FINDINGS: A thyroid biopsy the left superior thyroid nodule was planned for today. Prior to the biopsy, a real-time evaluation of the nodule was performed under sonographic guidance. This nodule had a sonographic appearance of a benign colloid nodule. The previously reported punctate echogenic structures corresponding to colloid located within cystic spaces. This nodule is benign and requires no further follow-up. The right thyroid nodule was not evaluated on this examination. Continued follow-up according to guidelines is recommended. IMPRESSION: Aborted thyroid nodule biopsy due to benign features. ACR TI-RADS definitions and recommendations: TI-RADS 1 (benign): 0 points. FNA not needed. TI-RADS 2 (not suspicious): 2 points. FNA not needed. TI-RADS 3 (mildly suspicious): 3 points. * FNA if 2.5 cm or larger, follow up if 1.5 cm or larger (at 1, 3, and 5 years). TI-RADS 4 (moderately suspicious): 4-6 points. * FNA if 1.5 cm or larger, follow up if 1 cm or larger (at 1, 2, 3, and 5 years). TI-RADS 5 (highly suspicious): 7 points or more. * FNA if 1 cm or larger, follow up if 0.5 cm or larger (every year for 5 years). Dictated by: Gorge Myers M.D. on 12/09/2022 at 11:19 Approved by: Gorge Myers M.D. on 12/09/2022 at 11:21
== END ==
PROVIDERS: PCP Internal Medicine; Referring Provider Internal Medicine; Visit Provider Internal Medicine
DX: E04.1 Nontoxic single thyroid nodule (principal)
CPT/HCPCS: 76536

== ENCOUNTER → 2023-01-16 15:45 | Outpatient (CLI) | payer MEDICARE, OTHER, SELFPAY ==
[2021-10-14 10:17] VITALS: BMI 32.2
== END ==
PROVIDERS: PCP Internal Medicine; Visit Provider Nurse Practitioner Family
DX: R30.0 Dysuria (principal)
CPT/HCPCS: 87086

== ENCOUNTER → 2023-03-12 12:18 | Outpatient (CLI) | payer MEDICARE, OTHER, SELFPAY ==
[2021-10-14 10:17] VITALS: BMI 32.2
[2023-03-12 14:42] LABS: BUN Creatinine Ratio 26.2 (6-22); Blood Urea Nitrogen 22 mg/dL (7-17); Calcium 10.1 mg/dL (8.4-10.2); Carbon Dioxide 22 mmol/L (22-32); Chloride 100 mmol/L (98-107); Cholesterol 172 mg/dL (140-199); Estimated Glomerular Filt Rate > 60 mL/min (>60); Glucose 96 mg/dL (80-110); HDL Cholesterol 47 mg/dL (40-60); HEMOLYSIS < 15 (0-50); LDL Cholesterol Calculated 97 mg/dL (<100); Potassium 4.8 mmol/L (3.4-5.1); Sodium 134 mmol/L (137-145); Triglycerides 140 mg/dL (35-150)
== END ==
LOC: LAB 12:20
PROVIDERS: PCP Internal Medicine; Referring Provider Internal Medicine; Visit Provider Internal Medicine
DX: E11.51 Type 2 diabetes mellitus with diabetic peripheral angiopathy without gangrene (principal); E78.5 Hyperlipidemia, unspecified
CPT/HCPCS: 36415; 80048; 80061; 83036

== ENCOUNTER → 2023-05-01 | Outpatient (CLI) | payer MEDICARE, OTHER, SELFPAY ==
[2021-10-14 10:17] VITALS: BMI 32.2
--- NOTE | 2023-05-01 10:10 | DI.MG.S_ITS ---
BILATERAL DIGITAL DIAGNOSTIC MAMMOGRAM 3D/2D: 05/01/2023 CLINICAL: Left breast pain. Comparison is made to exams dated: 05/10/2022 mammogram, 01/04/2021 mammogram, and 11/02/2019 mammogram - [facility]. There are scattered areas of fibroglandular density in both breasts (category b / 25%-50% glandular tissue). There are benign calcifications in both breasts. No significant masses, calcifications, or other findings are seen in either breast. IMPRESSION: INCOMPLETE: NEEDS ADDITIONAL IMAGING EVALUATION There is no mammographic abnormality seen in the left breast to correspond with the area of clinical concern, however, targeted ultrasound of the left breast is recommended and will be performed immediately following this exam. Based on the Tyrer Cuzick model (a risk assessment model) the patient's lifetime risk is 3.6% and her 10 year risk is 0.0%. According to the ACR, ACS, and NCCN guidelines, an annual breast MRI exam along with mammogram is recommended if the patient's lifetime risk is 20% or greater. This exam was interpreted at Station ID: [id number]. NOTE: For mammograms, a report in lay terms will be sent to the patient. Approximately 15% of breast malignancies will not be visualized mammographically. In the management of a palpable breast mass, a negative mammogram must not discourage biopsy of a clinically suspicious lesion. Electronically Signed By: Tita mansfield/:05/01/2023 11:07:11 ACR BI-RADS Category 0: Incomplete [id number]
--- NOTE | 2023-05-01 10:10 | DI.US.S_ITS ---
PROCEDURE: US BREAST LT LIMITED COMPARISON: None. INDICATIONS: pt. with c/o soreness, itching, tender FINDINGS: IMPRESSION: Dictated by: Tita Ly M.D. on 05/01/2023 at 13:51 Approved by: Tita Ly M.D. on 05/01/2023 at 13:54
--- NOTE | 2023-05-01 11:31 | DI.US.S_ITS ---
Patient Name: SHAWN MAN date: 1945 Sex: F Attending Physician: Luh Indications: Date: 05/01/2023 13:53 At the request of: JEANNINE SINGLETON Procedure: US breast LT limited LIMITED ULTRASOUND OF LEFT BREAST AND AXILLA: 05/01/2023 CLINICAL: Focal left breast pain. Comparison is made to exams dated: 05/01/2023 mammogram, 05/10/2022 mammogram, 01/04/2021 mammogram, 11/02/2019 mammogram, 10/13/2018 mammogram, and 04/29/2017 mammogram - [facility]. Color flow ultrasound of the left breast axilla was performed on the areas of interest. Antoine scale images of the real-time examination were reviewed. IMPRESSION: NEGATIVE There is no sonographic evidence of malignancy. There is no mammographic or sonographic abnormality seen in the left breast to correspond with the pain and pruritis in the sub-areolar depth, however, Paget's disease of the breast cannot be excluded and a surgical consult is recommended. Return to annual mammogram screening schedule is recommended pending surgical consult. This exam was interpreted at Station ID: [id number]. Electronically Signed By: Tita Ly M.D. lk/:05/01/2023 13:53:57 Continued Report - Page 2 of 2 Patient Name: SHAWN MAN date: 1945 Sex: F Attending Physician: Luh Indications: Date: 05/01/2023 13:53 At the request of: JEANNINE SINGLETON Procedure: US breast LT limited letter sent: Clinical Evaluation Ultrasound BI-RADS: 1 Negative
== END ==
PROVIDERS: Family Provider Internal Medicine; PCP Internal Medicine; Referring Provider Internal Medicine; Visit Provider Internal Medicine
DX: R92.2 Inconclusive mammogram (principal); N64.4 Mastodynia; R92.323 Mammographic fibroglandular density, bilateral breasts
CPT/HCPCS: 76642; 77066; G0279

== ENCOUNTER 2023-06-05 15:27 | Emergency (ER) | payer MEDICARE, OTHER, SELFPAY ==
[2021-10-14 10:17] VITALS: BMI 32.2
[2023-06-05 15:53] VITALS: BP 176/74; PULSE 83; RESP 20; TEMP 37; O2SAT 96; BMI 30.9
--- NOTE | 2023-06-05 15:58 | DI.RAD.S_ITS ---
PROCEDURE: XR CHEST 1V INDICATIONS: Shortness of breath TECHNIQUE: One view of the chest was acquired. COMPARISON: [facility], CR, XR CHEST 1V, 11/28/2022, 12:59. [facility], CR, XR CHEST 2V, 11/24/2022, 14:11. FINDINGS: Surgical changes and devices: None. Lungs and pleura: Lungs are clear. No pleural effusions or pneumothorax. Mediastinum: Mediastinal contours appear normal. Heart size is normal. Bones and chest wall: No suspicious bony lesions. Overlying soft tissues appear unremarkable. IMPRESSION: No acute cardiopulmonary abnormality is seen. Dictated by: Nii Clark M.D. on 06/05/2023 at 16:39 Approved by: Nii Clark M.D. on 06/05/2023 at 16:40
[2023-06-05 16:13] VITALS: PULSE 82; O2SAT 96
[2023-06-05 16:19] VITALS: BP 176/74; PULSE 75; O2SAT 95
[2023-06-05 16:30] VITALS: BP 155/70; PULSE 79; O2SAT 96
--- NOTE | 2023-06-05 16:46 | PC.NURSE ---
Pt reports hearing rhonci when walking her dog. Pt states she took home albuterol treatment and felt some relief. Lung sounds clear bilaterally.
[2023-06-05 17:00] VITALS: PULSE 73; RESP 10; O2SAT 96
[2023-06-05 17:01] VITALS: BP 193/76; PULSE 73; RESP 12; O2SAT 96
--- NOTE | 2023-06-05 17:16 | ED_ITS ---
HPI - SOB/Dyspnea General Chief Complaint: Shortness of Breath/Dyspnea Stated Complaint: SOB/wheezing Time Seen by Provider: 06/05/23 17:15 Source: patient Mode of arrival: Ambulatory Limitations: no limitations History of Present Illness HPI Narrative: Patient is a 77-year-old female with history of bigeminy on flecainide she has an iliac stent aspirin presenting today with upper respiratory like symptoms ongoing for last 2 days. She reports that she has had cough for the last 2 days generalized weakness and malaise. No real fever. No significant shortness of breath. A little bit of diarrhea this morning but overall no abdominal pain or nausea. She had 2- home COVID test does not really want testing again she says it has not going to change anything. She has not hypoxic or tachypneic. Initially offered blood work but she has not really wanting that either which seems reasonable. Related Data Home Medications Medication Instructions Recorded Confirmed multivitamin (Multiple Vitamins 1 tab PO DAILY ##0 10/27/16 05/20/23 tablet) sodium chloride 5 % eye ointment 1 melissa OPHTH BEDTIME PRN Eye 10/27/16 05/20/23 (Destiny 128) disorder ##0 flecainide 100 mg tablet 100 mg PO Q12H 11/06/17 05/20/23 losartan 50 mg tablet 50 mg PO BEDTIME 11/23/18 05/20/23 Probiotic 1 cap PO DAILY 12/10/18 05/20/23 ascorbic acid (vitamin C) 1,000 mg 1 g PO DAILY 12/10/18 05/20/23 tablet cholecalciferol (vitamin D3) 25 3,000 unit PO DAILY 12/10/18 05/20/23 mcg (1,000 unit) capsule (Vitamin D3) metronidazole 0.75 % topical cream 1 applic topical DAILY 12/10/18 05/20/23 (MetroCream) spironolactone 25 mg tablet 12.5 mg PO DAILY 05/25/20 05/20/23 aspirin 81 mg tablet,delayed 81 mg PO DAILY 06/19/21 05/20/23 release (Adult Low Dose Aspirin) naproxen sodium 220 mg capsule 220 mg PO DAILY PRN 04/25/22 05/20/23 (Aleve) diltiazem HCl 60 mg tablet 60 mg PO BID 05/20/23 05/20/23 Previous Rx's Medication Instructions Recorded albuterol sulfate 90 mcg/actuation 2 puff inhalation Q4H PRN 09/23/17 aerosol inhaler shortness of breath or wheezing #1 inh budesonide 180 mcg/actuation 2 inhalation inhalation BID #2 02/03/19 breath activated powder inhaler inhalations (Pulmicort Flexhaler) fluticasone propionate 50 See Rx Instructions .Route 04/05/20 mcg/actuation nasal .COMPLEX #16 grams spray,suspension estradiol 0.01% (0.1 mg/gram) 1 g vaginal 2XW #42.5 grams 03/13/21 vaginal cream (Estrace) albuterol sulfate 2.5 mg/0.5 mL 2.5 mg (0.5 mL) inhalation Q6H PRN 07/01/22 solution for nebulization bronchospasm #30 ea rosuvastatin 5 mg tablet (Crestor) 2.5 mg (1/2 x 5 mg) PO DAILY #7 02/02/23 tabs Disabled parking permit #1 ea 03/12/23 benzonatate 200 mg capsule 200 mg PO TID PRN cough #20 caps 06/05/23 codeine 10 mg-guaifenesin 200 mg/5 5 ml PO Q6H PRN cough #100 mL 06/05/23 mL oral liquid Allergies Allergy/AdvReac Type Severity Reaction Status Date / Time adhesive tape Allergy Severe PAPER TAPE Verified 05/20/23 07:45 allergy - Dermatitis latex [LATEX] Allergy Severe Hives, Verified 05/20/23 07:45 Wheezing sulfamethoxazole Allergy Intermediate Rash Verified 05/20/23 07:45 [From Bactrim] trimethoprim [From Bactrim] Allergy Intermediate Rash Verified 05/20/23 07:45 bupropion [From WELLBUTRIN] AdvReac Severe Tremors Verified 05/20/23 07:45 erythromycin base AdvReac Severe GI Upset, Verified 05/20/23 07:45 [ERYTHROMYCIN BASE] Bloody diarrhea lisinopril [LISINOPRIL] AdvReac Severe Cough Verified 05/20/23 07:45 meperidine [From DEMEROL] AdvReac Severe Hallucinati Verified 05/20/23 07:45 ng Patient History Medical History (Updated 06/05/23 @ 17:33 by Abimbola Mcguire DO) Eczematous dermatitis Thyroid nodule Paroxysmal atrial fibrillation Premature ventricular contraction SVT (supraventricular tachycardia) Chronic diastolic (congestive) heart failure Osteopenia TMJ pain dysfunction syndrome Do not resuscitate Allergic rhinitis Skin cancer, basal cell (~2020) Mumps Measles Cholangioma Uterine cancer (~1975) Ventricular escape beats 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 COPD (chronic obstructive pulmonary disease) (~2015) Recurrent UTI History of iron deficiency anemia (~2018) Lumbar back pain with radiculopathy affecting left lower extremity PAD (peripheral artery disease) Cystocele Postmenopausal atrophic vaginitis BPPV (benign paroxysmal positional vertigo) Gastritis Mild aortic valve sclerosis (~2017) Bruit of left carotid artery Internal hemorrhoids Diverticulosis Ankle fracture, left (1987) Prediabetes History of psychosis (1968) Elbow fracture, right (2015) Positive PPD (1977) Epiretinal membrane (2004) Corneal dystrophy (2002) Rectocele GERD (gastroesophageal reflux disease) (2004) Diverticular disease (2016) Graves's esophagus (2013) Hypercholesterolemia Hyperlipidemia (1996) Hypertension Hemorrhoids (~1969) Frequent UTI (~2018) Kidney stones (2010) Abnormal Pap smear of cervix (1975) Cataract (2002) Hearing loss (~2015) Chicken pox (1954) Rosacea (2011) Ankle pain (1989) Anxiety (1984) Hayfever (1965) Asthma (2015) Osteoarthritis (~1994) Surgical History S/P lumbar fusion History of meniscectomy of left knee (~04/2021) S/P epidural steroid injection (~02/10/21) Hx of blepharoplasty (01/2020) History of esophagogastroduodenoscopy (EGD) (~01/2019) Status post angioplasty with stent (~10/2019) Anesthesia History of ear, nose, and throat (ENT) surgery (1977) History of foot surgery (2007) Status post open reduction with internal fixation (ORIF) of fracture of ankle (1987) Status post colonoscopy (2015) History of cataract removal with insertion of prosthetic lens (2002) History of knee replacement (2012) Status post laparoscopic cholecystectomy (2001) Status post hysterectomy (1975) History of esophagogastroduodenoscopy (EGD) (07/2015) Family History Brother Brain aneurysm CVA (cerebral vascular accident) Mental health problem Alcoholism Brother Alcoholism Heart disease Father No problems noted. Grandfather Alcoholism Suicide Grandmother CVA (cerebral vascular accident) Mother CVA (cerebral vascular accident) [place] (myocardial infarction) Lung cancer Hypertension Heart disease Grandfather No problems noted. Grandmother MVA (motor vehicle accident) Sister Thalassemia Dementia Drug addiction Sister Alcoholism Brother Ischemia Alcoholism CVA (cerebral vascular accident) Social History details: , two grown children household members: none Smoking Status: Former smoker alcohol intake: current Smoking Status: Former smoker alcohol intake frequency: a few times a month Substance Use Type: does not use Exam Initial Vital Signs Initial Vital Signs: Vital Signs Temperature 98.6 F 06/05/23 15:53 Pulse Rate 83 06/05/23 15:53 Respiratory Rate 20 06/05/23 15:53 Blood Pressure 176/74 H 06/05/23 15:53 Pulse Oximetry 96 06/05/23 15:53 Oxygen Delivery Method Room Air 06/05/23 15:53 GENERAL: Alert 77-year-old female and in no acute distress. HEENT: Head atraumatic,EOMI, pupils reactive, face symmetric, moist mucous membranes CARDIOVASCULAR: Regular rate and rhythm without murmurs, rubs or gallops. RESPIRATORY: Breath sounds equal bilaterally, no wheezes rales or rhonchi. No respiratory distress slightly hoarse voice ABDOMEN: Soft, nontender. Normoactive bowel sounds all 4 quadrants. No guarding or rebound. EXTREMITIES: Normal range of motion, no clubbing or edema. Neurovascularly intact NEUROLOGICAL: Alert and oriented x4.Normal gait and speech. SKIN: Warm, dry, no laceration, no petechiae, no rashes or lesions. Course Orders Ordered: ED Orders 06/05/23 15:58 XR chest 1V Stat Complete Blood Count AUTO DIFF Stat Comprehensive Metabolic Panel Stat Lactate (Lactic Acid) Stat NT-proBNP (BNP-Adult 18+) Stat Prothrombin Time INR Stat Troponin I Stat EKG-12 Lead Stat Measure peak expiratory flow ONCE RT Consult Eval and Treat NOW Vital Signs Vital signs: Vital Signs - 8 hr 06/05/23 15:53 06/05/23 16:13 06/05/23 16:19 Temperature 98.6 F Pulse Rate 83 82 Respiratory Rate 20 Blood Pressure 176/74 H 176/74 H Pulse Oximetry 96 96 Oxygen Delivery Method Room Air 06/05/23 16:19 06/05/23 16:30 06/05/23 16:30 Temperature Pulse Rate 75 79 Respiratory Rate Blood Pressure 155/70 H Pulse Oximetry 95 96 Oxygen Delivery Method 06/05/23 17:00 06/05/23 17:01 06/05/23 17:01 Temperature Pulse Rate 73 73 Respiratory Rate 10 L 12 Blood Pressure 193/76 H Pulse Oximetry 96 96 Oxygen Delivery Method Room Air MDM - SOB/Dyspnea Imaging Data Chest x-ray: Radiologist's Impression: PROCEDURE: XR CHEST 1V INDICATIONS: Shortness of breath TECHNIQUE: One view of the chest was acquired. COMPARISON: [facility], CR, XR CHEST 1V, 11/28/2022, 12:59. [facility], CR, XR CHEST 2V, 11/24/2022, 14:11. FINDINGS: Surgical changes and devices: None. Lungs and pleura: Lungs are clear. No pleural effusions or pneumothorax. Mediastinum: Mediastinal contours appear normal. Heart size is normal. Bones and chest wall: No suspicious bony lesions. Overlying soft tissues appear unremarkable. IMPRESSION: No acute cardiopulmonary abnormality is seen. Dictated by: Nii Clark M.D. on 06/05/2023 at 16:39 MDM Narrative Medical decision making narrative: Patient is 77-year-old female presents today with upper respiratory like symptoms she is slightly hoarse voice. No hypoxia or obvious dyspnea. Chest x- ray is clear. She has not wanting any further workup but is wanting something for cough. This seems reasonable she overall appears okay blood pressure is slightly high she appears nontoxic. We discussed that if her symptoms worsen then she needs to return. She has albuterol at home which she says is helping her she has absolutely no wheezing. Discharge Plan Departure Patient Disposition: Home Clinical Impression: Upper respiratory infection Instructions: DI for Viral Upper Respiratory Infection -- Adult Activity Restrictions/Additional Instructions: *You have been diagnosed with upper respiratory infection *What to do: At this time you likely have some sort of virus. Your chest x-ray is clear no need for antibiotics at this time *Continue to take medications as directed Codeine with guaifenesin take as directed Tessalon Perles 3 times a day as directed Tylenol Motrin as needed for pain and fever *Follow up with your primary care provider in 2-3 days or call [phone] *Return to ER if you should have increasing shortness of breath confusion weakness [or] any new, worsening or concerning symptoms Prescriptions: New benzonatate 200 mg capsule 200 mg PO TID PRN (Reason: cough) Qty: 20 0RF codeine-guaifenesin 10-200 mg/5 mL liquid 5 ml PO Q6H PRN (Reason: cough) Qty: 100 0RF No Action multivitamin [Multiple Vitamins] 1 EACH tablet 1 tab PO DAILY Qty: 0 sodium chloride [Destiny 128] 3.5 GM ointment 1 melissa OPHTH BEDTIME PRN (Reason: Eye disorder) Qty: 0 albuterol sulfate 90 mcg/actuation HFA aerosol inhaler 2 puff INHALATION Q4H PRN (Reason: shortness of breath or wheezing) Qty: 1 2RF Patient Comments: not on home medication list Rx Instructions: administer with spacer; 2 puffs inh q 4 hours PRN Pulmicort Flexhaler 180 mcg/actuation aerosol powdr breath activated 2 inhalation inhalation BID Qty: 2 5RF fluticasone propionate 50 mcg/actuation spray,suspension See Rx Instructions .ROUTE .COMPLEX Qty: 16 2RF Dose Instruction: Administer 2 sprays intranasally into each nostril daily Rx Instructions: Administer 2 sprays intranasally into each nostril daily estradiol [Estrace] 0.01 % (0.1 mg/gram) cream 1 g Vaginal 2XW Qty: 42.5 5RF rosuvastatin [Crestor] 5 mg tablet 2.5 mg PO DAILY Qty: 7 0RF flecainide 100 mg tablet 100 mg PO Q12H diltiazem HCl 60 mg tablet 60 mg PO BID losartan 50 mg tablet 50 mg PO BEDTIME spironolactone 25 mg tablet 12.5 mg PO DAILY aspirin [Adult Low Dose Aspirin] 81 mg tablet,delayed release (DR/EC) 81 mg PO DAILY (DME) Disabled parking permit Qty: 1 0RF Rx Instructions: I find this patient to be medically disabled and qualified for disabled parking as indicated, and signed, on the accompanying disabled parking application for individuals. ascorbic acid (vitamin C) 1,000 mg Tablet 1 g PO DAILY cholecalciferol (vitamin D3) [Vitamin D3] 1,000 unit Capsule 3,000 unit PO DAILY Probiotic 1 cap PO DAILY metronidazole [MetroCream] 0.75 % Cream 1 applic TOPICAL DAILY albuterol sulfate 2.5 mg/0.5 mL solution for nebulization 2.5 mg inhalation Q6H PRN (Reason: bronchospasm) Qty: 30 0RF naproxen sodium [Aleve] 220 mg capsule 220 mg PO DAILY PRN Referrals: Kel Arvizu MD [Primary Care Provider] - Stand Alone Forms: Patient Portal/API
--- NOTE | 2023-06-06 09:58 | PC.NURSE ---
Reported to pt that Dr. Mcguire had sent in updated prescription for codeine-guaifenesin cough syrup as the original script was unavailable. Pt states she feels the same, reviewed return precautions. Encouraged to return if any needs, concerns, worsening of symptoms.
== END 2023-06-05 18:30 | disposition home or self-care (01) ==
PROVIDERS: Emergency Provider Emergency Medicine; Family Provider Internal Medicine; PCP Internal Medicine
DX: J06.9 Acute upper respiratory infection, unspecified (principal); R06.02 Shortness of breath; Z79.899 Other long term (current) drug therapy
CPT/HCPCS: 71045; 93005; 99283

== ENCOUNTER → 2023-06-09 08:08 | Outpatient (CLI) | payer MEDICARE, OTHER, SELFPAY ==
[2021-10-14 10:17] VITALS: BMI 32.2
[2023-06-09 10:33] LABS: Appearance Urine UA CLOUDY; Bilirubin Urine UA NEGATIVE (NEGATIVE); Color Urine UA YELLOW; Glucose Urine UA NEGATIVE (Negative); Ketones Urine UA NEGATIVE (NEGATIVE); Leukocyte Esterase Urine UA 2+ (NEGATIVE); Nitrite Urine UA POSITIVE (Negative); Occult Blood Urine UA TRACE-INTACT (Negative); Protein Urine UA TRACE (Negative); Urobilinogen Urine UA 0.2 E.U./dL (0.2)
[2023-06-09 10:52] LABS: Bacteria Urine Many (>30); Culture Indicated Urine Specimen Cultured; RBC Urine 1-5/HPF (0-5/HPF); Squamous Epithelial Cell Urine 1-5 /HPF (0-5/HPF); Urine Volume 10mL (spun); WBC Urine 10-30/HPF (0-5/HPF)
== END ==
PROVIDERS: Family Provider Internal Medicine; PCP Internal Medicine; Visit Provider Nurse Practitioner Family
DX: R39.9 Unspecified symptoms and signs involving the genitourinary system (principal)
CPT/HCPCS: 81001; 87077; 87086; 87186

== ENCOUNTER → 2023-07-21 08:38 | Outpatient (CLI) | payer MEDICARE, OTHER, SELFPAY ==
[2021-10-14 10:17] VITALS: BMI 32.2
--- NOTE | 2023-07-21 08:39 | DI.MRI.S_ITS ---
PROCEDURE: MR ANKLE LT WO CON INDICATIONS: ARTHRITIS OF LT FOOT TECHNIQUE: Noncontrast sagittal T1 spin echo and T2 fast spin echo with fat saturation, axial proton density fast spin echo and T2 fast spin echo with fat saturation, coronal T1 spin echo and T2 fast spin echo with fat saturation through the ankle/hindfoot. COMPARISON: [facility], CR, XR FOOT 3 VIEWS WEIGHT BEARING LEFT, 06/16/2023, 10:52. FINDINGS: Image quality: Excellent. Bones and joints: Moderate osteoarthritic changes are noted throughout midfoot and hindfoot joints more notably involving tibiotalar joint, 2nd through 5th TMT joints. Mild edema involving 4th and 5th metatarsal bases and adjacent distal portion of the cuboid is seen without discrete fracture line. Multiple osteochondral injuries involving distal tibial plafond are seen. Small osteochondral injury involving medial weight-bearing portion of talar dome is also noted. Small tibiotalar joint effusion is seen, no gross loose bodies. Medial structures: The posterior tibialis tendon is thickened at the level of distal talus and talonavicular joint. The flexor digitorum longus, and flexor hallucis longus tendons are intact. The posterior tibial neurovascular bundle appears normal within the tarsal tunnel, without extrinsic mass effect. The deltoid ligament and spring ligament are intact. Lateral structures: The anterior talofibular, calcaneofibular, and posterior talofibular ligaments appear mildly thickened. More superiorly, the anterior and posterior tibiofibular ligaments appear intact, as is the intermalleolar ligament. The tibiofibular syndesmosis is normal in width at 2 mm or less. The peroneus longus and brevis tendons are thickened at the level of lateral malleolus extending to the level of cuboid. The sinus tarsi demonstrates normal fatty signal, without edema, fibrosis, or cyst formation. Visualized sinus tarsi components (cervical ligament, interosseous talocalcaneal ligament, roots of the inferior extensor retinaculum) appear normal. Anterior structures: The tibialis anterior, extensor hallucis longus, and extensor digitorum longus tendons appear intact. The dorsal talonavicular ligament appears intact. Posterior and plantar structures: Achilles tendon is intact. Thickened medial band of plantar fascia is seen concerning for low-grade plantar fasciitis. No abductor digiti quinti muscle atrophy to suggest Blackmon neuropathy. IMPRESSION: 1. Moderate midfoot and hindfoot joint osteoarthritis more notably involving tibiotalar joint and TMT joints as described above. No fracture or dislocation. Tiny 2-3 mm osteochondral injury involving anterior and medial weight-bearing portion of talar dome. Multiple osteochondral injuries are noted in distal tibial plafond. Small joint effusion, no loose bodies. 2. Posterior tibialis tendinosis at the level of distal talus and talonavicular joint. 3. Low to moderate grade tendinosis involving peroneus tendons at the level of lateral malleolus extending to the level of cuboid. 4. Low-grade lateral ankle ligament sprain. No full-thickness ankle ligament rupture. 5. Thickened medial band of plantar fascia suggestive of low-grade plantar fasciitis. Dictated by: Agus Peña M.D. on 07/21/2023 at 16:29 Approved by: Agus Peña M.D. on 07/21/2023 at 16:38
== END ==
PROVIDERS: Family Provider Internal Medicine; PCP Internal Medicine; Referring Provider Orthopaedic Surgery Foot and Ankle Surgery; Visit Provider Orthopaedic Surgery Foot and Ankle Surgery
DX: M19.072 Primary osteoarthritis, left ankle and foot (principal); S93.492A Sprain of other ligament of left ankle, initial encounter; M25.472 Effusion, left ankle
CPT/HCPCS: 73721

== ENCOUNTER 2023-09-11 07:59 | Emergency (ER) | payer MEDICARE, OTHER, SELFPAY ==
[2021-10-14 10:17] VITALS: BMI 32.2
[2023-09-11] VITALS (29 sets, daily range): BP systolic 149–211; BP diastolic 65–86; PULSE 53–63; RESP 12–33; TEMP 37; O2SAT 96–100; BMI 32.4
--- NOTE | 2023-09-11 08:21 | EKG_ITS ---
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
--- NOTE | 2023-09-11 08:31 | DI.RAD.S_ITS ---
PROCEDURE: XR CHEST 1V INDICATIONS: chest pain TECHNIQUE: One view of the chest was acquired. COMPARISON: [facility], CR, XR CHEST 1V, 06/05/2023, 16:11. FINDINGS: Surgical changes and devices: None. Lungs and pleura: Lungs are clear. No pleural effusions or pneumothorax. Mediastinum: Mediastinal contours appear normal. Heart size is normal. Bones and chest wall: No suspicious bony lesions. Overlying soft tissues appear unremarkable. IMPRESSION: No acute cardiopulmonary abnormality is seen. Dictated by: Chuy Lee M.D. on 09/11/2023 at 9:16 Approved by: Chuy Lee M.D. on 09/11/2023 at 9:17
[2023-09-11 08:36] LABS: Add Manual Diff / Slide Review NO; Basophils Absolute Auto 100 /uL (0-100); Basophils Percent Auto 1.4 % (0-2); Eosinophils Absolute Auto 400 /uL (0-450); Hematocrit 38.4 % (36-46); Hemoglobin 12.8 g/dL (12.0-16.0); Lymphocytes Absolute Auto 2700 /uL (1100-4500); Lymphocytes Percent Auto 31.4 % (25-40); Mean Corpuscular HGB Conc 33.4 % (30-36); Mean Corpuscular Hemoglobin 30.5 PG (26-34); Mean Corpuscular Volume 91.4 fL (80-100); Monocytes Absolute Auto 700 /uL (0-900); Monocytes Percent Auto 8.5 % (3-14); Neutrophils Absolute Auto 4500 /uL (1500-7000); Neutrophils Percent Auto 53.7 % (50-75); Platelet Count 288 X10^3/uL (150-400); Red Blood Cell Count 4.21 X10^6/uL (4.0-5.2); Red Cell Distribution Width 14.7 % (11.6-14.8); White Blood Cell Count 8.5 X10^3/uL (4.5-11.0)
[2023-09-11] MEDS: ASPIRIN 81 MG CHEW TAB 324 MG PO (08:38)
[2023-09-11] MEDS: SODIUM CHLORIDE 0.9% 1,000 ML 150 ML IV (08:39)
[2023-09-11 08:44] LABS: Alanine Aminotransferase 21 IU/L (<35); Albumin 4.2 g/dL (3.5-5.0); Albumin Globulin Ratio 1.2 (1.0-2.8); Alkaline Phosphatase 76 U/L (38-126); Aspartate Aminotransferase 26 IU/L (14-36); BUN Creatinine Ratio 27.8 (6-22); Bilirubin Total 0.5 mg/dL (0.2-1.3); Blood Urea Nitrogen 22 mg/dL (7-17); Calcium 9.3 mg/dL (8.4-10.2); Carbon Dioxide 26 mmol/L (22-32); Chloride 110 mmol/L (98-107); Creatine Kinase 36 U/L (30-135); Estimated Glomerular Filt Rate > 60 mL/min (>60); Globulin 3.4 g/dL (1.7-4.1); Glucose 75 mg/dL (80-110); HEMOLYSIS 17 (0-50); Lipase 86 U/L (23-300); Potassium 3.9 mmol/L (3.4-5.1); Sodium 140 mmol/L (137-145); Total Protein 7.6 g/dL (6.3-8.2)
[2023-09-11 08:55] LABS: Troponin I < 0.012 ng/mL (0.01-0.034)
--- NOTE | 2023-09-11 08:59 | ED.CHESTPAIN ---
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 She reports that for the last 9 days she is felt some palpitations she initially had a little bit sore throat headache as well she did a home COVID test and it was negative. She is continued to have increasing shortness of breath with exertion for the last 5 days. This morning she was walking around and had some chest heaviness. She sat down she still has some but it has gone away. She always sleeps in an upright position secondary to GERD. She denies any lower extremity edema. No fever or chills. No abdominal pain nausea or vomiting. She has no known history of coronary artery disease. She is followed by [facility] Dr. West's office Related Data Home Medications Medication Instructions Recorded Confirmed multivitamin (Multiple Vitamins 1 tab PO DAILY ##0 10/27/16 07/17/23 tablet) sodium chloride 5 % eye ointment 1 melissa OPHTH BEDTIME PRN Eye 10/27/16 07/17/23 (Destiny 128) disorder ##0 flecainide 100 mg tablet 100 mg PO Q12H 11/06/17 07/17/23 losartan 50 mg tablet 50 mg PO BEDTIME 11/23/18 07/17/23 Probiotic 1 cap PO DAILY 12/10/18 07/17/23 ascorbic acid (vitamin C) 1,000 mg 1 g PO DAILY 12/10/18 07/17/23 tablet cholecalciferol (vitamin D3) 25 3,000 unit PO DAILY 12/10/18 07/17/23 mcg (1,000 unit) capsule (Vitamin D3) metronidazole 0.75 % topical cream 1 applic topical DAILY 12/10/18 07/17/23 (MetroCream) spironolactone 25 mg tablet 12.5 mg PO DAILY 05/25/20 07/17/23 aspirin 81 mg tablet,delayed 81 mg PO DAILY 06/19/21 07/17/23 release (Adult Low Dose Aspirin) naproxen sodium 220 mg capsule 220 mg PO DAILY PRN 04/25/22 07/17/23 (Aleve) diltiazem HCl 60 mg tablet 60 mg PO BID 05/20/23 07/17/23 Previous Rx's Medication Instructions Recorded albuterol sulfate 90 mcg/actuation 2 puff inhalation Q4H PRN 09/23/17 aerosol inhaler shortness of breath or wheezing #1 inh budesonide 180 mcg/actuation 2 inhalation inhalation BID #2 02/03/19 breath activated powder inhaler inhalations (Pulmicort Flexhaler) fluticasone propionate 50 See Rx Instructions .Route 04/05/20 mcg/actuation nasal .COMPLEX #16 grams spray,suspension estradiol 0.01% (0.1 mg/gram) 1 g vaginal 2XW #42.5 grams 03/13/21 vaginal cream (Estrace) albuterol sulfate 2.5 mg/0.5 mL 2.5 mg (0.5 mL) inhalation Q6H PRN 07/01/22 solution for nebulization bronchospasm #30 ea rosuvastatin 5 mg tablet (Crestor) 2.5 mg (1/2 x 5 mg) PO DAILY #7 02/02/23 tabs [address]abled [address] permit #1 ea 03/12/23 benzonatate 200 mg capsule 200 mg PO TID PRN cough #20 caps 06/05/23 codeine 10 mg-guaifenesin 100 mg/5 5 ml PO Q6H PRN cough #100 mL 06/06/23 mL oral liquid (Guaifenesin AC) phenazopyridine 200 mg tablet 200 mg PO TID 6 doses #6 tabs 06/09/23 (Pyridium) cefdinir 300 mg capsule 300 mg PO BID #10 caps 06/11/23 cefixime 400 mg capsule 400 mg PO DAILY #7 caps 06/11/23 Allergies Allergy/AdvReac Type Severity Reaction Status Date / Time adhesive tape Allergy Severe PAPER TAPE Verified 06/11/23 09:46 allergy - Dermatitis latex [LATEX] Allergy Severe Hives, Verified 06/11/23 09:46 Wheezing sulfamethoxazole Allergy Intermediate Rash Verified 06/11/23 09:46 [From Bactrim] trimethoprim [From Bactrim] Allergy Intermediate Rash Verified 06/11/23 09:46 bupropion [From WELLBUTRIN] AdvReac Severe Tremors Verified 06/11/23 09:46 erythromycin base AdvReac Severe GI Upset, Verified 06/11/23 09:46 [ERYTHROMYCIN BASE] Bloody diarrhea lisinopril [LISINOPRIL] AdvReac Severe Cough Verified 06/11/23 09:46 meperidine [From DEMEROL] AdvReac Severe Hallucinati Verified 06/11/23 09:46 ng Patient History Medical History Eczematous dermatitis Thyroid nodule Paroxysmal atrial fibrillation Premature ventricular contraction SVT (supraventricular tachycardia) Chronic diastolic (congestive) heart failure Osteopenia TMJ pain dysfunction syndrome Do not resuscitate Allergic rhinitis Skin cancer, basal cell (~2020) Mumps Measles Cholangioma Uterine cancer (~1975) Ventricular escape beats 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 COPD (chronic obstructive pulmonary disease) (~2015) Recurrent UTI History of iron deficiency anemia (~2018) Lumbar back pain with radiculopathy affecting left lower extremity PAD (peripheral artery disease) Cystocele Postmenopausal atrophic vaginitis BPPV (benign paroxysmal positional vertigo) Gastritis Mild aortic valve sclerosis (~2017) Bruit of left carotid artery Internal hemorrhoids Diverticulosis Ankle fracture, left (1987) Prediabetes History of psychosis (1968) Elbow fracture, right (2015) Positive PPD (1977) Epiretinal membrane (2004) Corneal dystrophy (2002) Rectocele GERD (gastroesophageal reflux disease) (2004) Diverticular disease (2016) Graves's esophagus (2013) Hypercholesterolemia Hyperlipidemia (1996) Hypertension Hemorrhoids (~1969) Frequent UTI (~2018) Kidney stones (2010) Abnormal Pap smear of cervix (1975) Cataract (2002) Hearing loss (~2015) Chicken pox (1954) Rosacea (2011) Ankle pain (1989) Anxiety (1984) Hayfever (1965) Asthma (2016) Osteoarthritis (~1994) Surgical History S/P lumbar fusion History of meniscectomy of left knee (~04/2021) S/P epidural steroid injection (~02/10/21) Hx of blepharoplasty (01/2020) History of esophagogastroduodenoscopy (EGD) (~01/2019) Status post angioplasty with stent (~10/2019) Anesthesia History of ear, nose, and throat (ENT) surgery (1977) History of foot surgery (2007) Status post open reduction with internal fixation (ORIF) of fracture of ankle (1987) Status post colonoscopy (2015) History of cataract removal with insertion of prosthetic lens (2002) History of knee replacement (2012) Status post laparoscopic cholecystectomy (2001) Status post hysterectomy (1975) History of esophagogastroduodenoscopy (EGD) (07/2015) Family History Brother Brain aneurysm CVA (cerebral vascular accident) Mental health problem Alcoholism Brother Alcoholism Heart disease Father No problems noted. Grandfather Alcoholism Suicide Grandmother CVA (cerebral vascular accident) Mother CVA (cerebral vascular accident) [place] (myocardial infarction) Lung cancer Hypertension Heart disease Grandfather No problems noted. Grandmother MVA (motor vehicle accident) Sister Thalassemia Dementia Drug addiction Sister Alcoholism Brother Ischemia Alcoholism CVA (cerebral vascular accident) Social History details: , two grown children household members: none Smoking Status: Former smoker alcohol intake: current Smoking Status: Former smoker alcohol intake frequency: a few times a month Substance Use Type: does not use Exam Initial Vital Signs Initial Vital Signs: Vital Signs Temperature 98.6 F 09/11/23 08:23 Pulse Rate 61 09/11/23 08:23 Respiratory Rate 24 09/11/23 08:23 Blood Pressure 211/86 H 09/11/23 08:23 Pulse Oximetry 99 09/11/23 08:23 Oxygen Delivery Method Room Air 09/11/23 08:23 GENERAL: Alert well-appearing 70-year-old female HEENT: Head atraumatic,EOMI, pupils reactive, face symmetric, moist mucous membranes CARDIOVASCULAR: Regular rate and rhythm without murmurs, rubs or gallops. RESPIRATORY: Breath sounds equal bilaterally, no wheezes rales or rhonchi. ABDOMEN: Soft, nontender. Normoactive bowel sounds all 4 quadrants. No guarding or rebound. : No CVA tenderness EXTREMITIES: Normal range of motion, no clubbing or edema. Neurovascularly intact NEUROLOGICAL: Alert and oriented x4.Normal gait and speech. SKIN: Warm, dry, no laceration, no petechiae, no rashes or lesions. Course Orders Ordered: ED Orders 09/11/23 10:30 Trop I [Troponin I] Stat Discontinued Medications Acetaminophen (Acetaminophen 325 Mg Tablet) 975 mg PO NOW ONE Stop: 09/11/23 09:07 Last Admin: 09/11/23 09:15 Dose: 975 mg Documented By: ARACELY Aspirin (Aspirin 81 Mg Chew Tab) 324 mg PO NOW ONE Stop: 09/11/23 08:32 Last Admin: 09/11/23 08:38 Dose: 324 mg Documented By: ARACELY Sodium Chloride (Normal Saline 0.9%) 1,000 mls @ 150 mls/hr IV CONT JENNIFER Last Infusion: 09/11/23 08:41 Dose: 0 mls/hr Documented By: Admin: 09/11/23 08:39 Dose: 150 mls/hr Documented By: ARACELY Nitroglycerin (Nitroglycerin 0.4 Mg Sl Tab) 0.4 mg SL [id number] PRN PRN Reason: Chest Pain Last Admin: 09/11/23 09:18 Dose: 0.4 mg Documented By: ARACELY Vital Signs Vital signs: Vital Signs - 8 hr 09/11/23 11:00 09/11/23 11:01 09/11/23 11:01 Pulse Rate 62 61 Respiratory Rate 26 H 25 H Blood Pressure 181/77 H Pulse Oximetry 98 98 09/11/23 11:30 09/11/23 11:31 09/11/23 11:31 Pulse Rate 57 L 57 L Respiratory Rate 23 16 Blood Pressure 163/71 H Pulse Oximetry 97 98 MDM - Chest Pain Lab Data 09/11/23 08:20 09/11/23 08:20 Labs: Lab Results 09/11/23 09/11/23 09/11/23 Range/Units 08:20 09:47 10:30 WBC 8.5 (4.5-11.0) X10^3/uL RBC 4.21 (4.0-5.2) X10^6/uL Hgb 12.8 (12.0-16.0) g/dL Hct 38.4 (36-46) % MCV 91.4 (80-100) fL MCH 30.5 (26-34) PG MCHC 33.4 (30-36) % RDW 14.7 (11.6-14.8) % Plt Count 288 (150-400) X10^3/uL Neut % (Auto) 53.7 (50-75) % Lymph % (Auto) 31.4 (25-40) % Iroquois % (Auto) 8.5 (3-14) % Eos % (Auto) 5.0 H (2-4) % Baso % (Auto) 1.4 (0-2) % Neut # (Auto) 4500 (2215-5595) /uL Lymph # (Auto) 2700 (4011-1964) /uL [place]quois # (Auto) 700 (0-900) /uL Eos # (Auto) 400 (0-450) /uL Baso # (Auto) 100 (0-100) /uL Sodium 140 (137-145) mmol/L Potassium 3.9 (3.4-5.1) mmol/L Chloride 110 H (98-107) mmol/L Carbon Dioxide 26 (22-32) mmol/L BUN 22 H (7-17) mg/dL Creatinine 0.79 (0.52-1.04) mg/dL Estimated GFR > 60 (>60) mL/min BUN/Creatinine Ratio 27.8 H (6-22) Glucose 75 L (80-110) mg/dL Calcium 9.3 (8.4-10.2) mg/dL Total Bilirubin 0.5 (0.2-1.3) mg/dL AST 26 (14-36) IU/L ALT 21 (<35) IU/L Alkaline Phosphatase 76 (38-126) U/L Total Creatine Kinase 36 (30-135) U/L Troponin I < 0.012 < 0.012 (0.01-0.034) ng/mL NT-Pro-B Natriuret Pep 235 (<450) pg/mL Total Protein 7.6 (6.3-8.2) g/dL Albumin 4.2 (3.5-5.0) g/dL Globulin 3.4 (1.7-4.1) g/dL Albumin/Globulin Ratio 1.2 (1.0-2.8) Lipase 86 (23-300) U/L Chlamy pneumoniae PCR Not detected (Not Detect) Adenovirus (PCR) Not detected (Not Detect) B.parapertussis DNA PCR Not detected (Not Detecte) Coronavirus OC43 (PCR) Not detected (Not Detect) Coronavirus HKU1 (PCR) Not detected (Not Detect) Coronavirus 229E (PCR) Not detected (Not Detect) SARS-CoV-2 (PCR) Not detected (Not Detecte) Coronavirus NL63 (PCR) Not detected (Not Detect) Human Metapneumovir PCR Not detected (Not Detect) Influenza Type A (PCR) Not detected (Not Detect) Influenza Type B (PCR) Not detected (Not Detect) M. pneumoniae (PCR) Not detected (Not Detect) Parainfluenza 1 (PCR) Not detected (Not Detect) Parainfluenza 2 (PCR) Not detected (Not Detect) Parainfluenza 3 (PCR) Not detected (Not Detect) Parainfluenza 4 (PCR) Not detected (Not Detect) RSV (PCR) Not detected (Not Detect) Entero/Rhino (PCR) Not detected (Not Detect) Imaging Data Chest x-ray: Radiologist's Impression: PROCEDURE: XR CHEST 1V INDICATIONS: chest pain TECHNIQUE: One view of the chest was acquired. COMPARISON: [facility], , XR CHEST 1V, 06/05/2023, 16:11. FINDINGS: Surgical changes and devices: None. Lungs and pleura: Lungs are clear. No pleural effusions or pneumothorax. Mediastinum: Mediastinal contours appear normal. Heart size is normal. Bones and chest wall: No suspicious bony lesions. Overlying soft tissues appear unremarkable. IMPRESSION: No acute cardiopulmonary abnormality is seen. Dictated by: Chuy Lee M.D. on 09/11/2023 at 9:16 Approved by: Chuy Lee M.D. on 09/11/2023 at 9:17 ECG Data Attestation: I personally reviewed and interpreted this ECG as follows: Prior ECG tracings: available for review Interpretation: Normal sinus rhythm rate 56 WI interval 226 QRS [address] changes or T-wave inversions MDM Narrative Medical decision making narrative: Patient is 70-year-old female history of cardiac arrhythmia controlled on flecainide and diltiazem presenting today with chest pain and shortness of breath with exertion. She reports that she did have headache and sore throat a week ago but really has not had any other infectious symptoms since then. She continues to have shortness of breath with exertion. She reports that she was able to walk her dog for 1 mi before this and is now not able to walk around. She this morning started having some chest heaviness that has almost completely resolved with rest but not entirely. She has no known coronary artery disease. Blood work has been reviewed no leukocytosis or anemia, troponin is negative x2 BNP negative, respiratory panel negative Chest x-ray reviewed no acute cardiopulmonary process no evidence of pneumonia EKG does not show any ischemia or arrhythmia Patient has history of arrhythmia she is since that she has had any arrhythmia she does not have any evidence of ectopy or PVC while on the monitor in the ED. Her workup is overall reassuring. Her chest pain has completely resolved without any sort of intervention. No evidence of infection or viral illness. At this time I do recommend that she follow-up with her [facility] platforms 11:45 Dr. parker, cardiology updated on patient's symptoms test results agrees with outpatient follow-up he will help arrange for an outpatient stress test Long discussion with patient about how I do think she needs a stress test. She is unable to get 1 here this weekend. She agrees that she will return if her symptoms worsen. She understands that she needs further workup in the cardiac disease has not been fully ruled out Discharge Plan Departure Patient Disposition: Home Clinical Impression: Atypical chest pain Instructions: DI for Atypical Chest Pain Activity Restrictions/Additional Instructions: *You have been diagnosed with atypical chest *What to do: At this time you definitely need a stress test. I have spoken with Dr. Shaver through [facility]. He will let your vp platforms no and to help schedule an outpatient stress test. However if you should have any sort of worsening chest pain chest pain while walking or increasing shortness of breath you must return to the emergency department immediately *Continue to take medications as directed Aspirin 81 mg daily *Follow up with your primary care provider in 2-3 days or call [phone] Dr. West, as scheduled or sooner *Return to ER if you should have increasing chest pain shortness of breath or any new, worsening or concerning symptoms Prescriptions: No Action phenazopyridine [Pyridium] 200 mg tablet 200 mg PO TID 0 Days Qty: 6 0RF multivitamin [Multiple Vitamins] 1 EACH tablet 1 tab PO DAILY Qty: 0 sodium chloride [Destiny 128] 3.5 GM ointment 1 melissa OPHTH BEDTIME PRN (Reason: Eye disorder) Qty: 0 albuterol sulfate 90 mcg/actuation HFA aerosol inhaler 2 puff INHALATION Q4H PRN (Reason: shortness of breath or wheezing) Qty: 1 2RF Patient Comments: not on home medication list Rx Instructions: administer with spacer; 2 puffs inh q 4 hours PRN Pulmicort Flexhaler 180 mcg/actuation aerosol powdr breath activated 2 inhalation inhalation BID Qty: 2 5RF fluticasone propionate 50 mcg/actuation spray,suspension See Rx Instructions .ROUTE .COMPLEX Qty: 16 2RF Dose Instruction: Administer 2 sprays intranasally into each nostril daily Rx Instructions: Administer 2 sprays intranasally into each nostril daily estradiol [Estrace] 0.01 % (0.1 mg/gram) cream 1 g Vaginal 2XW Qty: 42.5 5RF rosuvastatin [Crestor] 5 mg tablet 2.5 mg PO DAILY Qty: 7 0RF cefdinir 300 mg capsule 300 mg PO BID Qty: 10 0RF flecainide 100 mg tablet 100 mg PO Q12H diltiazem HCl 60 mg tablet 60 mg PO BID losartan 50 mg tablet 50 mg PO BEDTIME spironolactone 25 mg tablet 12.5 mg PO DAILY aspirin [Adult Low Dose Aspirin] 81 mg tablet,delayed release (DR/EC) 81 mg PO DAILY (DME) Disabled parking permit Qty: 1 0RF Rx Instructions: I find this patient to be medically disabled and qualified for disabled parking as indicated, and signed, on the accompanying disabled parking application for individuals. cefixime 400 mg capsule 400 mg PO DAILY Qty: 7 0RF ascorbic acid (vitamin C) 1,000 mg Tablet 1 g PO DAILY cholecalciferol (vitamin D3) [Vitamin D3] 1,000 unit Capsule 3,000 unit PO DAILY Probiotic 1 cap PO DAILY metronidazole [MetroCream] 0.75 % Cream 1 applic TOPICAL DAILY albuterol sulfate 2.5 mg/0.5 mL solution for nebulization 2.5 mg inhalation Q6H PRN (Reason: bronchospasm) Qty: 30 0RF naproxen sodium [Aleve] 220 mg capsule 220 mg PO DAILY PRN benzonatate 200 mg capsule 200 mg PO TID PRN (Reason: cough) Qty: 20 0RF codeine-guaifenesin [Guaifenesin AC] 10-100 mg/5 mL liquid 5 ml PO Q6H PRN (Reason: cough) Qty: 100 0RF Referrals: Kel Arvizu MD [Primary Care Provider] - Stand Alone Forms: Patient Portal/API
[2023-09-11] MEDS: ACETAMINOPHEN 325 MG TABLET 975 MG PO (09:15)
[2023-09-11] MEDS: NITROGLYCERIN 0.4 MG SL TAB SL (09:18)
[2023-09-11 09:37] LABS: NT-proBNP (BNP-Adult 18+) 235 pg/mL (<450)
--- NOTE | 2023-09-11 09:56 | PC.NURSE ---
Pt states that she feels much better and that her CP & SANTIAGO have resolved.
[2023-09-11 10:41] LABS: Adenovirus Not Detected (Not Detect); B. parapertussis Not Detected (Not Detecte); Bordetella pertussis Not Detected (Not Detect); Chlamydophila pneumoniae Not Detected (Not Detect); Coronavirus 229E Not Detected (Not Detect); Coronavirus HKU1 Not Detected (Not Detect); Coronavirus NL 63 Not Detected (Not Detect); Coronavirus OC43 Not Detected (Not Detect); Human Metapneumovirus Not Detected (Not Detect); Human Rhinovirus/Enterovirus Not Detected (Not Detect); Influenza A Not Detected (Not Detect); Influenza B Not Detected (Not Detect); Mycoplasma pneumoniae Not Detected (Not Detect); Parainfluenza Virus 1 Not Detected (Not Detect); Parainfluenza Virus 2 Not Detected (Not Detect); Parainfluenza Virus 3 Not Detected (Not Detect); Parainfluenza Virus 4 Not Detected (Not Detect); Respiratory Syncytial Virus Not Detected (Not Detect); SARS- CoV-2 Not Detected (Not Detecte)
[2023-09-11 11:03] LABS: Troponin I < 0.012 ng/mL (0.01-0.034)
== END 2023-09-11 12:06 | disposition home or self-care (01) ==
PROVIDERS: Emergency Provider Emergency Medicine; Family Provider Internal Medicine; PCP Internal Medicine
DX: R07.89 Other chest pain (principal); R00.2 Palpitations; R06.02 Shortness of breath
CPT/HCPCS: 36415; 71045; 80053; 82550; 83690; 83880; 84484; 85025; 87633; 93005; 99284

== ENCOUNTER → 2023-09-21 09:50 | Outpatient (CLI) | payer MEDICARE, OTHER, SELFPAY ==
[2023-09-21 09:42] VITALS: BMI 32.2
[2023-09-21 11:51] LABS: Creatinine Urine Random 98.96 mg/dL
[2023-09-21 11:58] LABS: BUN Creatinine Ratio 28.4 (6-22); Blood Urea Nitrogen 23 mg/dL (7-17); Calcium 9.3 mg/dL (8.4-10.2); Carbon Dioxide 27 mmol/L (22-32); Chloride 105 mmol/L (98-107); Estimated Glomerular Filt Rate > 60 mL/min (>60); Glucose 86 mg/dL (80-110); HEMOLYSIS < 15 (0-50); Potassium 4.5 mmol/L (3.4-5.1); Sodium 137 mmol/L (137-145)
== END ==
PROVIDERS: Family Provider Internal Medicine; PCP Internal Medicine; Referring Provider Internal Medicine; Visit Provider Internal Medicine
DX: E11.51 Type 2 diabetes mellitus with diabetic peripheral angiopathy without gangrene (principal); E78.5 Hyperlipidemia, unspecified; I10 Essential (primary) hypertension
CPT/HCPCS: 36415; 80048; 82043; 82570; 83036

== ENCOUNTER → 2023-11-04 12:41 | Outpatient (CLI) | payer MEDICARE, OTHER, SELFPAY ==
[2023-09-21 09:42] VITALS: BMI 32.2
== END ==
PROVIDERS: Family Provider Internal Medicine; PCP Internal Medicine; Visit Provider Nurse Practitioner Family
DX: R30.0 Dysuria (principal)
CPT/HCPCS: 87086

== ENCOUNTER → 2023-11-17 13:38 | Outpatient (CLI) | payer MEDICARE, OTHER, SELFPAY ==
[2023-09-21 09:42] VITALS: BMI 32.2
--- NOTE | 2023-11-17 | DI.ECHO.S_ITS ---
[facility] : : [address] : : [place] : : [id number] : : Phone: [phone] Echocardiogram Report + + :Name: SHAWN MAN Study Date: 11/17/2023 Height: 63 in : :[facility] ReadingLocation: Weight: 190 lb : : Gender: Female BSA: 1.9 m2 : :: 1945 Age: 78 yrs BP: 145/68 mmHg: :Reason For Study: DYSPNEA : :Ordering Physician: TOBIAS, : :LUISA Performed By: Sarkis Silveira : :Referring: LUISA COLLADO : + + Interpretation Summary Normal sinus rhythm. Normal LV size and wall thickness. Normal wall motion and LV systolic function. Ejection fraction is 60-65%. Stage I diastolic dysfunction. Normal chamber sizes. No significant valvular abnormalities. Estimated PA systolic pressure is 24 mmHg assuming right atrial pressure of 3 mmHg. Compared to prior study July 18, 2017, no changes have occurred. Procedure: A two-dimensional transthoracic echocardiogram with color flow and Doppler was performed. The study quality was technically adequate. Comparison is made with the echocardiogram of 07/18/2017. The patient was in sinus rhythm with heart rates between 63-72 bpm during the exam. Left Ventricle: The left ventricle is normal in size and wall thickness. The ejection fraction is estimated to be 60-65%. Right Ventricle: The right ventricle is normal size. The right ventricular systolic function is normal. Atria: The left atrial size is normal. Right atrial size is normal. The interatrial septum grossly appears intact with no obvious evidence for an atrial septal defect. Mitral Valve: The mitral valve is normal. There is no mitral valve stenosis. There is trace mitral regurgitation. Aortic Valve: The aortic valve is trileaflet. There is no aortic valve stenosis. There is trace aortic regurgitation. Tricuspid Valve: The tricuspid valve is normal. There is no tricuspid stenosis. There is trace tricuspid regurgitation. The right ventricular systolic pressure is estimated to be at least 24.1 mmHg based on an estimated right atrial pressure of 3 mm Hg. Pulmonic Valve: The pulmonic valve is not well visualized. There is no pulmonic valvular stenosis. There is no pulmonic valvular regurgitation. Great Vessels: The aortic root is normal size. The dimensions of the ascending aorta are normal. The IVC is of normal diameter and collapses greater than 50% with a sniff. This suggests a low right atrial pressure of 3 mm Hg. Pericardium/ Pleura There is no pericardial effusion. There is no pleural effusion. MMode/2D Measurements & Calculations LVIDd: 4.5 cm LVOT diam: 1.9 cm LVIDs: 3.0 cm Ao root diam: 3.4 cm FS: 34.1 % asc Aorta Diam: 3.2 cm IVSd: 0.72 cm Ao Arch Diam (Prox Trans): 1.5 cm LVPWd: 0.88 cm LV liu. diameter/BSA (cm/m^2): 2.4 LV sys. diameter/BSA (cm/m^2): 1.6 LA A2 area: 15.6 cm2 RA long axis: 4.6 cm LA A4 area: 20.3 cm2 RA area: 12.6 cm2 LA length (vol): 5.0 cm RA vol: 29.1 ml LA vol: 53.3 ml RA : 15.4 ml/m2 LA vol index: 28.1 ml/m2 IVC diam: 1.2 cm RVD1 (basal): 2.7 cm RVD2 (mid): 2.3 cm TAPSE: 2.2 cm Doppler Measurements & Calculations Ao V2 max: 157.9 cm/sec LVOT Max Gilbert: 119.0 cm/sec Ao V2 mean: 117.1 cm/sec LV V1 max P.7 mmHg Ao max P.0 mmHg LV V1 VTI: 27.9 cm Ao mean P.9 mmHg JOSE(I,D): 2.0 cm2 Ao V2 VTI: 38.8 cm JOSE(V,D): 2.1 cm2 sev ratio: 0.72 JOSE indexed to BSA (cm^2/m^2): 1.0 MV E max gilbert: 93.7 cm/sec TR max gilbert: 229.5 cm/sec MV A max gilbert: 103.8 cm/sec TR max P.1 mmHg MV E/A: 0.90 PA V2 max: 102.3 cm/sec Med Peak E' Gilbert: 8.0 cm/sec PA V2 mean: 73.7 cm/sec E/E' med: 11.8 PA mean P.4 mmHg Lat Peak E' Gilbert: 9.5 cm/sec PA pr(Accel): 32.8 mmHg E/E' lat: 9.9 E/e' average: 10.8 MV dec time: 0.28 sec SV(LVOT): 76.5 ml Electronically signed by: Joy Luevano M.D. on Reading Physician:11/17/2023 04:42 PM
--- NOTE | 2023-11-17 13:39 | DI.CT.S_ITS ---
PROCEDURE: CT CHEST WO CON INDICATIONS: increased dyspnea TECHNIQUE: Noncontrast 5 mm thick sections acquired from the pulmonary apices to the posterior costophrenic angles. 1 mm lung window, 5 mm thick coronal and sagittal and 7 mm axial MIP reformats were then acquired. For radiation dose reduction, the following was used: automated exposure control, adjustment of mA and/or kV according to patient size. COMPARISON: [facility], CR, XR CHEST 1V, 09/11/2023, 8:42. FINDINGS: Image quality: Diagnostic. Lower Neck: No enlarged lymph nodes. Thyroid: No thyroid nodules which require sonographic follow up, per consensus guidelines. Axillae: No enlarged lymph nodes. Chest Wall: Unremarkable. Bones: Visualized osseous structures appear intact without acute fracture or focal destructive lesion. No acute compression fractures of the imaged spine. Lungs and Pleura: No pneumothorax or pleural effusions. No consolidation or suspicious nodules. No septal thickening or nodularity. Visualized airways are clear. Heart: Heart size is normal. No pericardial effusion. Coronary atherosclerotic vascular calcifications are noted. Thoracic Vessels: The aorta and pulmonary arteries demonstrate normal size. Atherosclerotic calcifications of the aortic arch are present. Mediastinum and Andressa: No enlarged lymph nodes. Esophagus: No wall thickening. No hiatal hernia. Upper Abdomen: Visualized upper abdomen solid organs and bowel loops appear normal. IMPRESSION: CT chest without acute cardiopulmonary abnormalities. No abnormality explain patient's history of persistent dyspnea. Atherosclerotic vascular calcifications of the coronary arteries and thoracic aorta. Dictated by: González Park M.D. on 11/17/2023 at 17:38 Approved by: González Park M.D. on 11/17/2023 at 17:45
== END ==
LOC: ECHO 13:39
PROVIDERS: Family Provider Internal Medicine; PCP Internal Medicine; Referring Provider Student in an Organized Health Care Education/Training Program; Visit Provider Student in an Organized Health Care Education/Training Program
DX: R06.00 Dyspnea, unspecified (principal)
CPT/HCPCS: 71250; 93306

== ENCOUNTER → 2023-11-18 11:18 | Outpatient (CLI) | payer MEDICARE, OTHER, SELFPAY ==
[2023-09-21 09:42] VITALS: BMI 32.2
== END ==
PROVIDERS: Family Provider Internal Medicine; PCP Internal Medicine; Referring Provider Student in an Organized Health Care Education/Training Program; Visit Provider Student in an Organized Health Care Education/Training Program
DX: J44.9 Chronic obstructive pulmonary disease, unspecified (principal); Z87.891 Personal history of nicotine dependence; R94.2 Abnormal results of pulmonary function studies; R06.09 Other forms of dyspnea
CPT/HCPCS: 94060; 94726; 94729

== ENCOUNTER 2024-01-20 08:30 | Outpatient (RCR) | payer MEDICARE, OTHER, SELFPAY ==
[2023-09-21 09:42] VITALS: BMI 32.2
== END 2024-01-20 10:30 ==
LOC: PUL 08:30
PROVIDERS: Family Provider Internal Medicine; PCP Internal Medicine; Referring Provider Student in an Organized Health Care Education/Training Program; Visit Provider Student in an Organized Health Care Education/Training Program
DX: R06.09 Other forms of dyspnea (principal)
CPT/HCPCS: G0237; G0238

== ENCOUNTER 2024-01-20 13:28 | Emergency (ER) | payer MEDICARE, OTHER, SELFPAY ==
[2023-09-21 09:42] VITALS: BMI 32.2
[2024-01-20 13:36] VITALS: BP 154/69; PULSE 72; RESP 18; TEMP 36.3; O2SAT 97; BMI 33.3
--- NOTE | 2024-01-20 13:41 | DI.RAD.S_ITS ---
PROCEDURE: XR CHEST 1V INDICATIONS: chest pain TECHNIQUE: One view of the chest was acquired. COMPARISON: [facility], CR, XR CHEST 1V, 09/11/2023, 8:42. [facility], CR, XR CHEST 1V, 06/05/2023, 16:11. FINDINGS: Surgical changes and devices: None. Lungs and pleura: Lungs are clear. No pleural effusions or pneumothorax. Mediastinum: Mediastinal contours appear normal. Heart size is normal. Bones and chest wall: No suspicious bony lesions. Overlying soft tissues appear unremarkable. IMPRESSION: No acute cardiopulmonary abnormality is seen. Dictated by: Gorge Myers M.D. on 01/20/2024 at 14:28 Approved by: Gorge Myers M.D. on 01/20/2024 at 14:28
--- NOTE | 2024-01-20 13:41 | EKG_ITS ---
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
[2024-01-20 14:15] LABS: Add Manual Diff / Slide Review NO; Basophils Absolute Auto 200 /uL (0-100); Basophils Percent Auto 2.2 % (0-2); Eosinophils Absolute Auto 900 /uL (0-450); Eosinophils Percent Auto 8.8 % (2-4); Hematocrit 37.8 % (36-46); Hemoglobin 12.3 g/dL (12.0-16.0); Lymphocytes Absolute Auto 2800 /uL (1100-4500); Lymphocytes Percent Auto 28.1 % (25-40); Mean Corpuscular HGB Conc 32.7 % (30-36); Mean Corpuscular Hemoglobin 29.8 PG (26-34); Mean Corpuscular Volume 91.3 fL (80-100); Monocytes Absolute Auto 700 /uL (0-900); Monocytes Percent Auto 7.1 % (3-14); Neutrophils Absolute Auto 5300 /uL (1500-7000); Neutrophils Percent Auto 53.8 % (50-75); Platelet Count 336 X10^3/uL (150-400); Red Blood Cell Count 4.14 X10^6/uL (4.0-5.2); White Blood Cell Count 9.9 X10^3/uL (4.5-11.0)
[2024-01-20 14:20] LABS: INR 1.1 (0.9-1.3); Prothrombin Time 11.9 SECONDS (9.4-12.5)
[2024-01-20 14:22] LABS: PTT Partial Thromboplastin Tim 32 SECONDS (25.1-36.5)
[2024-01-20 14:26] LABS: Alanine Aminotransferase 21 IU/L (<35); Albumin 4.1 g/dL (3.5-5.0); Albumin Globulin Ratio 1.3 (1.0-2.8); Alkaline Phosphatase 71 U/L (38-126); Aspartate Aminotransferase 28 IU/L (14-36); BUN Creatinine Ratio 15.4 (6-22); Bilirubin Total 0.4 mg/dL (0.2-1.3); Blood Urea Nitrogen 16 mg/dL (7-17); Calcium 9.3 mg/dL (8.4-10.2); Carbon Dioxide 23 mmol/L (22-32); Chloride 105 mmol/L (98-107); Creatine Kinase 38 U/L (30-135); Estimated Glomerular Filt Rate 55 mL/min (>60); Globulin 3.2 g/dL (1.7-4.1); Glucose 126 mg/dL (80-110); HEMOLYSIS 32 (0-50); Lipase 101 U/L (23-300); Magnesium 1.6 mg/dL (1.6-2.3); Potassium 3.7 mmol/L (3.4-5.1); Sodium 136 mmol/L (137-145); Total Protein 7.3 g/dL (6.3-8.2)
[2024-01-20] MEDS: ASPIRIN 81 MG CHEW TAB 324 MG PO (14:29)
[2024-01-20 14:32] VITALS: BP 112/57; PULSE 69; RESP 18; O2SAT 98
[2024-01-20 15:01] LABS: NT-proBNP (BNP-Adult 18+) 204 pg/mL (<450); Troponin I < 0.012 ng/mL (0.01-0.034)
--- NOTE | 2024-01-20 15:09 | ED_ITS ---
HPI - Chest Pain General Chief Complaint: Chest Pain Stated Complaint: sent by Cardio for increased bouts of chest px Time Seen by Provider: 01/20/24 14:37 History of Present Illness HPI narrative: patient here with a friend. Complains of off and on chest pain for the past couple of weeks. She was seen by cardiology services 5 months ago. Has had stress test echocardiogram. Given nitroglycerin as needed for chest pain which she takes and is effective. However in the past 1 week she takes it 5 -7 times a day. Has chest tightness with and without exertion. Patient sees Dr. West cardiology group with [facility]. She is appointment tomorrow with the office. She was instructed to come here today. She did take nitro prior to arrival. Is chest pain-free. Was given aspirin here. Has never had heart catheterization . No nausea no sweating no dyspnea Related Data Home Medications Medication Instructions Recorded Confirmed multivitamin (Multiple Vitamins 1 tab PO DAILY ##0 10/27/16 12/30/23 tablet) sodium chloride 5 % eye ointment 1 melissa OPHTH BEDTIME PRN Eye 10/27/16 12/30/23 (Destiny 128) disorder ##0 flecainide 100 mg tablet 100 mg PO Q12H 11/06/17 12/30/23 losartan 50 mg tablet 50 mg PO BEDTIME 11/23/18 12/30/23 Probiotic 1 cap PO DAILY 12/10/18 12/30/23 ascorbic acid (vitamin C) 1,000 mg 1 g PO DAILY 12/10/18 12/30/23 tablet cholecalciferol (vitamin D3) 25 3,000 unit PO DAILY 12/10/18 12/30/23 mcg (1,000 unit) capsule (Vitamin D3) metronidazole 0.75 % topical cream 1 applic topical DAILY 12/10/18 12/30/23 (MetroCream) spironolactone 25 mg tablet 12.5 mg PO DAILY 05/25/20 12/30/23 aspirin 81 mg tablet,delayed 81 mg PO DAILY 06/19/21 12/30/23 release (Adult Low Dose Aspirin) naproxen sodium 220 mg capsule 220 mg PO DAILY PRN 04/25/22 12/30/23 (Aleve) diltiazem HCl 60 mg tablet 60 mg PO BID 05/20/23 12/30/23 nitroglycerin [Nitrostat] sublingual 07/22/24 10/30/24 Previous Rx's Medication Instructions Recorded albuterol sulfate 90 mcg/actuation 2 puff inhalation Q4H PRN 09/23/17 aerosol inhaler shortness of breath or wheezing #1 inh budesonide 180 mcg/actuation 2 inhalation inhalation BID #2 02/03/19 breath activated powder inhaler inhalations (Pulmicort Flexhaler) fluticasone propionate 50 See Rx Instructions .Route 04/05/20 mcg/actuation nasal .COMPLEX #16 grams spray,suspension estradiol 0.01% (0.1 mg/gram) 1 g vaginal 2XW #42.5 grams 03/13/21 vaginal cream (Estrace) albuterol sulfate 2.5 mg/0.5 mL 2.5 mg (0.5 mL) inhalation Q6H PRN 07/01/22 solution for nebulization bronchospasm #30 ea rosuvastatin 5 mg tablet (Crestor) 2.5 mg (1/2 x 5 mg) PO DAILY #7 02/02/23 tabs [address] permit #1 ea 03/12/23 benzonatate 200 mg capsule 200 mg PO TID PRN cough #20 caps 06/05/23 tiotropium bromide 2.5 2 inh inhalation QAM #4 grams 10/20/23 mcg/actuation mist for inhalation (Spiriva Respimat) omeprazole 40 mg capsule,delayed 40 mg PO DAILY #90 caps 12/24/23 release semaglutide 0.25 mg or 0.5 mg (2 0.25 mg (0.368 mL) SUBCUT QWEEK #3 12/24/23 mg/3 mL) subcutaneous pen injector mL (Ozempic) semaglutide 0.25 mg or 0.5 mg (2 0.5 mg (0.736 mL) SUBCUT QWEEK #3 01/01/24 mg/3 mL) subcutaneous pen injector mL (Ozempic) Allergies Allergy/AdvReac Type Severity Reaction Status Date / Time adhesive tape Allergy Severe PAPER TAPE Verified 01/20/24 13:41 allergy - Dermatitis latex [LATEX] Allergy Severe Hives, Verified 01/20/24 13:41 Wheezing sulfamethoxazole Allergy Intermediate Rash Verified 01/20/24 13:41 [From Bactrim] trimethoprim [From Bactrim] Allergy Intermediate Rash Verified 01/20/24 13:41 bupropion [From WELLBUTRIN] AdvReac Severe Tremors Verified 01/20/24 13:41 erythromycin base AdvReac Severe GI Upset, Verified 01/20/24 13:41 [ERYTHROMYCIN BASE] Bloody diarrhea lisinopril [LISINOPRIL] AdvReac Severe Cough Verified 01/20/24 13:41 meperidine [From DEMEROL] AdvReac Severe Hallucinati Verified 01/20/24 13:41 ng Review of Systems Review of Systems Narrative: GENERAL: Negative chills, fatigue, malaise, fever, sweats. HEENT: Negative sinus pain, ear pain, sore throat RESPIRATORY: Negative dyspnea, cough CARDIOVASCULAR: positivechest pain, negativepalpitations GASTROINTESTINAL: Negative nausea, vomiting, abdominal pain : Negative dysuria, frequency, hematuria MUSCULOSKELETAL: Negative muscle or bony pain SKIN: Negative rash, skin lesions NEUROLOGIC: Negative weakness, numbness ROS Unobtainable: All systems reviewed & are unremarkable except as noted in HPI and below Patient History Medical History (Updated 01/20/24 @ 15:27 by Alejandro Membreno MD) Dyspnea History of uterine cancer Eczematous dermatitis Thyroid nodule Paroxysmal atrial fibrillation Premature ventricular contraction SVT (supraventricular tachycardia) Chronic diastolic (congestive) heart failure Osteopenia TMJ pain dysfunction syndrome Do not resuscitate Allergic rhinitis Skin cancer, basal cell (~2020) Mumps Measles Cholangioma Uterine cancer (~1975) Ventricular escape beats 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 Recurrent UTI History of iron deficiency anemia (~2018) Lumbar back pain with radiculopathy affecting left lower extremity PAD (peripheral artery disease) Cystocele Postmenopausal atrophic vaginitis BPPV (benign paroxysmal positional vertigo) Gastritis Mild aortic valve sclerosis (~2017) Bruit of left carotid artery Internal hemorrhoids Diverticulosis Ankle fracture, left (1987) Prediabetes History of psychosis (1968) Elbow fracture, right (2015) Positive PPD (1977) Epiretinal membrane (2004) Corneal dystrophy (2002) Rectocele GERD (gastroesophageal reflux disease) (2004) Diverticular disease (2016) Graves's esophagus (2013) Hypercholesterolemia Hyperlipidemia (1996) Hypertension Hemorrhoids (~1969) Frequent UTI (~2018) Kidney stones (2010) Abnormal Pap smear of cervix (1975) Cataract (2002) Hearing loss (~2015) Chicken pox (195) Rosacea (2011) Ankle pain (1989) Anxiety (1984) Hayfever (1965) Asthma (2015) Osteoarthritis (~1994) Surgical History S/P lumbar fusion History of meniscectomy of left knee (~04/2021) S/P epidural steroid injection (~02/10/21) Hx of blepharoplasty (01/2020) History of esophagogastroduodenoscopy (EGD) (~01/2019) Status post angioplasty with stent (~10/2019) Anesthesia History of ear, nose, and throat (ENT) surgery (1977) History of foot surgery (2007) Status post open reduction with internal fixation (ORIF) of fracture of ankle (1987) Status post colonoscopy (2015) History of cataract removal with insertion of prosthetic lens (2002) History of knee replacement (2012) Status post laparoscopic cholecystectomy (2001) Status post hysterectomy (1975) History of esophagogastroduodenoscopy (EGD) (07/2015) Family History Brother Brain aneurysm CVA (cerebral vascular accident) Mental health problem Alcoholism Brother Alcoholism Heart disease Father No problems noted. Grandfather Alcoholism Suicide Grandmother CVA (cerebral vascular accident) Mother CVA (cerebral vascular accident) [place] (myocardial infarction) Lung cancer Hypertension Heart disease Grandfather No problems noted. Grandmother MVA (motor vehicle accident) Sister Thalassemia Dementia Drug addiction Sister Alcoholism Brother Ischemia Alcoholism CVA (cerebral vascular accident) Social History details: , two grown children household members: none Smoking Status: Former smoker alcohol intake: current Smoking Status: Former smoker alcohol intake frequency: a few times a month Substance Use Type: does not use Exam Narrative Exam Narrative: GENERAL: in no distress, not toxic not dyspneic HEAD: Normocephalic. EYES: Pupils equal round ENT: Mucous membranes moist. NECK: Trachea midline. CARDIOVASCULAR: Regular rate and rhythm RESPIRATORY: Clear to auscultation. Breath sounds equal bilaterally. No wheezes, rales, or rhonchi. GASTROINTESTINAL: Abdomen soft, non-tender EXTREMITIES: No gross deformities. BACK: No flank tenderness. NEURO: AOx4. SKIN: Warm and dry PSYCH: Not anxious, is cooperative Initial Vital Signs Initial Vital Signs: Vital Signs Temperature 97.4 F L 01/20/24 13:36 Pulse Rate 72 01/20/24 13:36 Respiratory Rate 18 01/20/24 13:36 Blood Pressure 154/69 H 01/20/24 13:36 Pulse Oximetry 97 01/20/24 13:36 Oxygen Delivery Method Room Air 01/20/24 13:36 Course Orders Ordered: Discontinued Medications Aspirin (Aspirin 81 Mg Chew Tab) 324 mg PO NOW ONE Stop: 01/20/24 13:42 Last Admin: 01/20/24 14:29 Dose: 243 mg Documented By: ANGELA Vital Signs Vital signs: Vital Signs - 8 hr 01/20/24 13:36 01/20/24 14:32 Temperature 97.4 F L Pulse Rate 72 69 Respiratory Rate 18 18 Blood Pressure 154/69 H 112/57 L Pulse Oximetry 97 98 Oxygen Delivery Method Room Air Room Air MDM - Chest Pain Lab Data 01/20/24 13:55 01/20/24 13:55 Labs: Lab Results 01/20/24 Range/Units 13:55 WBC 9.9 (4.5-11.0) X10^3/uL RBC 4.14 (4.0-5.2) X10^6/uL Hgb 12.3 (12.0-16.0) g/dL Hct 37.8 (36-46) % MCV 91.3 (80-100) fL MCH 29.8 (26-34) PG MCHC 32.7 (30-36) % RDW 14.0 (11.6-14.8) % Plt Count 336 (150-400) X10^3/uL Neut % (Auto) 53.8 (50-75) % Lymph % (Auto) 28.1 (25-40) % [place] % (Auto) 7.1 (3-14) % Eos % (Auto) 8.8 H (2-4) % Baso % (Auto) 2.2 H (0-2) % Neut # (Auto) 5300 (0622-2197) /uL Lymph # (Auto) 2800 (8509-8680) /uL [place] # (Auto) 700 (0-900) /uL Eos # (Auto) 900 H (0-450) /uL Baso # (Auto) 200 H (0-100) /uL PT 11.9 (9.4-12.5) SECONDS INR 1.1 (0.9-1.3) APTT 32 (25.1-36.5) SECONDS Sodium 136 L (137-145) mmol/L Potassium 3.7 (3.4-5.1) mmol/L Chloride 105 (98-107) mmol/L Carbon Dioxide 23 (22-32) mmol/L BUN 16 (7-17) mg/dL Creatinine 1.04 (0.52-1.04) mg/dL Estimated GFR 55 L (>60) mL/min BUN/Creatinine Ratio 15.4 (6-22) Glucose 126 H (80-110) mg/dL Calcium 9.3 (8.4-10.2) mg/dL Magnesium 1.6 (1.6-2.3) mg/dL Total Bilirubin 0.4 (0.2-1.3) mg/dL AST 28 (14-36) IU/L ALT 21 (<35) IU/L Alkaline Phosphatase 71 (38-126) U/L Total Creatine Kinase 38 (30-135) U/L Troponin I < 0.012 (0.01-0.034) ng/mL NT-Pro-B Natriuret Pep 204 (<450) pg/mL Total Protein 7.3 (6.3-8.2) g/dL Albumin 4.1 (3.5-5.0) g/dL Globulin 3.2 (1.7-4.1) g/dL Albumin/Globulin Ratio 1.3 (1.0-2.8) Lipase 101 (23-300) U/L Imaging Data Chest x-ray: Radiologist's Impression: [address] [address] XRay Report Signed Patient: Shirley Zamora MR#: [id number] : 1945 Acct:[id number] Age/Sex: 78 / F Date of Service: 01/20/24 Loc: ED Accession Number: [id number] Procedure: XR chest 1V Ordering Provider: Alejandro Membreno MD PROCEDURE: XR CHEST 1V INDICATIONS: chest pain TECHNIQUE: One view of the chest was acquired. COMPARISON: [facility], XR CHEST 1V, 09/11/2023, 8:42. [facility], CR, XR CHEST 1V, 06/05/2023, 16:11. FINDINGS: Surgical changes and devices: None. Lungs and pleura: Lungs are clear. No pleural effusions or pneumothorax. Mediastinum: Mediastinal contours appear normal. Heart size is normal. Bones and chest wall: No suspicious bony lesions. Overlying soft tissues appear unremarkable. IMPRESSION: No acute cardiopulmonary abnormality is seen. Dictated by: Gorge Myers M.D. on 01/20/2024 at 14:28 Approved by: Gorge Myers M.D. on 01/20/2024 at 14:28 [facility] Narrative Medical decision making narrative: patient here with a friend. Complains of off and on chest pain for the past couple of weeks. She was seen by cardiology services 5 months ago. Has had stress test echocardiogram. Given nitroglycerin as needed for chest pain which she takes and is effective. However in the past 1 week she takes it 5 -7 times a day. Has chest tightness with and without exertion. Patient sees Dr. West cardiology group with [facility]. She is appointment tomorrow with the office. She was instructed to come here today. She did take nitro prior to arrival. Is chest pain-free. Was given aspirin here. Has never had heart catheterization After history and exam CBC CMP EKG troponin chest x-ray aspirin, no D-dimer indicated this time. [facility] Medical records reviewed: no recent visit here for this complaint Differential considered: Includes but not limited to STEMI non-STEMI angina unstable angina Lab Test results independently reviewed as above. Pertinent findings: troponin less than 0.012 WBC 9.9 hemoglobin 12.3 INR 1.1 sodium 136 potassium 3.7 BUN 16 creatinine 1.04 BNP 204 WBC 9.9 hemoglobin 12.3 Independently reviewed EKG sinus rhythm rate [address] elevation or depression Imaging studies independently reviewed: chest x-ray no acute finding Consultations: 3:15 p.m.. Spoke with patient's cardiology group, Dr. Jaramillo, has reviewed patient's chart from their system, patient had normal heart catheterization 5 years ago. Patient had a normal nuclear stress test 3 months ago. No repeat troponin indicated. Symptoms have been going on for over a week. Patient to follow up in the office tomorrow as scheduled. he does not feel this is cardiac in origin Treatments: aspirin Re-evaluations: 3:30 p.m.. Patient remains symptom-free. Reviewed with patient results and my discussion with her cardiology group. She agrees and is comfortable for discharge home and follow up tomorrow as scheduled in the office. Return precautions reviewed. She desires discharge home Discussion: appropriate for discharge home exam is reassuring. Chest pain- free at time of discharge. I did review with cardiology services. Return precautions reviewed. She desires discharge home. Diagnosis: atypical chest pain Discharge Plan Departure Patient Disposition: Home Clinical Impression: Atypical chest pain Instructions: DI for Atypical Chest Pain Activity Restrictions/Additional Instructions: Your exam and laboratory studies are reassuring. Your cardiology office group has been contacted today, they would like you to follow up in the office tomorrow as scheduled. Continue home medications. Return if worse if any questions or concerns. Continue your home medications Prescriptions: No Action multivitamin [Multiple Vitamins] 1 EACH tablet 1 tab PO DAILY Qty: 0 sodium chloride [Destiny 128] 3.5 GM ointment 1 melissa OPHTH BEDTIME PRN (Reason: Eye disorder) Qty: 0 albuterol sulfate 90 mcg/actuation HFA aerosol inhaler 2 puff INHALATION Q4H PRN (Reason: shortness of breath or wheezing) Qty: 1 2RF Patient Comments: not on home medication list Rx Instructions: administer with spacer; 2 puffs inh q 4 hours PRN Pulmicort Flexhaler 180 mcg/actuation aerosol powdr breath activated 2 inhalation inhalation BID Qty: 2 5RF fluticasone propionate 50 mcg/actuation spray,suspension See Rx Instructions .ROUTE .COMPLEX Qty: 16 2RF Dose Instruction: Administer 2 sprays intranasally into each nostril daily Rx Instructions: Administer 2 sprays intranasally into each nostril daily estradiol [Estrace] 0.01 % (0.1 mg/gram) cream 1 g Vaginal 2XW Qty: 42.5 5RF rosuvastatin [Crestor] 5 mg tablet 2.5 mg PO DAILY Qty: 7 0RF Spiriva Respimat 2.5 mcg/actuation mist 2 inh inhalation QAM Qty: 4 0RF Ozempic 0.25 mg or 0.5 mg (2 mg/3 mL) pen injector 0.5 mg SUBCUT QWEEK Qty: 3 5RF flecainide 100 mg tablet 100 mg PO Q12H nitroglycerin [Nitrostat] sublingual diltiazem HCl 60 mg tablet 60 mg PO BID losartan 50 mg tablet 50 mg PO BEDTIME spironolactone 25 mg tablet 12.5 mg PO DAILY aspirin [Adult Low Dose Aspirin] 81 mg tablet,delayed release (DR/EC) 81 mg PO DAILY (DME) Disabled parking permit Qty: 1 0RF Rx Instructions: I find this patient to be medically disabled and qualified for disabled parking as indicated, and signed, on the accompanying disabled parking application for individuals. Ozempic 0.25 mg or 0.5 mg (2 mg/3 mL) pen injector 0.25 mg SUBCUT QWEEK Qty: 3 0RF Rx Instructions: for 4 weeks omeprazole 40 mg capsule,delayed release(DR/EC) 40 mg PO DAILY Qty: 90 3RF ascorbic acid (vitamin C) 1,000 mg Tablet 1 g PO DAILY cholecalciferol (vitamin D3) [Vitamin D3] 1,000 unit Capsule 3,000 unit PO DAILY Probiotic 1 cap PO DAILY metronidazole [MetroCream] 0.75 % Cream 1 applic TOPICAL DAILY albuterol sulfate 2.5 mg/0.5 mL solution for nebulization 2.5 mg inhalation Q6H PRN (Reason: bronchospasm) Qty: 30 0RF naproxen sodium [Aleve] 220 mg capsule 220 mg PO DAILY PRN benzonatate 200 mg capsule 200 mg PO TID PRN (Reason: cough) Qty: 20 0RF Referrals: Kel Arvizu MD [Primary Care Provider] - Stand Alone Forms: Patient Portal/API/Survey
[2024-01-20 15:26] VITALS: BP 141/58; PULSE 63; RESP 18; O2SAT 98
== END 2024-01-20 15:37 | disposition home or self-care (01) ==
PROVIDERS: Emergency Provider Emergency Medicine; Family Provider Internal Medicine; PCP Internal Medicine
DX: R07.89 Other chest pain (principal)
CPT/HCPCS: 36415; 71045; 80053; 82550; 83690; 83735; 83880; 84484; 85025; 85610; 85730; 93005; 99284

== ENCOUNTER → 2024-04-15 06:58 | Outpatient (CLI) | payer MEDICARE, OTHER, SELFPAY ==
[2023-09-21 09:42] VITALS: BMI 32.2
--- NOTE | 2024-04-15 06:59 | DI.US.S_ITS ---
PROCEDURE: US ABD AORTA ANEURYSM SCREEN INDICATIONS: LT ILIAC ARTERY STENT 2019. RT GROIN ART CATH 2 WEEKS AGO. TECHNIQUE: Real time scanning was performed of the aorta and iliac arteries, with image documentation. COMPARISON: [facility], , US ARTERIAL DUPLEX LE LT, 09/05/2019, 14:17. [facility], , US ARTERIAL DUPLEX LE LT, 08/23/2020, 13:57. [facility], CT, CT ABDOMEN PELVIS W CON, 08/01/2019, 14:12. FINDINGS: Aorta: The proximal aorta is not well seen. Mid-aorta measures 1.6 cm. Distal aortic diameter is 1.8 cm. Iliac arteries: Right common iliac artery measures 1 cm. Left common iliac artery measures 1 cm. Within the right proximal common iliac artery, the flow velocities measure (proximal to distal) 205 centimeters/second, 182 centimeters/second, 151 centimeters/second. Within the right distal common femoral artery, there is increased flow velocity seen measuring 407 centimeters/second. Within the right proximal superficial femoral artery, the flow velocity is 205 centimeters/second. Within the right proximal profunda femoris artery, the flow velocity is 648 centimeters/second. On the left, the flow velocities are not elevated. There is a patent stent seen within the distal left common iliac artery. Multiple levels of significant atherosclerotic plaque can be seen. IMPRESSION: There is a patent stent within the left common iliac artery. Abnormal flow velocities can be seen within the distal right common femoral artery, the proximal right superficial femoral artery, and the proximal right superficial femoral artery-representing high-grade stenoses at the sites. Please consider CT angiogram runoff versus interventional radiology consultation. Dictated by: Tonny Carmona M.D. on 04/15/2024 at 12:06 Approved by: Tonny Carmona M.D. on 04/15/2024 at 12:10
== END ==
LOC: US 06:59
PROVIDERS: Family Provider Internal Medicine; PCP Internal Medicine; Referring Provider Physician Assistant; Visit Provider Physician Assistant
DX: I77.1 Stricture of artery (principal)
CPT/HCPCS: 76706

== ENCOUNTER → 2024-05-17 09:32 | Outpatient (CLI) | payer MEDICARE, OTHER, SELFPAY ==
[2023-09-21 09:42] VITALS: BMI 32.2
[2024-05-17 10:19] LABS: Hematocrit 39.7 % (36-46); Hemoglobin 13.1 g/dL (12.0-16.0); Mean Corpuscular HGB Conc 32.9 % (30-36); Mean Corpuscular Hemoglobin 29.7 PG (26-34); Mean Corpuscular Volume 90.3 fL (80-100); Platelet Count 326 X10^3/uL (150-400); Red Blood Cell Count 4.39 X10^6/uL (4.0-5.2); Red Cell Distribution Width 15.8 % (11.6-14.8); White Blood Cell Count 10.2 X10^3/uL (4.5-11.0)
[2024-05-17 10:42] LABS: Hemoglobin A1C% w Est Avg Glu 5.3 % (4.0-6.0)
[2024-05-17 11:29] LABS: Aspartate Aminotransferase 27 IU/L (14-36); Blood Urea Nitrogen 15 mg/dL (7-17); Calcium 9.8 mg/dL (8.4-10.2); Carbon Dioxide 26 mmol/L (22-32); Chloride 103 mmol/L (98-107); Cholesterol 155 mg/dL (140-199); Estimated Glomerular Filt Rate 58 mL/min (>60); Glucose 96 mg/dL (80-110); HDL Cholesterol 41 mg/dL (40-60); HEMOLYSIS < 15 (0-50); LDL Cholesterol Calculated 84 mg/dL (<100); Potassium 4.1 mmol/L (3.4-5.1); Sodium 139 mmol/L (137-145); Triglycerides 152 mg/dL (35-150)
== END ==
PROVIDERS: Family Provider Internal Medicine; PCP Internal Medicine; Referring Provider Internal Medicine; Visit Provider Internal Medicine
DX: I50.32 Chronic diastolic (congestive) heart failure (principal); E11.51 Type 2 diabetes mellitus with diabetic peripheral angiopathy without gangrene; E78.5 Hyperlipidemia, unspecified
CPT/HCPCS: 36415; 80048; 80061; 83036; 84450; 85027

== ENCOUNTER → 2024-06-04 | Outpatient (CLI) | payer MEDICARE, OTHER, SELFPAY ==
[2023-09-21 09:42] VITALS: BMI 32.2
--- NOTE | 2024-06-04 09:46 | DI.MG.S_ITS ---
MM screening mammo BI: 06/04/2024. BI-RADS: 1 CLINICAL: 78-year old female for bilateral screening mammogram. Tyrer-Cuzick lifetime risk of 1.9%. No personal or first-degree family history of breast cancer. PRIOR EXAMS 05/01/2023, 05/10/2022, 01/04/2021, 11/02/2019, 10/13/2018, 04/29/2017, 01/23/2016, 11/09/2014. MAMMOGRAPHY TECHNIQUE: 2D and 3D (tomosynthesis) digital mammographic views obtained, with additional images as needed for full coverage. Current study was also evaluated with a Computer Aided Detection (CAD) system. DENSITY B. There are scattered areas of fibroglandular density. MAMMOGRAPHY FINDINGS Bilateral: No suspicious mass, asymmetry, microcalcification, or other abnormality seen. No significant change from comparison. IMPRESSION: * No evidence of malignancy. RECOMMENDATIONS Bilateral * Annual screening mammography. OVERALL ASSESSMENT CATEGORY BI-RADS-1: Negative. The [employer] recommends annual screening mammography beginning at age 40 for women with average risk of breast cancer. ELECTRONICALLY SIGNED: Nicky Sheppard M.D. on 06/06/2024 at 01:14:42 PM PT Interpreting Station ID: [id number]
== END ==
PROVIDERS: Family Provider Internal Medicine; PCP Internal Medicine; Referring Provider Internal Medicine; Visit Provider Internal Medicine
DX: Z12.31 Encounter for screening mammogram for malignant neoplasm of breast (principal)
CPT/HCPCS: 77063; 77067

== ENCOUNTER → 2024-10-05 15:40 | Outpatient (CLI) | payer MEDICARE, OTHER, SELFPAY ==
[2023-09-21 09:42] VITALS: BMI 32.2
[2024-10-05 15:58] LABS: Hematocrit 35.4 % (36-46); Hemoglobin 12.1 g/dL (12.0-16.0); Mean Corpuscular HGB Conc 34.3 % (30-36); Mean Corpuscular Hemoglobin 31.5 PG (26-34); Mean Corpuscular Volume 91.8 fL (80-100); Platelet Count 297 X10^3/uL (150-400)
[2024-10-05 16:16] LABS: Blood Urea Nitrogen 31 mg/dL (7-17); Calcium 9.4 mg/dL (8.4-10.2); Carbon Dioxide 24 mmol/L (22-32); Chloride 107 mmol/L (98-107); Estimated Glomerular Filt Rate 40 mL/min (>60); Glucose 93 mg/dL (70-99); HEMOLYSIS < 15 (0-50); Potassium 4.3 mmol/L (3.4-5.1); Sodium 140 mmol/L (137-145)
[2024-10-05 16:17] LABS: Hemoglobin A1C% w Est Avg Glu 6.0 % (4.0-6.0)
[2024-10-05 16:48] LABS: TSH w/ Reflex to FT4 2.46 uIU/mL (0.47-4.68)
== END ==
PROVIDERS: Family Provider Internal Medicine; PCP Internal Medicine; Referring Provider Internal Medicine; Visit Provider Internal Medicine
DX: I25.85 Chronic coronary microvascular dysfunction (principal); E11.51 Type 2 diabetes mellitus with diabetic peripheral angiopathy without gangrene; I47.19 Other supraventricular tachycardia
CPT/HCPCS: 36415; 80048; 83036; 84443; 85027

== ENCOUNTER → 2024-10-07 12:24 | Outpatient (CLI) | payer MEDICARE, OTHER, SELFPAY ==
[2023-09-21 09:42] VITALS: BMI 32.2
[2024-10-07 13:28] LABS: Microalbumi Creatinin Ratio Ur 94.0 ug/mg CR (<30)
== END ==
PROVIDERS: Family Provider Internal Medicine; PCP Internal Medicine; Referring Provider Internal Medicine; Visit Provider Internal Medicine
DX: E11.51 Type 2 diabetes mellitus with diabetic peripheral angiopathy without gangrene (principal)
CPT/HCPCS: 82043; 82570

== ENCOUNTER 2024-10-09 10:48 | Emergency (ER) | payer MEDICARE, OTHER, SELFPAY ==
[2023-09-21 09:42] VITALS: BMI 32.2
[2024-10-09] VITALS (24 sets, daily range): BP systolic 147–225; BP diastolic 65–97; PULSE 57–73; RESP 10–23; TEMP 36.4; O2SAT 94–99; BMI 28.7
--- NOTE | 2024-10-09 11:08 | DI.RAD.S_ITS ---
PROCEDURE: XR CHEST 1V INDICATIONS: chest pain TECHNIQUE: One view of the chest was acquired. COMPARISON: [facility], CR, XR CHEST 1V, 01/20/2024, 13:59. FINDINGS: Surgical changes and devices: Cardiac device overlies left chest wall. Lungs and pleura: Lungs are clear. No pleural effusions or pneumothorax. Mediastinum: Mediastinal contours appear normal. Heart size is normal. Bones and chest wall: No suspicious bony lesions. Overlying soft tissues appear unremarkable. IMPRESSION: No acute cardiopulmonary abnormality is seen. Dictated by: Alejandro Chambers M.D. on 10/09/2024 at 10:41 Approved by: Alejandro Chambers M.D. on 10/09/2024 at 10:41
--- NOTE | 2024-10-09 11:08 | EKG_ITS ---
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
[2024-10-09 11:20] LABS: Add Manual Diff / Slide Review NO; Hematocrit 36.2 % (36-46); Hemoglobin 12.3 g/dL (12.0-16.0); Lymphocytes Absolute Auto 2600 /uL (1100-4500); Mean Corpuscular HGB Conc 34.1 % (30-36); Mean Corpuscular Hemoglobin 31.1 PG (26-34); Mean Corpuscular Volume 91.2 fL (80-100); Platelet Count 294 X10^3/uL (150-400)
[2024-10-09 11:25] LABS: Alanine Aminotransferase 22 IU/L (<35); Albumin 4.2 g/dL (3.5-5.0); Albumin Globulin Ratio 1.4 (1.0-2.8); Alkaline Phosphatase 82 U/L (38-126); Blood Urea Nitrogen 29 mg/dL (7-17); Calcium 9.7 mg/dL (8.4-10.2); Carbon Dioxide 23 mmol/L (22-32); Chloride 106 mmol/L (98-107); Creatine Kinase < 20 U/L (30-135); Estimated Glomerular Filt Rate 41 mL/min (>60); Globulin 3.1 g/dL (1.7-4.1); Glucose 103 mg/dL (70-99); HEMOLYSIS < 15 (0-50); Lipase 94 U/L (23-300); Potassium 3.9 mmol/L (3.4-5.1); Sodium 137 mmol/L (137-145); Total Protein 7.3 g/dL (6.3-8.2)
[2024-10-09] MEDS: MORPHINE 4 MG/ML INJ IV (11:29)
[2024-10-09 11:36] LABS: Troponin I < 0.012 ng/mL (0.01-0.034)
[2024-10-09] MEDS: HEPARIN 5,000 UNIT/ML VIAL 4500 UNIT IV (12:19)
[2024-10-09] MEDS: HEPARIN DRIP 25,000 UNIT/500 ML IV.SOLN 17.091 UNIT IV (12:21)
[2024-10-09] MEDS: NITROGLYCERIN 50 MG/250 ML INFUS..BTL IV (12:32)
--- NOTE | 2024-10-09 12:54 | ED.CHESTPAIN ---
HPI - Chest Pain General Chief Complaint: Chest Pain Stated Complaint: Chest Pain, Syncope Time Seen by Provider: 10/09/24 10:51 Source: patient Mode of arrival: EMS History of Present Illness HPI narrative: 79-year-old woman with a history of significant coronary artery disease with angina, on maximum nitrates as well as ranolazine, history of Graves's esophagus, hyperlipidemia, COPD, diabetes who comes in today with severe chest pain. Her anginal symptoms are regular throughout the day. She takes between 2 and 6 additional sublingual nitroglycerin on top of the isosorbide and ranolazine. She has had multiple visits to the emergency department for recurrent episodes of chest pain. Sees Dr. West, cardiology. Apparently had a diagnostic heart catheterization showed she had restrictions past 80% in at least 2 arteries with no stents placed. Apparently there was a discussion of cardiac bypass. She has an appointment with the [facility] mobile mechanic team on December 12 to discuss bypass surgery. She currently has a Zio patch in place because of recurrent episodes of palpitations. Most recent visit was to [facility] Emergency Department in August with serial troponins unremarkable and pain completely resolved with morphine. Today was taking a shower and began having significant chest pain was dizzy ended up calling medics after 2 nitro did not relieve her pain. Medics gave her aspirin and a single nitroglycerin with pain improved. She reports no recent fever, cough, chills, nausea, vomiting, abdominal pain, constipation Related Data Home Medications ?Medication ?Instructions ?Recorded ?Confirmed multivitamin (Multiple Vitamins 1 tab PO DAILY ##0 10/27/16 09/27/24 tablet) sodium chloride 5 % eye ointment 1 melissa OPHTH BEDTIME PRN Eye 10/27/16 09/27/24 (Destiny 128) disorder ##0 Probiotic 1 cap PO DAILY 12/10/18 09/27/24 ascorbic acid (vitamin C) 1,000 mg 1 g PO DAILY 12/10/18 09/27/24 tablet cholecalciferol (vitamin D3) 25 3,000 unit PO DAILY 12/10/18 09/27/24 mcg (1,000 unit) capsule (Vitamin D3) metronidazole 0.75 % topical cream 1 applic topical DAILY 12/10/18 09/27/24 (MetroCream) spironolactone 25 mg tablet 12.5 mg PO DAILY 05/25/20 09/27/24 aspirin 81 mg tablet,delayed 81 mg PO DAILY 06/19/21 09/27/24 release (Adult Low Dose Aspirin) nitroglycerin 0.4 mg sublingual mg sublingual 03/09/24 09/27/24 tablet ezetimibe 10 mg tablet 10 mg PO DAILY 08/02/24 09/27/24 isosorbide mononitrate 30 mg 120 mg PO DAILY 08/02/24 09/27/24 tablet,extended release 24 hr Previous Rx's ?Medication ?Instructions ?Recorded fluticasone propionate 50 See Rx Instructions .Route 04/05/20 mcg/actuation nasal .COMPLEX #16 grams spray,suspension estradiol 0.01% (0.1 mg/gram) 1 g vaginal 2XW #42.5 grams 03/13/21 vaginal cream (Estrace) albuterol sulfate 2.5 mg/0.5 mL 2.5 mg (0.5 mL) inhalation Q6H PRN 07/01/22 solution for nebulization bronchospasm #30 ea rosuvastatin 5 mg tablet (Crestor) 2.5 mg (1/2 x 5 mg) PO DAILY #7 02/02/23 tabs Disabled [address] permit #1 ea 03/12/23 semaglutide 0.25 mg or 0.5 mg (2 0.25 mg (0.368 mL) SUBCUT QWEEK #3 02/22/24 mg/3 mL) subcutaneous pen injector mL (Ozempic) losartan 50 mg tablet 50 mg PO DAILY #90 tabs 10/05/24 sertraline 50 mg tablet 50 mg PO DAILY #90 tabs 10/05/24 metoprolol tartrate 50 mg tablet 50 mg PO BID #60 tabs 10/09/24 nitroglycerin 0.4 mg sublingual 0.4 mg sublingual Q5-15M PRN chest 10/09/24 tablet pain #30 tabs ranolazine 1,000 mg 1,000 mg PO BID #60 tabs 10/09/24 tablet,extended release,12 hr Allergies Allergy/AdvReac Type Severity Reaction Status Date / Time adhesive tape Allergy Severe PAPER TAPE Verified 10/09/24 11:00 allergy - Dermatitis latex (LATEX) Allergy Severe Hives, Verified 10/09/24 11:00 Wheezing sulfamethoxazole (From Allergy Intermediate Rash Verified 10/09/24 11:00 Bactrim) trimethoprim (From Bactrim) Allergy Intermediate Rash Verified 10/09/24 11:00 bupropion (From WELLBUTRIN) AdvReac Severe Tremors Verified 10/09/24 11:00 erythromycin base AdvReac Severe GI Upset, Verified 10/09/24 11:00 (ERYTHROMYCIN BASE) Bloody diarrhea lisinopril (LISINOPRIL) AdvReac Severe Cough Verified 10/09/24 11:00 meperidine (From DEMEROL) AdvReac Severe Hallucinati Verified 10/09/24 11:00 ng Review of Systems Review of Systems Narrative: General: Healthy appearing, in no acute distress. Able to give a complete and coherent history. Well-nourished well-developed HEENT: Moist mucous membranes, normal sclera with reactive pupils, Respiratory: Lungs are clear to auscultation, no wheezing no rales no rhonchi. Full and symmetrical air movement Cardiac: Regular rate and rhythm no murmurs no bruits, no reproducible chest pain to palpation Abdomen: Soft, nontender, no rebound or guarding, no flank pain Skin: Warm and dry, no rashes Neurologic: Grossly neurologically intact with no obvious asymmetries or abnormalities Extremities: No trauma, well perfused Psych: Cooperative, appropriate insight and affect Patient History Medical History (Updated 10/09/24 @ 16:52 by Julieta Goodrich MD) Coronary artery disease Dyspnea History of uterine cancer Eczematous dermatitis Thyroid nodule Paroxysmal atrial fibrillation Premature ventricular contraction SVT (supraventricular tachycardia) Chronic diastolic (congestive) heart failure Osteopenia TMJ pain dysfunction syndrome Do not resuscitate Allergic rhinitis Skin cancer, basal cell (~2020) Mumps Measles Cholangioma Uterine cancer (~1975) Ventricular escape beats 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 Recurrent UTI History of iron deficiency anemia (~2018) Lumbar back pain with radiculopathy affecting left lower extremity PAD (peripheral artery disease) Cystocele Postmenopausal atrophic vaginitis BPPV (benign paroxysmal positional vertigo) Gastritis Mild aortic valve sclerosis (~2017) Bruit of left carotid artery Internal hemorrhoids Diverticulosis Ankle fracture, left (1987) Prediabetes History of psychosis (1968) Elbow fracture, right (2015) Positive PPD (1977) Epiretinal membrane (2004) Corneal dystrophy (2002) Rectocele GERD (gastroesophageal reflux disease) (2004) Diverticular disease (2016) Graves's esophagus (2013) Hypercholesterolemia Hyperlipidemia (1996) Hypertension Hemorrhoids (~1969) Frequent UTI (~2018) Kidney stones (2010) Abnormal Pap smear of cervix (1975) Cataract (2002) Hearing loss (~2015) Chicken pox (1954) Rosacea (2011) Ankle pain (1989) Anxiety (1984) Hayfever (1965) Asthma (2015) Osteoarthritis (~1994) Surgical History S/P lumbar fusion History of meniscectomy of left knee (~04/2021) S/P epidural steroid injection (~02/10/21) Hx of blepharoplasty (01/2020) History of esophagogastroduodenoscopy (EGD) (~01/2019) Status post angioplasty with stent (~10/2019) Anesthesia History of ear, nose, and throat (ENT) surgery (1977) History of foot surgery (2007) Status post open reduction with internal fixation (ORIF) of fracture of ankle (1987) Status post colonoscopy (2015) History of cataract removal with insertion of prosthetic lens (2002) History of knee replacement (2012) Status post laparoscopic cholecystectomy (2001) Status post hysterectomy (1975) History of esophagogastroduodenoscopy (EGD) (07/2015) Family History Brother Brain aneurysm CVA (cerebral vascular accident) Mental health problem Alcoholism Brother Alcoholism Heart disease Father No problems noted. Grandfather Alcoholism Suicide Grandmother CVA (cerebral vascular accident) Mother CVA (cerebral vascular accident) [place] (myocardial infarction) Lung cancer Hypertension Heart disease Grandfather No problems noted. 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 lashae/spiritism: [employer] special lashae needs: No travel history: over 6 months ago sexual history: History only leisure activities: clubs, games, reading and other other: Miniatures seatbelt use: always water heater temp set < 120 deg: Yes working smoke detector in home: Yes fire extinguisher in home: Yes carbon monox detector in home: Yes firearms in home: No do you feel safe at home: Yes in current or past relationships, have you been: other Smoking Status: Never smoker Tobacco: How many years used: 54 second hand exposure: Yes alcohol intake: former during the past year weight has: decreased > 10 lbs well-balanced diet: daily or most days daily servings fruits/ve-4 caffeine: No eating out: 1-3 times/week Type(s) of exercise: walking and sedentary lifestyle frequency: daily duration: 15-30 minutes/day additional social history: Have great supportive friends. Child not supportive ! Smoking Status: Never smoker alcohol intake frequency: a few times a month Exam Initial Vital Signs Initial Vital Signs: Vital Signs Temperature 97.6 F 10/09/24 11:00 Pulse Rate 68 10/09/24 11:00 Respiratory Rate 20 10/09/24 11:00 Blood Pressure 225/97 H 10/09/24 11:00 Pulse Oximetry 98 10/09/24 11:00 Oxygen Delivery Method Room Air 10/09/24 11:00 Course Orders Ordered: ED Orders 10/09/24 10:54 Complete Blood Count AUTO DIFF Stat Comprehensive Metabolic Panel Stat Lipase Stat PTT Partial Thromboplastin Frank Q6H Troponin & CK Cardiac Panel Stat 10/09/24 11:08 XR chest 1V Stat EKG-12 Lead Stat 10/09/24 18:15 PTT Partial Thromboplastin Frank Q6H 10/10/24 00:15 PTT Partial Thromboplastin Frank Q6H 10/10/24 05:00 Hemoglobin and Hematocrit DAILY Platelet Count DAILY 10/10/24 06:15 PTT Partial Thromboplastin Frank Q6H 10/11/24 05:00 Hemoglobin and Hematocrit DAILY Platelet Count DAILY Nitroglycerin (Nitroglycerin) 50 mg in 250 mls @ 1.5 mls/hr IV TITRATE JENNIFER; Protocol Last Admin: 10/09/24 12:32 Dose: 5 mcg/min, 1.5 mls/hr Documented By: JASON Heparin Sodium/Dextrose (Heparin Drip) 25,000 unit in 500 mls @ 17.091 mls/hr IV CONT JENNIFER; Protocol Last Admin: 10/09/24 12:21 Dose: 12 units/kg/hr, 17.091 mls/hr Documented By: JASON Co-signed By: ARACELY Ondansetron HCl (Ondansetron 4 Mg/2 Ml Inj) 4 mg IV NOW PRN PRN Reason: nausea Discontinued Medications Aspirin (Aspirin 81 Mg Chew Tab) 324 mg PO NOW ONE Stop: 10/09/24 11:09 Last Admin: 10/09/24 11:33 Dose: Not Given Documented By: JASON Heparin Sodium (Porcine) (Heparin 5,000 Unit/Ml Vial) 4,500 unit 60 unit/kg (4500 unit) IV NOW ONE Stop: 10/09/24 12:04 Last Admin: 10/09/24 12:19 Dose: 4,500 unit Documented By: JASON Morphine Sulfate (Morphine 4 Mg/Ml Inj) 4 mg IV NOW ONE Stop: 10/09/24 11:09 Last Admin: 10/09/24 11:29 Dose: 4 mg Documented By: JASON Vital Signs Vital signs: Vital Signs - 8 hr 10/09/24 11:00 10/09/24 11:23 10/09/24 11:30 Temperature 97.6 F Pulse Rate 68 70 67 Respiratory Rate 20 18 10 L Blood Pressure 225/97 H 206/83 H Pulse Oximetry 98 99 99 Oxygen Delivery Method Room Air Room Air Room Air 10/09/24 11:30 10/09/24 11:39 10/09/24 11:39 Temperature Pulse Rate 64 Respiratory Rate 16 Blood Pressure 181/77 H 165/69 H Pulse Oximetry 98 Oxygen Delivery Method 10/09/24 12:00 10/09/24 12:00 10/09/24 12:30 Temperature Pulse Rate 64 68 Respiratory Rate 19 20 Blood Pressure 177/74 H Pulse Oximetry 97 99 Oxygen Delivery Method 10/09/24 12:31 10/09/24 12:34 10/09/24 12:34 Temperature Pulse Rate 69 66 Respiratory Rate 18 20 Blood Pressure 213/93 H Pulse Oximetry 99 98 Oxygen Delivery Method Room Air MDM - Chest Pain Lab Data 10/09/24 10:54 10/09/24 10:54 Labs: Lab Results 10/09/24 Range/Units 10:54 WBC 8.6 (4.5-11.0) X10^3/uL RBC 3.97 L (4.0-5.2) X10^6/uL Hgb 12.3 (12.0-16.0) g/dL Hct 36.2 (36-46) % MCV 91.2 (80-100) fL MCH 31.1 (26-34) PG MCHC 34.1 (30-36) % RDW 14.8 (11.6-14.8) % Plt Count 294 (150-400) X10^3/uL Neut % (Auto) 54.5 (50-75) % Lymph % (Auto) 30.1 (25-40) % [place] % (Auto) 8.1 (3-14) % Eos % (Auto) 5.5 H (2-4) % Baso % (Auto) 1.8 (0-2) % Neut # (Auto) 4700 (7252-0732) /uL Lymph # (Auto) 2600 (5448-7944) /uL [place] # (Auto) 700 (0-900) /uL Eos # (Auto) 500 H (0-450) /uL Baso # (Auto) 200 H (0-100) /uL APTT 31 (25.1-36.5) SECONDS Sodium 137 (137-145) mmol/L Potassium 3.9 (3.4-5.1) mmol/L Chloride 106 (98-107) mmol/L Carbon Dioxide 23 (22-32) mmol/L BUN 29 H (7-17) mg/dL Creatinine 1.33 H (0.52-1.04) mg/dL Estimated GFR 41 L (>60) mL/min BUN/Creatinine Ratio 21.8 (6-22) Glucose 103 H (70-99) mg/dL Calcium 9.7 (8.4-10.2) mg/dL Total Bilirubin 0.6 (0.2-1.3) mg/dL AST 27 (14-36) IU/L ALT 22 (<35) IU/L Alkaline Phosphatase 82 (38-126) U/L Total Creatine Kinase < 20 L (30-135) U/L Troponin I < 0.012 (0.01-0.034) ng/mL Total Protein 7.3 (6.3-8.2) g/dL Albumin 4.2 (3.5-5.0) g/dL Globulin 3.1 (1.7-4.1) g/dL Albumin/Globulin Ratio 1.4 (1.0-2.8) Lipase 94 (23-300) U/L MDM Narrative Medical decision making narrative: CC: Worsening chest pain Complicating co-morbidities: For last 14 months she has been having increasing anginal symptoms. She did have a positive cardiac catheterization, she is on large doses of nitrates and ranolazine to help with her pain. This is now her 5th visit were recurrent chest pain and she has referral to the [facility] for consideration of bypass surgery in November of this year. Hypertension, hyperlipidemia Data collected from: patient Medical records reviewed: Notes from [facility] are reviewed , September 01, 2024 Dr Kingston Sheppard MD Interventional cardiology procedure, heart catheterization March 31, 2024 reviewed. Left main: Small distal LM aneurysm, distal LM 26% Lad: Ostial LAD 46%, high D1 patent, due to patent, mid to distal LAD has mild/moderate diffuse disease up to 30%, apical LAD reaches LV apex Left circumflex: Nondominant, high OM1 patent, OM2 patent Right coronary artery: Dominant proximal to distal RCA RPDA patent, RPL patent Left ventricle end-diastolic pressure is 10 mmHg Impression: Moderate distal LM, moderate ostial LAD, combined LM and LAD was physiologically not significant. Plan was to continue medical management and stop her flecainide. Differential considered: NSTEMI, STEMI, unstable angina, stable angina, microvascular disease Exam documented above, pertinent findings include: Exam is benign Lab Test results independently reviewed as above. Pertinent findings: CBC is unremarkable Chemistries are notable for stable renal insufficiency with creatinine at 1.3. Electrolytes are appropriate Troponin is undetectable Independently reviewed EKG: Sinus rhythm at a rate of 76 with no ischemic changes Imaging studies independently reviewed: Chest x-ray is unremarkable Consultations: Dr Portillo, cardiology reviewed clinical presentation. He had access to more of her chart. She has significant microvascular angina which is not going to improve with nitro drip or heparin so these are discontinued. His recommendation was increase the ranolazine up to a maximum of a 1000 b.i.d., make sure that her blood pressure is maximized and increase losartan up to 50 mg b.i.d. if needed. Add metoprolol we will begin with 50 mg b.i.d.. 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 When I discussed titrating medications up and down based on blood pressure and heart rate she was quite conversant and expressed clear understanding and how to do that. Treatments: Nitroglycerin, aspirin With recurrent pain at rest heparin and IV nitroglycerin were initiated and after discussion with Cardiology were discontinued Metoprolol 50 mg orally, losartan 50 mg orally Re-evaluations: The idea of microvascular angina, the reason she is not an obvious CABG or interventional candidate and the reason for aggressive medical management of her disease are all reviewed with the patient. She expresses understanding. Discussion: Microvascular angina, no indication for hospitalization, troponins are undetectable x2. Discussion with Cardiology change to medical management as described below with close outpatient cardiology follow up Continue the high dose of isosorbide You can continue to use as needed nitroglycerin as needed We want to make sure that your blood pressure is consistently in the 120 systolic range -add metoprolol tartrate 50 mg b.i.d., if you are having ongoing pain and your blood pressure is above 120 systolic and your heart rate is above 55 you can take a 3rd metoprolol during the day -add an extra dose of losartan for a total of 50 mg twice a day. If your blood pressure is consistently dropping after starting the metoprolol, go back to 50 mg of losartan, if your blood pressure continues to be low you can go back to 25 of losartan Discharge Plan Departure Patient Disposition: Home Clinical Impression: Angina pectoris with coronary microvascular dysfunction Instructions: DI for Angina Activity Restrictions/Additional Instructions: Thank you for coming in You are having chest pain, it is microvascular which means you are not going to have the drop in the doorway type heart attack that men will do. To better manage your ongoing anginal pain, Continue the high dose of isosorbide You can continue to use as needed nitroglycerin as needed We want to make sure that your blood pressure is consistently in the 120 systolic range -add metoprolol tartrate 50 mg b.i.d., if you are having ongoing pain and your blood pressure is above 120 systolic and your heart rate is above 55 you can take a 3rd metoprolol during the day -add an extra dose of losartan for a total of 50 mg twice a day. If your blood pressure is consistently dropping after starting the metoprolol, go back to 50 mg of losartan, if your blood pressure continues to be low you can go back to 25 of losartan -we are going to maximize the ranolazine, increase this to a total of a 1000 mg twice a day I would schedule a follow up appointment with Dr. West given the multiple changes we are making in your medications Please do plan on keeping your consultation with [facility] in November You said you had enough losartan at home and did not need refills I refilled your sublingual nitroglycerin, new prescription for metoprolol and increase dose of ranolazine were all sent to [facility] Prescriptions: New nitroglycerin 0.4 mg tablet, sublingual 0.4 mg sublingual Q5-15M PRN (Reason: chest pain) Qty: 30 3RF Rx Instructions: do not exceed 3 doses per episode metoprolol tartrate 50 mg tablet 50 mg PO BID Qty: 60 0RF ranolazine 1,000 mg tablet extended release 12 hr 1,000 mg PO BID Qty: 60 0RF No Action multivitamin [Multiple Vitamins] 1 EACH tablet 1 tab PO DAILY Qty: 0 sodium chloride [Destiny 128] 3.5 GM ointment 1 melissa OPHTH BEDTIME PRN (Reason: Eye disorder) Qty: 0 fluticasone propionate 50 mcg/actuation spray,suspension See Rx Instructions .ROUTE .COMPLEX Qty: 16 2RF Dose Instruction: Administer 2 sprays intranasally into each nostril daily Rx Instructions: Administer 2 sprays intranasally into each nostril daily estradiol [Estrace] 0.01 % (0.1 mg/gram) cream 1 g Vaginal 2XW Qty: 42.5 5RF rosuvastatin [Crestor] 5 mg tablet 2.5 mg PO DAILY Qty: 7 0RF ezetimibe 10 mg tablet 10 mg PO DAILY sertraline 50 mg tablet 50 mg PO DAILY Qty: 90 3RF losartan 50 mg tablet 50 mg PO DAILY Qty: 90 3RF spironolactone 25 mg tablet 12.5 mg PO DAILY aspirin [Adult Low Dose Aspirin] 81 mg tablet,delayed release (DR/EC) 81 mg PO DAILY (DME) Disabled parking permit Qty: 1 0RF Rx Instructions: I find this patient to be medically disabled and qualified for disabled parking as indicated, and signed, on the accompanying disabled parking application for individuals. Ozempic 0.25 mg or 0.5 mg (2 mg/3 mL) pen injector 0.25 mg SUBCUT QWEEK Qty: 3 5RF Rx Instructions: for 4 weeks ascorbic acid (vitamin C) 1,000 mg Tablet 1 g PO DAILY cholecalciferol (vitamin D3) [Vitamin D3] 1,000 unit Capsule 3,000 unit PO DAILY Probiotic 1 cap PO DAILY metronidazole [MetroCream] 0.75 % Cream 1 applic TOPICAL DAILY albuterol sulfate 2.5 mg/0.5 mL solution for nebulization 2.5 mg inhalation Q6H PRN (Reason: bronchospasm) Qty: 30 0RF nitroglycerin 0.4 mg tablet, sublingual sublingual isosorbide mononitrate 30 mg tablet extended release 24 hr 120 mg PO DAILY Referrals: Kel Arvizu MD [Primary Care Provider, Internal Medicine] Stand Alone Forms: Patient Portal/API
[2024-10-09 13:06] LABS: PTT Partial Thromboplastin Tim 31 SECONDS (25.1-36.5)
[2024-10-09] MEDS: LOSARTAN 50 MG TABLET PO (14:45)
[2024-10-09] MEDS: RANOLAZINE 500 MG TAB.ER.12H PO (14:45)
[2024-10-09] MEDS: METOPROLOL IR 25 MG TABLET 50 MG PO ×2 (14:45→16:31)
[2024-10-09 15:19] LABS: Troponin I < 0.012 ng/mL (0.01-0.034)
--- NOTE | 2024-10-09 16:31 | PC.NURSE ---
Metoprolol 50 mg po labeled for home use per Dr. Goodrich request. Pt verbalized understanding that it was to be taken this evening.
== END 2024-10-09 17:39 | disposition home or self-care (01) ==
PROVIDERS: Emergency Provider Emergency Medicine; Family Provider Internal Medicine; PCP Internal Medicine
DX: I20.81 Angina pectoris with coronary microvascular dysfunction (principal); Z98.61 Coronary angioplasty status
CPT/HCPCS: 71045; 80053; 82550; 83690; 84484; 85025; 85730; 93005; 96365; 96368; 96375; 99284; 99285; J1644; J2270

== ENCOUNTER → 2024-11-17 15:22 | Outpatient (CLI) | payer MEDICARE, OTHER, SELFPAY ==
[2023-09-21 09:42] VITALS: BMI 32.2
[2024-11-17 15:44] LABS: Add Manual Diff / Slide Review NO; Hematocrit 36.1 % (36-46); Hemoglobin 12.1 g/dL (12.0-16.0); Lymphocytes Absolute Auto 2800 /uL (1100-4500); Mean Corpuscular HGB Conc 33.7 % (30-36); Mean Corpuscular Hemoglobin 30.7 PG (26-34); Mean Corpuscular Volume 91.2 fL (80-100); Platelet Count 318 X10^3/uL (150-400)
[2024-11-17 16:18] LABS: Alanine Aminotransferase 19 IU/L (<35); Albumin 4.1 g/dL (3.5-5.0); Albumin Globulin Ratio 1.4 (1.0-2.8); Alkaline Phosphatase 78 U/L (38-126); Blood Urea Nitrogen 27 mg/dL (7-17); Calcium 9.6 mg/dL (8.4-10.2); Carbon Dioxide 24 mmol/L (22-32); Chloride 105 mmol/L (98-107); Estimated Glomerular Filt Rate 51 mL/min (>60); Globulin 3.0 g/dL (1.7-4.1); Glucose 107 mg/dL (70-99); HEMOLYSIS 32 (0-50); Potassium 4.7 mmol/L (3.4-5.1); Sodium 137 mmol/L (137-145); Total Protein 7.1 g/dL (6.3-8.2)
== END ==
PROVIDERS: Family Provider Internal Medicine; PCP Internal Medicine; Referring Provider Physician Assistant; Visit Provider Physician Assistant
DX: K52.9 Noninfective gastroenteritis and colitis, unspecified (principal)
CPT/HCPCS: 36415; 80053; 85025

== ENCOUNTER → 2024-11-18 14:57 | Outpatient (CLI) | payer MEDICARE, OTHER, SELFPAY ==
[2023-09-21 09:42] VITALS: BMI 32.2
[2024-11-18 19:52] LABS: Clostridium Difficile Tox PCR Negative for C. diff (Negative)
== END ==
PROVIDERS: Family Provider Internal Medicine; PCP Internal Medicine; Referring Provider Internal Medicine; Visit Provider Physician Assistant
DX: K52.9 Noninfective gastroenteritis and colitis, unspecified (principal)
CPT/HCPCS: 87177; 87493

== ENCOUNTER → 2024-11-19 11:59 | Outpatient (CLI) | payer MEDICARE, OTHER, SELFPAY ==
[2023-09-21 09:42] VITALS: BMI 32.2
== END ==
LOC: LAB 12:00
PROVIDERS: Family Provider Internal Medicine; PCP Internal Medicine; Visit Provider Physician Assistant Medical
DX: R30.0 Dysuria (principal)
CPT/HCPCS: 87077; 87086; 87186

== ENCOUNTER → 2024-11-21 07:42 | Outpatient (CLI) | payer MEDICARE, OTHER, SELFPAY ==
[2023-09-21 09:42] VITALS: BMI 32.2
== END ==
PROVIDERS: Family Provider Internal Medicine; PCP Internal Medicine; Referring Provider Physician Assistant; Visit Provider Physician Assistant
DX: K52.9 Noninfective gastroenteritis and colitis, unspecified (principal)
CPT/HCPCS: 82274

== ENCOUNTER → 2025-01-25 07:54 | Outpatient (CLI) | payer MEDICARE, OTHER, SELFPAY ==
[2023-09-21 09:42] VITALS: BMI 32.2
[2025-01-25 09:04] LABS: Cholesterol 136 mg/dL (140-199); HDL Cholesterol 48 mg/dL (40-60); Triglycerides 123 mg/dL (35-150)
== END ==
PROVIDERS: Family Provider Internal Medicine; PCP Internal Medicine; Referring Provider Internal Medicine; Visit Provider Nurse Practitioner Pediatrics
DX: E78.00 Pure hypercholesterolemia, unspecified (principal); I25.112 Atherosclerotic heart disease of native coronary artery with refractory angina pectoris
CPT/HCPCS: 36415; 80061

== ENCOUNTER → 2025-02-08 11:09 | Outpatient (CLI) | payer MEDICARE, OTHER, SELFPAY ==
[2023-09-21 09:42] VITALS: BMI 32.2
== END ==
PROVIDERS: Family Provider Internal Medicine; PCP Internal Medicine; Visit Provider Nurse Practitioner Family
DX: R30.0 Dysuria (principal)
CPT/HCPCS: 87077; 87086